=== PATIENT | male | born 1960 | race Caucasian/White ===

== ENCOUNTER 2017-02-11 18:11 | Emergency (ER) | payer OTHER ==
[~2017-02-11] VITALS: Ht 175.3 cm; Wt 59.0 kg
[2017-02-11 18:12] VITALS: BP 158/84; PULSE 103; RESP 18; TEMP 98.9; O2SAT 95
[2017-02-11] MEDS ORDERED: METF1000 PO (20:46)
[2017-02-11] MEDS ORDERED: EMPA1TAB3 PO (20:46)
--- NOTE | 2017-02-11 20:49 | PD ---
HPI Chief Complaint: Skin Problem Time Seen by Provider: 20:44 Travel History International Travel<30 days: No Contact w/Intl Traveler<30days: No Traveled to known affect area: No History of Present Illness HPI 56-year-old male who is left handed presents to emergency department for evaluation of a wound to the dorsal aspect of his left hand. Patient states that he cut this on air-conditioning condenser 3 days ago. It was initially like a puncture wound. It developed redness surrounding it. He states over the course of the last 3 days he has noticed the redness increasing and now has streaking on his left forearm. Denies fever or chills. Denies any significant pain associated with it. He is uncertain of his tetanus status. He is diabetic. He has no other symptoms to report. PFSH Past Medical History COPD: Yes Diabetes: Yes Patient Takes Glucophage: Yes Diminished Hearing: No Past Surgical History Surgical History: No Previous Surgery Social History Alcohol Use: No Tobacco Use: Yes Substance Use: No Allergies-Medications (Allergen,Severity, Reaction): Coded Allergies: No Known Allergies (Verified Allergy, Unknown, 02/11/17) Reported Meds & Prescriptions Reported Meds & Active Scripts Active Keflex (Cephalexin) 500 Mg Capsule 500 Mg PO Q8H 10 Days Bactrim DS (Sulfamethoxazole-Trimethoprim) 800-160 Mg Tab 1 Tab PO BID Reported Jardiance (Empagliflozin) 25 Mg Tab 25 Mg PO DAILY Metformin (Metformin HCl) 1,000 Mg Tab 1,000 Mg PO BIDPC Review of Systems Except as stated in HPI: all other systems reviewed are Neg Physical Exam Narrative GENERAL: Well-nourished, well-developed palpation in no acute distress. SKIN: Focused skin assessment warm/dry. 1 cm in diameter wound on the dorsal aspect of the right hand. This is surrounded by 8 cm in diameter erythema. The fingers are not included. There is no significant edema. There is red streaking up to the mid left forearm. No axilla lymphadenopathy. HEAD: Normocephalic. EYES: No scleral icterus. No injection or drainage. NECK: Supple, trachea midline. No JVD or lymphadenopathy. CARDIOVASCULAR: Regular rate and rhythm without murmurs, gallops, or rubs. RESPIRATORY: Breath sounds equal bilaterally. No accessory muscle use. MUSCULOSKELETAL: No cyanosis, or edema. BACK: Nontender without obvious deformity. No CVA tenderness. Data Data Last Documented VS Vital Signs Date Time Temp Pulse Resp B/P (MAP) Pulse Ox O2 Delivery O2 Flow Rate FiO2 02/11/17 21:33 02/11/17 18:12 98.9 103 18 95 Room Air Orders Orders Tetanus/Diphtheria Tox Adult (Tetanus/Di (02/11/17 21:00) Sulfamet-Trimeth Ds 800-160 Mg (Bactrim (02/11/17 21:00) Cephalexin (Keflex) (02/11/17 21:00) Ed Discharge Order (02/11/17 21:25) [facility] Medical Decision Making Medical Screen Exam Complete: Yes Emergency Medical Condition: Yes Medical Record Reviewed: Yes Differential Diagnosis Cellulitis versus abscess versus foreign body versus lymphangitis Narrative Course 56-year-old male presents to emergency department for evaluation of left dorsal hand wound with associated erythema streaking to the left forearm. This is a worsening over last 3 days. Patient appears well. He is he febrile. Extremity is neurovascularly intact. He'll be updated on his tetanus vaccination and started on oral antibiotics outpatient. Patient was signed out to my attending physician for final disposition. He is encouraged follow-up the primary care provider and return immediately with any acute worsening of symptoms. Diagnosis Primary Impression: Cellulitis and abscess of hand, except fingers and thumb Scripts Cephalexin (Keflex) 500 Mg Capsule 500 MG PO Q8H for Infection for 10 Days, #30 CAP 0 Refills Prov: Laurent Hayes MD 02/11/17 Sulfamethoxazole-Trimethoprim (Bactrim DS) 800-160 Mg Tab 1 TAB PO BID for Infection, #20 TAB 0 Refills Prov: Laurent Hayes MD 02/11/17 Condition: Stable Jolanta ChewP Feb 11, 2017 20:49
[2017-02-11] MEDS ORDERED: CEPHALEXIN MONOHYDRATE 500 MG CAP PO ONE (21:00)
[2017-02-11] MEDS ORDERED: SULFAMETHOXAZOLE-TRIMETHOPRIM DS 800-160 MG TAB PO ONE (21:00)
[2017-02-11] MEDS ORDERED: TETANUS/DIPHTHERIA TOXOID ADULT 0.5 ML VIAL IM ONE (21:00)
[2017-02-11] MEDS ORDERED: BACT800T5 PO (21:23)
[2017-02-11] MEDS ORDERED: CEPH-460 PO (21:23)
--- NOTE | 2017-02-11 21:25 | PD ---
Data Data Last Documented VS Vital Signs Date Time Temp Pulse Resp B/P (MAP) Pulse Ox O2 Delivery O2 Flow Rate FiO2 02/11/17 18:12 98.9 103 18 158/84 (108) 95 Room Air Orders Orders Tetanus/Diphtheria Tox Adult (Tetanus/Di (02/11/17 21:00) Sulfamet-Trimeth Ds 800-160 Mg (Bactrim (02/11/17 21:00) Cephalexin (Keflex) (02/11/17 21:00) Hand, Complete ([id number]) (02/11/17 ) MDM Medical Record Reviewed: Yes Supervised Visit with MARLENA: Yes Narrative Course I, Dr. Hayes, have reviewed the advance practice practitioner's documentation and am in agreement, met with the patient face to face, made the diagnosis, and the medical decision making was done by me. *My assessment and Findings: The patient has cellulitis with lymphangitis on the right hand after installing older commissioners. He received a tetanus booster here. Injury happened about 3 days ago. Return precautions discussed. Patient agreeable with plan. Diagnosis Primary Impression: Cellulitis Qualified Codes: L03.113 - Cellulitis of right upper limb Additional Impression: Lymphangitis Med/Other Pt SpecificInfo: Prescription(s) given Scripts Cephalexin (Keflex) 500 Mg Capsule 500 MG PO Q8H for Infection for 10 Days, #30 CAP 0 Refills Prov: Laurent Hayes MD 02/11/17 Sulfamethoxazole-Trimethoprim (Bactrim DS) 800-160 Mg Tab 1 TAB PO BID for Infection, #20 TAB 0 Refills Prov: Laurent Hayes MD 02/11/17 Disposition: 01 DISCHARGE HOME Condition: Stable Laurent Hayes MD Feb 11, 2017 21:25
== END 2017-02-11 21:41 | disposition home or self-care (01) ==
LOC: NEPD 18:11
DX: L02.512 Cutaneous abscess of left hand (principal); E11.9 Type 2 diabetes mellitus without complications; Z23 Encounter for immunization; Z72.0 Tobacco use; Z79.84 Long term (current) use of oral hypoglycemic drugs
CPT/HCPCS: 90471; 90714

== ENCOUNTER 2017-09-09 22:57 | Inpatient (IN) ==
[2017-09-10] MEDS ORDERED: Morphine Inj 4 MG/ML Vial IV.PUSH ONE ×2 (02:05→05:54)
[2017-09-10] MEDS ORDERED: Sod Chloride 0.9% Inj 1,000 ML IV.SIG ONE ×2 (02:05→03:35)
[2017-09-10 02:36] LABS: Baso % (Auto) 0.3 % (0.0-2.0); Hematocrit 41.6 % (39.0-51.0); Hemoglobin 13.5 gm/dL (13.0-17.0); Lymph # (Auto) 0.3 th/mm3 (1.0-4.8); Lymph % (Auto) 2.3 % (9.0-44.0); Mean Corpuscular HGB Conc 32.5 % (32.0-36.0); Mean Corpuscular Volume 92.1 fL (80.0-100.0); Mean Platelet Volume 6.7 fL (7.0-11.0); Mono # (Auto) 0.8 th/mm3 (0.0-0.9); Neut # (Auto) 12.8 th/mm3 (1.8-7.7); Neut % (Auto) 91.4 % (16.0-70.0); Platelet Count 378 th/mm3 (150-450); Red Blood Count 4.51 mil/mm3 (4.50-5.90); Red Cell Distribution Width 14.8 % (11.6-17.2)
[2017-09-10 02:53] LABS: Alanine Aminotransferase 152 U/L (12-78); Albumin 2.6 g/dL (3.4-5.0); Anion Gap 16 meq/L (5-15); Aspartate Aminotransferase 208 U/L (15-37); Blood Urea Nitrogen 18 mg/dL (7-18); Calcium 9.9 mg/dL (8.5-10.1); Carbon Dioxide 24.4 meq/L (21.0-32.0); Chloride 89 meq/L (98-107); Glomerular Filtration Rate 81 mL/min (>89); Lipase 489 U/L (73-393); Potassium 4.5 meq/L (3.5-5.1); Sodium 129 meq/L (136-145)
--- NOTE | 2017-09-10 03:01 | XR ---
EXAM DATE: 09/10/2017 2:40 AM EDT AGE/SEX: 57 years / Male INDICATIONS: Abdominal pain. Distention. Constipation. CLINICAL DATA: This is the patient's initial encounter. Patient reports that signs and symptoms have been present for 4 - 6 days and indicates a pain score of 8/10. MEDICAL/SURGICAL HISTORY: None. None. COMPARISON: No prior exams available for comparison. FINDINGS: Supine and upright views of the abdomen were performed. The abdominal bowel gas pattern is normal. No air-fluid levels are seen. No abnormal masses, calcifications, or organomegaly is seen. The visualiz ed lower lungs are clear. No evidence of free intraperitoneal gas. The osseous structures are unremar kable. CONCLUSION: No dilated loops of small or large bowel. Electronically signed by: Rufus Salgado MD 09/10/2017 2:59 AM EDT
[2017-09-10 03:18] LABS: Alkaline Phosphatase 472 U/L (45-117); Total Protein 8.1 g/dL (6.4-8.2)
[2017-09-10 03:22] LABS: Glucose,Random 555 mg/dL (74-106)
[2017-09-10 03:25] LABS: Bilirubin,Urine Negative (Negative); Clarity,Urine Clear (Clear); Color,Urine Straw (Yellw/Straw); Glucose,Urine (UA) 500 or Greater mg/dL (Negative); Leukocyte Esterase,Urine Negative (Negative); Nitrite,Urine Negative (Negative); Specific Gravity,Urine 1.031 (1.002-1.035)
[2017-09-10 03:30] LABS: Lymphocytes 3 % (9-44); Metamyelocytes 2 % (0-1); Monocytes 2 % (0-8); Myelocytes 1 % (0-0); Platelet Estimate Normal (Normal); Platelet Morphology Normal (Normal)
[2017-09-10 03:31] LABS: Toxic Granulation 1+; Toxic Vacuolation Present
--- NOTE | 2017-09-10 05:30 | CT ---
EXAM DATE: 09/10/2017 4:19 AM EDT AGE/SEX: 57 years / Male INDICATIONS: Abdominal pain. CLINICAL DATA: This is the patient's initial encounter. Patient reports that signs and symptoms have been present for 1 day and indicates a pain score of 6/10. MEDICAL/SURGICAL HISTORY: Diabetes. None. ORAL CONTRAST: No oral contrast ingested. RADIATION DOSE: 6.64 CTDI (mGy) COMPARISON: [facility] – [place], ABDOMEN 2V FLAT & UPRIGHT, 09/10/2017. . TECHNIQUE: Multiple contiguous axial images were obtained through the abdomen and pelvis following b olus infusion of 91 ml Omnipaque 350 (iohexol) nonionic water-soluble contrast as a single exam dos e. No oral contrast ingested. Using automated exposure control and adjustment of the mA and/or kV ac cording to patient size, radiation dose was kept as low as reasonably achievable to obtain optimal di agnostic quality images. DICOM format image data is available electronically for review and comparis on. FINDINGS: Ascites: Significant amount of ascites throughout the abdomen and pelvis, moderate volume, without di splacement of loops of bowel. Lower Lungs: The visualized lower lungs are clear. There are ring-enhancing masses anterior to the he art measuring 3.4 x 2.3 cm and in the posterior mediastinum between the inferior vena cava and esopha salvador at the level of the diaphragm measuring 2.4 cm. Liver: Abnormal. There is an ill-defined hypodense mass in the superior right lobe of the liver measu ring 8.9 cm. Low density lesion in the periportal region measures 8 cm, and there is a geographic are a of decreased attenuation involving most of the liver tip measuring in excess of 8.8 cm. Low density lesion in the quadrate lobe measures 9 mm. No calcified gallstones. Spleen: Homogeneous density without enlargement. Pancreas: Unremarkable without mass or calcification. Kidneys: Normal in size and shape. No evidence of mass or hydronephrosis. Adrenal Glands: Unremarkable. Aorta: The aorta and proximal iliac vessels are grossly unremarkable without aneurysmal dilation. Bowel/Mesentery: The bowel loops are grossly unremarkable. The cecum and sigmoid colon have a normal configuration. Abdominal Wall: Intact. Retroperitoneum: There is a ring-enhancing mass in the upper abdomen retroperitoneum superior to the celiac artery measuring 3.5 x 2.5 cm. Bladder: Contours are smooth. Reproductive Organs: No abnormal masses or calcifications seen. Inguinal: The inguinal region is unremarkable without evidence of adenopathy. Bony Structures: No lytic or destructive lesions seen.. CONCLUSION: 1. Abnormal examination suspicious for malignancy demonstrating significant ascites in the abdomen a nd pelvis, multiple irregular margin hypodense lesions in the liver measuring up to 9 cm in size, and enlarged ring-enhancing katie masses adjacent to the celiac artery, anterior to the heart and adjace nt to the inferior esophagus. Electronically signed by: Rufus Salgado MD 09/10/2017 5:28 AM EDT
[2017-09-10 06:21] LABS: Activated Partial Thrombo Time 23.8 sec (24.3-30.1); INR 1.1 Ratio; Prothrombin Time 10.9 sec (9.8-11.6)
--- NOTE | 2017-09-10 07:37 | ED ---
HPI General Chief Complaint: Abdominal Pain Stated Complaint: Abd pain Time Seen by Provider: 09/10/17 02:04 Source: patient Mode of arrival: ambulatory Limitations: no limitations History of Present Illness HPI narrative: Patient is a 57-year-old male, past medical history significant for hepatitis C for which he took Harvoni, who presents with complaint of abdominal pain distention and constipation for the last several days to week. No fever nor chills. No changes with urination. No chest pain or dyspnea. MD complaint: abdominal pain Onset (ago): day(s) Pain Consistency: constant Location: diffuse Severity: moderate Quality: cramping Radiation: none Relieving factors: nothing Exacerbating factors: nothing Associated symptoms: constipation Related Data Home Medications Medication Instructions Recorded Confirmed empagliflozin-metformin [Synjardy] 1 tab PO BID 09/10/17 09/10/17 Allergies Allergy/AdvReac Type Severity Reaction Status Date / Time No Known Allergies Allergy Unknown Uncoded 02/11/17 20:46 Review of Systems Except as stated in HPI: all other systems reviewed are negative Constitutional Denies chills and Denies fever(s) Eyes Denies blurry vision ENT Denies nasal congestion Cardiovascular Denies chest pain Respiratory Denies dyspnea Gastrointestinal Reports abdominal pain, Reports bloating and Reports constipation Genitourinary Denies flank pain Musculoskeletal Denies back pain Integumentary/Breasts Denies rash [facility] Medical History Medical History Diabetes (Acute) Hepatitis C (Acute) Social History Social History Substance History: No History of Abuse Smoking Status: Never smoker How Often Do You Have a Drink Containing Alcohol: Never Recent Travel in [facility] within the Last 8 Weeks: No Recent Out of Country Travel within the Last 8 Weeks: No Immunization History Tetanus Immunization: >5 Years Hx Influenza Vaccine This Season: Yes Exam Narrative Exam Narrative: GENERAL: Chronically ill-appearing male in no acute distress SKIN: Focused skin assessment warm/dry. HEAD: Atraumatic. Normocephalic. EYES: Pupils equal and round. No scleral icterus. No injection or drainage. ENT: No nasal bleeding or discharge. Mucous membranes pink and dry. NECK: Trachea midline. No JVD. CARDIOVASCULAR: Regular rate and rhythm. No murmur appreciated. Intact and equal peripheral pulses. RESPIRATORY: No accessory muscle use. Clear to auscultation. Breath sounds equal bilaterally. GASTROINTESTINAL: Abdomen soft, diffuse tenderness throughout. Marked distention. MUSCULOSKELETAL: No obvious deformities. No clubbing. No cyanosis. No edema. NEUROLOGICAL: Awake and alert. No obvious cranial nerve deficits. Motor grossly within normal limits. Normal speech. PSYCHIATRIC: Appropriate mood and affect; insight and judgment normal. Course Initial Documented Vital Signs Temperature 97.2 F L 09/10/17 00:16 Pulse Rate 94 H 09/10/17 00:16 Respiratory Rate 16 09/10/17 00:16 Blood Pressure 158/82 H 09/10/17 00:16 Pulse Oximetry 98 09/10/17 00:16 Last Documented Vital Signs Temperature 98.1 F 09/10/17 07:01 Pulse Rate 99 H 09/10/17 07:01 Respiratory Rate 20 09/10/17 07:01 Blood Pressure 142/90 H 09/10/17 07:01 Pulse Oximetry 96 09/10/17 07:01 Medical Decision Making MDM Narrative Medical decision making narrative: Patient is a 57-year-old male who presents with complaint of abdominal pain, distention and constipation. He appears chronically ill but is hemodynamically stable while in the emergency department. Labs revealed hypo-natremia and hyperglycemia on arrival. He was given 2 L of normal saline after which his glucose markedly improved. Imaging revealed moderate ascites with masses suspicious for malignancy within the liver. Spoke to Dr. Martínez, the hospitalist c iron worker, who recommended the patient be admitted to Dr. Raman where he will obtain further workup and management. Differential Diagnosis Differential Diagnosis: Differential diagnosis includes but is not limited to bowel obstruction, infection, cancer, cirrhosis, SBP. Medical Records Medical records reviewed: Yes I reviewed the patient's medical records. Lab Data Lab results reviewed: Yes I reviewed the patient's lab results. Lab results narrative: Labs reveal hyponatremia and hyperglycemia. Result diagrams: 09/10/17 02:22 09/10/17 02:22 Lab Results 09/10/17 09/10/17 09/10/17 Range/Units 02:22 02:22 03:00 WBC 14.0 H (4.0-11.0) th/mm3 RBC 4.51 (4.50-5.90) mil/mm3 Hgb 13.5 (13.0-17.0) gm/dL Hct 41.6 (39.0-51.0) % MCV 92.1 (80.0-100.0) fL MCH 30.0 (27.0-34.0) pg MCHC 32.5 (32.0-36.0) % RDW 14.8 (11.6-17.2) % Plt Count 378 (150-450) th/mm3 MPV 6.7 L (7.0-11.0) fL Prelim Diff (Auto) Slide review pending Neut % (Auto) 91.4 H (16.0-70.0) % Lymph % (Auto) 2.3 L (9.0-44.0) % [place] % (Auto) 6.0 (0.0-8.0) % Eos % (Auto) 0.0 (0.0-4.0) % Baso % (Auto) 0.3 (0.0-2.0) % Neut # (Auto) 12.8 H (1.8-7.7) th/mm3 Lymph # (Auto) 0.3 L (1.0-4.8) th/mm3 [place] # (Auto) 0.8 (0.0-0.9) th/mm3 Eos # (Auto) 0.0 (0.0-0.4) th/mm3 Baso # (Auto) 0.0 (0.0-0.2) th/mm3 WBC Differential Manual diff final Seg Neuts % (Manual) 78 H (16-70) % Band Neuts % (Manual) 14 H (0-6) % Lymphocytes % (Manual) 3 L (9-44) % Monocytes % (Manual) 2 (0-8) % Metamyelocytes % (Man) 2 H (0-1) % Myelocytes % (Man) 1 H (0-0) % Abs Neuts (Manual) 13.3 H (1.8-7.7) th/mm3 Differential Comment . Toxic Granulation 1+ H (None) Toxic Vacuolation Present H (None) Platelet Estimate Normal (Normal) Platelet Morphology Normal (Normal) PT (9.8-11.6) sec INR Ratio APTT (24.3-30.1) sec Sodium 129 L (136-145) meq/L Potassium 4.5 (3.5-5.1) meq/L Chloride 89 L (98-107) meq/L Carbon Dioxide 24.4 (21.0-32.0) meq/L Anion Gap 16 H (5-15) meq/L BUN 18 (7-18) mg/dL Creatinine 0.95 (0.60-1.30) mg/dL Estimated GFR 81 L (>89) mL/min POC Glucose (68-110) mg/dl Random Glucose 555 H* (74-106) mg/dL Calcium 9.9 (8.5-10.1) mg/dL Total Bilirubin 0.9 (0.2-1.0) mg/dL AST 208 H (15-37) U/L ALT 152 H (12-78) U/L Alkaline Phosphatase 472 H (45-117) U/L Total Protein 8.1 (6.4-8.2) g/dL Albumin 2.6 L (3.4-5.0) g/dL Lipase 489 H (73-393) U/L Urine Color Straw (Yellw/Straw) Urine Clarity Clear (Clear) Urine pH 6.0 (5.0-8.5) Ur Specific [place] 1.031 (1.002-1.035) Urine Protein Negative (Neg-Trace) mg/dL Urine Glucose (UA) 500 or greater (Negative) mg/dL Urine Ketones 20 (Negative) mg/dL Urine Occult Blood Negative (Negative) Urine Nitrate Negative (Negative) Urine Bilirubin Negative (Negative) Urine Urobilinogen Less than 2 (Less than 2) mg/dL Ur Leukocyte Esterase Negative (Negative) Urine RBC 1 (0-3) /hpf Urine WBC 1 (0-5) /hpf Micro UA Comment Culture not ind Urine Culture Comments Culture not ind 09/10/17 09/10/17 Range/Units 04:45 06:00 WBC (4.0-11.0) th/mm3 RBC (4.50-5.90) mil/mm3 Hgb (13.0-17.0) gm/dL Hct (39.0-51.0) % MCV (80.0-100.0) fL MCH (27.0-34.0) pg MCHC (32.0-36.0) % RDW (11.6-17.2) % Plt Count (150-450) th/mm3 MPV (7.0-11.0) fL Prelim Diff (Auto) Neut % (Auto) (16.0-70.0) % Lymph % (Auto) (9.0-44.0) % [place] % (Auto) (0.0-8.0) % Eos % (Auto) (0.0-4.0) % Baso % (Auto) (0.0-2.0) % Neut # (Auto) (1.8-7.7) th/mm3 Lymph # (Auto) (1.0-4.8) th/mm3 [place] # (Auto) (0.0-0.9) th/mm3 Eos # (Auto) (0.0-0.4) th/mm3 Baso # (Auto) (0.0-0.2) th/mm3 WBC Differential Seg Neuts % (Manual) (16-70) % Band Neuts % (Manual) (0-6) % Lymphocytes % (Manual) (9-44) % Monocytes % (Manual) (0-8) % Metamyelocytes % (Man) (0-1) % Myelocytes % (Man) (0-0) % Abs Neuts (Manual) (1.8-7.7) th/mm3 Differential Comment Toxic Granulation (None) Toxic Vacuolation (None) Platelet Estimate (Normal) Platelet Morphology (Normal) PT 10.9 (9.8-11.6) sec INR 1.1 Ratio APTT 23.8 L (24.3-30.1) sec Sodium (136-145) meq/L Potassium (3.5-5.1) meq/L Chloride (98-107) meq/L Carbon Dioxide (21.0-32.0) meq/L Anion Gap (5-15) meq/L BUN (7-18) mg/dL Creatinine (0.60-1.30) mg/dL Estimated GFR (>89) mL/min POC Glucose 233 H (68-110) mg/dl Random Glucose (74-106) mg/dL Calcium (8.5-10.1) mg/dL Total Bilirubin (0.2-1.0) mg/dL AST (15-37) U/L ALT (12-78) U/L Alkaline Phosphatase (45-117) U/L Total Protein (6.4-8.2) g/dL Albumin (3.4-5.0) g/dL Lipase (73-393) U/L Urine Color (Yellw/Straw) Urine Clarity (Clear) Urine pH (5.0-8.5) Ur Specific [place] (1.002-1.035) Urine Protein (Neg-Trace) mg/dL Urine Glucose (UA) (Negative) mg/dL Urine Ketones (Negative) mg/dL Urine Occult Blood (Negative) Urine Nitrate (Negative) Urine Bilirubin (Negative) Urine Urobilinogen (Less than 2) mg/dL Ur Leukocyte Esterase (Negative) Urine RBC (0-3) /hpf Urine WBC (0-5) /hpf Micro UA Comment Urine Culture Comments Imaging Data Attestation: I personally reviewed and interpreted this imaging study as follows : Radiologist's impression: Abdomen X-Ray 09/10/17 02:05 CONCLUSION: No dilated loops of small or large bowel. Abdomen/Pelvis CT 09/10/17 02:05 CONCLUSION: 1. 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 Discharge Plan Discharge Disposition Patient Disposition: 30 Still Patient Discharge Condition Condition: Fair Discharge Details Diagnosis: Liver mass, Ascites Physicians Team ED Provider: Patria Irwin Primary Care Provider: Shama Bueno Attending Provider: Hugh Raman Status ED Status: Admitted Patient
[2017-09-10] MEDS ORDERED: Bisacodyl 10 MG Supp RECTAL PRN (09:24)
--- NOTE | 2017-09-10 09:39 | P.HP ---
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 Patient reports he has previously been treated with Harvoni for his hepatitis C by Dr. Honeycutt about 1 year ago. Patient presents to the emergency department with complaints of abdominal distention and constipation for approximately 3 weeks. Patient reports that he has had abd distention that comes and goes ax 3 weeks along with constipation. Patient report that he has had hard ball like stool intermittently over the past 3 weeks. Initially this constipation was relieved by prune juice but this stopped working. He proceeded to the ER for further evaluation and treatment. Patient also indorses intermitted nausea, but no vomiting. Patient denies fevers chills vomiting chest pain or shortness of breath. Abdomen X-Ray 09/10/17 02:05 CONCLUSION: No dilated loops of small or large bowel. Abdomen/Pelvis CT 09/10/17 02:05 CONCLUSION: 1. Abnormal examination suspicious for malignancy demonstrating significant ascites in the abdomen and pelvis, multiple irregular margin hypodense lesions in the liver measuring up to 9 cm in size, and enlarged ring-enhancing aktie masses adjacent to the celiac artery, anterior to the heart and adjacent to the inferior esophagus. 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 Honeycutt 1 year ago Past surgical history: Patient denies prior surgical history Family medical history: patient was adopted does not known [facility] Social history: Patient denies EtOH use at this time quit drinking 19 year ago tobacco use 1PPD, on and off for, "many year," patient unable to quantify denies illicit drug use - Diagnosis (1) Liver mass (2) Ascites Inpatient Certification: I certify that the inpatient services were ordered in accordance with Medicare regulations governing the order. This includes certification that hospital inpatient services are reasonable and necessary and in the case of services not specified as inpatient-only under 42 CFR 419.22(n), that they are appropriately provided as inpatient services in accordance to with the 2-midnight benchmark under 43 CFR 412.3(e) Estimated Total Length of Stay (Days): 3 Plans for Post Hospital Care: Not yet determined Review of Systems All other systems reviewed negative except as stated in HPI PMFSH - History History Provided By: Patient - Medical History Medical History: Medical History (Last Reviewed 09/10/17 @ 07:34 by Patria Irwin MD) Diabetes Hepatitis C - Tobacco History Smoking Status: Never smoker - Alcohol History How Often Do You Have a Drink Containing Alcohol: Never - Substance Use History Substance History: No History of Abuse - Travel History Recent Travel in the [place] Within the Last 8 Weeks: No Recent Travel Out of the Country Within the Last 8 Weeks: No - Immunization History Tetanus Immunization: >5 Years Hx Influenza Vaccine This Season: Yes Medications and Allergies Allergies Allergy/AdvReac Type Severity Reaction Status Date / Time No Known Allergies Allergy Verified 09/12/17 11:32 Home Medications Medication Instructions Recorded Confirmed Type umeclidinium-vilanterol [Anoro 1 inh INHALATION Q24H 09/10/17 09/10/17 History Ellipta] Active Medications: Active Medications Sodium Chloride (Ns Flush) 2 ml IV.FLUSH PRN PRN PRN Reason: FLUSH AFTER USING IV ACCESS Last Admin: 09/10/17 03:46 Dose: 2 ml Exam Vital signs: Vital Signs 09/10/17 00:16 09/10/17 02:33 09/10/17 05:01 Temperature 97.2 F L Pulse Rate 94 H 96 H Respiratory Rate 16 18 20 Blood Pressure 158/82 H 165/96 H 160/92 H Pulse Oximetry 98 95 95 09/10/17 06:34 09/10/17 07:00 09/10/17 07:01 Temperature 98.1 F Pulse Rate 99 H Respiratory Rate 18 20 Blood Pressure 142/90 H Pulse Oximetry 95 96 09/10/17 08:10 Temperature 97.8 F Pulse Rate 96 H Respiratory Rate 18 Blood Pressure 138/86 Pulse Oximetry 99 Intake & Output 09/09/17 09/10/17 09/10/17 18:59 06:59 18:59 Intake Total 1999 Balance 1999 Weight 85 kg Intake: IV 1999 NS Inj 1,000 ML @ Wide Open IV. 1000 / 1000 SIG BOLUS ONE Rx#:[id number] Other: Date of Last Bowel Movement 09/08/17 Narrative: GENERAL: This is a thin chronically ill-appearing 57-year-old male patient who appears older than stated age, in no apparent distress. CARDIOVASCULAR: Regular rate and rhythm RESPIRATORY: Clear to auscultation. Breath sounds equal bilaterally. GASTROINTESTINAL: Abdomen soft, non-tender, distended. hypoactive bowel sounds MUSCULOSKELETAL: Extremities without clubbing, cyanosis, or edema. NEURO: Alert & Oriented x4 to person, place, time, situation. Moves all ext x4 Results - Labs CBC & Chem 7: 09/10/17 11:48 09/10/17 02:22 Labs: Laboratory Results - last 24 hr 09/10/17 09/10/17 09/10/17 02:22 02:22 03:00 WBC 14.0 H RBC 4.51 Hgb 13.5 Hct 41.6 MCV 92.1 MCH 30.0 MCHC 32.5 RDW 14.8 Plt Count 378 MPV 6.7 L Prelim Diff (Auto) Slide review pending Neut % (Auto) 91.4 H Lymph % (Auto) 2.3 L Kimble % (Auto) 6.0 Eos % (Auto) 0.0 Baso % (Auto) 0.3 Neut # (Auto) 12.8 H Lymph # (Auto) 0.3 L Kimble # (Auto) 0.8 Eos # (Auto) 0.0 Baso # (Auto) 0.0 WBC Differential Manual diff final Seg Neuts % (Manual) 78 H Band Neuts % (Manual) 14 H Lymphocytes % (Manual) 3 L Monocytes % (Manual) 2 Metamyelocytes % (Man) 2 H Myelocytes % (Man) 1 H Abs Neuts (Manual) 13.3 H Differential Comment . Toxic Granulation 1+ H Toxic Vacuolation Present H Platelet Estimate Normal Platelet Morphology Normal PT INR APTT Sodium 129 L Potassium 4.5 Chloride 89 L Carbon Dioxide 24.4 Anion Gap 16 H BUN 18 Creatinine 0.95 Estimated GFR 81 L POC Glucose Random Glucose 555 H* Calcium 9.9 Total Bilirubin 0.9 AST 208 H ALT 152 H Alkaline Phosphatase 472 H Total Protein 8.1 Albumin 2.6 L Lipase 489 H Urine Color Straw Urine Clarity Clear Urine pH 6.0 Ur Specific Goodwin 1.031 Urine Protein Negative Urine Glucose (UA) 500 or greater Urine Ketones 20 Urine Occult Blood Negative Urine Nitrate Negative Urine Bilirubin Negative Urine Urobilinogen Less than 2 Ur Leukocyte Esterase Negative Urine RBC 1 Urine WBC 1 Micro UA Comment Culture not ind Urine Culture Comments Culture not ind 09/10/17 09/10/17 04:45 06:00 WBC RBC Hgb Hct MCV MCH MCHC RDW Plt Count MPV Prelim Diff (Auto) Neut % (Auto) Lymph % (Auto) Kimble % (Auto) Eos % (Auto) Baso % (Auto) Neut # (Auto) Lymph # (Auto) Kimble # (Auto) Eos # (Auto) Baso # (Auto) WBC Differential Seg Neuts % (Manual) Band Neuts % (Manual) Lymphocytes % (Manual) Monocytes % (Manual) Metamyelocytes % (Man) Myelocytes % (Man) Abs Neuts (Manual) Differential Comment Toxic Granulation Toxic Vacuolation Platelet Estimate Platelet Morphology PT 10.9 INR 1.1 APTT 23.8 L Sodium Potassium Chloride Carbon Dioxide Anion Gap BUN Creatinine Estimated GFR POC Glucose 233 H Random Glucose Calcium Total Bilirubin AST ALT Alkaline Phosphatase Total Protein Albumin Lipase Urine Color Urine Clarity Urine pH Ur Specific Goodwin Urine Protein Urine Glucose (UA) Urine Ketones Urine Occult Blood Urine Nitrate Urine Bilirubin Urine Urobilinogen Ur Leukocyte Esterase Urine RBC Urine WBC Micro UA Comment Urine Culture Comments - Imaging Impressions Abdomen X-Ray 09/10/17 02:05 CONCLUSION: No dilated loops of small or large bowel. Abdomen/Pelvis CT 09/10/17 02:05 CONCLUSION: 1. 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 Caprini VTE Risk Assessment Caprini VTE Risk Assessment: No/Low Risk (score <= 1) Caprini Risk Assessment Model: Point Value = 1 Point Value = 2 Point Value = 3 Point Value = 5 Age 41-60 Minor surgery BMI > 25 kg/m2 Swollen legs Varicose veins or History of unexplained or recurrent spontaneous Oral contraceptives or hormone replacement Sepsis (< 1 month) Serious lung disease, including pneumonia (< 1 month) Abnormal pulmonary function Acute myocardial infarction Congestive heart failure (< 1 month) History of inflammatory bowel disease Medical patient at bed rest Age 61-74 Arthroscopic surgery Major open surgery (> 45 min) Laparoscopic surgery (> 45 min) Malignancy Confined to bed (> 72 hours) Immobilizing plaster cast Central venous access Age >= 75 History of VTE Family history of VTE Factor V Leiden Prothrombin [id number] Lupus anticoagulant Anticardiolipin antibodies Elevated serum homocysteine Heparin-induced thrombocytopenia Other congenital or acquired thrombophilia Stroke (< 1 month) Elective arthroplasty Hip, pelvis, or leg fracture Acute spinal cord injury (< 1 month) Prophylaxis Regimen: Total Risk Factor Score Risk Level Prophylaxis Regimen 0-1 Low Early ambulation 2 Moderate Order ONE of the following: *Sequential Compression Device (SCD) *Heparin 5000 units SQ BID 3-4 Higher Order ONE of the following medications: *Heparin 5000 units SQ TID *Enoxaparin/Lovenox 40 mg SQ daily (WT < 150 kg, CrCl > 30 mL/min) *Enoxaparin/Lovenox 30 mg SQ daily (WT < 150 kg, CrCl > 10-29 mL/min) *Enoxaparin/Lovenox 30 mg SQ BID (WT < 150 kg, CrCl > 30 mL/min) AND/OR *Sequential Compression Device (SCD) 5 or more Highest Order ONE of the following medications: *Heparin 5000 units SQ TID (Preferred with Epidurals) *Enoxaparin/Lovenox 40 mg SQ daily (WT < 150 kg, CrCl > 30 mL/min) *Enoxaparin/Lovenox 30 mg SQ daily (WT < 150 kg, CrCl > 10-29 mL/min) *Enoxaparin/Lovenox 30 mg SQ BID (WT < 150 kg, CrCl > 30 mL/min) AND *Sequential Compression Device (SCD) Assessment and Plan - Assessment (1) Liver mass Code(s): R16.0 - Hepatomegaly, not elsewhere classified Status: Acute Plan: This is a 57-year-old male patient with past medical history which includes diabetes mellitus and hepatitis C. Patient reports he has previously been treated with Harvoni for his hepatitis C. Patient presents to the emergency department with complaints of abdominal distention and constipation for approximately 3 weeks. Liver mass Abdominal pain Hepatitis C previously treated with Harvoni KUB reviewed and reveals no dilated loops of small or large bowel CT abdomen pelvis reviewed and reveals abnormal examination suspicious for malignancy demonstrating significant ascites in the abdomen and pelvis, multiple irregular margin hypodense lesions in the liver measuring up to 9 cm in size, and enlarged ring-enhancing nodular masses adjacent to the celiac artery, anterior to the heart and adjacent to the inferior esophagus. Given concern of malignancy we will consult interventional radiology for US guided paracentesis with cytology, patient may also need percutaneous biopsy of the liver CMP reviewed total bilirubin 0.9 AST 208, ALT 152, alkaline phosphatase 472, Unknown baseline PT 10.9, INR 1.1, APTT 23.8 Recheck CMP in a.m. also ammonia level, CA 19-9, AFP, hepatitis profile Consult GI Diabetes mellitus Patient reportedly takes Synjardy 5-1000mg PO BID, blood glucose on arrival to the emergency department was 555 -> improved to 233 after hydration Continue Accu-Cheks before meals at bedtime with sliding scale insulin coverage HA1c Patient is currently n.p.o. Hyponatremia sodium was 129 on admission patient received 1 L fluid bolus will recheck sodium in a.m. 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 This includes certification that hospital inpatient services are reasonable and necessary and in the case of services not specified as inpatient-only under 42 CFR 419.22(n), that they are appropriately provided as inpatient services in accordance to with the 2-midnight benchmark under 43 CFR 412.3(e) [facility] - Medical History Medical History: Medical History (Last Reviewed 09/10/17 @ 07:34 by Patria Irwin MD) Diabetes Hepatitis C Medications and Allergies Active Medications: Active Medications Al Hydroxide/Mg Hydroxide (Milk Of Magnesia Liq) 30 ml PO Q12H PRN PRN Reason: Mild Constipation Last Admin: 09/18/17 21:39 Dose: 30 ml Albuterol (Duoneb Neb (Prn)) 1 ampul NEB Q2HR NEB PRN PRN Reason: SHORTNESS OF BREATH/WHEEZING Last Admin: 09/22/17 20:33 Dose: 1 ampul Bisacodyl (Dulcolax Supp) 10 mg RECTAL DAILY PRN PRN Reason: SEVERE CONSITIPATION Dextrose (D50w Vial) 50 ml IV.PUSH UNSCH PRN PRN Reason: PER HYPOGLYCEMIA PROTOCOL Last Admin: 09/26/17 20:13 Dose: 50 ml Furosemide (Lasix Inj) 20 mg IV.PUSH BID@0900,1800 [facility] Last Admin: 09/27/17 08:21 Dose: 20 mg Glucagon (Glucagon Inj) 1 mg OTHER PRN PRN PRN Reason: for Hypoglycemia Protocol Albumin Human (Flexbumin 25% Inj) 50 mls @ 60 mls/hr IV.SIG BID@ [facility] Last Infusion: 09/27/17 09:40 Dose: Infused Insulin Aspart (Novolog Insulin Correctional Sugar Inj) 0 unit SQ ACHS [facility]; Protocol Last Admin: 09/27/17 08:02 Dose: Not Given Lactulose (Lactulose Liq) 30 ml PO DAILY PRN PRN Reason: MODERATE CONSTIPATION Last Admin: 09/18/17 16:51 Dose: 30 ml Nystatin (Mycostatin Liq) 5 ml SWISH-SWAL QID [facility] Last Admin: 09/27/17 08:22 Dose: 5 ml Ondansetron HCl (Zofran Inj) 4 mg IV.PUSH Q6H PRN PRN Reason: NAUSEA OR VOMITING Last Admin: 09/26/17 21:30 Dose: 4 mg Oxycodone HCl (Roxicodone) 20 mg PO Q4H PRN PRN Reason: Pain 1-10 Last Admin: 09/27/17 08:27 Dose: 20 mg Pantoprazole Sodium (Protonix) 40 mg PO BID [facility] Last Admin: 09/27/17 08:21 Dose: 40 mg Polyethylene Glycol (Miralax) 17 gm PO DAILY [facility] Last Admin: 09/27/17 08:22 Dose: Not Given Pramoxine HCl (Proctofoam) 1 applicatio RECTAL Q6H [facility] Last Admin: 09/27/17 06:00 Dose: Not Given Senna/Docusate Sodium (Starla-Colace) 1 tab PO BID [facility] Last Admin: 09/27/17 08:22 Dose: 1 tab Sodium Chloride (Ns Flush) 2 ml IV.FLUSH PRN PRN PRN Reason: FLUSH AFTER USING IV ACCESS Last Admin: 09/23/17 21:40 Dose: 2 ml Spironolactone (Aldactone) 50 mg PO BID@0900,1800 [facility] Last Admin: 09/27/17 08:21 Dose: 50 mg Temazepam (Restoril) 15 mg PO HS PRN PRN Reason: INSOMNIA Umeclidinium/Vilanterol (Anoro-Ellipta 62.5/25 Mcg Inh) 1 puff INH Q24H [facility] Last Admin: 09/26/17 11:45 Dose: 1 puff Exam Vital signs: Vital Signs 09/26/17 12:00 09/26/17 16:00 09/26/17 19:30 Temperature 97.4 F L 97.2 F L 97.7 F Pulse Rate 100 H 98 H 102 H Respiratory Rate 16 16 16 Blood Pressure 114/66 114/58 L 125/71 Pulse Oximetry 98 100 98 09/26/17 23:45 09/27/17 01:17 09/27/17 03:45 Temperature 98.0 F 98.1 F Pulse Rate 102 H 101 H Respiratory Rate 18 18 18 Blood Pressure 124/76 129/60 Pulse Oximetry 97 97 09/27/17 08:00 Temperature 97.7 F Pulse Rate 105 H Respiratory Rate 19 Blood Pressure 121/72 Pulse Oximetry 98 Intake & Output 09/26/17 09/27/17 09/27/17 18:59 06:59 18:59 Intake Total 1100 / 1100 520 / 520 50 / 50 Output Total 125 / 125 650 / 650 Balance 975 / 975 -130 / -130 50 / 50 Weight 56.8 kg Intake: IV 1100 / 1100 50 / 50 D10W Inj 1,000 ML @ 42 mls/hr 1000 / 1000 IV.CONT .[id number] [facility] Rx#: [id number] Flexbumin 25% Inj 50 ML @ 60 100 / 100 50 / 50 mls/hr IV.SIG BID@08,17 [facility] Rx# :[id number] Oral 520 / 520 Output: Urine 125 / 125 650 / 650 Other: # Voids 1 1 Date of Last Bowel Movement 09/25/17 09/27/17 # Bowel Movements 1 Results - Labs CBC & Chem 7: 09/25/17 12:10 09/26/17 21:02 Labs: Laboratory Results - last 24 hr 09/26/17 09/26/17 09/26/17 12:38 17:02 19:28 POC Glucose 216 H 122 H 54 L Random Glucose 09/26/17 09/26/17 09/26/17 20:10 21:01 21:02 POC Glucose 56 L 128 H Random Glucose 92 D 09/27/17 09/27/17 09/27/17 01:19 05:58 07:45 POC Glucose 109 156 H 162 H Random Glucose Caprini VTE Risk Assessment Caprini Risk Assessment Model: Point Value = 1 Point Value = 2 Point Value = 3 Point Value = 5 Age 41-60 Minor surgery BMI > 25 kg/m2 Swollen legs Varicose veins or History of unexplained or recurrent spontaneous Oral contraceptives or hormone replacement Sepsis (< 1 month) Serious lung disease, including pneumonia (< 1 month) Abnormal pulmonary function Acute myocardial infarction Congestive heart failure (< 1 month) History of inflammatory bowel disease Medical patient at bed rest Age 61-74 Arthroscopic surgery Major open surgery (> 45 min) Laparoscopic surgery (> 45 min) Malignancy Confined to bed (> 72 hours) Immobilizing plaster cast Central venous access Age >= 75 History of VTE Family history of VTE Factor V Leiden Prothrombin [id number] Lupus anticoagulant Anticardiolipin antibodies Elevated serum homocysteine Heparin-induced thrombocytopenia Other congenital or acquired thrombophilia Stroke (< 1 month) Elective arthroplasty Hip, pelvis, or leg fracture Acute spinal cord injury (< 1 month) Prophylaxis Regimen: Total Risk Factor Score Risk Level Prophylaxis Regimen 0-1 Low Early ambulation 2 Moderate Order ONE of the following: *Sequential Compression Device (SCD) *Heparin 5000 units SQ BID 3-4 Higher Order ONE of the following medications: *Heparin 5000 units SQ TID *Enoxaparin/Lovenox 40 mg SQ daily (WT < 150 kg, CrCl > 30 mL/min) *Enoxaparin/Lovenox 30 mg SQ daily (WT < 150 kg, CrCl > 10-29 mL/min) *Enoxaparin/Lovenox 30 mg SQ BID (WT < 150 kg, CrCl > 30 mL/min) AND/OR *Sequential Compression Device (SCD) 5 or more Highest Order ONE of the following medications: *Heparin 5000 units SQ TID (Preferred with Epidurals) *Enoxaparin/Lovenox 40 mg SQ daily (WT < 150 kg, CrCl > 30 mL/min) *Enoxaparin/Lovenox 30 mg SQ daily (WT < 150 kg, CrCl > 10-29 mL/min) *Enoxaparin/Lovenox 30 mg SQ BID (WT < 150 kg, CrCl > 30 mL/min) AND *Sequential Compression Device (SCD) Assessment and Plan - Assessment (1) Liver mass Code(s): R16.0 - Hepatomegaly, not elsewhere classified Status: Acute (2) Ascites Code(s): R18.8 - Other ascites Status: Acute - Attending Attestation Patient examined. Assessment and plan formulated with Angela ANDUJAR I agree with the above. <Angela Johnson W - Last Filed: 09/10/17 12:14> (2) Ascites Qualifiers: Ascites type: other type Qualified Code(s): R18.8 - Other ascites <Hugh Raman - Last Filed: 09/27/17 10:34> (2) Ascites Qualifiers: Ascites type: other type Qualified Code(s): R18.8 - Other ascites
[2017-09-10 12:00] LABS: Hematocrit 38.7 % (39.0-51.0); Hemoglobin 12.6 gm/dL (13.0-17.0); Mean Corpuscular HGB Conc 32.6 % (32.0-36.0); Mean Corpuscular Hemoglobin 29.4 pg (27.0-34.0); Mean Corpuscular Volume 90.1 fL (80.0-100.0); Mean Platelet Volume 6.8 fL (7.0-11.0); Platelet Count 268 th/mm3 (150-450); Red Cell Distribution Width 14.8 % (11.6-17.2); White Blood Count 12.7 th/mm3 (4.0-11.0)
[2017-09-10] MEDS: Umeclindinium 62.5 MCG/Vilanterol 25 MCG Inhaler INH SCH (12:10)
[2017-09-10] MEDS: Insulin NovoLOG Aspart Correctional Sugar Inj SQ SCH ×3 (12:11→20:30)
[2017-09-10 12:13] LABS: Activated Partial Thrombo Time 23.3 sec (24.3-30.1); INR 1.1 Ratio
--- NOTE | 2017-09-10 12:13 | P.CONGI ---
History of Present Illness Consult reason: Abdominal pain, history of hepatitis Chief complaint: New liver mass, new ascites History of Present Illness: This is a thin male who was admitted to the hospital on 09/10/2017 with symptoms of abdominal pain which according to the record had worsened over one week. Patient states initial abdominal pain started approximately 3 weeks ago generalized aching especially in the right upper quadrant. Patient did note some nausea but no obvious vomiting. Patient is also noted some constipation often known which appears to be chronic but states alleviating factors is to eat less food because of the full abdominal sensation. Patient denies any narcotic use and states that he has been taken Aleve as needed more so in the past few weeks secondary to his abdominal pain. Patient does note history of hepatitis and completed Harvoni treatment approximately [address] Honeycutt. Patient states he has been in his usual state of health up until approximately 3 weeks ago. Patient denies any aggregating factors to his abdominal pain. Pain scale over the past week 9 out of 10 and currently still has facial grimace while lying in the bed. Patient denies any shortness of breath at rest but does complain of very dry mouth. Gastroenterology has been consulted to assist with patient's symptoms findings and plan of care. CT scan done on admission did show some suspicion for malignancy with significant ascites in the abdominal and pelvic region with multiple irregular margin hypodense lesions in the liver measuring up to 9 cm in size and enlarged ring- enhancing katie masses adjacent to the celiac artery anterior to the heart and adjacent to the inferior esophagus. Patient denies any previous workup from gastroenterology and denies any previous EGD or colonoscopy. Labs show hemoglobin 13.5, WBC count 1400 leukocytosis unspecified for now. Also noted was PT/INR 1.1, bilirubin 0.9 AST 208, ALT 152, alkaline phosphatase 472, and lipase level 489. <Kindra Russell - Last Filed: 09/10/17 12:16> Review of Systems All other systems reviewed negative except as stated in HPI <Kindra Russell - Last Filed: 09/10/17 12:16> PMFSH - History History Provided By: Patient - Medical History Medical History: Medical History (Last Reviewed 09/10/17 @ 07:34 by Patria Irwin MD) Diabetes Hepatitis C - Tobacco History Smoking Status: Never smoker - Alcohol History How Often Do You Have a Drink Containing Alcohol: Never - Substance Use History Substance History: No History of Abuse - Travel History Recent Travel in the [place] Within the Last 8 Weeks: No Recent Travel Out of the Country Within the Last 8 Weeks: No - Immunization History Tetanus Immunization: >5 Years Hx Influenza Vaccine This Season: Yes <Kindra Russell - Last Filed: 09/10/17 12:16> - Medical History Medical History: Medical History (Last Reviewed 09/10/17 @ 07:34 by Patria Irwin MD) Diabetes Hepatitis C <Kurtis Bynum - Last Filed: 09/10/17 16:15> Medications and Allergies Active Medications: Active Medications Al Hydroxide/Mg Hydroxide (Milk Of Magnesia Liq) 30 ml PO Q12H PRN PRN Reason: Mild Constipation Albuterol (Duoneb Neb (Prn)) 1 ampul NEB Q2HR NEB PRN PRN Reason: SHORTNESS OF BREATH/WHEEZING Bisacodyl (Dulcolax Supp) 10 mg RECTAL DAILY PRN PRN Reason: SEVERE CONSITIPATION Dextrose (D50w Vial) 50 ml IV.PUSH UNSCH PRN PRN Reason: PER HYPOGLYCEMIA PROTOCOL Glucagon (Glucagon Inj) 1 mg OTHER PRN PRN PRN Reason: for Hypoglycemia Protocol Insulin Aspart (Novolog Insulin Correctional Sugar Inj) 0 unit SQ ACHS ALEXYS; Protocol Ondansetron HCl (Zofran Inj) 4 mg IV.PUSH Q6H PRN PRN Reason: NAUSEA OR VOMITING Senna/Docusate Sodium (Starla-Colace) 1 tab PO BID ALEXYS Sodium Chloride (Ns Flush) 2 ml IV.FLUSH PRN PRN PRN Reason: FLUSH AFTER USING IV ACCESS Last Admin: 09/10/17 03:46 Dose: 2 ml Umeclidinium/Vilanterol (Anoro-Ellipta 62.5/25 Mcg Inh) 1 puff INH Q24H ALEXYS <Kindra Russell - Last Filed: 09/10/17 12:16> Active Medications: Active Medications Al Hydroxide/Mg Hydroxide (Milk Of Magnesia Liq) 30 ml PO Q12H PRN PRN Reason: Mild Constipation Albuterol (Duoneb Neb (Prn)) 1 ampul NEB Q2HR NEB PRN PRN Reason: SHORTNESS OF BREATH/WHEEZING Bisacodyl (Dulcolax Supp) 10 mg RECTAL DAILY PRN PRN Reason: SEVERE CONSITIPATION Dextrose (D50w Vial) 50 ml IV.PUSH UNSCH PRN PRN Reason: PER HYPOGLYCEMIA PROTOCOL Glucagon (Glucagon Inj) 1 mg OTHER PRN PRN PRN Reason: for Hypoglycemia Protocol Insulin Aspart (Novolog Insulin Correctional Sugar Inj) 0 unit SQ ACHS ALEXYS; Protocol Last Admin: 09/10/17 12:11 Dose: 10 unit Ondansetron HCl (Zofran Inj) 4 mg IV.PUSH Q6H PRN PRN Reason: NAUSEA OR VOMITING Polyethylene Glycol (Miralax) 17 gm PO DAILY [facility] Last Admin: 09/10/17 12:30 Dose: Not Given Senna/Docusate Sodium (Starla-Colace) 1 tab PO BID [facility] Sodium Chloride (Ns Flush) 2 ml IV.FLUSH PRN PRN PRN Reason: FLUSH AFTER USING IV ACCESS Last Admin: 09/10/17 03:46 Dose: 2 ml Umeclidinium/Vilanterol (Anoro-Ellipta 62.5/25 Mcg Inh) 1 puff INH Q24H [facility] Last Admin: 09/10/17 12:10 Dose: Not Given <Kurtis Bynum - Last Filed: 09/10/17 16:15> Allergies Allergy/AdvReac Type Severity Reaction Status Date / Time No Known Allergies Allergy Unknown Uncoded 02/11/17 20:46 Home Medications Medication Instructions Recorded Confirmed Type empagliflozin-metformin [Synjardy] 1 tab PO BID 09/10/17 09/10/17 History umeclidinium-vilanterol [Anoro 1 inh INHALATION Q24H 09/10/17 09/10/17 History Ellipta] Exam Vital signs: Vital Signs 09/10/17 00:16 09/10/17 02:33 09/10/17 05:01 Temperature 97.2 F L Pulse Rate 94 H 96 H Respiratory Rate 16 18 20 Blood Pressure 158/82 H 165/96 H 160/92 H Pulse Oximetry 98 95 95 09/10/17 06:34 09/10/17 07:00 09/10/17 07:01 Temperature 98.1 F Pulse Rate 99 H Respiratory Rate 18 20 Blood Pressure 142/90 H Pulse Oximetry 95 96 09/10/17 08:00 09/10/17 08:10 Temperature 97.5 F L 97.8 F Pulse Rate 99 H 96 H Respiratory Rate 18 18 Blood Pressure 153/86 H 138/86 Pulse Oximetry 96 99 Intake & Output 09/09/17 09/10/17 09/10/17 18:59 06:59 18:59 Intake Total 1999 Balance 1999 Weight 85 kg 59.6 kg Intake: IV 1999 NS Inj 1,000 ML @ Wide Open IV. 1000 / 1000 SIG BOLUS ONE Rx#:[id number] Other: Date of Last Bowel Movement 09/05/17 Weight On Admission 59.6 kg - Constitutional moderate distress, thin (Except for round abdomen), chronically ill appearing - Routine HEENT Exam Head: Present: normocephalic, atraumatic ENT: Present: mucous membranes dry - Routine Neck Exam Present: supple (Thin) - Routine Respiratory Exam Present: accessory muscle use (Low volumes but no obvious shortness of breath and able to lie flat in the bed) - Routine Cardiovascular Exam Present: S1, S2 - Routine Abdominal Exam Present: soft (Positive fluid wave, round, moderate distention) - Routine Skin Exam Present: intact, pallor - Routine Neurological Exam Present: alert (Answer simple questions) <Kindra Russell - Last Filed: 09/10/17 12:16> Vital signs: Vital Signs 09/10/17 00:16 09/10/17 02:33 09/10/17 05:01 Temperature 97.2 F L Pulse Rate 94 H 96 H Respiratory Rate 16 18 20 Blood Pressure 158/82 H 165/96 H 160/92 H Pulse Oximetry 98 95 95 09/10/17 06:34 09/10/17 07:00 09/10/17 07:01 Temperature 98.1 F Pulse Rate 99 H Respiratory Rate 18 20 Blood Pressure 142/90 H Pulse Oximetry 95 96 09/10/17 08:00 09/10/17 08:10 09/10/17 12:00 Temperature 97.5 F L 97.8 F 97.6 F Pulse Rate 99 H 96 H 98 H Respiratory Rate 18 18 18 Blood Pressure 153/86 H 138/86 142/80 H Pulse Oximetry 96 99 94 L Intake & Output 09/09/17 09/10/17 09/10/17 18:59 06:59 18:59 Intake Total 1999 Balance 1999 Weight 85 kg 59.6 kg Intake: IV 1999 NS Inj 1,000 ML @ Wide Open IV. 1000 / 1000 SIG BOLUS ONE Rx#:[id number] Other: Date of Last Bowel Movement 09/05/17 Weight On Admission 59.6 kg <Aristeo Bynuman - Last Filed: 09/10/17 16:15> Results - Labs CBC & Chem 7: 09/10/17 11:48 09/10/17 02:22 Labs: Laboratory Results - last 24 hr 09/10/17 09/10/17 09/10/17 02:22 02:22 03:00 WBC 14.0 H RBC 4.51 Hgb 13.5 Hct 41.6 MCV 92.1 MCH 30.0 MCHC 32.5 RDW 14.8 Plt Count 378 MPV 6.7 L Prelim Diff (Auto) Slide review pending Neut % (Auto) 91.4 H Lymph % (Auto) 2.3 L Victoria % (Auto) 6.0 Eos % (Auto) 0.0 Baso % (Auto) 0.3 Neut # (Auto) 12.8 H Lymph # (Auto) 0.3 L Victoria # (Auto) 0.8 Eos # (Auto) 0.0 Baso # (Auto) 0.0 WBC Differential Manual diff final Seg Neuts % (Manual) 78 H Band Neuts % (Manual) 14 H Lymphocytes % (Manual) 3 L Monocytes % (Manual) 2 Metamyelocytes % (Man) 2 H Myelocytes % (Man) 1 H Abs Neuts (Manual) 13.3 H Differential Comment . Toxic Granulation 1+ H Toxic Vacuolation Present H Platelet Estimate Normal Platelet Morphology Normal PT INR APTT Sodium 129 L Potassium 4.5 Chloride 89 L Carbon Dioxide 24.4 Anion Gap 16 H BUN 18 Creatinine 0.95 Estimated GFR 81 L POC Glucose Random Glucose 555 H* Calcium 9.9 Total Bilirubin 0.9 AST 208 H ALT 152 H Alkaline Phosphatase 472 H Total Protein 8.1 Albumin 2.6 L Lipase 489 H Urine Color Straw Urine Clarity Clear Urine pH 6.0 Ur Specific [place] 1.031 Urine Protein Negative Urine Glucose (UA) 500 or greater Urine Ketones 20 Urine Occult Blood Negative Urine Nitrate Negative Urine Bilirubin Negative Urine Urobilinogen Less than 2 Ur Leukocyte Esterase Negative Urine RBC 1 Urine WBC 1 Micro UA Comment Culture not ind Urine Culture Comments Culture not ind 09/10/17 09/10/17 09/10/17 04:45 06:00 10:13 WBC RBC Hgb Hct MCV MCH MCHC RDW Plt Count MPV Prelim Diff (Auto) Neut % (Auto) Lymph % (Auto) Victoria % (Auto) Eos % (Auto) Baso % (Auto) Neut # (Auto) Lymph # (Auto) Victoria # (Auto) Eos # (Auto) Baso # (Auto) WBC Differential Seg Neuts % (Manual) Band Neuts % (Manual) Lymphocytes % (Manual) Monocytes % (Manual) Metamyelocytes % (Man) Myelocytes % (Man) Abs Neuts (Manual) Differential Comment Toxic Granulation Toxic Vacuolation Platelet Estimate Platelet Morphology PT 10.9 INR 1.1 APTT 23.8 L Sodium Potassium Chloride Carbon Dioxide Anion Gap BUN Creatinine Estimated GFR POC Glucose 233 H 495 H* Random Glucose Calcium Total Bilirubin AST ALT Alkaline Phosphatase Total Protein Albumin Lipase Urine Color Urine Clarity Urine pH Ur Specific [place] Urine Protein Urine Glucose (UA) Urine Ketones Urine Occult Blood Urine Nitrate Urine Bilirubin Urine Urobilinogen Ur Leukocyte Esterase Urine RBC Urine WBC Micro UA Comment Urine Culture Comments 09/10/17 11:39 WBC RBC Hgb Hct MCV MCH MCHC RDW Plt Count MPV Prelim Diff (Auto) Neut % (Auto) Lymph % (Auto) Victoria % (Auto) Eos % (Auto) Baso % (Auto) Neut # (Auto) Lymph # (Auto) Victoria # (Auto) Eos # (Auto) Baso # (Auto) WBC Differential Seg Neuts % (Manual) Band Neuts % (Manual) Lymphocytes % (Manual) Monocytes % (Manual) Metamyelocytes % (Man) Myelocytes % (Man) Abs Neuts (Manual) Differential Comment Toxic Granulation Toxic Vacuolation Platelet Estimate Platelet Morphology PT INR APTT Sodium Potassium Chloride Carbon Dioxide Anion Gap BUN Creatinine Estimated GFR POC Glucose 310 H Random Glucose Calcium Total Bilirubin AST ALT Alkaline Phosphatase Total Protein Albumin Lipase Urine Color Urine Clarity Urine pH Ur Specific [place] Urine Protein Urine Glucose (UA) Urine Ketones Urine Occult Blood Urine Nitrate Urine Bilirubin Urine Urobilinogen Ur Leukocyte Esterase Urine RBC Urine WBC Micro UA Comment Urine Culture Comments - Imaging Impressions Abdomen X-Ray 09/10/17 02:05 CONCLUSION: No dilated loops of small or large bowel. Abdomen/Pelvis CT 09/10/17 02:05 CONCLUSION: 1. 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 <Kindra Russell - Last Filed: 09/10/17 12:16> - Labs CBC & Chem 7: 09/10/17 11:48 09/10/17 02:22 Labs: Laboratory Results - last 24 hr 09/10/17 09/10/17 09/10/17 02:22 02:22 03:00 WBC 14.0 H RBC 4.51 Hgb 13.5 Hct 41.6 MCV 92.1 MCH 30.0 MCHC 32.5 RDW 14.8 Plt Count 378 MPV 6.7 L Prelim Diff (Auto) Slide review pending Neut % (Auto) 91.4 H Lymph % (Auto) 2.3 L Victoria % (Auto) 6.0 Eos % (Auto) 0.0 Baso % (Auto) 0.3 Neut # (Auto) 12.8 H Lymph # (Auto) 0.3 L Victoria # (Auto) 0.8 Eos # (Auto) 0.0 Baso # (Auto) 0.0 WBC Differential Manual diff final Seg Neuts % (Manual) 78 H Band Neuts % (Manual) 14 H Lymphocytes % (Manual) 3 L Monocytes % (Manual) 2 Metamyelocytes % (Man) 2 H Myelocytes % (Man) 1 H Abs Neuts (Manual) 13.3 H Differential Comment . Toxic Granulation 1+ H Toxic Vacuolation Present H Platelet Estimate Normal Platelet Morphology Normal PT INR APTT Sodium 129 L Potassium 4.5 Chloride 89 L Carbon Dioxide 24.4 Anion Gap 16 H BUN 18 Creatinine 0.95 Estimated GFR 81 L POC Glucose Random Glucose 555 H* Hemoglobin A1c Calcium 9.9 Total Bilirubin 0.9 AST 208 H ALT 152 H Alkaline Phosphatase 472 H Ammonia Lactate Dehydrogenase Total Protein 8.1 Albumin 2.6 L Lipase 489 H Tumor Marker AFP CA 19-9 Antigen Urine Color Straw Urine Clarity Clear Urine pH 6.0 Ur Specific [place] 1.031 Urine Protein Negative Urine Glucose (UA) 500 or greater Urine Ketones 20 Urine Occult Blood Negative Urine Nitrate Negative Urine Bilirubin Negative Urine Urobilinogen Less than 2 Ur Leukocyte Esterase Negative Urine RBC 1 Urine WBC 1 Micro UA Comment Culture not ind Urine Culture Comments Culture not ind Hepatitis A IgM Ab Hep Bs Antigen Hep B Core IgM Ab Hep C IgG Ab 09/10/17 09/10/17 09/10/17 04:45 06:00 10:13 WBC RBC Hgb Hct MCV MCH MCHC RDW Plt Count MPV Prelim Diff (Auto) Neut % (Auto) Lymph % (Auto) Victoria % (Auto) Eos % (Auto) Baso % (Auto) Neut # (Auto) Lymph # (Auto) Victoria # (Auto) Eos # (Auto) Baso # (Auto) WBC Differential Seg Neuts % (Manual) Band Neuts % (Manual) Lymphocytes % (Manual) Monocytes % (Manual) Metamyelocytes % (Man) Myelocytes % (Man) Abs Neuts (Manual) Differential Comment Toxic Granulation Toxic Vacuolation Platelet Estimate Platelet Morphology PT 10.9 INR 1.1 APTT 23.8 L Sodium Potassium Chloride Carbon Dioxide Anion Gap BUN Creatinine Estimated GFR POC Glucose 233 H 495 H* Random Glucose Hemoglobin A1c Calcium Total Bilirubin AST ALT Alkaline Phosphatase Ammonia Lactate Dehydrogenase Total Protein Albumin Lipase Tumor Marker AFP CA 19-9 Antigen Urine Color Urine Clarity Urine pH Ur Specific [place] Urine Protein Urine Glucose (UA) Urine Ketones Urine Occult Blood Urine Nitrate Urine Bilirubin Urine Urobilinogen Ur Leukocyte Esterase Urine RBC Urine WBC Micro UA Comment Urine Culture Comments Hepatitis A IgM Ab Hep Bs Antigen Hep B Core IgM Ab Hep C IgG Ab 09/10/17 09/10/17 09/10/17 11:39 11:48 11:48 WBC RBC Hgb Hct MCV MCH MCHC RDW Plt Count MPV Prelim Diff (Auto) Neut % (Auto) Lymph % (Auto) Victoria % (Auto) Eos % (Auto) Baso % (Auto) Neut # (Auto) Lymph # (Auto) Victoria # (Auto) Eos # (Auto) Baso # (Auto) WBC Differential Seg Neuts % (Manual) Band Neuts % (Manual) Lymphocytes % (Manual) Monocytes % (Manual) Metamyelocytes % (Man) Myelocytes % (Man) Abs Neuts (Manual) Differential Comment Toxic Granulation Toxic Vacuolation Platelet Estimate Platelet Morphology PT INR APTT Sodium Potassium Chloride Carbon Dioxide Anion Gap BUN Creatinine Estimated GFR POC Glucose 310 H Random Glucose Hemoglobin A1c Calcium Total Bilirubin AST ALT Alkaline Phosphatase Ammonia Less than 10 L Lactate Dehydrogenase 1493 H Total Protein 7.1 D Albumin Lipase Tumor Marker AFP CA 19-9 Antigen Urine Color Urine Clarity Urine pH Ur Specific [place] Urine Protein Urine Glucose (UA) Urine Ketones Urine Occult Blood Urine Nitrate Urine Bilirubin Urine Urobilinogen Ur Leukocyte Esterase Urine RBC Urine WBC Micro UA Comment Urine Culture Comments Hepatitis A IgM Ab Hep Bs Antigen Hep B Core IgM Ab Hep C IgG Ab 09/10/17 09/10/17 09/10/17 11:48 11:48 13:15 WBC 12.7 H RBC 4.30 L Hgb 12.6 L Hct 38.7 L MCV 90.1 MCH 29.4 MCHC 32.6 RDW 14.8 Plt Count 268 MPV 6.8 L Prelim Diff (Auto) Neut % (Auto) Lymph % (Auto) Victoria % (Auto) Eos % (Auto) Baso % (Auto) Neut # (Auto) Lymph # (Auto) [place] # (Auto) Eos # (Auto) Baso # (Auto) WBC Differential Seg Neuts % (Manual) Band Neuts % (Manual) Lymphocytes % (Manual) Monocytes % (Manual) Metamyelocytes % (Man) Myelocytes % (Man) Abs Neuts (Manual) Differential Comment Toxic Granulation Toxic Vacuolation Platelet Estimate Platelet Morphology PT 11.0 INR 1.1 APTT 23.3 L Sodium Potassium Chloride Carbon Dioxide Anion Gap BUN Creatinine Estimated GFR POC Glucose Random Glucose Hemoglobin A1c Calcium Total Bilirubin AST ALT Alkaline Phosphatase Ammonia Lactate Dehydrogenase Total Protein Albumin Lipase Tumor Marker AFP CA 19-9 Antigen 509.5 H Urine Color Urine Clarity Urine pH Ur Specific [place] Urine Protein Urine Glucose (UA) Urine Ketones Urine Occult Blood Urine Nitrate Urine Bilirubin Urine Urobilinogen Ur Leukocyte Esterase Urine RBC Urine WBC Micro UA Comment Urine Culture Comments Hepatitis A IgM Ab Nonreactive Hep Bs Antigen Nonreactive Hep B Core IgM Ab Nonreactive Hep C IgG Ab Reactive H 09/10/17 09/10/17 13:15 13:15 WBC RBC Hgb Hct MCV MCH MCHC RDW Plt Count MPV Prelim Diff (Auto) Neut % (Auto) Lymph % (Auto) Victoria % (Auto) Eos % (Auto) Baso % (Auto) Neut # (Auto) Lymph # (Auto) [place] # (Auto) Eos # (Auto) Baso # (Auto) WBC Differential Seg Neuts % (Manual) Band Neuts % (Manual) Lymphocytes % (Manual) Monocytes % (Manual) Metamyelocytes % (Man) Myelocytes % (Man) Abs Neuts (Manual) Differential Comment Toxic Granulation Toxic Vacuolation Platelet Estimate Platelet Morphology PT INR APTT Sodium Potassium Chloride Carbon Dioxide Anion Gap BUN Creatinine Estimated GFR POC Glucose Random Glucose Hemoglobin A1c 15.8 H Calcium Total Bilirubin AST ALT Alkaline Phosphatase Ammonia Lactate Dehydrogenase Total Protein Albumin Lipase Tumor Marker AFP 533.3 H CA 19-9 Antigen Urine Color Urine Clarity Urine pH Ur Specific [place] Urine Protein Urine Glucose (UA) Urine Ketones Urine Occult Blood Urine Nitrate Urine Bilirubin Urine Urobilinogen Ur Leukocyte Esterase Urine RBC Urine WBC Micro UA Comment Urine Culture Comments Hepatitis A IgM Ab Hep Bs Antigen Hep B Core IgM Ab Hep C IgG Ab - Imaging Impressions Abdomen X-Ray 09/10/17 02:05 CONCLUSION: No dilated loops of small or large bowel. Abdomen/Pelvis CT 09/10/17 02:05 CONCLUSION: 1. 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 <Kurtis Bynum - Last Filed: 09/10/17 16:15> Assessment and Plan (1) Transaminitis Status: Acute Code(s): R74.0 - Nonspecific elevation of levels of transaminase and lactic acid dehydrogenase [LDH] (2) Liver mass Status: Acute Code(s): R16.0 - Hepatomegaly, not elsewhere classified (3) Ascites Status: Acute Code(s): R18.8 - Other ascites - Plan Transaminitis history of hepatitis with Harvoni treatment approximately [address] Honeycutt. Patient was in his usual state of health up until approximately 3 weeks ago when he had uncontrolled abdominal pain which is worsened over the past week. These could be related to inflammation, shock, malignancy. Constipation appears to be acute on chronic but states no bowel movement in 2 days which has worsened over the past few weeks. Patient states that he has been taking decreased amounts of food due to the constipation. Diffuse abdominal pain initiated approximately 3 weeks ago worsened over the past week generalized which is complicated by pressure and positive fluid wave. CT scan does show positive ascites and multiple hypodense liver lesions measuring up to 9 cm in size there is also an enlarged ring-enhancing katie masses adjacent to the celiac artery anterior to the heart and adjacent to the inferior esophagus. Patient's findings are very suspicious for malignancy Current labs show bilirubin 0.9, AST 208, ALT 152, alkaline phosphatase 472, and lipase 489. Hemoglobin 13.5 no obvious bleeding noted WBC count 14 leukocytosis currently unspecified. Current plan is for patient to go to IR for paracentesis and lab findings. Patient has been taking NSAIDs over-the- counter over the past few weeks as prescribed on the bottle. Plan Diet n.p.o. for now patient can have oral moistening INR today for paracentesis Consider liver biopsy in the near future Labs for liver workup including AFP and CA 19 is pending AMA, ASMA, PAKO Monitor hemoglobin and liver labs Bowel regimen MiraLAX daily Antiemetics as needed Pain management per attending Further recommendations to follow Patient was seen per myself and Dr. Bynum, note was written on his behalf <Kindra Russell - Last Filed: 09/10/17 12:16> (1) Transaminitis Status: Acute Code(s): R74.0 - Nonspecific elevation of levels of transaminase and lactic acid dehydrogenase [LDH] (2) Liver mass Status: Acute Code(s): R16.0 - Hepatomegaly, not elsewhere classified (3) Ascites Status: Acute Code(s): R18.8 - Other ascites - Plan Seen and examined with CHOCOLATIER, paracentesis followed by Liver biopsy by IR recommended. Suspect metastatic liver cancer. - Attending Attestation The exam, history, and the medical decision-making described in the above note were completed with the assistance of the mid-level provider. I reviewed and agree with the findings presented. I attest that I had a [id number] encounter with the patient on the same day, and personally performed and documented my assessment and findings in the medical record. <Kurtis Bynum - Last Filed: 09/10/17 16:15> <Kurtis Bynum - Last Filed: 09/10/17 16:15> (3) Ascites Qualifiers: Ascites type: other type Qualified Code(s): R18.8 - Other ascites
[2017-09-10 12:26] LABS: Total Protein 7.1 g/dL (6.4-8.2)
[2017-09-10] MEDS: Polyethylene Glycol 3350 17 GM Packet PO SCH (12:30)
[2017-09-10 13:46] LABS: Hemoglobin A1c 15.8 % (4.3-6.0)
[2017-09-10 14:32] LABS: Hepatitits B Surface Antigen Nonreactive (Nonreactive)
[2017-09-10 14:44] LABS: Cancer Antigen 19-9 509.5 U/mL (0.0-35.0)
[2017-09-10 14:59] LABS: Hepatitis A IgM Antibody Nonreactive (Nonreactive)
--- NOTE | 2017-09-10 16:24 | US ---
EXAM DATE: 09/10/2017 3:53 PM EDT AGE/SEX: 57 years / Male INDICATIONS: Abdominal distention. Ascites. CLINICAL DATA: This is the patient's initial encounter. Patient reports that signs and symptoms have been present for 1 day and indicates a pain score of 0/10. MEDICAL/SURGICAL HISTORY: . Hepatitis C. Diabetes. COPD. None. COMPARISON: [facility] [place], CT ABDOMEN & PELVIS W CONTRAST, 09/10/2017. . FINDINGS: Masses: None Fluid Collections: Mild to moderate ascites Other: None. CONCLUSION: 1. There is mild to moderate ascites although no pockets are seen large enough at the current time t o safely perform paracentesis. Electronically signed by: Dillon Jarvis MD 09/10/2017 4:23 PM EDT
[2017-09-10] MEDS: Senna/Docusate Sodium 8.6/50 MG Tablet PO SCH (20:29)
[2017-09-10] MEDS: Insulin Detemir Inj 1,000 UNIT/10 ML Vial SQ SCH (20:30)
[2017-09-11] MEDS: Insulin NovoLOG Aspart Correctional Sugar Inj SQ SCH ×4 (09:04→21:40)
[2017-09-11] MEDS: Senna/Docusate Sodium 8.6/50 MG Tablet PO SCH ×2 (09:05→21:40)
[2017-09-11] MEDS: Insulin Detemir Inj 1,000 UNIT/10 ML Vial SQ SCH ×2 (09:05→21:40)
[2017-09-11] MEDS: Polyethylene Glycol 3350 17 GM Packet PO SCH (09:05)
[2017-09-11 09:36] LABS: Baso # (Auto) 0.1 th/mm3 (0.0-0.2); Baso % (Auto) 0.4 % (0.0-2.0); Hematocrit 40.2 % (39.0-51.0); Hemoglobin 13.3 gm/dL (13.0-17.0); Lymph # (Auto) 0.3 th/mm3 (1.0-4.8); Lymph % (Auto) 2.3 % (9.0-44.0); Mean Corpuscular HGB Conc 33.1 % (32.0-36.0); Mean Corpuscular Hemoglobin 30.1 pg (27.0-34.0); Mean Platelet Volume 7.4 fL (7.0-11.0); Mono # (Auto) 1.4 th/mm3 (0.0-0.9); Mono % (Auto) 10.6 % (0.0-8.0); Neut # (Auto) 11.5 th/mm3 (1.8-7.7); Neut % (Auto) 86.7 % (16.0-70.0); Platelet Count 206 th/mm3 (150-450); Red Blood Count 4.42 mil/mm3 (4.50-5.90); Red Cell Distribution Width 14.9 % (11.6-17.2); White Blood Count 13.2 th/mm3 (4.0-11.0)
[2017-09-11 10:19] LABS: Alanine Aminotransferase 3043 U/L (12-78); Albumin 2.1 g/dL (3.4-5.0); Alkaline Phosphatase 939 U/L (45-117); Anion Gap 13 meq/L (5-15); Aspartate Aminotransferase 6470 U/L (15-37); Blood Urea Nitrogen 17 mg/dL (7-18); Calcium 9.2 mg/dL (8.5-10.1); Carbon Dioxide 25.5 meq/L (21.0-32.0); Chloride 93 meq/L (98-107); Glomerular Filtration Rate Greater Than 89 mL/min (>89); Glucose,Random 209 mg/dL (74-106); Potassium 4.4 meq/L (3.5-5.1); Sodium 131 meq/L (136-145)
--- NOTE | 2017-09-11 10:25 | P.PNGI ---
Subjective Interval history: Patient is resting in the bed able to lay fairly flat without any obvious shortness of breath Still feels some generalized abdominal pain and pressure with moderate distention Positive fluid wave abdomen Decreased appetite nausea but no obvious vomiting Previous constipation but positive for BM since admission Physical Exam Vital signs: Vital Signs 09/10/17 12:00 09/10/17 16:00 09/10/17 20:00 Temperature 97.6 F 97.3 F L 97.4 F L Pulse Rate 98 H 98 H 102 H Respiratory Rate 18 18 18 Blood Pressure 142/80 H 130/77 135/79 Pulse Oximetry 94 L 92 L 94 L 09/11/17 00:00 09/11/17 04:00 09/11/17 08:00 Temperature 98.1 F 99.2 F 98.5 F Pulse Rate 117 H 121 H 119 H Respiratory Rate 18 19 14 Blood Pressure 147/81 H 148/90 H 124/78 Pulse Oximetry 92 L 92 L Intake & Output 09/10/17 09/11/17 09/11/17 18:59 06:59 18:59 Intake Total 1999 960 / 960 Output Total 950 / 950 Balance 1999 Weight 59.6 kg 59.1 kg Intake: IV 1999 / 1999 NS Inj 1,000 ML @ Wide Open IV. 1000 / 1000 SIG BOLUS ONE Rx#:[id number] Oral 960 / 960 Output: Urine 950 / 950 Other: Date of Last Bowel Movement 09/05/17 09/11/17 # Bowel Movements 1 Weight On Admission 59.6 kg - Constitutional mild distress, thin (Except for abdomen) - Routine HEENT Exam Head: Present: normocephalic ENT: Present: mucous membranes dry - Routine Neck Exam Present: supple - Routine Cardiovascular Exam Present: S1, S2 - Routine Abdominal Exam Present: soft (Positive fluid wave moderate distention soft bowel sounds) - Routine Skin Exam Present: dry, pallor Results - Labs CBC & Chem 7: 09/11/17 07:47 09/11/17 07:47 Laboratory Results - last 24 hr 09/10/17 09/10/17 09/10/17 11:39 11:48 11:48 WBC RBC Hgb Hct MCV MCH MCHC RDW Plt Count MPV Neut % (Auto) Lymph % (Auto) [place] % (Auto) Eos % (Auto) Baso % (Auto) Neut # (Auto) Lymph # (Auto) [place] # (Auto) Eos # (Auto) Baso # (Auto) WBC Differential Differential Comment PT INR APTT Sodium Potassium Chloride Carbon Dioxide Anion Gap BUN Creatinine Estimated GFR POC Glucose 310 H Random Glucose Hemoglobin A1c Calcium Total Bilirubin AST ALT Alkaline Phosphatase Ammonia Less than 10 L Lactate Dehydrogenase 1493 H Total Protein 7.1 D Albumin Tumor Marker AFP CA 19-9 Antigen Hepatitis A IgM Ab Hep Bs Antigen Hep B Core IgM Ab Hep C IgG Ab 09/10/17 09/10/17 09/10/17 11:48 11:48 13:15 WBC 12.7 H RBC 4.30 L Hgb 12.6 L Hct 38.7 L MCV 90.1 MCH 29.4 MCHC 32.6 RDW 14.8 Plt Count 268 MPV 6.8 L Neut % (Auto) Lymph % (Auto) [place] % (Auto) Eos % (Auto) Baso % (Auto) Neut # (Auto) Lymph # (Auto) [place] # (Auto) Eos # (Auto) Baso # (Auto) WBC Differential Differential Comment PT 11.0 INR 1.1 APTT 23.3 L Sodium Potassium Chloride Carbon Dioxide Anion Gap BUN Creatinine Estimated GFR POC Glucose Random Glucose Hemoglobin A1c Calcium Total Bilirubin AST ALT Alkaline Phosphatase Ammonia Lactate Dehydrogenase Total Protein Albumin Tumor Marker AFP CA 19-9 Antigen 509.5 H Hepatitis A IgM Ab Nonreactive Hep Bs Antigen Nonreactive Hep B Core IgM Ab Nonreactive Hep C IgG Ab Reactive H 09/10/17 09/10/17 09/10/17 13:15 13:15 17:25 WBC RBC Hgb Hct MCV MCH MCHC RDW Plt Count MPV Neut % (Auto) Lymph % (Auto) [place] % (Auto) Eos % (Auto) Baso % (Auto) Neut # (Auto) Lymph # (Auto) [place] # (Auto) Eos # (Auto) Baso # (Auto) WBC Differential Differential Comment PT INR APTT Sodium Potassium Chloride Carbon Dioxide Anion Gap BUN Creatinine Estimated GFR POC Glucose 151 H Random Glucose Hemoglobin A1c 15.8 H Calcium Total Bilirubin AST ALT Alkaline Phosphatase Ammonia Lactate Dehydrogenase Total Protein Albumin Tumor Marker AFP 533.3 H CA 19-9 Antigen Hepatitis A IgM Ab Hep Bs Antigen Hep B Core IgM Ab Hep C IgG Ab 09/10/17 09/11/17 09/11/17 20:12 07:30 07:47 WBC 13.2 H RBC 4.42 L Hgb 13.3 Hct 40.2 MCV 91.0 MCH 30.1 MCHC 33.1 RDW 14.9 Plt Count 206 MPV 7.4 Neut % (Auto) 86.7 H Lymph % (Auto) 2.3 L [place] % (Auto) 10.6 H Eos % (Auto) 0.0 Baso % (Auto) 0.4 Neut # (Auto) 11.5 H Lymph # (Auto) 0.3 L [place] # (Auto) 1.4 H Eos # (Auto) 0.0 Baso # (Auto) 0.1 WBC Differential . Differential Comment Auto diff final PT INR APTT Sodium Potassium Chloride Carbon Dioxide Anion Gap BUN Creatinine Estimated GFR POC Glucose 307 H 254 H Random Glucose Hemoglobin A1c Calcium Total Bilirubin AST ALT Alkaline Phosphatase Ammonia Lactate Dehydrogenase Total Protein Albumin Tumor Marker AFP CA 19-9 Antigen Hepatitis A IgM Ab Hep Bs Antigen Hep B Core IgM Ab Hep C IgG Ab 09/11/17 07:47 WBC RBC Hgb Hct MCV MCH MCHC RDW Plt Count MPV Neut % (Auto) Lymph % (Auto) [place] % (Auto) Eos % (Auto) Baso % (Auto) Neut # (Auto) Lymph # (Auto) [place] # (Auto) Eos # (Auto) Baso # (Auto) WBC Differential Differential Comment PT INR APTT Sodium 131 L Potassium 4.4 Chloride 93 L Carbon Dioxide 25.5 Anion Gap 13 BUN 17 Creatinine 0.48 L Estimated GFR Greater than 89 POC Glucose Random Glucose 209 H D Hemoglobin A1c Calcium 9.2 Total Bilirubin 0.8 AST 6470 H ALT 3043 H Alkaline Phosphatase 939 H Ammonia Lactate Dehydrogenase Total Protein 7.0 Albumin 2.1 L Tumor Marker AFP CA 19-9 Antigen Hepatitis A IgM Ab Hep Bs Antigen Hep B Core IgM Ab Hep C IgG Ab - Imaging Impressions Abdomen Ultrasound 09/10/17 00:00 CONCLUSION: 1. There is mild to moderate ascites although no pockets are seen large enough at the current time to safely perform paracentesis. Assessment and Plan (1) Transaminitis Status: Acute Code(s): R74.0 - Nonspecific elevation of levels of transaminase and lactic acid dehydrogenase [LDH] (2) Liver mass Status: Acute Code(s): R16.0 - Hepatomegaly, not elsewhere classified (3) Ascites Status: Acute Code(s): R18.8 - Other ascites - Plan Transaminitis history of hepatitis with Harvoni treatment approximately [address] Honeycutt. Patient was in his usual state of health up until approximately 3 weeks ago when he had uncontrolled abdominal pain which is worsened over the past week. These could be related to inflammation, shock, malignancy. Constipation appears to be acute on chronic but states no bowel movement in 2 days which has worsened over the past few weeks. Patient states that he has been taking decreased amounts of food due to the constipation. Diffuse abdominal pain initiated approximately 3 weeks ago worsened over the past week generalized which is complicated by pressure and positive fluid wave. CT scan does show positive ascites and multiple hypodense liver lesions measuring up to 9 cm in size there is also an enlarged ring-enhancing katie masses adjacent to the celiac artery anterior to the heart and adjacent to the inferior esophagus. Patient's findings are very suspicious for malignancy Current labs show bilirubin 0.9, AST 208, ALT 152, alkaline phosphatase 472, and lipase 489. Hemoglobin 13.5 no obvious bleeding noted WBC count 14 leukocytosis currently unspecified. Current plan is for patient to go to IR for paracentesis and lab findings. Patient has been taking NSAIDs over-the- counter over the past few weeks as prescribed on the bottle. 09/11/2017 current labs reviewed which showed elevated AFP level 533.3, bilirubin normal at 0.8, AST elevated at 6470, ALT 3043, alkaline phosphatase 939. Suspicion of liver metastasis. Other liver workup labs pending. Patient's had issues with constipation recently but had a large bowel movement in the past 24 hours and states he feels better. Able to eat and drink small amounts of fluids and food. Plan Diet as tolerated per attending INR for paracentesis, liver biopsy in a.m Monitor hemoglobin and liver labs Bowel regimen MiraLAX daily Antiemetics as needed Supportive care Further recommendations to follow Patient was seen per myself and Dr. Bynum, note was written on his behalf (3) Ascites Qualifiers: Ascites type: other type Qualified Code(s): R18.8 - Other ascites
[2017-09-11] MEDS: Umeclindinium 62.5 MCG/Vilanterol 25 MCG Inhaler INH SCH (13:20)
--- NOTE | 2017-09-11 16:29 | P.PNIM ---
Subjective Interval history: Follow up: Liver mass, Abdominal pain, Hepatitis C, Diabetes mellitus, Hyponatremia and COPD with fibrotic lung disease Patient reports feeling fatigued and weak Physical Exam Vital signs: Vital Signs 09/10/17 20:00 09/11/17 00:00 09/11/17 04:00 Temperature 97.4 F L 98.1 F 99.2 F Pulse Rate 102 H 117 H 121 H Respiratory Rate 18 18 19 Blood Pressure 135/79 147/81 H 148/90 H Pulse Oximetry 94 L 92 L 92 L 09/11/17 08:00 09/11/17 12:00 Temperature 98.5 F 98.1 F Pulse Rate 119 H 117 H Respiratory Rate 14 20 Blood Pressure 137/88 128/78 Pulse Oximetry 95 94 L Intake & Output 09/10/17 09/11/17 09/11/17 18:59 06:59 18:59 Intake Total 1999 960 / 960 Output Total 950 / 950 Balance 1999 10 Weight 59.6 kg 59.1 kg Intake: IV 1999 NS Inj 1,000 ML @ Wide Open IV. 1000 / 1000 SIG BOLUS ONE Rx#:[id number] Oral 960 / 960 Output: Urine 950 / 950 Other: Date of Last Bowel Movement 09/05/17 09/11/17 09/11/17 # Bowel Movements 1 Weight On Admission 59.6 kg Narrative: GENERAL: This is a thin chronically ill-appearing 57-year-old male patient who appears older than stated age, in no apparent distress. CARDIOVASCULAR: Regular rate and rhythm RESPIRATORY: Clear to auscultation. Breath sounds equal bilaterally. GASTROINTESTINAL: Abdomen soft, non-tender, distended. hypoactive bowel sounds MUSCULOSKELETAL: Extremities without clubbing, cyanosis, or edema. NEURO: Alert & Oriented x4 to person, place, time, situation. Moves all ext x4 Results - Labs CBC & Chem 7: 09/25/17 12:10 09/26/17 21:02 Laboratory Results - last 24 hr 09/10/17 09/10/17 09/11/17 17:25 20:12 07:30 WBC RBC Hgb Hct MCV MCH MCHC RDW Plt Count MPV Neut % (Auto) Lymph % (Auto) [place] % (Auto) Eos % (Auto) Baso % (Auto) Neut # (Auto) Lymph # (Auto) [place] # (Auto) Eos # (Auto) Baso # (Auto) WBC Differential Differential Comment Sodium Potassium Chloride Carbon Dioxide Anion Gap BUN Creatinine Estimated GFR POC Glucose 151 H 307 H 254 H Random Glucose Calcium Total Bilirubin AST ALT Alkaline Phosphatase Total Protein Albumin 09/11/17 09/11/17 09/11/17 07:47 07:47 11:58 WBC 13.2 H RBC 4.42 L Hgb 13.3 Hct 40.2 MCV 91.0 MCH 30.1 MCHC 33.1 RDW 14.9 Plt Count 206 MPV 7.4 Neut % (Auto) 86.7 H Lymph % (Auto) 2.3 L [place] % (Auto) 10.6 H Eos % (Auto) 0.0 Baso % (Auto) 0.4 Neut # (Auto) 11.5 H Lymph # (Auto) 0.3 L [place] # (Auto) 1.4 H Eos # (Auto) 0.0 Baso # (Auto) 0.1 WBC Differential . Differential Comment Auto diff final Sodium 131 L Potassium 4.4 Chloride 93 L Carbon Dioxide 25.5 Anion Gap 13 BUN 17 Creatinine 0.48 L Estimated GFR Greater than 89 POC Glucose 308 H Random Glucose 209 H D Calcium 9.2 Total Bilirubin 0.8 AST 6470 H ALT 3043 H Alkaline Phosphatase 939 H Total Protein 7.0 Albumin 2.1 L - Imaging Impressions Abdomen Ultrasound 09/10/17 00:00 CONCLUSION: 1. There is mild to moderate ascites although no pockets are seen large enough at the current time to safely perform paracentesis. Assessment and Plan - Assessment (1) Liver mass Code(s): R16.0 - Hepatomegaly, not elsewhere classified Status: Acute Plan: This is a 57-year-old male patient with past medical history which includes diabetes mellitus and hepatitis C. Patient reports he has previously been treated with Harvoni for his hepatitis C. Patient presents to the emergency department with complaints of abdominal distention and constipation for approximately 3 weeks. Liver mass Abdominal pain Hepatitis C previously treated with Harvoni KUB reviewed and reveals no dilated loops of small or large bowel CT abdomen pelvis reviewed and reveals abnormal examination suspicious for malignancy demonstrating significant ascites in the abdomen and pelvis, multiple irregular margin hypodense lesions in the liver measuring up to 9 cm in size , and enlarged ring-enhancing nodular masses adjacent to the celiac artery, anterior to the heart and adjacent to the inferior esophagus. Dr. Raman discussed the CT scan results with patient and answered all questions Given concern of malignancy we will consult interventional radiology for US guided paracentesis with cytology (unable to be done as there was not enough fluid) CMP on admission reviewed total bilirubin 0.9 AST 208, ALT 152, alkaline phosphatase 472 ammonia (09/10) < 10, AFP (09/11) 533.3, CA 19.9 509.5 (09/11/17) total bilirubin 0.8 AST 6470, ALT 3043, alkaline phosphatase 939 hepatitis profile Hep C Ab positive PT 10.9, INR 1.1, APTT 23.8 Recheck CMP in a.m. Consult GI, appreciate input CT guided biopsy of the liver with IR requested, Dr. Raman discussed the case with Radiology Diabetes mellitus Patient reportedly takes Synjardy 5-1000mg PO BID, blood glucose on arrival to the emergency department was 555 -> improved to 233 after hydration Continue Accu-Cheks before meals at bedtime with sliding scale insulin coverage HA1c 15.8 Patient is currently n.p.o. after midnight will not increase Levemir at this time Hyponatremia sodium was 129 on admission patient received 1 L fluid bolus recheck sodium (09/11) 131 COPD with fibrotic lung disease not on home oxygen Does not appear to be in acute exacerbation Continue home anoro elipta add duonebs Q2H as needed DVT prophylaxis with SCDs at this time avoid chemical DVT prophylaxis as patient has possible upcoming procedure and liver disease but patient increased risk for bleeding (2) Ascites Code(s): R18.8 - Other ascites Status: Acute - Attending Attestation Patient examined. Assessment and plan formulated with Angela Johnson PA-C. I agree with the above. (2) Ascites Qualifiers: Ascites type: other type Qualified Code(s): R18.8 - Other ascites
[2017-09-12 07:17] LABS: Baso # (Auto) 0.1 th/mm3 (0.0-0.2); Baso % (Auto) 0.5 % (0.0-2.0); Hematocrit 34.3 % (39.0-51.0); Hemoglobin 11.5 gm/dL (13.0-17.0); Lymph # (Auto) 0.4 th/mm3 (1.0-4.8); Lymph % (Auto) 2.8 % (9.0-44.0); Mean Corpuscular HGB Conc 33.5 % (32.0-36.0); Mean Corpuscular Hemoglobin 30.1 pg (27.0-34.0); Mean Corpuscular Volume 89.9 fL (80.0-100.0); Mean Platelet Volume 7.4 fL (7.0-11.0); Mono # (Auto) 1.6 th/mm3 (0.0-0.9); Mono % (Auto) 10.3 % (0.0-8.0); Neut # (Auto) 13.1 th/mm3 (1.8-7.7); Neut % (Auto) 86.4 % (16.0-70.0); Platelet Count 201 th/mm3 (150-450); Red Blood Count 3.82 mil/mm3 (4.50-5.90); Red Cell Distribution Width 14.8 % (11.6-17.2); White Blood Count 15.2 th/mm3 (4.0-11.0)
[2017-09-12 07:58] LABS: Alanine Aminotransferase 1765 U/L (12-78); Albumin 1.8 g/dL (3.4-5.0); Alkaline Phosphatase 801 U/L (45-117); Anion Gap 7 meq/L (5-15); Aspartate Aminotransferase 2051 U/L (15-37); Blood Urea Nitrogen 21 mg/dL (7-18); Calcium 8.9 mg/dL (8.5-10.1); Carbon Dioxide 29.4 meq/L (21.0-32.0); Chloride 98 meq/L (98-107); Glomerular Filtration Rate Greater Than 89 mL/min (>89); Glucose,Random 80 mg/dL (74-106); Potassium 3.8 meq/L (3.5-5.1); Sodium 134 meq/L (136-145); Total Protein 6.4 g/dL (6.4-8.2)
[2017-09-12] MEDS ORDERED: Lidocaine 1%/Epinephrine 1:100,000 Inj 20 ML Vial ONE (09:09)
--- NOTE | 2017-09-12 09:19 | P.PNGI ---
Subjective Interval history: Pt resting in bed, states he is thirsty. Currently NPO for liver biopsy today. Denies nausea, vomiting, abdominal pain. <Arminda Guerra - Last Filed: 09/12/17 09:13> Physical Exam Vital signs: Vital Signs 09/11/17 12:00 09/11/17 16:00 09/11/17 20:00 Temperature 98.1 F 97.8 F 97.4 F L Pulse Rate 117 H 116 H 121 H Respiratory Rate 20 20 18 Blood Pressure 128/78 117/77 137/83 Pulse Oximetry 94 L 93 L 94 L 09/12/17 00:00 09/12/17 04:00 09/12/17 06:00 Temperature 98.9 F 98.7 F Pulse Rate 120 H 113 H Respiratory Rate 20 18 Blood Pressure 129/81 118/72 Pulse Oximetry 92 L 91 L 94 L Intake & Output 09/11/17 09/12/17 09/12/17 18:59 06:59 18:59 Intake Total 960 / 960 Output Total 950 / 950 Balance Weight 61.3 kg Intake: Oral 960 / 960 Output: Urine 950 / 950 Other: # Voids 1 Date of Last Bowel Movement 09/11/17 09/11/17 # Bowel Movements 1 1 - Constitutional no acute distress - Routine HEENT Exam Head: Present: normocephalic, atraumatic - Routine Respiratory Exam Absent: accessory muscle use - Routine Abdominal Exam Present: soft, normoactive bowel sounds, distended. Absent: tenderness - Routine Skin Exam Present: dry, warm - Routine Neurological Exam Present: alert, oriented X3 <Arminda Guerra - Last Filed: 09/12/17 09:13> Vital signs: Vital Signs 09/11/17 20:00 09/12/17 00:00 09/12/17 04:00 Temperature 97.4 F L 98.9 F 98.7 F Pulse Rate 121 H 120 H 113 H Respiratory Rate 18 20 18 Blood Pressure 137/83 129/81 118/72 Pulse Oximetry 94 L 92 L 91 L 09/12/17 06:00 09/12/17 10:15 09/12/17 10:30 Temperature 98.0 F Pulse Rate 105 H 105 H Respiratory Rate 16 20 Blood Pressure 90/66 L 96/60 L Pulse Oximetry 94 L 91 L 95 09/12/17 11:00 Temperature Pulse Rate 105 H Respiratory Rate 20 Blood Pressure 105/67 Pulse Oximetry 95 Intake & Output 09/11/17 09/12/17 09/12/17 18:59 06:59 18:59 Intake Total 960 / 960 Output Total 950 / 950 Balance Weight 61.3 kg Intake: Oral 960 / 960 Output: Urine 950 / 950 Other: # Voids 1 Date of Last Bowel Movement 09/11/17 09/11/17 # Bowel Movements 1 1 <Carmella Tamayo - Last Filed: 09/12/17 16:11> Results - Labs CBC & Chem 7: 09/12/17 05:46 09/12/17 05:46 Laboratory Results - last 24 hr 09/11/17 09/11/17 09/11/17 07:47 07:47 11:58 WBC 13.2 H RBC 4.42 L Hgb 13.3 Hct 40.2 MCV 91.0 MCH 30.1 MCHC 33.1 RDW 14.9 Plt Count 206 MPV 7.4 Neut % (Auto) 86.7 H Lymph % (Auto) 2.3 L [place] % (Auto) 10.6 H Eos % (Auto) 0.0 Baso % (Auto) 0.4 Neut # (Auto) 11.5 H Lymph # (Auto) 0.3 L [place] # (Auto) 1.4 H Eos # (Auto) 0.0 Baso # (Auto) 0.1 WBC Differential . Differential Comment Auto diff final Sodium 131 L Potassium 4.4 Chloride 93 L Carbon Dioxide 25.5 Anion Gap 13 BUN 17 Creatinine 0.48 L Estimated GFR Greater than 89 POC Glucose 308 H Random Glucose 209 H D Calcium 9.2 Total Bilirubin 0.8 AST 6470 H ALT 3043 H Alkaline Phosphatase 939 H Total Protein 7.0 Albumin 2.1 L 09/11/17 09/11/17 09/12/17 17:26 20:33 05:46 WBC 15.2 H RBC 3.82 L Hgb 11.5 L Hct 34.3 L MCV 89.9 MCH 30.1 MCHC 33.5 RDW 14.8 Plt Count 201 MPV 7.4 Neut % (Auto) 86.4 H Lymph % (Auto) 2.8 L [place] % (Auto) 10.3 H Eos % (Auto) 0.0 Baso % (Auto) 0.5 Neut # (Auto) 13.1 H Lymph # (Auto) 0.4 L [place] # (Auto) 1.6 H Eos # (Auto) 0.0 Baso # (Auto) 0.1 WBC Differential . Differential Comment Auto diff final Sodium Potassium Chloride Carbon Dioxide Anion Gap BUN Creatinine Estimated GFR POC Glucose 227 H 284 H Random Glucose Calcium Total Bilirubin AST ALT Alkaline Phosphatase Total Protein Albumin 09/12/17 09/12/17 05:46 07:48 WBC RBC Hgb Hct MCV MCH MCHC RDW Plt Count MPV Neut % (Auto) Lymph % (Auto) [place] % (Auto) Eos % (Auto) Baso % (Auto) Neut # (Auto) Lymph # (Auto) [place] # (Auto) Eos # (Auto) Baso # (Auto) WBC Differential Differential Comment Sodium 134 L Potassium 3.8 Chloride 98 Carbon Dioxide 29.4 Anion Gap 7 BUN 21 H Creatinine 0.47 L Estimated GFR Greater than 89 POC Glucose 86 Random Glucose 80 D Calcium 8.9 Total Bilirubin 0.6 AST 2051 H ALT 1765 H Alkaline Phosphatase 801 H Total Protein 6.4 D Albumin 1.8 L - Imaging Impressions Abdomen Ultrasound 09/10/17 00:00 CONCLUSION: 1. There is mild to moderate ascites although no pockets are seen large enough at the current time to safely perform paracentesis. Abdomen X-Ray 09/10/17 02:05 CONCLUSION: No dilated loops of small or large bowel. <rAminda Guerra - Last Filed: 09/12/17 09:13> - Labs CBC & Chem 7: 09/12/17 05:46 09/12/17 05:46 Laboratory Results - last 24 hr 09/11/17 09/11/17 09/12/17 17:26 20:33 05:46 WBC 15.2 H RBC 3.82 L Hgb 11.5 L Hct 34.3 L MCV 89.9 MCH 30.1 MCHC 33.5 RDW 14.8 Plt Count 201 MPV 7.4 Neut % (Auto) 86.4 H Lymph % (Auto) 2.8 L [place] % (Auto) 10.3 H Eos % (Auto) 0.0 Baso % (Auto) 0.5 Neut # (Auto) 13.1 H Lymph # (Auto) 0.4 L [place] # (Auto) 1.6 H Eos # (Auto) 0.0 Baso # (Auto) 0.1 WBC Differential . Differential Comment Auto diff final Sodium Potassium Chloride Carbon Dioxide Anion Gap BUN Creatinine Estimated GFR POC Glucose 227 H 284 H Random Glucose Calcium Total Bilirubin AST ALT Alkaline Phosphatase Total Protein Albumin 09/12/17 09/12/17 09/12/17 05:46 07:48 11:41 WBC RBC Hgb Hct MCV MCH MCHC RDW Plt Count MPV Neut % (Auto) Lymph % (Auto) [place] % (Auto) Eos % (Auto) Baso % (Auto) Neut # (Auto) Lymph # (Auto) [place] # (Auto) Eos # (Auto) Baso # (Auto) WBC Differential Differential Comment Sodium 134 L Potassium 3.8 Chloride 98 Carbon Dioxide 29.4 Anion Gap 7 BUN 21 H Creatinine 0.47 L Estimated GFR Greater than 89 POC Glucose 86 104 Random Glucose 80 D Calcium 8.9 Total Bilirubin 0.6 AST 2051 H ALT 1765 H Alkaline Phosphatase 801 H Total Protein 6.4 D Albumin 1.8 L 09/12/17 16:07 WBC RBC Hgb Hct MCV MCH MCHC RDW Plt Count MPV Neut % (Auto) Lymph % (Auto) [place] % (Auto) Eos % (Auto) Baso % (Auto) Neut # (Auto) Lymph # (Auto) [place] # (Auto) Eos # (Auto) Baso # (Auto) WBC Differential Differential Comment Sodium Potassium Chloride Carbon Dioxide Anion Gap BUN Creatinine Estimated GFR POC Glucose 367 H Random Glucose Calcium Total Bilirubin AST ALT Alkaline Phosphatase Total Protein Albumin - Imaging Impressions Abdomen Ultrasound 09/10/17 00:00 CONCLUSION: 1. There is mild to moderate ascites although no pockets are seen large enough at the current time to safely perform paracentesis. Abdomen X-Ray 09/10/17 02:05 CONCLUSION: No dilated loops of small or large bowel. Liver Biopsy CT 09/12/17 00:00 CONCLUSION: 1. Uncomplicated CT guided biopsy. <Carmella Tamayo - Last Filed: 09/12/17 16:11> Assessment and Plan (1) Transaminitis Status: Acute Code(s): R74.0 - Nonspecific elevation of levels of transaminase and lactic acid dehydrogenase [LDH] (2) Liver mass Status: Acute Code(s): R16.0 - Hepatomegaly, not elsewhere classified (3) Ascites Status: Acute Code(s): R18.8 - Other ascites - Plan Assessment: - Elevated LFTs with imaging concerning for metastatic liver disease- History of Hepatitis C S/P treatment with Harvoni by Dr. Honeycutt ID about a year ago. Pt reports history of IV drug use but no use since approx 1991. Denies any current illicit drug or alcohol use. Elevated AFP- 533.3 and elevated CA19-9- 509.5 CT abdomen and pelvis W IV contrast (09/10) --> Abnormal examination suspicious for malignancy demonstrating significant ascites in the abdomen and pelvis, multiple irregular margin hypodense lesions in the liver measuring up to 9 cm in size, and enlarged ring-enhancing katie masses adjacent to the celiac artery, anterior to the heart and adjacent to the inferior esophagus. US abdomen (09/10) There is mild to moderate ascites although no pockets are seen large enough at the current time to safely perform paracentesis. (09/12) LFTs trending down some. Pt NPO for liver biopsy today. States pain is well controlled Plan: IR for liver biopsy Monitor LFTs Further recommendations to follow Pt has been seen and examined by myself and Dr. Tamayo and this note is written on her behalf <Arminda Guerra - Last Filed: 09/12/17 09:13> (1) Transaminitis Status: Acute Code(s): R74.0 - Nonspecific elevation of levels of transaminase and lactic acid dehydrogenase [LDH] (2) Liver mass Status: Acute Code(s): R16.0 - Hepatomegaly, not elsewhere classified (3) Ascites Status: Acute Code(s): R18.8 - Other ascites - Plan seen, examined agree with above await liver biopsy result ascites -not enough for drainage may need egd/colon, oncology consult albumin/lasix iv case management consult <Carmella Tamayo - Last Filed: 09/12/17 16:11> <Arminda Guerra - Last Filed: 09/12/17 09:13> (3) Ascites Qualifiers: Ascites type: other type Qualified Code(s): R18.8 - Other ascites <Carmella Tamayo - Last Filed: 09/12/17 16:11> (3) Ascites Qualifiers: Ascites type: other type Qualified Code(s): R18.8 - Other ascites
[2017-09-12] MEDS: Insulin NovoLOG Aspart Correctional Sugar Inj SQ SCH ×4 (09:20→20:33)
[2017-09-12] MEDS: Insulin Detemir Inj 1,000 UNIT/10 ML Vial SQ SCH ×2 (09:20→20:33)
[2017-09-12] MEDS: Senna/Docusate Sodium 8.6/50 MG Tablet PO SCH ×2 (09:20→20:33)
[2017-09-12] MEDS: Polyethylene Glycol 3350 17 GM Packet PO SCH (09:20)
[2017-09-12] MEDS ORDERED: fentaNYL Citrate Inj 250 MCG/5 ML Ampul ONE (09:23)
[2017-09-12] MEDS ORDERED: Metoprolol Tartrate 25 MG Tablet PO SCH (09:30)
[2017-09-12] MEDS ORDERED: Chlorhexidine Gluconate 2% 1 Pack (2 Cloths) TOPICAL SCH (09:30)
[2017-09-12] MEDS ORDERED: Sodium Chlor 0.9% Inj 500 ML IV.SIG SCH (10:00)
--- NOTE | 2017-09-12 10:08 | P.RAD ---
Post CT Procedure Prog Note - Pre Procedure Diagnosis (1) Liver mass - Post Procedure Diagnosis (1) Liver mass - Procedure Information Supervising Radiologist: Chris Simmons MD Proceduralist/Assist: vinay montemayor helen Estimated blood loss (mL): 0 Anesthesia: Conscious Sedation - Plan of Activity Patient to Unit: ROPU Patient condition: Good See PACS Report for procedural detail/treatment.
[2017-09-12] MEDS: Umeclindinium 62.5 MCG/Vilanterol 25 MCG Inhaler INH SCH (12:02)
--- NOTE | 2017-09-12 13:26 | CT ---
EXAM DATE: 09/12/2017 10:17 AM EDT AGE/SEX: 57 years / Male INDICATIONS: Liver mass. CLINICAL DATA: This is the patient's initial encounter. Patient reports that signs and symptoms have been present for 1 day and indicates a pain score of 0/10. MEDICAL/SURGICAL HISTORY: Hypertension. Diabetes. None. COMPARISON: [facility] [place], CT ABDOMEN & PELVIS W CONTRAST, 09/10/2017. . BIOPSY SITE: Right liver MEDICATION(S): 1mg midazolam (Versed) IV 50mcg fentanyl (Sublimaze) IV DEVICE(S): 20 gauge BARD biopsy needle Two core specimen(s) sent to the laboratory for pathologic evaluation. . . PROCEDURE: CT guided Right liver biopsy Prior to the procedure informed consent was obtained. Any appropriate prior imaging studies were rev iewed. Using automated exposure control and adjustment of the mA and/or kV according to patient size, radiat ion dose was kept as low as reasonably achievable to obtain optimal diagnostic quality images. DICOM format image data is available electronically for review and comparison. The site was prepped in a sterile fashion. Full sterile technique was used, including cap, mask, ema rile gloves and gown and a large sterile sheet. Hand hygiene and 2% chlorhexidine and/or betadine/al cohol prep was utilized per protocol for cutaneous antisepsis. The skin and subcutaneous tissues wer e infiltrated with local anesthetic solution. With CT guidance the previously identified mass in the posterior right lobe was localized. Biopsy was performed using the prescribed needle as above. Adequate hemostasis was obtained with compression a t the puncture site. Follow-up CT scan reveals no hemorrhage. The patient tolerated the procedure well and there were no complications. The patient was returned to the Radiology Outpatient Unit in stable condition. CONCLUSION: 1. Uncomplicated CT guided biopsy. Electronically signed by: Chris Simmons MD 09/12/2017 1:24 PM EDT
--- NOTE | 2017-09-12 14:22 | P.PNIM ---
Subjective Interval history: Follow up: Liver mass, Abdominal pain, Hepatitis C, Diabetes mellitus, Hyponatremia and COPD with fibrotic lung disease Patient is S/P liver biopsy today with IR sitting in bed eating lunch offers no complaints at this time reports abd pain resolved and abd distension decreasing Physical Exam Vital signs: Vital Signs 09/11/17 16:00 09/11/17 20:00 09/12/17 00:00 Temperature 97.8 F 97.4 F L 98.9 F Pulse Rate 116 H 121 H 120 H Respiratory Rate 20 18 20 Blood Pressure 117/77 137/83 129/81 Pulse Oximetry 93 L 94 L 92 L 09/12/17 04:00 09/12/17 06:00 09/12/17 10:15 Temperature 98.7 F 98.0 F Pulse Rate 113 H 105 H Respiratory Rate 18 16 Blood Pressure 118/72 90/66 L Pulse Oximetry 91 L 94 L 91 L 09/12/17 10:30 09/12/17 11:00 Temperature Pulse Rate 105 H 105 H Respiratory Rate 20 20 Blood Pressure 96/60 L 105/67 Pulse Oximetry 95 95 Intake & Output 09/11/17 09/12/17 09/12/17 18:59 06:59 18:59 Intake Total 960 / 960 Output Total 950 / 950 Balance Weight 61.3 kg Intake: Oral 960 / 960 Output: Urine 950 / 950 Other: # Voids 1 Date of Last Bowel Movement 09/11/17 09/11/17 # Bowel Movements 1 1 Narrative: GENERAL: This is a thin chronically ill-appearing 57-year-old male patient who appears older than stated age, in no apparent distress. CARDIOVASCULAR: Regular rate and rhythm RESPIRATORY: Clear to auscultation. Breath sounds equal bilaterally. GASTROINTESTINAL: Abdomen soft, non-tender, distended. Normoactive bowel sounds MUSCULOSKELETAL: Extremities without clubbing, cyanosis, or edema. NEURO: Alert & Oriented x4 to person, place, time, situation. Moves all ext x4 Results - Labs CBC & Chem 7: 09/12/17 05:46 09/12/17 05:46 Laboratory Results - last 24 hr 09/11/17 09/11/17 09/12/17 17:26 20:33 05:46 WBC 15.2 H RBC 3.82 L Hgb 11.5 L Hct 34.3 L MCV 89.9 MCH 30.1 MCHC 33.5 RDW 14.8 Plt Count 201 MPV 7.4 Neut % (Auto) 86.4 H Lymph % (Auto) 2.8 L Day % (Auto) 10.3 H Eos % (Auto) 0.0 Baso % (Auto) 0.5 Neut # (Auto) 13.1 H Lymph # (Auto) 0.4 L Day # (Auto) 1.6 H Eos # (Auto) 0.0 Baso # (Auto) 0.1 WBC Differential . Differential Comment Auto diff final Sodium Potassium Chloride Carbon Dioxide Anion Gap BUN Creatinine Estimated GFR POC Glucose 227 H 284 H Random Glucose Calcium Total Bilirubin AST ALT Alkaline Phosphatase Total Protein Albumin 09/12/17 09/12/17 09/12/17 05:46 07:48 11:41 WBC RBC Hgb Hct MCV MCH MCHC RDW Plt Count MPV Neut % (Auto) Lymph % (Auto) Day % (Auto) Eos % (Auto) Baso % (Auto) Neut # (Auto) Lymph # (Auto) Day # (Auto) Eos # (Auto) Baso # (Auto) WBC Differential Differential Comment Sodium 134 L Potassium 3.8 Chloride 98 Carbon Dioxide 29.4 Anion Gap 7 BUN 21 H Creatinine 0.47 L Estimated GFR Greater than 89 POC Glucose 86 104 Random Glucose 80 D Calcium 8.9 Total Bilirubin 0.6 AST 2051 H ALT 1765 H Alkaline Phosphatase 801 H Total Protein 6.4 D Albumin 1.8 L - Imaging Impressions Abdomen Ultrasound 09/10/17 00:00 CONCLUSION: 1. There is mild to moderate ascites although no pockets are seen large enough at the current time to safely perform paracentesis. Abdomen X-Ray 09/10/17 02:05 CONCLUSION: No dilated loops of small or large bowel. Liver Biopsy CT 09/12/17 00:00 CONCLUSION: 1. Uncomplicated CT guided biopsy. Assessment and Plan - Assessment (1) Liver mass Code(s): R16.0 - Hepatomegaly, not elsewhere classified Status: Acute Plan: This is a 57-year-old male patient with past medical history which includes diabetes mellitus and hepatitis C. Patient reports he has previously been treated with Harvoni for his hepatitis C. Patient presents to the emergency department with complaints of abdominal distention and constipation for approximately 3 weeks. Liver mass Abdominal pain Hepatitis C previously treated with Harvoni KUB reviewed and reveals no dilated loops of small or large bowel CT abdomen pelvis reviewed and reveals abnormal examination suspicious for malignancy demonstrating significant ascites in the abdomen and pelvis, multiple irregular margin hypodense lesions in the liver measuring up to 9 cm in size , and enlarged ring-enhancing nodular masses adjacent to the celiac artery, anterior to the heart and adjacent to the inferior esophagus. Dr. Raman discussed the CT scan results with patient and answered all questions Given concern of malignancy we will consult interventional radiology for US guided paracentesis with cytology (unable to be done as there was not enough fluid) CMP on admission reviewed total bilirubin 0.9 AST 208, ALT 152, alkaline phosphatase 472 ammonia (09/10) < 10, AFP (09/11) 533.3, CA 19.9 509.5 (09/11/17) total bilirubin 0.8, AST 6470, ALT 3043, alkaline phosphatase 939 (09/12/17) total bilirubin 0.6, AST 2051, ALT 1765, alkaline phosphatase 801 hepatitis profile Hep C Ab positive PT 10.9, INR 1.1, APTT 23.8 Recheck CMP in a.m. Consult GI, appreciate input S/P CT guided biopsy of the liver with IR requested today (09/12/17) await bx results trace BLE edema start spironolactone 25 mg PO daily Diabetes mellitus Patient reportedly takes Synjardy 5-1000mg PO BID, blood glucose on arrival to the emergency department was 555 -> improved to 233 after hydration Continue Accu-Cheks before meals at bedtime with sliding scale insulin coverage HA1c 15.8 Levemir 10 units SQ BID diabetic diet Hyponatremia sodium was 129 on admission patient received 1 L fluid bolus recheck sodium (09/11) 131 -> (09/12) 134 COPD with fibrotic lung disease not on home oxygen Does not appear to be in acute exacerbation Continue home anoro elipta add duonebs Q2H as needed DVT prophylaxis with SCDs at this time avoid chemical DVT prophylaxis as patient has possible upcoming procedure and liver disease but patient increased risk for bleeding The exam, history, and the medical decision-making described in the above note were completed with the assistance of the mid-level provider. I reviewed and agree with the findings presented. I attest that I had a [id number] encounter with the patient on the same day, and personally performed and documented my assessment and findings in the medical record. (2) Ascites Code(s): R18.8 - Other ascites Status: Acute (2) Ascites Qualifiers: Ascites type: other type Qualified Code(s): R18.8 - Other ascites
[2017-09-12] MEDS: Albumin Human 25% Inj 50 ML IV.SIG SCH (19:39)
[2017-09-13] MEDS: Albumin Human 25% Inj 50 ML IV.SIG SCH ×2 (05:45→16:29)
[2017-09-13 08:12] LABS: Baso % (Auto) 0.2 % (0.0-2.0); Eos % (Auto) 0.1 % (0.0-4.0); Hematocrit 33.7 % (39.0-51.0); Hemoglobin 10.9 gm/dL (13.0-17.0); Lymph # (Auto) 0.3 th/mm3 (1.0-4.8); Lymph % (Auto) 2.7 % (9.0-44.0); Mean Corpuscular HGB Conc 32.3 % (32.0-36.0); Mean Corpuscular Hemoglobin 29.3 pg (27.0-34.0); Mean Corpuscular Volume 90.5 fL (80.0-100.0); Mean Platelet Volume 7.4 fL (7.0-11.0); Mono # (Auto) 1.2 th/mm3 (0.0-0.9); Mono % (Auto) 9.2 % (0.0-8.0); Neut # (Auto) 11.1 th/mm3 (1.8-7.7); Neut % (Auto) 87.8 % (16.0-70.0); Platelet Count 183 th/mm3 (150-450); Red Blood Count 3.72 mil/mm3 (4.50-5.90); Red Cell Distribution Width 15.1 % (11.6-17.2); White Blood Count 12.7 th/mm3 (4.0-11.0)
[2017-09-13 08:45] LABS: Anion Gap 9 meq/L (5-15); Aspartate Aminotransferase 831 U/L (15-37); Blood Urea Nitrogen 27 mg/dL (7-18); Calcium 8.9 mg/dL (8.5-10.1); Carbon Dioxide 28.1 meq/L (21.0-32.0); Chloride 93 meq/L (98-107); Glomerular Filtration Rate Greater Than 89 mL/min (>89); Glucose,Random 262 mg/dL (74-106); Potassium 3.8 meq/L (3.5-5.1); Sodium 130 meq/L (136-145)
[2017-09-13 08:48] LABS: Alanine Aminotransferase 1070 U/L (12-78); Alkaline Phosphatase 751 U/L (45-117); Total Protein 6.5 g/dL (6.4-8.2)
[2017-09-13] MEDS: Senna/Docusate Sodium 8.6/50 MG Tablet PO SCH ×2 (09:46→21:15)
[2017-09-13] MEDS: Spironolactone 25 MG Tablet PO SCH (09:46)
[2017-09-13] MEDS: Insulin NovoLOG Aspart Correctional Sugar Inj SQ SCH ×4 (09:47→21:12)
[2017-09-13] MEDS: Insulin Detemir Inj 1,000 UNIT/10 ML Vial SQ SCH ×2 (09:47→21:13)
[2017-09-13] MEDS: Polyethylene Glycol 3350 17 GM Packet PO SCH (09:47)
--- NOTE | 2017-09-13 10:31 | P.PNGI ---
Subjective Interval history: Pt sitting up in bed. Complaining of abdominal distention. Had a BM last night, also passing flatus last night. Has not had BM or passed flatus today. Denies nausea and vomiting. <Arminda Guerra - Last Filed: 09/13/17 14:18> Physical Exam Vital signs: Vital Signs 09/12/17 10:30 09/12/17 11:00 09/12/17 11:30 Temperature 97.5 F L Pulse Rate 105 H 105 H 102 H Respiratory Rate 20 20 15 Blood Pressure 96/60 L 105/67 114/73 Pulse Oximetry 95 95 93 L 09/12/17 16:00 09/12/17 20:00 09/13/17 00:00 Temperature 97.6 F 98.1 F 98 F Pulse Rate 110 H 113 H 112 H Respiratory Rate 16 20 18 Blood Pressure 136/81 129/80 135/80 Pulse Oximetry 95 98 94 L 09/13/17 05:15 09/13/17 08:00 Temperature 97.7 F 98 F Pulse Rate 105 H 99 H Respiratory Rate 17 20 Blood Pressure 125/88 134/76 Pulse Oximetry 96 93 L Intake & Output 09/12/17 09/13/17 09/13/17 18:59 06:59 18:59 Intake Total 720 / 720 651 / 651 Output Total 1425 / 1425 Balance 720 / 720 -774 / -774 Weight 61.5 kg Intake: IV 50 / 50 Flexbumin 25% Inj 50 ML @ 60 50 / 50 mls/hr IV.SIG Q12H ALEXYS Rx#: [id number] Oral 720 / 720 601 / 601 Output: Urine 1425 / 1425 Other: # Voids 3 Date of Last Bowel Movement 09/12/17 # Bowel Movements 2 0 - Constitutional no acute distress - Routine HEENT Exam Head: Present: normocephalic, atraumatic - Routine Respiratory Exam Absent: accessory muscle use - Routine Abdominal Exam Present: normoactive bowel sounds, distended, firm. Absent: tenderness - Routine Skin Exam Present: dry, warm - Routine Neurological Exam Present: alert, oriented X3 <Arminda Guerra - Last Filed: 09/13/17 14:18> Vital signs: Vital Signs 09/12/17 20:00 09/13/17 00:00 09/13/17 05:15 Temperature 98.1 F 98 F 97.7 F Pulse Rate 113 H 112 H 105 H Respiratory Rate 20 18 17 Blood Pressure 129/80 135/80 125/88 Pulse Oximetry 98 94 L 96 09/13/17 08:00 09/13/17 12:00 Temperature 98 F 98 F Pulse Rate 99 H 102 H Respiratory Rate 20 20 Blood Pressure 134/76 124/80 Pulse Oximetry 93 L 94 L Intake & Output 09/12/17 09/13/17 09/13/17 18:59 06:59 18:59 Intake Total 720 / 720 651 / 651 Output Total 1425 / 1425 Balance 720 / 720 -774 / -774 Weight 61.5 kg Intake: IV 50 / 50 Flexbumin 25% Inj 50 ML @ 60 50 / 50 mls/hr IV.SIG Q12H ALEXYS Rx#: [id number] Oral 720 / 720 601 / 601 Output: Urine 1425 / 1425 Other: # Voids 3 Date of Last Bowel Movement 09/12/17 # Bowel Movements 2 0 <Carmella Tamayo - Last Filed: 09/13/17 16:05> Results - Labs CBC & Chem 7: 09/13/17 07:04 09/13/17 07:04 Laboratory Results - last 24 hr 09/12/17 09/12/17 09/12/17 05:46 11:41 16:07 WBC RBC Hgb Hct MCV MCH MCHC RDW Plt Count MPV Neut % (Auto) Lymph % (Auto) [place] % (Auto) Eos % (Auto) Baso % (Auto) Neut # (Auto) Lymph # (Auto) [place] # (Auto) Eos # (Auto) Baso # (Auto) WBC Differential Differential Comment Sodium Potassium Chloride Carbon Dioxide Anion Gap BUN Creatinine Estimated GFR POC Glucose 104 367 H Random Glucose Calcium Total Bilirubin AST ALT Alkaline Phosphatase Total Protein Albumin Carcinoembryonic Ag 8.9 H 09/12/17 09/12/17 09/12/17 20:04 20:14 20:15 WBC RBC Hgb Hct MCV MCH MCHC RDW Plt Count MPV Neut % (Auto) Lymph % (Auto) [place] % (Auto) Eos % (Auto) Baso % (Auto) Neut # (Auto) Lymph # (Auto) [place] # (Auto) Eos # (Auto) Baso # (Auto) WBC Differential Differential Comment Sodium Potassium Chloride Carbon Dioxide Anion Gap BUN Creatinine Estimated GFR POC Glucose 495 H* Greater than 600 H* 478 H* Random Glucose Calcium Total Bilirubin AST ALT Alkaline Phosphatase Total Protein Albumin Carcinoembryonic Ag 09/13/17 09/13/17 09/13/17 00:04 07:04 07:04 WBC 12.7 H RBC 3.72 L Hgb 10.9 L Hct 33.7 L MCV 90.5 MCH 29.3 MCHC 32.3 RDW 15.1 Plt Count 183 MPV 7.4 Neut % (Auto) 87.8 H Lymph % (Auto) 2.7 L [place] % (Auto) 9.2 H Eos % (Auto) 0.1 Baso % (Auto) 0.2 Neut # (Auto) 11.1 H Lymph # (Auto) 0.3 L [place] # (Auto) 1.2 H Eos # (Auto) 0.0 Baso # (Auto) 0.0 WBC Differential . Differential Comment Auto diff final Sodium 130 L Potassium 3.8 Chloride 93 L Carbon Dioxide 28.1 Anion Gap 9 BUN 27 H Creatinine 0.64 Estimated GFR Greater than 89 POC Glucose 288 H Random Glucose 262 H D Calcium 8.9 Total Bilirubin 1.0 AST 831 H ALT 1070 H Alkaline Phosphatase 751 H Total Protein 6.5 Albumin 2.0 L Carcinoembryonic Ag 09/13/17 07:41 WBC RBC Hgb Hct MCV MCH MCHC RDW Plt Count MPV Neut % (Auto) Lymph % (Auto) [place] % (Auto) Eos % (Auto) Baso % (Auto) Neut # (Auto) Lymph # (Auto) [place] # (Auto) Eos # (Auto) Baso # (Auto) WBC Differential Differential Comment Sodium Potassium Chloride Carbon Dioxide Anion Gap BUN Creatinine Estimated GFR POC Glucose 312 H Random Glucose Calcium Total Bilirubin AST ALT Alkaline Phosphatase Total Protein Albumin Carcinoembryonic Ag - Imaging Impressions Liver Biopsy CT 09/12/17 00:00 CONCLUSION: 1. Uncomplicated CT guided biopsy. <Arminda Guerra - Last Filed: 09/13/17 14:18> - Labs CBC & Chem 7: 09/13/17 07:04 09/13/17 07:04 Laboratory Results - last 24 hr 09/10/17 09/12/17 09/12/17 13:15 05:46 16:07 WBC RBC Hgb Hct MCV MCH MCHC RDW Plt Count MPV Neut % (Auto) Lymph % (Auto) [place] % (Auto) Eos % (Auto) Baso % (Auto) Neut # (Auto) Lymph # (Auto) [place] # (Auto) Eos # (Auto) Baso # (Auto) WBC Differential Differential Comment Sodium Potassium Chloride Carbon Dioxide Anion Gap BUN Creatinine Estimated GFR POC Glucose 367 H Random Glucose Calcium Total Bilirubin AST ALT Alkaline Phosphatase Total Protein Albumin Carcinoembryonic Ag 8.9 H Anti-Smooth Muscle Ab Negative 09/12/17 09/12/17 09/12/17 20:04 20:14 20:15 WBC RBC Hgb Hct MCV MCH MCHC RDW Plt Count MPV Neut % (Auto) Lymph % (Auto) [place] % (Auto) Eos % (Auto) Baso % (Auto) Neut # (Auto) Lymph # (Auto) [place] # (Auto) Eos # (Auto) Baso # (Auto) WBC Differential Differential Comment Sodium Potassium Chloride Carbon Dioxide Anion Gap BUN Creatinine Estimated GFR POC Glucose 495 H* Greater than 600 H* 478 H* Random Glucose Calcium Total Bilirubin AST ALT Alkaline Phosphatase Total Protein Albumin Carcinoembryonic Ag Anti-Smooth Muscle Ab 09/13/17 09/13/17 09/13/17 00:04 07:04 07:04 WBC 12.7 H RBC 3.72 L Hgb 10.9 L Hct 33.7 L MCV 90.5 MCH 29.3 MCHC 32.3 RDW 15.1 Plt Count 183 MPV 7.4 Neut % (Auto) 87.8 H Lymph % (Auto) 2.7 L [place] % (Auto) 9.2 H Eos % (Auto) 0.1 Baso % (Auto) 0.2 Neut # (Auto) 11.1 H Lymph # (Auto) 0.3 L [place] # (Auto) 1.2 H Eos # (Auto) 0.0 Baso # (Auto) 0.0 WBC Differential . Differential Comment Auto diff final Sodium 130 L Potassium 3.8 Chloride 93 L Carbon Dioxide 28.1 Anion Gap 9 BUN 27 H Creatinine 0.64 Estimated GFR Greater than 89 POC Glucose 288 H Random Glucose 262 H D Calcium 8.9 Total Bilirubin 1.0 AST 831 H ALT 1070 H Alkaline Phosphatase 751 H Total Protein 6.5 Albumin 2.0 L Carcinoembryonic Ag Anti-Smooth Muscle Ab 08/07/18 08/07/18 07:41 12:00 WBC RBC Hgb Hct MCV MCH MCHC RDW Plt Count MPV Neut % (Auto) Lymph % (Auto) [place] % (Auto) Eos % (Auto) Baso % (Auto) Neut # (Auto) Lymph # (Auto) [place] # (Auto) Eos # (Auto) Baso # (Auto) WBC Differential Differential Comment Sodium Potassium Chloride Carbon Dioxide Anion Gap BUN Creatinine Estimated GFR POC Glucose 312 H 318 H Random Glucose Calcium Total Bilirubin AST ALT Alkaline Phosphatase Total Protein Albumin Carcinoembryonic Ag Anti-Smooth Muscle Ab - Imaging Impressions Abdomen X-Ray 09/13/17 10:29 CONCLUSION: Mild small bowel dilatation central abdomen. No free air. <Carmella Tamayo - Last Filed: 09/13/17 16:05> Assessment and Plan (1) Transaminitis Status: Acute Code(s): R74.0 - Nonspecific elevation of levels of transaminase and lactic acid dehydrogenase [LDH] (2) Liver mass Status: Acute Code(s): R16.0 - Hepatomegaly, not elsewhere classified (3) Ascites Status: Acute Code(s): R18.8 - Other ascites - Plan Assessment: - Elevated LFTs with imaging concerning for metastatic liver disease- History of Hepatitis C S/P treatment with Harvoni by Dr. Honeycutt ID about a year ago. Pt reports history of IV drug use but no use since approx 1991. Denies any current illicit drug or alcohol use. Elevated AFP- 533.3 and elevated CA19-9- 509.5 CT abdomen and pelvis W IV contrast (09/10) --> Abnormal examination suspicious for malignancy demonstrating significant ascites in the abdomen and pelvis, multiple irregular margin hypodense lesions in the liver measuring up to 9 cm in size, and enlarged ring-enhancing katie masses adjacent to the celiac artery, anterior to the heart and adjacent to the inferior esophagus. US abdomen (09/10) There is mild to moderate ascites although no pockets are seen large enough at the current time to safely perform paracentesis. (09/12) LFTs trending down some. Pt NPO for liver biopsy today. States pain is well controlled (09/13) S/P liver biopsy yesterday. Pt reports had BM and was passing flatus last night. This morning abdomen is distended and firm, states no flatus or BM so far this morning. Some improvement in LFTs today Addendum: Pt seen after KUB, appears to be a lot more comfortable, reports large BM with good relief Plan: Not enough ascites for drainage Albumin/lasix IV Liver biopsy pending Oncology consult pending biopsy Possible EGD and colonoscopy this week Further recommendations to follow Pt has been seen and examined by myself and Dr. Tamayo and this note is written on her behalf <Arminda Guerra - Last Filed: 09/13/17 14:18> (1) Transaminitis Status: Acute Code(s): R74.0 - Nonspecific elevation of levels of transaminase and lactic acid dehydrogenase [LDH] (2) Liver mass Status: Acute Code(s): R16.0 - Hepatomegaly, not elsewhere classified (3) Ascites Status: Acute Code(s): R18.8 - Other ascites - Attending Attestation seen, examined agree with above abdominal distension improved after having a bowel movement <Carmella Tamayo - Last Filed: 09/13/17 16:05> <Arminda Guerra - Last Filed: 09/13/17 14:18> (3) Ascites Qualifiers: Ascites type: other type Qualified Code(s): R18.8 - Other ascites <Carmella Tamayo - Last Filed: 09/13/17 16:05> (3) Ascites Qualifiers: Ascites type: other type Qualified Code(s): R18.8 - Other ascites
--- NOTE | 2017-09-13 10:53 | P.PNIM ---
Subjective Interval history: Follow up: Liver mass, Abdominal pain, Hepatitis C, Diabetes mellitus, Hyponatremia and COPD with fibrotic lung disease Patient is S/P liver biopsy today with IR 09/12/17 reports abd distension increased after eating/drinking Physical Exam Vital signs: Vital Signs 09/12/17 11:00 09/12/17 11:30 09/12/17 16:00 Temperature 97.5 F L 97.6 F Pulse Rate 105 H 102 H 110 H Respiratory Rate 20 15 16 Blood Pressure 105/67 114/73 136/81 Pulse Oximetry 95 93 L 95 09/12/17 20:00 09/13/17 00:00 09/13/17 05:15 Temperature 98.1 F 98 F 97.7 F Pulse Rate 113 H 112 H 105 H Respiratory Rate 20 18 17 Blood Pressure 129/80 135/80 125/88 Pulse Oximetry 98 94 L 96 09/13/17 08:00 Temperature 98 F Pulse Rate 99 H Respiratory Rate 20 Blood Pressure 134/76 Pulse Oximetry 93 L Intake & Output 09/12/17 09/13/17 09/13/17 18:59 06:59 18:59 Intake Total 720 / 720 651 / 651 Output Total 1425 / 1425 Balance 720 / 720 -774 / -774 Weight 61.5 kg Intake: IV 50 / 50 Flexbumin 25% Inj 50 ML @ 60 50 / 50 mls/hr IV.SIG Q12H [facility] Rx#: [id number] Oral 720 / 720 601 / 601 Output: Urine 1425 / 1425 Other: # Voids 3 Date of Last Bowel Movement 09/12/17 # Bowel Movements 2 0 Narrative: GENERAL: This is a thin chronically ill-appearing 57-year-old male patient who appears older than stated age, in no apparent distress. CARDIOVASCULAR: Regular rate and rhythm RESPIRATORY: Clear to auscultation. Breath sounds equal bilaterally. GASTROINTESTINAL: Abdomen soft, non-tender, distended. Normoactive bowel sounds MUSCULOSKELETAL: Extremities without clubbing, cyanosis, or edema. NEURO: Alert & Oriented x4 to person, place, time, situation. Moves all ext x4 Results - Labs CBC & Chem 7: 09/13/17 07:04 09/13/17 07:04 Laboratory Results - last 24 hr 09/12/17 09/12/17 09/12/17 05:46 11:41 16:07 WBC RBC Hgb Hct MCV MCH MCHC RDW Plt Count MPV Neut % (Auto) Lymph % (Auto) [place] % (Auto) Eos % (Auto) Baso % (Auto) Neut # (Auto) Lymph # (Auto) [place] # (Auto) Eos # (Auto) Baso # (Auto) WBC Differential Differential Comment Sodium Potassium Chloride Carbon Dioxide Anion Gap BUN Creatinine Estimated GFR POC Glucose 104 367 H Random Glucose Calcium Total Bilirubin AST ALT Alkaline Phosphatase Total Protein Albumin Carcinoembryonic Ag 8.9 H 09/12/17 09/12/17 09/12/17 20:04 20:14 20:15 WBC RBC Hgb Hct MCV MCH MCHC RDW Plt Count MPV Neut % (Auto) Lymph % (Auto) [place] % (Auto) Eos % (Auto) Baso % (Auto) Neut # (Auto) Lymph # (Auto) [place] # (Auto) Eos # (Auto) Baso # (Auto) WBC Differential Differential Comment Sodium Potassium Chloride Carbon Dioxide Anion Gap BUN Creatinine Estimated GFR POC Glucose 495 H* Greater than 600 H* 478 H* Random Glucose Calcium Total Bilirubin AST ALT Alkaline Phosphatase Total Protein Albumin Carcinoembryonic Ag 09/13/17 09/13/17 09/13/17 00:04 07:04 07:04 WBC 12.7 H RBC 3.72 L Hgb 10.9 L Hct 33.7 L MCV 90.5 MCH 29.3 MCHC 32.3 RDW 15.1 Plt Count 183 MPV 7.4 Neut % (Auto) 87.8 H Lymph % (Auto) 2.7 L [place] % (Auto) 9.2 H Eos % (Auto) 0.1 Baso % (Auto) 0.2 Neut # (Auto) 11.1 H Lymph # (Auto) 0.3 L [place] # (Auto) 1.2 H Eos # (Auto) 0.0 Baso # (Auto) 0.0 WBC Differential . Differential Comment Auto diff final Sodium 130 L Potassium 3.8 Chloride 93 L Carbon Dioxide 28.1 Anion Gap 9 BUN 27 H Creatinine 0.64 Estimated GFR Greater than 89 POC Glucose 288 H Random Glucose 262 H D Calcium 8.9 Total Bilirubin 1.0 AST 831 H ALT 1070 H Alkaline Phosphatase 751 H Total Protein 6.5 Albumin 2.0 L Carcinoembryonic Ag 08/07/18 07:41 WBC RBC Hgb Hct MCV MCH MCHC RDW Plt Count MPV Neut % (Auto) Lymph % (Auto) [place] % (Auto) Eos % (Auto) Baso % (Auto) Neut # (Auto) Lymph # (Auto) [place] # (Auto) Eos # (Auto) Baso # (Auto) WBC Differential Differential Comment Sodium Potassium Chloride Carbon Dioxide Anion Gap BUN Creatinine Estimated GFR POC Glucose 312 H Random Glucose Calcium Total Bilirubin AST ALT Alkaline Phosphatase Total Protein Albumin Carcinoembryonic Ag - Imaging Impressions Liver Biopsy CT 09/12/17 00:00 CONCLUSION: 1. Uncomplicated CT guided biopsy. Assessment and Plan - Assessment (1) Liver mass Code(s): R16.0 - Hepatomegaly, not elsewhere classified Status: Acute Plan: This is a 57-year-old male patient with past medical history which includes diabetes mellitus and hepatitis C. Patient reports he has previously been treated with Harvoni for his hepatitis C. Patient presents to the emergency department with complaints of abdominal distention and constipation for approximately 3 weeks. Liver mass Abdominal pain Hepatitis C previously treated with Harvoni KUB reviewed and reveals no dilated loops of small or large bowel CT abdomen pelvis reviewed and reveals abnormal examination suspicious for malignancy demonstrating significant ascites in the abdomen and pelvis, multiple irregular margin hypodense lesions in the liver measuring up to 9 cm in size , and enlarged ring-enhancing nodular masses adjacent to the celiac artery, anterior to the heart and adjacent to the inferior esophagus. Dr. Raman discussed the CT scan results with patient and answered all questions Given concern of malignancy we will consult interventional radiology for US guided paracentesis with cytology (unable to be done as there was not enough fluid) CMP on admission reviewed total bilirubin 0.9 AST 208, ALT 152, alkaline phosphatase 472 ammonia (09/10) < 10, AFP (09/11) 533.3, CA 19.9 509.5 (09/11/17) total bilirubin 0.8, AST 6470, ALT 3043, alkaline phosphatase 939 (09/12/17) total bilirubin 0.6, AST 2051, ALT 1765, alkaline phosphatase 801 hepatitis profile Hep C Ab positive PT 10.9, INR 1.1, APTT 23.8 Recheck CMP in a.m. Consult GI, appreciate input S/P CT guided biopsy of the liver with IR requested today (09/12/17) await bx results started spironolactone 25 mg PO daily 09/12/17, today Na down to 130, DC spirolactone abdomen more distended today after PO intake KUB Dulcolax x1 now Diabetes mellitus Patient reportedly takes Synjardy 5-1000mg PO BID, blood glucose on arrival to the emergency department was 555 -> improved to 233 after hydration Continue Accu-Cheks before meals at bedtime with sliding scale insulin coverage HA1c 15.8 09/12 PM blood glucose uncontrolled > 600 Levemir increased to 25 units SQ BID diabetic diet Hyponatremia sodium was 129 on admission patient received 1 L fluid bolus recheck sodium (09/11) 131 -> (09/12) 134 -> 130 (09/13) started spironolactone 25 mg PO daily 09/12/17, today Na down to 130, DC spirolactone and DC Lasix CMP in AM COPD with fibrotic lung disease not on home oxygen Does not appear to be in acute exacerbation Continue home anoro elipta add duonebs Q2H as needed DVT prophylaxis with SCDs The exam, history, and the medical decision-making described in the above note were completed with the assistance of the mid-level provider. I reviewed and agree with the findings presented. I attest that I had a [id number] encounter with the patient on the same day, and personally performed and documented my assessment and findings in the medical record. (2) Ascites Code(s): R18.8 - Other ascites Status: Acute (2) Ascites Qualifiers: Ascites type: other type Qualified Code(s): R18.8 - Other ascites
--- NOTE | 2017-09-13 11:39 | XR ---
EXAM DATE: 09/13/2017 11:30 AM EDT AGE/SEX: 57 years / Male INDICATIONS: Rule out obstruction. CLINICAL DATA: This is the patient's initial encounter. Patient reports that signs and symptoms have been present for 4 - 6 days and indicates a pain score of 8/10. MEDICAL/SURGICAL HISTORY: . intermittent constipation for 3 weeks. None. COMPARISON: [facility] [place], ABDOMEN 2V FLAT & UPRIGHT, 09/10/2017. . FINDINGS: Bowel gas pattern is nonspecific. Questionable minimal small bowel dilatation in the central abdomen . No free air. No acute bony abnormality. CONCLUSION: Mild small bowel dilatation central abdomen. No free air. Electronically signed by: Dillon Jarvis MD 09/13/2017 11:37 AM EDT
[2017-09-13] MEDS: Umeclindinium 62.5 MCG/Vilanterol 25 MCG Inhaler INH SCH (11:51)
[2017-09-13] MEDS ORDERED: Bisacodyl 10 MG Supp RECTAL ONE (12:00)
[2017-09-13 13:33] LABS: Smooth Muscle Total Auto Abs Negative (Negative)
[2017-09-14] MEDS: Albumin Human 25% Inj 50 ML IV.SIG SCH ×2 (05:02→16:59)
[2017-09-14 06:59] LABS: Baso % (Auto) 0.1 % (0.0-2.0); Eos % (Auto) 0.2 % (0.0-4.0); Hematocrit 34.7 % (39.0-51.0); Hemoglobin 11.5 gm/dL (13.0-17.0); Lymph # (Auto) 0.4 th/mm3 (1.0-4.8); Lymph % (Auto) 3.4 % (9.0-44.0); Mean Corpuscular Hemoglobin 30.3 pg (27.0-34.0); Mean Corpuscular Volume 91.6 fL (80.0-100.0); Mean Platelet Volume 7.7 fL (7.0-11.0); Mono # (Auto) 1.2 th/mm3 (0.0-0.9); Mono % (Auto) 10.5 % (0.0-8.0); Neut # (Auto) 9.4 th/mm3 (1.8-7.7); Neut % (Auto) 85.8 % (16.0-70.0); Platelet Count 162 th/mm3 (150-450); Red Blood Count 3.79 mil/mm3 (4.50-5.90)
[2017-09-14] MEDS: Insulin NovoLOG Aspart Correctional Sugar Inj SQ SCH ×4 (07:50→21:40)
[2017-09-14 07:52] LABS: Alanine Aminotransferase 839 U/L (12-78); Albumin 2.1 g/dL (3.4-5.0); Alkaline Phosphatase 921 U/L (45-117); Anion Gap 9 meq/L (5-15); Aspartate Aminotransferase 690 U/L (15-37); Blood Urea Nitrogen 27 mg/dL (7-18); Calcium 8.9 mg/dL (8.5-10.1); Carbon Dioxide 27.2 meq/L (21.0-32.0); Chloride 97 meq/L (98-107); Glomerular Filtration Rate Greater Than 89 mL/min (>89); Glucose,Random 114 mg/dL (74-106); Potassium 3.8 meq/L (3.5-5.1); Sodium 133 meq/L (136-145); Total Protein 6.6 g/dL (6.4-8.2)
[2017-09-14] MEDS: Insulin Detemir Inj 1,000 UNIT/10 ML Vial SQ SCH ×2 (08:08→21:40)
[2017-09-14] MEDS: Senna/Docusate Sodium 8.6/50 MG Tablet PO SCH ×2 (08:09→22:48)
[2017-09-14] MEDS: Spironolactone 25 MG Tablet PO SCH ×2 (08:09→17:00)
[2017-09-14] MEDS: Polyethylene Glycol 3350 17 GM Packet PO SCH (08:09)
--- NOTE | 2017-09-14 09:44 | P.PNGI ---
Subjective Interval history: Pt sitting up in bedside chair, denies any GI complaints. Had a few BMs yesterday. Has not had much of his breakfast yet. Denies nausea, vomiting <Willian Guerrasey - Last Filed: 09/14/17 09:38> Physical Exam Vital signs: Vital Signs 09/13/17 12:00 09/13/17 16:00 09/13/17 22:52 Temperature 98 F 98.5 F 98 F Pulse Rate 102 H 110 H 115 H Respiratory Rate 20 20 18 Blood Pressure 124/80 127/70 130/74 Pulse Oximetry 94 L 94 L 94 L 09/14/17 00:50 09/14/17 05:15 Temperature 97 F L 99 F Pulse Rate 66 66 Respiratory Rate 19 18 Blood Pressure 122/80 120/67 Pulse Oximetry 95 95 Intake & Output 09/13/17 09/14/17 09/14/17 18:59 06:59 18:59 Intake Total 50 / 50 1300 / 1300 Output Total 300 / 300 Balance 50 / 50 1000 / 1000 Weight 61.5 kg Intake: IV 50 / 50 100 / 100 Flexbumin 25% Inj 50 ML @ 60 50 / 50 100 / 100 mls/hr IV.SIG Q12H [facility] Rx#: [id number] Oral 1200 / 1200 Output: Urine 300 / 300 Other: # Voids 1 Date of Last Bowel Movement 09/13/17 # Bowel Movements 1 0 - Constitutional no acute distress - Routine HEENT Exam Head: Present: normocephalic, atraumatic - Routine Respiratory Exam Absent: accessory muscle use - Routine Abdominal Exam Present: soft, normoactive bowel sounds, distended. Absent: tenderness - Routine Skin Exam Present: dry, warm - Routine Neurological Exam Present: alert, oriented X3 <Willian Guerrasey - Last Filed: 09/14/17 09:38> Vital signs: Vital Signs 09/14/17 08:00 09/14/17 12:00 09/14/17 16:00 Temperature 97.6 F 98.1 F 97.7 F Pulse Rate 95 H 96 H 98 H Respiratory Rate 20 18 18 Blood Pressure 109/71 127/82 116/72 Pulse Oximetry 97 95 95 09/14/17 20:00 09/15/17 00:00 09/15/17 04:00 Temperature 97.7 F 98.0 F 97.9 F Pulse Rate 101 H 98 H 99 H Respiratory Rate 20 20 20 Blood Pressure 128/82 120/76 127/81 Pulse Oximetry 96 95 93 L Intake & Output 09/14/17 09/14/17 09/15/17 06:59 18:59 06:59 Intake Total 1300 / 1300 50 / 50 120 / 120 Output Total 300 / 300 Balance 1000 / 1000 50 / 50 120 / 120 Weight 61.5 kg 62.5 kg Intake: IV 100 / 100 50 / 50 Flexbumin 25% Inj 50 ML @ 60 100 / 100 50 / 50 mls/hr IV.SIG Q12H [facility] Rx#: [id number] Oral 1200 / 1200 120 / 120 Output: Urine 300 / 300 Other: # Voids 4 Date of Last Bowel Movement 09/13/17 09/13/17 # Bowel Movements 0 <Carmella Tamayo - Last Filed: 09/15/17 06:31> Results - Labs CBC & Chem 7: 09/14/17 06:09 09/14/17 06:09 Laboratory Results - last 24 hr 09/10/17 09/13/17 09/13/17 13:15 12:00 17:14 WBC RBC Hgb Hct MCV MCH MCHC RDW Plt Count MPV Neut % (Auto) Lymph % (Auto) [place] % (Auto) Eos % (Auto) Baso % (Auto) Neut # (Auto) Lymph # (Auto) [place] # (Auto) Eos # (Auto) Baso # (Auto) WBC Differential Differential Comment Sodium Potassium Chloride Carbon Dioxide Anion Gap BUN Creatinine Estimated GFR POC Glucose 318 H 269 H Random Glucose Calcium Total Bilirubin AST ALT Alkaline Phosphatase Total Protein Albumin Anti-Smooth Muscle Ab Negative 09/13/17 09/14/17 09/14/17 20:16 06:09 06:09 WBC 11.0 RBC 3.79 L Hgb 11.5 L Hct 34.7 L MCV 91.6 MCH 30.3 MCHC 33.0 RDW 15.0 Plt Count 162 MPV 7.7 Neut % (Auto) 85.8 H Lymph % (Auto) 3.4 L [place] % (Auto) 10.5 H Eos % (Auto) 0.2 Baso % (Auto) 0.1 Neut # (Auto) 9.4 H Lymph # (Auto) 0.4 L [place] # (Auto) 1.2 H Eos # (Auto) 0.0 Baso # (Auto) 0.0 WBC Differential . Differential Comment Auto diff final Sodium 133 L Potassium 3.8 Chloride 97 L Carbon Dioxide 27.2 Anion Gap 9 BUN 27 H Creatinine 0.46 L Estimated GFR Greater than 89 POC Glucose 295 H Random Glucose 114 H D Calcium 8.9 Total Bilirubin 1.4 H AST 690 H ALT 839 H Alkaline Phosphatase 921 H Total Protein 6.6 Albumin 2.1 L Anti-Smooth Muscle Ab 09/14/17 07:26 WBC RBC Hgb Hct MCV MCH MCHC RDW Plt Count MPV Neut % (Auto) Lymph % (Auto) [place] % (Auto) Eos % (Auto) Baso % (Auto) Neut # (Auto) Lymph # (Auto) [place] # (Auto) Eos # (Auto) Baso # (Auto) WBC Differential Differential Comment Sodium Potassium Chloride Carbon Dioxide Anion Gap BUN Creatinine Estimated GFR POC Glucose 102 Random Glucose Calcium Total Bilirubin AST ALT Alkaline Phosphatase Total Protein Albumin Anti-Smooth Muscle Ab - Imaging Impressions Abdomen X-Ray 09/13/17 10:29 CONCLUSION: Mild small bowel dilatation central abdomen. No free air. <Arminda Guerra - Last Filed: 09/14/17 09:38> - Labs CBC & Chem 7: 09/14/17 06:09 09/14/17 06:09 Laboratory Results - last 24 hr 09/10/17 09/10/17 09/14/17 13:15 13:15 06:09 WBC 11.0 RBC 3.79 L Hgb 11.5 L Hct 34.7 L MCV 91.6 MCH 30.3 MCHC 33.0 RDW 15.0 Plt Count 162 MPV 7.7 Neut % (Auto) 85.8 H Lymph % (Auto) 3.4 L [place] % (Auto) 10.5 H Eos % (Auto) 0.2 Baso % (Auto) 0.1 Neut # (Auto) 9.4 H Lymph # (Auto) 0.4 L [place] # (Auto) 1.2 H Eos # (Auto) 0.0 Baso # (Auto) 0.0 WBC Differential . Differential Comment Auto diff final Sodium Potassium Chloride Carbon Dioxide Anion Gap BUN Creatinine Estimated GFR POC Glucose Random Glucose C-Peptide 0.52 L Calcium Total Bilirubin AST ALT Alkaline Phosphatase Total Protein Albumin Rheumatoid Factor Less than 14 PAKO Screen Negative PAKO Titer ND PAKO Pattern ND SS-A Antibody <1.0 neg SS-B Antibody <1.0 neg Sm (Marcial) Antibody <1.0 neg SM/MORNING [employer] Antibody <1.0 neg Scl-70 Antibody <1.0 neg Anti-ds DNA Titer (Crith) ND Anti-ds DNA (Crithidia) Negative 09/14/17 09/14/17 09/14/17 06:09 07:26 11:38 WBC RBC Hgb Hct MCV MCH MCHC RDW Plt Count MPV Neut % (Auto) Lymph % (Auto) [place] % (Auto) Eos % (Auto) Baso % (Auto) Neut # (Auto) Lymph # (Auto) [place] # (Auto) Eos # (Auto) Baso # (Auto) WBC Differential Differential Comment Sodium 133 L Potassium 3.8 Chloride 97 L Carbon Dioxide 27.2 Anion Gap 9 BUN 27 H Creatinine 0.46 L Estimated GFR Greater than 89 POC Glucose 102 208 H Random Glucose 114 H D C-Peptide Calcium 8.9 Total Bilirubin 1.4 H AST 690 H ALT 839 H Alkaline Phosphatase 921 H Total Protein 6.6 Albumin 2.1 L Rheumatoid Factor PAKO Screen PAKO Titer PAKO Pattern SS-A Antibody SS-B Antibody Sm (Marcial) Antibody SM/M[employer] Antibody Scl-70 Antibody Anti-ds DNA Titer (Crith) Anti-ds DNA (Crithidia) 09/14/17 09/14/17 16:26 21:26 WBC RBC Hgb Hct MCV MCH MCHC RDW Plt Count MPV Neut % (Auto) Lymph % (Auto) [place] % (Auto) Eos % (Auto) Baso % (Auto) Neut # (Auto) Lymph # (Auto) [place] # (Auto) Eos # (Auto) Baso # (Auto) WBC Differential Differential Comment Sodium Potassium Chloride Carbon Dioxide Anion Gap BUN Creatinine Estimated GFR POC Glucose 138 H 158 H Random Glucose C-Peptide Calcium Total Bilirubin AST ALT Alkaline Phosphatase Total Protein Albumin Rheumatoid Factor PAKO Screen PAKO Titer PAKO Pattern SS-A Antibody SS-B Antibody Sm (Marcial) Antibody SM/[employer] Antibody Scl-70 Antibody Anti-ds DNA Titer (Crith) Anti-ds DNA (Crithidia) <Carmella Tamayo - Last Filed: 09/15/17 06:31> Assessment and Plan (1) Transaminitis Status: Acute Code(s): R74.0 - Nonspecific elevation of levels of transaminase and lactic acid dehydrogenase [LDH] (2) Liver mass Status: Acute Code(s): R16.0 - Hepatomegaly, not elsewhere classified (3) Ascites Status: Acute Code(s): R18.8 - Other ascites - Plan Assessment: - Elevated LFTs with imaging concerning for metastatic liver disease- History of Hepatitis C S/P treatment with Harvoni by Dr. Honeycutt ID about a year ago. Pt reports history of IV drug use but no use since approx 1991. Denies any current illicit drug or alcohol use. Elevated AFP- 533.3 and elevated CA19-9- 509.5 CT abdomen and pelvis W IV contrast (09/10) --> Abnormal examination suspicious for malignancy demonstrating significant ascites in the abdomen and pelvis, multiple irregular margin hypodense lesions in the liver measuring up to 9 cm in size, and enlarged ring-enhancing katie masses adjacent to the celiac artery, anterior to the heart and adjacent to the inferior esophagus. US abdomen (09/10) There is mild to moderate ascites although no pockets are seen large enough at the current time to safely perform paracentesis. (09/12) LFTs trending down some. Pt NPO for liver biopsy today. States pain is well controlled (09/13) S/P liver biopsy yesterday. Pt reports had BM and was passing flatus last night. This morning abdomen is distended and firm, states no flatus or BM so far this morning. Some improvement in LFTs today Addendum: Pt seen after KUB, appears to be a lot more comfortable, reports large BM with good relief (09/14) Pt sitting up in bedside chair, abdomen distended but no GI complaints. Had a few BMs yesterday. Liver biopsy non diagnostic for cancer --> necrosis with associated acute inflammation. Pt agreeable to have EGD and colonoscopy on Tuesday. Has never had EGD or colonoscopy before. Plan: Not enough ascites for drainage Albumin Spironolactone EGD and colonoscopy Tuesday Obtain consent Clear liquids tomorrow Mag Citrate prep NPO after MN Further recommendations to follow Pt has been seen and examined by myself and Dr. Tamayo and this note is written on her behalf <Arminda Guerra - Last Filed: 09/14/17 09:38> (1) Transaminitis Status: Acute Code(s): R74.0 - Nonspecific elevation of levels of transaminase and lactic acid dehydrogenase [LDH] (2) Liver mass Status: Acute Code(s): R16.0 - Hepatomegaly, not elsewhere classified (3) Ascites Status: Acute Code(s): R18.8 - Other ascites - Attending Attestation agree eg/colon based on liver bx <Carmella Tamayo - Last Filed: 09/15/17 06:31> <Arminda Guerra - Last Filed: 09/14/17 09:38> (3) Ascites Qualifiers: Ascites type: other type Qualified Code(s): R18.8 - Other ascites <Carmella Tamayo - Last Filed: 09/15/17 06:31> (3) Ascites Qualifiers: Ascites type: other type Qualified Code(s): R18.8 - Other ascites
[2017-09-14] MEDS: Umeclindinium 62.5 MCG/Vilanterol 25 MCG Inhaler INH SCH (10:44)
--- NOTE | 2017-09-14 11:20 | P.PNIM ---
Subjective Interval history: pt with distended abdomen. eating ok. bowels moving. Physical Exam Vital signs: Vital Signs 09/13/17 12:00 09/13/17 16:00 09/13/17 22:52 Temperature 98 F 98.5 F 98 F Pulse Rate 102 H 110 H 115 H Respiratory Rate 20 20 18 Blood Pressure 124/80 127/70 130/74 Pulse Oximetry 94 L 94 L 94 L 09/14/17 00:50 09/14/17 05:15 09/14/17 08:00 Temperature 97 F L 99 F 97.6 F Pulse Rate 66 66 95 H Respiratory Rate 19 18 20 Blood Pressure 122/80 120/67 109/71 Pulse Oximetry 95 95 97 Intake & Output 09/13/17 09/14/17 09/14/17 18:59 06:59 18:59 Intake Total 50 / 50 1300 / 1300 Output Total 300 / 300 Balance 50 / 50 1000 / 1000 Weight 61.5 kg Intake: IV 50 / 50 100 / 100 Flexbumin 25% Inj 50 ML @ 60 50 / 50 100 / 100 mls/hr IV.SIG Q12H [facility] Rx#: [id number] Oral 1200 / 1200 Output: Urine 300 / 300 Other: # Voids 1 Date of Last Bowel Movement 09/13/17 09/13/17 # Bowel Movements 1 0 heart reg lung cta abd distended. bs ext 1 to 2 plus edema lower ext. Results - Labs CBC & Chem 7: 09/14/17 06:09 09/14/17 06:09 Laboratory Results - last 24 hr 09/10/17 09/13/17 09/13/17 13:15 12:00 17:14 WBC RBC Hgb Hct MCV MCH MCHC RDW Plt Count MPV Neut % (Auto) Lymph % (Auto) [place] % (Auto) Eos % (Auto) Baso % (Auto) Neut # (Auto) Lymph # (Auto) [place] # (Auto) Eos # (Auto) Baso # (Auto) WBC Differential Differential Comment Sodium Potassium Chloride Carbon Dioxide Anion Gap BUN Creatinine Estimated GFR POC Glucose 318 H 269 H Random Glucose Calcium Total Bilirubin AST ALT Alkaline Phosphatase Total Protein Albumin Anti-Smooth Muscle Ab Negative 09/13/17 09/14/17 09/14/17 20:16 06:09 06:09 WBC 11.0 RBC 3.79 L Hgb 11.5 L Hct 34.7 L MCV 91.6 MCH 30.3 MCHC 33.0 RDW 15.0 Plt Count 162 MPV 7.7 Neut % (Auto) 85.8 H Lymph % (Auto) 3.4 L [place] % (Auto) 10.5 H Eos % (Auto) 0.2 Baso % (Auto) 0.1 Neut # (Auto) 9.4 H Lymph # (Auto) 0.4 L [place] # (Auto) 1.2 H Eos # (Auto) 0.0 Baso # (Auto) 0.0 WBC Differential . Differential Comment Auto diff final Sodium 133 L Potassium 3.8 Chloride 97 L Carbon Dioxide 27.2 Anion Gap 9 BUN 27 H Creatinine 0.46 L Estimated GFR Greater than 89 POC Glucose 295 H Random Glucose 114 H D Calcium 8.9 Total Bilirubin 1.4 H AST 690 H ALT 839 H Alkaline Phosphatase 921 H Total Protein 6.6 Albumin 2.1 L Anti-Smooth Muscle Ab 09/14/17 07:26 WBC RBC Hgb Hct MCV MCH MCHC RDW Plt Count MPV Neut % (Auto) Lymph % (Auto) [place] % (Auto) Eos % (Auto) Baso % (Auto) Neut # (Auto) Lymph # (Auto) [place] # (Auto) Eos # (Auto) Baso # (Auto) WBC Differential Differential Comment Sodium Potassium Chloride Carbon Dioxide Anion Gap BUN Creatinine Estimated GFR POC Glucose 102 Random Glucose Calcium Total Bilirubin AST ALT Alkaline Phosphatase Total Protein Albumin Anti-Smooth Muscle Ab - Imaging Impressions Abdomen X-Ray 09/13/17 10:29 CONCLUSION: Mild small bowel dilatation central abdomen. No free air. Assessment and Plan - Assessment (1) Liver mass Code(s): R16.0 - Hepatomegaly, not elsewhere classified Status: Acute Plan: This is a 57-year-old male patient with past medical history which includes diabetes mellitus and hepatitis C. Patient reports he has previously been treated with Harvoni for his hepatitis C. Patient presents to the emergency department with complaints of abdominal distention and constipation for approximately 3 weeks. Liver mass Abdominal pain Hepatitis C previously treated with Harvoni KUB reviewed and reveals no dilated loops of small or large bowel CT abdomen pelvis reviewed and reveals abnormal examination suspicious for malignancy demonstrating significant ascites in the abdomen and pelvis, multiple irregular margin hypodense lesions in the liver measuring up to 9 cm in size , and enlarged ring-enhancing nodular masses adjacent to the celiac artery, anterior to the heart and adjacent to the inferior esophagus. Dr. Raman discussed the CT scan results with patient and answered all questions Given concern of malignancy we will consult interventional radiology for US guided paracentesis with cytology (unable to be done as there was not enough fluid) CMP on admission reviewed total bilirubin 0.9 AST 208, ALT 152, alkaline phosphatase 472 ammonia (09/10) < 10, AFP (09/11) 533.3, CA 19.9 509.5 (09/11/17) total bilirubin 0.8, AST 6470, ALT 3043, alkaline phosphatase 939 (09/12/17) total bilirubin 0.6, AST 2051, ALT 1765, alkaline phosphatase 801 hepatitis profile Hep C Ab positive PT 10.9, INR 1.1, APTT 23.8 S/P CT guided biopsy of the liver with IR 09/12.....hepatic necrosis and acute inflammation. no evidence for malignancy. Pt going for egd/colonoscopy per GI Pt has poor social support. He has complicated medical conditions and will require many f/u hospital visits, testing, and will be on insulin for first time. His current medical condition is not completely understood/diagnosed. Pt high risk for failure and readmission. Diabetes mellitus Patient reportedly takes Synjardy 5-1000mg PO BID, blood glucose on arrival to the emergency department was 555 -> improved to 233 after hydration Continue Accu-Cheks before meals at bedtime with sliding scale insulin coverage HA1c 15.8 8/6 PM blood glucose uncontrolled > 600 Levemir increased to 30 units SQ BID diabetic and dietary education. needs insulin on dc. Hyponatremia related to volume cont diuretic COPD with fibrotic lung disease not on home oxygen Does not appear to be in acute exacerbation Continue home anoro elipta add duonebs Q2H as needed DVT prophylaxis with SCDs (2) Ascites Code(s): R18.8 - Other ascites Status: Acute (2) Ascites Qualifiers: Ascites type: other type Qualified Code(s): R18.8 - Other ascites
--- NOTE | 2017-09-14 15:46 | ECG ---
Date Performed: 09/14/2017 Time Performed: 13:25:05 PTAGE: 57 years EKG: Sinus rhythm INDETERMINATE AXIS DEVIATION LOW QRS VOLTAGE IN EXTREMITY LEADS PATTERN CONSISTENT WITH PULMONARY DI SEASE INFERIOR MYOCARDIAL INFARCTION , OF INDETERMINATE AGE POOR R WAVE PROGRESSION NO PREVIOUS TRACING DOCTOR: Shanique Segal Interpretating Date/Time 09/14/2017 15:45:13
[2017-09-15 03:51] LABS: DS DNA Ab (Crithidia) NEGATIVE (NEGATIVE)
[2017-09-15] MEDS: Albumin Human 25% Inj 50 ML IV.SIG SCH ×2 (04:37→17:36)
[2017-09-15] MEDS: Insulin Detemir Inj 1,000 UNIT/10 ML Vial SQ SCH (08:01)
[2017-09-15] MEDS: Insulin NovoLOG Aspart Correctional Sugar Inj SQ SCH ×4 (08:01→21:19)
[2017-09-15] MEDS: Senna/Docusate Sodium 8.6/50 MG Tablet PO SCH ×2 (08:05→21:23)
[2017-09-15] MEDS: Polyethylene Glycol 3350 17 GM Packet PO SCH (08:05)
[2017-09-15] MEDS: Spironolactone 25 MG Tablet PO SCH ×2 (08:07→17:38)
[2017-09-15 08:59] LABS: Albumin 2.2 g/dL (3.4-5.0); Anion Gap 10 meq/L (5-15); Aspartate Aminotransferase 553 U/L (15-37); Blood Urea Nitrogen 22 mg/dL (7-18); Calcium 8.6 mg/dL (8.5-10.1); Carbon Dioxide 28.4 meq/L (21.0-32.0); Chloride 97 meq/L (98-107); Glomerular Filtration Rate Greater Than 89 mL/min (>89); Glucose,Random 52 mg/dL (74-106); Potassium 3.7 meq/L (3.5-5.1); Sodium 135 meq/L (136-145)
[2017-09-15 09:03] LABS: Alanine Aminotransferase 661 U/L (12-78); Alkaline Phosphatase 966 U/L (45-117); Total Protein 6.5 g/dL (6.4-8.2)
[2017-09-15] MEDS: Umeclindinium 62.5 MCG/Vilanterol 25 MCG Inhaler INH SCH (10:43)
--- NOTE | 2017-09-15 10:58 | P.PNIM ---
Subjective Interval history: Pt reports that he did not sleep much last night and was rather tired and unwilling to converse with me this morning He does not report any increased pain or swelling Afebrile Physical Exam Vital signs: Vital Signs 09/14/17 12:00 09/14/17 16:00 09/14/17 20:00 Temperature 98.1 F 97.7 F 97.7 F Pulse Rate 96 H 98 H 101 H Respiratory Rate 18 18 20 Blood Pressure 127/82 116/72 128/82 Pulse Oximetry 95 95 96 09/15/17 00:00 09/15/17 04:00 09/15/17 08:00 Temperature 98.0 F 97.9 F 97.9 F Pulse Rate 98 H 99 H 97 H Respiratory Rate 20 20 18 Blood Pressure 120/76 127/81 122/77 Pulse Oximetry 95 93 L 94 L Intake & Output 09/14/17 09/15/17 09/15/17 18:59 06:59 18:59 Intake Total 50 / 50 120 / 120 50 / 50 Balance 50 / 50 120 / 120 50 / 50 Weight 62.5 kg Intake: IV 50 / 50 50 / 50 Flexbumin 25% Inj 50 ML @ 60 50 / 50 50 / 50 mls/hr IV.SIG Q12H [facility] Rx#: [id number] Oral 120 / 120 Other: # Voids 4 Date of Last Bowel Movement 09/13/17 09/13/17 Narrative: GENERAL: This is a thin chronically ill-appearing 57-year-old male patient who appears older than stated age, in no apparent distress. CARDIO: Regular RESP: Poor inspiratory effort ABD: +BS, soft, non-tender, distended. EXT: Bilateral LE pitting edema. Results - Labs CBC & Chem 7: 09/14/17 06:09 09/15/17 06:53 Laboratory Results - last 24 hr 09/10/17 09/10/17 09/14/17 13:15 13:15 11:38 Sodium Potassium Chloride Carbon Dioxide Anion Gap BUN Creatinine Estimated GFR POC Glucose 208 H Random Glucose C-Peptide 0.52 L Calcium Total Bilirubin Direct Bilirubin Indirect Bilirubin AST ALT Alkaline Phosphatase Total Protein Albumin Rheumatoid Factor Less than 14 PAKO Screen Negative PAKO Titer ND PAKO Pattern ND SS-A Antibody <1.0 neg SS-B Antibody <1.0 neg Sm (Marcial) Antibody <1.0 neg SM/UTILITY TECHNICIAN Antibody <1.0 neg Scl-70 Antibody <1.0 neg Anti-ds DNA Titer (Crith) ND Anti-ds DNA (Crithidia) Negative 09/14/17 09/14/17 09/15/17 16:26 21:26 06:53 Sodium 135 L Potassium 3.7 Chloride 97 L Carbon Dioxide 28.4 Anion Gap 10 BUN 22 H Creatinine 0.50 L Estimated GFR Greater than 89 POC Glucose 138 H 158 H Random Glucose 52 L C-Peptide Calcium 8.6 Total Bilirubin 2.8 H Direct Bilirubin 2.3 H Indirect Bilirubin 0.5 AST 553 H ALT 661 H Alkaline Phosphatase 966 H Total Protein 6.5 Albumin 2.2 L Rheumatoid Factor PAKO Screen PAKO Titer PAKO Pattern SS-A Antibody SS-B Antibody Sm (Marcial) Antibody SM/UTILITY TECHNICIAN Antibody Scl-70 Antibody Anti-ds DNA Titer (Crith) Anti-ds DNA (Crithidia) 09/15/17 09/15/17 07:41 07:59 Sodium Potassium Chloride Carbon Dioxide Anion Gap BUN Creatinine Estimated GFR POC Glucose 67 L 82 Random Glucose C-Peptide Calcium Total Bilirubin Direct Bilirubin Indirect Bilirubin AST ALT Alkaline Phosphatase Total Protein Albumin Rheumatoid Factor PAKO Screen PAKO Titer PAKO Pattern SS-A Antibody SS-B Antibody Sm (Marcial) Antibody SM/UTILITY TECHNICIAN Antibody Scl-70 Antibody Anti-ds DNA Titer (Crith) Anti-ds DNA (Crithidia) - Imaging Abdomen Ultrasound 09/10/17 00:00 CONCLUSION: 1. There is mild to moderate ascites although no pockets are seen large enough at the current time to safely perform paracentesis. Abdomen X-Ray 09/10/17 02:05 CONCLUSION: No dilated loops of small or large bowel. Abdomen/Pelvis CT 09/10/17 02:05 CONCLUSION: 1. 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 Liver Biopsy CT 09/12/17 00:00 CONCLUSION: 1. Uncomplicated CT guided biopsy. Abdomen X-Ray 09/13/17 10:29 CONCLUSION: Mild small bowel dilatation central abdomen. No free air. Assessment and Plan - Assessment (1) Liver mass Code(s): R16.0 - Hepatomegaly, not elsewhere classified Status: Acute Plan: This is a 57-year-old male patient with past medical history which includes diabetes mellitus and hepatitis C. Patient reports he has previously been treated with Harvoni for his hepatitis C. Patient presents to the emergency department with complaints of abdominal distention and constipation for approximately 3 weeks. 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 Patient reports he has previously been treated with Harvoni for his hepatitis C by Dr. Honeycutt about 1 year ago. - He presented to the ED on 09/10/17 with complaints of abdominal distention and constipation for approximately 3 weeks. - KUB (09/10/17)--> no dilated loops of small or large bowel - CT abdomen/pelvis (09/10/17) --> abnormal examination suspicious for malignancy demonstrating significant ascites in the abdomen and pelvis, multiple irregular margin hypodense lesions in the liver measuring up to 9 cm in size , and enlarged ring-enhancing nodular masses adjacent to the celiac artery, anterior to the heart and adjacent to the inferior esophagus. - Given concern of malignancy interventional radiology was consulted for US guided paracentesis with cytology but this was unable to be done as there was not enough fluid - CMP on admission reviewed total bilirubin 0.9 AST 208, ALT 152, alkaline phosphatase 472 ammonia (09/10) < 10, AFP (09/11) 533.3, CA 19.9 509.5 - His LFTs worsened following admission, the transaminases have slowly been improving but TBili is elevating. - (09/11/17) Tbili 0.8, AST 6470, ALT 3043, AlkPhos 939 - (09/12/17) Tbili 0.6, AST 2051, ALT 1765, AlkPhos 801 - (09/13/17) TBili 1.0, AST 831, ALT 1070, AlkPhos 751 - (09/14/17) TBili 1.4, AST 690, ALT 839, AlkPhos 921 - (09/15/17) TBili 2.8, DBili 2.3, AST 553, ALT 661, AlkPhos 966 - Hepatitis profile Hep C Ab positive - PT 10.9, INR 1.1, APTT 23.8 - Pt had a CT guided biopsy of the liver with IR (09/12/17) --> pathology noted hepatic necrosis and acute inflammation. no evidence for malignancy. - Pt is now planned for EGD/colonoscopy per GI for tomorrow. - Pt has poor social support. He has complicated medical conditions and will require many f/u hospital visits, testing, and will be on insulin for first time. - His current medical condition is not completely understood/diagnosed. Pt high risk for failure and readmission. Diabetes mellitus - Patient reportedly takes Synjardy 5-1000mg PO BID, blood glucose on arrival to the emergency department was 555 -> improved to 233 after hydration - HgbA1c 15.8 - On 09/12 PM blood glucose uncontrolled > 600 - Continue Accu-Cheks before meals at bedtime with sliding scale insulin coverage - Levemir increased to 30 units SQ BID on 09/14 - Diabetic and dietary education. - Pt will likely need insulin on dc. Hyponatremia - Likely related to volume, improving - Cont diuretic COPD with fibrotic lung disease not on home oxygen - Pt does not appear to be in acute exacerbation - Continue home anoro elipta - Duonebs Q2H as needed DVT prophylaxis with SCDs The exam, history, and the medical decision-making described in the above note were completed with the assistance of the mid-level provider. I reviewed and agree with the findings presented. I attest that I had a [id number]-[id number] encounter with the patient on the same day, and personally performed and documented my assessment and findings in the medical record. pt going for egd/colonoscopy in AM difficulty eating. hypogliycemia this AM. abdomen distended. u/s paracentesis today lower PM insulin. dm education. pt not sure he can manage the dm at home increase diuretics. pt still volume overloaded. (2) Ascites Code(s): R18.8 - Other ascites Status: Acute (2) Ascites Qualifiers: Ascites type: other type Qualified Code(s): R18.8 - Other ascites
--- NOTE | 2017-09-15 11:05 | P.PNGI ---
Subjective Interval history: Pt sitting on side of bed, complaining of abdomen being distended and firm. No BM yet today. He is agreeable to proceeding with EGD and colonoscopy tomorrow. Discussed findings of liver biopsy, nondiagnostic, will consult oncology for further recommendations <Arminda Guerra - Last Filed: 09/15/17 11:01> Physical Exam Vital signs: Vital Signs 09/14/17 12:00 09/14/17 16:00 09/14/17 20:00 Temperature 98.1 F 97.7 F 97.7 F Pulse Rate 96 H 98 H 101 H Respiratory Rate 18 18 20 Blood Pressure 127/82 116/72 128/82 Pulse Oximetry 95 95 96 09/15/17 00:00 09/15/17 04:00 09/15/17 08:00 Temperature 98.0 F 97.9 F 97.9 F Pulse Rate 98 H 99 H 97 H Respiratory Rate 20 20 18 Blood Pressure 120/76 127/81 122/77 Pulse Oximetry 95 93 L 94 L Intake & Output 09/14/17 09/15/17 09/15/17 18:59 06:59 18:59 Intake Total 50 / 50 120 / 120 50 / 50 Balance 50 / 50 120 / 120 50 / 50 Weight 62.5 kg Intake: IV 50 / 50 50 / 50 Flexbumin 25% Inj 50 ML @ 60 50 / 50 50 / 50 mls/hr IV.SIG Q12H [facility] Rx#: [id number] Oral 120 / 120 Other: # Voids 4 Date of Last Bowel Movement 09/13/17 09/13/17 - Constitutional no acute distress - Routine HEENT Exam Head: Present: normocephalic, atraumatic - Routine Abdominal Exam Present: normoactive bowel sounds, distended, firm. Absent: tenderness - Routine Skin Exam Present: jaundice - Routine Neurological Exam Present: alert, oriented X3 <Arminda Guerra - Last Filed: 09/15/17 11:01> Vital signs: Vital Signs 09/14/17 20:00 09/15/17 00:00 09/15/17 04:00 Temperature 97.7 F 98.0 F 97.9 F Pulse Rate 101 H 98 H 99 H Respiratory Rate 20 20 20 Blood Pressure 128/82 120/76 127/81 Pulse Oximetry 96 95 93 L 09/15/17 08:00 09/15/17 12:00 Temperature 97.9 F 97.9 F Pulse Rate 97 H 91 H Respiratory Rate 18 18 Blood Pressure 122/77 123/74 Pulse Oximetry 94 L 100 Intake & Output 09/14/17 09/15/17 09/15/17 18:59 06:59 18:59 Intake Total 50 / 50 120 / 120 50 / 50 Balance 50 / 50 120 / 120 50 / 50 Weight 62.5 kg Intake: IV 50 / 50 50 / 50 Flexbumin 25% Inj 50 ML @ 60 50 / 50 50 / 50 mls/hr IV.SIG Q12H [facility] Rx#: [id number] Oral 120 / 120 Other: # Voids 4 Date of Last Bowel Movement 09/13/17 09/13/17 <Carmella Tamayo - Last Filed: 09/15/17 16:41> Results - Labs CBC & Chem 7: 09/14/17 06:09 09/15/17 06:53 Laboratory Results - last 24 hr 09/10/17 09/10/17 09/14/17 13:15 13:15 11:38 Sodium Potassium Chloride Carbon Dioxide Anion Gap BUN Creatinine Estimated GFR POC Glucose 208 H Random Glucose C-Peptide 0.52 L Calcium Total Bilirubin Direct Bilirubin Indirect Bilirubin AST ALT Alkaline Phosphatase Total Protein Albumin Rheumatoid Factor Less than 14 PAKO Screen Negative PAKO Titer ND PAKO Pattern ND SS-A Antibody <1.0 neg SS-B Antibody <1.0 neg Sm (Marcial) Antibody <1.0 neg SM/CASE TECHNICIAN Antibody <1.0 neg Scl-70 Antibody <1.0 neg Anti-ds DNA Titer (Crith) ND Anti-ds DNA (Crithidia) Negative 09/14/17 09/14/17 09/15/17 16:26 21:26 06:53 Sodium 135 L Potassium 3.7 Chloride 97 L Carbon Dioxide 28.4 Anion Gap 10 BUN 22 H Creatinine 0.50 L Estimated GFR Greater than 89 POC Glucose 138 H 158 H Random Glucose 52 L C-Peptide Calcium 8.6 Total Bilirubin 2.8 H Direct Bilirubin 2.3 H Indirect Bilirubin 0.5 AST 553 H ALT 661 H Alkaline Phosphatase 966 H Total Protein 6.5 Albumin 2.2 L Rheumatoid Factor PAKO Screen PAKO Titer PAKO Pattern SS-A Antibody SS-B Antibody Sm (Marcial) Antibody SM/CASE TECHNICIAN Antibody Scl-70 Antibody Anti-ds DNA Titer (Crith) Anti-ds DNA (Crithidia) 09/15/17 09/15/17 07:41 07:59 Sodium Potassium Chloride Carbon Dioxide Anion Gap BUN Creatinine Estimated GFR POC Glucose 67 L 82 Random Glucose C-Peptide Calcium Total Bilirubin Direct Bilirubin Indirect Bilirubin AST ALT Alkaline Phosphatase Total Protein Albumin Rheumatoid Factor PAKO Screen PAKO Titer PAKO Pattern SS-A Antibody SS-B Antibody Sm (Marcial) Antibody SM/CASE TECHNICIAN Antibody Scl-70 Antibody Anti-ds DNA Titer (Crith) Anti-ds DNA (Crithidia) <Arminda Guerra - Last Filed: 09/15/17 11:01> - Labs CBC & Chem 7: 09/14/17 06:09 09/15/17 06:53 Laboratory Results - last 24 hr 09/10/17 09/10/17 09/14/17 13:15 13:15 21:26 Sodium Potassium Chloride Carbon Dioxide Anion Gap BUN Creatinine Estimated GFR POC Glucose 158 H Random Glucose C-Peptide 0.52 L Calcium Total Bilirubin Direct Bilirubin Indirect Bilirubin AST ALT Alkaline Phosphatase Total Protein Albumin Anti-ds DNA Titer (Crith) ND Anti-ds DNA (Crithidia) Negative 09/15/17 09/15/17 09/15/17 06:53 07:41 07:59 Sodium 135 L Potassium 3.7 Chloride 97 L Carbon Dioxide 28.4 Anion Gap 10 BUN 22 H Creatinine 0.50 L Estimated GFR Greater than 89 POC Glucose 67 L 82 Random Glucose 52 L C-Peptide Calcium 8.6 Total Bilirubin 2.8 H Direct Bilirubin 2.3 H Indirect Bilirubin 0.5 AST 553 H ALT 661 H Alkaline Phosphatase 966 H Total Protein 6.5 Albumin 2.2 L Anti-ds DNA Titer (Crith) Anti-ds DNA (Crithidia) 09/15/17 11:56 Sodium Potassium Chloride Carbon Dioxide Anion Gap BUN Creatinine Estimated GFR POC Glucose 226 H Random Glucose C-Peptide Calcium Total Bilirubin Direct Bilirubin Indirect Bilirubin AST ALT Alkaline Phosphatase Total Protein Albumin Anti-ds DNA Titer (Crith) Anti-ds DNA (Crithidia) <Carmella Tamayo - Last Filed: 09/15/17 16:41> Assessment and Plan (1) Transaminitis Status: Acute Code(s): R74.0 - Nonspecific elevation of levels of transaminase and lactic acid dehydrogenase [LDH] (2) Liver mass Status: Acute Code(s): R16.0 - Hepatomegaly, not elsewhere classified (3) Ascites Status: Acute Code(s): R18.8 - Other ascites - Plan Assessment: - Elevated LFTs with imaging concerning for metastatic liver disease- History of Hepatitis C S/P treatment with Harvoni by Dr. Yinka ZELAYA about a year ago. Pt reports history of IV drug use but no use since approx 1991. Denies any current illicit drug or alcohol use. Elevated AFP- 533.3 and elevated CA19-9- 509.5 CT abdomen and pelvis W IV contrast (09/10) --> Abnormal examination suspicious for malignancy demonstrating significant ascites in the abdomen and pelvis, multiple irregular margin hypodense lesions in the liver measuring up to 9 cm in size, and enlarged ring-enhancing katie masses adjacent to the celiac artery, anterior to the heart and adjacent to the inferior esophagus. US abdomen (09/10) There is mild to moderate ascites although no pockets are seen large enough at the current time to safely perform paracentesis. (09/12) LFTs trending down some. Pt NPO for liver biopsy today. States pain is well controlled (09/13) S/P liver biopsy yesterday. Pt reports had BM and was passing flatus last night. This morning abdomen is distended and firm, states no flatus or BM so far this morning. Some improvement in LFTs today Addendum: Pt seen after KUB, appears to be a lot more comfortable, reports large BM with good relief (09/14) Pt sitting up in bedside chair, abdomen distended but no GI complaints. Had a few BMs yesterday. Liver biopsy non diagnostic for cancer --> necrosis with associated acute inflammation. Pt agreeable to have EGD and colonoscopy on Tuesday. Has never had EGD or colonoscopy before. (09/15) Pt sitting on side of bed, complaining his abdomen is distended and firm. No BM yet today. Denies nausea, vomiting. Agreeable to proceed with EGD and colonoscopy tomorrow Discussed that liver biopsy was nondiagnostic, with elevated AFP and CA 19-9 in setting of imaging concerning for malignancy, will consult oncology for further recommendations Plan: EGD and colonoscopy tomorrow Obtain consent Clear liquids today Mag Citrate prep NPO after MN Consult oncology Further recommendations to follow Pt has been seen and examined by myself and Dr. Tamayo and this note is written on her behalf <Arminda Guerra - Last Filed: 09/15/17 11:01> (1) Transaminitis Status: Acute Code(s): R74.0 - Nonspecific elevation of levels of transaminase and lactic acid dehydrogenase [LDH] (2) Liver mass Status: Acute Code(s): R16.0 - Hepatomegaly, not elsewhere classified (3) Ascites Status: Acute Code(s): R18.8 - Other ascites - Attending Attestation agree with above <Carmella Tamayo - Last Filed: 09/15/17 16:41> <Arminda Guerra - Last Filed: 09/15/17 11:01> (3) Ascites Qualifiers: Ascites type: other type Qualified Code(s): R18.8 - Other ascites <Carmella Tamayo - Last Filed: 09/15/17 16:41> (3) Ascites Qualifiers: Ascites type: other type Qualified Code(s): R18.8 - Other ascites
--- NOTE | 2017-09-15 14:49 | P.DIET ---
Nutritional Evaluation Type of nutrition evaluation: initial Nutrition consult regarding: Diet Evaluation ([place] for Diet Education. Poorly Controlled DM) Subjective Subjective Comments: Pt very knowledgeable about his diabetes, but admits that he is unable to afford his medications. Also states he lives paycheck to paycheck and sometimes can barely afford food. Objective - Diagnosis New Liver Mass, New Ascites - Objective % IBW: 83 (RFR=560#) Body Weight Used for Calculations: IBW (75.5kg) Energy Needs - Lower Range (kCal/kg): 25 Energy Needs - Upper Range (kCal/kg): 30 Lower Limit kCal/kg (kCals): 1,888 Upper Limit kCal/kg (kCals): 2,265 Lower Limit Protein Factor (Grams per Kg): 1.2 Upper Limit Protein Factor (Grams per Kg): 1.5 Lower Protein Needs (Protein): 91 Upper Protein Needs (Protein): 113 Dietitian Reviewed in Medical Record: Current diet, Curent medications, Intake & Output, Labs, Medical history Diet Order: Clear Liquids Oral Diet Intake Amount: Good 75-90% Assessment Assessment: Pt seen in his room for DM diet education. I provided pt w/ handouts regarding carb counting, s/s of hyper- and hypoglycemia, a 2000ADA meal pattern, and Glucerna shake coupons. Pt was able to understand content and actually remembered the education very well from previous educations. He states he knows what to do to better control his diabetes, but his social situation is a barrier to better disease control. He states he is barely able to afford food every month once he pays his bills. Says he may be living in his car after hospitalization since he is behind on his payments for rent. Was very tearful during my visit. I provided pt w/ multiple glucerna shake coupons to take home. He is asking about assistance programs for buying food, paying bills, etc. Case management out of their office on my visit. Pt now w/ possible cancer dx, workup still in progress. EGD tomorrow, on clear liquids today. Pt is at nutritional risk r/t medical diagnosis, low wt status, and his social circumstances. Dietitian will continue to follow. Recommendations: 1. Diet advancement per MD. 2. Glucerna Shakes TID once diet advances. 3. Pt is at nutritional risk r/t medical dx, low wt status, and poor social circumstances (unable to afford food, bills, etc.) Dietitian to Monitor: Lab values, Glucose level, Supplement acceptance, Intake & Output, Diet tolerance, Weight change, PO Intake, Medical course
[2017-09-15] MEDS ORDERED: Magnesium Citrate Liq 300 ML Bottle PO ONE ×2 (16:00→18:00)
[2017-09-15 18:10] LABS: Total Protein,Peritoneal Fluid 1.5 gm/dL
[2017-09-15 18:40] LABS: Mesothelial,Peritoneal Fluid 2 %; Neutrophils,Peritoneal Fluid 74 %
[2017-09-15 18:42] LABS: RBC,Peritoneal Fluid 232 /mm3 (0-0)
[2017-09-15] MEDS ORDERED: Insulin Detemir Inj 1,000 UNIT/10 ML Vial SQ SCH (21:00)
[2017-09-16] MEDS: Albumin Human 25% Inj 50 ML IV.SIG SCH ×3 (04:22→20:13)
[2017-09-16] MEDS: Dextrose 50% in Water 50 ML Vial IV.PUSH PRN ×2 (04:30→08:09)
[2017-09-16] MEDS: Insulin Detemir Inj 1,000 UNIT/10 ML Vial SQ SCH (08:00)
[2017-09-16] MEDS: Senna/Docusate Sodium 8.6/50 MG Tablet PO SCH ×2 (08:00→21:08)
[2017-09-16] MEDS: Polyethylene Glycol 3350 17 GM Packet PO SCH (08:00)
[2017-09-16] MEDS: Spironolactone 25 MG Tablet PO SCH ×2 (08:00→17:11)
[2017-09-16 08:18] LABS: Baso # (Auto) 0.1 th/mm3 (0.0-0.2); Baso % (Auto) 0.6 % (0.0-2.0); Eos % (Auto) 0.4 % (0.0-4.0); Hematocrit 34.5 % (39.0-51.0); Hemoglobin 11.6 gm/dL (13.0-17.0); Lymph # (Auto) 1.1 th/mm3 (1.0-4.8); Lymph % (Auto) 8.8 % (9.0-44.0); Mean Corpuscular HGB Conc 33.7 % (32.0-36.0); Mean Corpuscular Volume 89.2 fL (80.0-100.0); Mean Platelet Volume 7.6 fL (7.0-11.0); Mono # (Auto) 1.4 th/mm3 (0.0-0.9); Mono % (Auto) 11.7 % (0.0-8.0); Neut # (Auto) 9.5 th/mm3 (1.8-7.7); Neut % (Auto) 78.5 % (16.0-70.0); Platelet Count 246 th/mm3 (150-450); Red Blood Count 3.86 mil/mm3 (4.50-5.90); Red Cell Distribution Width 15.5 % (11.6-17.2); White Blood Count 12.1 th/mm3 (4.0-11.0)
[2017-09-16] MEDS: Insulin NovoLOG Aspart Correctional Sugar Inj SQ SCH ×4 (08:21→21:09)
[2017-09-16 08:45] LABS: Alanine Aminotransferase 492 U/L (12-78); Albumin 2.3 g/dL (3.4-5.0); Alkaline Phosphatase 904 U/L (45-117); Anion Gap 8 meq/L (5-15); Aspartate Aminotransferase 354 U/L (15-37); Blood Urea Nitrogen 16 mg/dL (7-18); Calcium 8.2 mg/dL (8.5-10.1); Carbon Dioxide 29.3 meq/L (21.0-32.0); Chloride 96 meq/L (98-107); Glomerular Filtration Rate Greater Than 89 mL/min (>89); Potassium 3.9 meq/L (3.5-5.1); Sodium 133 meq/L (136-145); Total Protein 6.6 g/dL (6.4-8.2)
[2017-09-16 08:49] LABS: Glucose,Random 47 mg/dL (74-106)
[2017-09-16] MEDS ORDERED: Magnesium Citrate Liq 300 ML Bottle PO ONE (09:54)
--- NOTE | 2017-09-16 10:02 | GIPROC ---
[facility] [address] [facility]. [facility], [address] EGD PROCEDURE REPORT EXAM DATE: 09/16/2017 PATIENT NAME: Sumanth Walden MR #: [id number] BIRTHDATE: 1960 ATTENDING: Carmella Tamayo MD ORDER #: [id number] TRUCK DISPATCHER: Karo Wadsworth Powell, Bianca, and Liudmila Lugo STATUS: inpatient INDICATIONS: The patient is a 57 yr old male here for an EGD due to weight loss, abnormal ct , liver cirrhosis PROCEDURE PERFORMED: EGD w/ biopsy MEDICATIONS: None and Per Anesthesia. TOPICAL ANESTHETIC: none CONSENT: The patient understands the risks and benefits of the procedure and understands that these risks include, but are not limited to: sedation, allergic reaction, infection, perforation and/or bleeding. Alternative means of evaluation and treatment include, among others: physical exam, x-rays, and/or surgical intervention. The patient elects to proceed with this endoscopic procedure. medical equipment was checked for proper function. Hand hygiene and appropriate measures for infection prevention was taken. After the risks, benefits and alternatives of the procedure were thoroughly explained, Informed consent was verified, confirmed and timeout was successfully executed by the treatment team. The patient was anesthetized with topical anesthesia and the [id number] (Pedi C) endoscope was introduced through the mouth and advanced to the second portion of the duodenum. Retroflexed views revealed a hiatal hernia The gastroscope was then slowly withdrawn and removed. Nodule duodenla bulb-possible minor papilla-biopsy portal gastropathy gastrtis antrum-biopsy severe silvio esophagitis envolving all esophaus-biopsy upper esophagus esophageal varices grade 2 -3 columns, no banding done due to severe silvio esophagitis. ADVERSE EVENTS: There were no complications. IMPRESSIONS: 1. Nodule duodenla bulb-possible minor papilla-biopsy portal gastropathy gastrtis antrum-biopsy severe silvio esophagitis envolving all esophaus-biopsy upper esophagus esophageal varices grade 2 -3 columns, no banding done due to severe silvio esophagitis 2. Retroflexed views revealed a hiatal hernia RECOMMENDATIONS: 1. Await biopsy results. Biopsy results will not be ready for 7-10 days. If you don't hear from us in two weeks, call our office for biopsy results. 2. Anti-reflux regimen 3. Start PPI 4. Nystatiin PATIENT CONDITION: stable DISPOSITION: Inpatient REPEAT EXAM: Return 4 weeks-EGD with banding of varices Carmella Tamayo MD eSigned: Carmella Tamayo MD 09/16/2017 10:01 AM cc: PATIENT NAME: Sumanth Walden MR#: [id number]
--- NOTE | 2017-09-16 10:11 | GIPROC ---
[facility] [address] [facility]. [facility], [address] COLONOSCOPY PROCEDURE REPORT EXAM DATE: 09/16/2017 PATIENT NAME: Sumanth Walden MR #: [id number] BIRTHDATE: 1960 ENDOSCOPIST: Carmella Tamayo MD ORDER #: [id number] CHOCOLATE PACKER: Liudmila Lugo RN and Jessica Herr CALCINER OPERATOR STATUS: inpatient INDICATIONS: The patient is a 57 yr old male here for a colonoscopy due to abnormal ct PROCEDURE PERFORMED: Colonoscopy, incomplete MEDICATIONS: None and Per Anesthesia. PREP QUALITY: poor PREP TYPE:Other: ESTIMATED BLOOD LOSS: None CONSENT: The patient understands the risks and benefits of the procedure and understands that these risks include, but are not limited to: sedation, allergic reaction, infection, perforation and/or bleeding. Alternative means of evaluation and treatment include, among others: physical exam, x-rays, and/or surgical intervention. The patient elects to proceed with this endoscopic procedure. medical equipment was checked for proper function. Hand hygiene and appropriate measures for infection prevention was taken. After the risks, benefits and alternatives of the procedure were thoroughly explained, Informed consent was verified, confirmed and timeout was successfully executed by the treatment team. A digital exam revealed hemorrhoids The endoscope was introduced through the anus and advanced to the sigmoid colon. The instrument was then slowly withdrawn as the colon was fully examined. COLON FINDINGS: Solid stool. Retroflexed views revealed internal hemorrhoids and Retroflexed views revealed small internal hemorrhoids The scope was then completely withdrawn from the patient and the procedure terminated. ADVERSE EVENTS: There were no complications. IMPRESSIONS: 1. Solid stool 2. Retroflexed views revealed internal hemorrhoids 3. Retroflexed views revealed small internal hemorrhoids 4. Revealed hemorrhoids RECOMMENDATIONS: Clear liquid colon in am better prep await oncology consult nonselective betablockers upon dc consider repeat liver biopsy if desired by oncology RECALL: Return 1 day Colonoscopy Carmella Tamayo MD eSigned: Carmella Tamayo MD 09/16/2017 10:11 AM cc:
--- NOTE | 2017-09-16 11:14 | P.PNIM ---
Subjective Interval history: Pt frustrated that his prep for his colonoscopy wasn't adequate and is supposed to repeat the procedure tomorrow His abdomen is less painful or distended today He reports that he had 2.3L of ascites removed Physical Exam Vital signs: Vital Signs 09/15/17 12:00 09/15/17 17:00 09/15/17 17:18 Temperature 97.9 F 98.8 F Pulse Rate 91 H 88 86 Respiratory Rate 18 18 16 Blood Pressure 123/74 129/83 126/80 Pulse Oximetry 100 97 97 09/15/17 20:00 09/16/17 00:00 09/16/17 04:00 Temperature 97.9 F 98.1 F 98.0 F Pulse Rate 91 H 97 H 95 H Respiratory Rate 18 18 18 Blood Pressure 128/75 132/81 153/79 H Pulse Oximetry 96 96 95 09/16/17 07:39 09/16/17 10:09 Temperature 97.6 F 97.6 F Pulse Rate 86 79 Respiratory Rate 16 18 Blood Pressure 129/77 106/64 Pulse Oximetry 95 97 Intake & Output 09/15/17 09/16/17 09/16/17 18:59 06:59 18:59 Intake Total 100 / 100 100 / 100 Balance 100 / 100 100 / 100 Weight 66.5 kg Intake: IV 100 / 100 Flexbumin 25% Inj 50 ML @ 60 100 / 100 mls/hr IV.SIG Q12H [facility] Rx#: [id number] Anesthesia Amount 100 / 100 Other: # Voids 4 2 Date of Last Bowel Movement 09/13/17 09/16/17 Narrative: GENERAL: This is a thin chronically ill-appearing 57-year-old male patient who appears older than stated age, in no apparent distress. CARDIO: Regular RESP: Poor inspiratory effort ABD: +BS, soft, non-tender, less distended. EXT: Bilateral LE pitting edema. Results - Labs CBC & Chem 7: 09/17/17 06:40 09/17/17 06:40 Laboratory Results - last 24 hr 09/10/17 09/13/17 09/15/17 13:15 07:04 11:56 WBC RBC Hgb Hct MCV MCH MCHC RDW Plt Count MPV Neut % (Auto) Lymph % (Auto) [place] % (Auto) Eos % (Auto) Baso % (Auto) Neut # (Auto) Lymph # (Auto) [place] # (Auto) Eos # (Auto) Baso # (Auto) WBC Differential Differential Comment Sodium Potassium Chloride Carbon Dioxide Anion Gap BUN Creatinine Estimated GFR POC Glucose 226 H Random Glucose Calcium Total Bilirubin AST ALT Alkaline Phosphatase Total Protein Albumin Peritoneal RBC Periton Nuc Cells Periton Neutrophils Periton Lymphocytes Peritoneal Monocytes Periton Mesothelial Peritoneal Fld Comment Peritoneal Tot Protein Peritoneal Albumin Peritoneal LDH Peritoneal Glucose Peritoneal Amylase Mitochondria M2 IgG Ab Less than 20.0 HCV RNA (PCR) IUs/ml Less than 15 HCV RNA PCR log IUs/ml Less than 1.18 09/15/17 09/15/17 09/15/17 16:45 16:45 16:45 WBC RBC Hgb Hct MCV MCH MCHC RDW Plt Count MPV Neut % (Auto) Lymph % (Auto) [place] % (Auto) Eos % (Auto) Baso % (Auto) Neut # (Auto) Lymph # (Auto) [place] # (Auto) Eos # (Auto) Baso # (Auto) WBC Differential Differential Comment Sodium Potassium Chloride Carbon Dioxide Anion Gap BUN Creatinine Estimated GFR POC Glucose Random Glucose Calcium Total Bilirubin AST ALT Alkaline Phosphatase Total Protein Albumin Peritoneal RBC 232 H Periton Nuc Cells 182 H Periton Neutrophils 74 Periton Lymphocytes 23 Peritoneal Monocytes 1 Periton Mesothelial 2 Peritoneal Fld Comment Peritoneal Tot Protein 1.5 Peritoneal Albumin 0.7 Peritoneal LDH Cancelled 120 Peritoneal Glucose 213 Peritoneal Amylase 25 Mitochondria M2 IgG Ab HCV RNA (PCR) IUs/ml HCV RNA PCR log IUs/ml 09/15/17 09/15/17 09/15/17 16:45 17:40 20:48 WBC RBC Hgb Hct MCV MCH MCHC RDW Plt Count MPV Neut % (Auto) Lymph % (Auto) [place] % (Auto) Eos % (Auto) Baso % (Auto) Neut # (Auto) Lymph # (Auto) [place] # (Auto) Eos # (Auto) Baso # (Auto) WBC Differential Differential Comment Sodium Potassium Chloride Carbon Dioxide Anion Gap BUN Creatinine Estimated GFR POC Glucose 205 H 224 H Random Glucose Calcium Total Bilirubin AST ALT Alkaline Phosphatase Total Protein Albumin Peritoneal RBC Periton Nuc Cells Periton Neutrophils Periton Lymphocytes Peritoneal Monocytes Periton Mesothelial Peritoneal Fld Comment Peritoneal Tot Protein Cancelled Peritoneal Albumin Peritoneal LDH Peritoneal Glucose Peritoneal Amylase Mitochondria M2 IgG Ab HCV RNA (PCR) IUs/ml HCV RNA PCR log IUs/ml 09/16/17 09/16/17 09/16/17 01:39 02:42 04:28 WBC RBC Hgb Hct MCV MCH MCHC RDW Plt Count MPV Neut % (Auto) Lymph % (Auto) [place] % (Auto) Eos % (Auto) Baso % (Auto) Neut # (Auto) Lymph # (Auto) [place] # (Auto) Eos # (Auto) Baso # (Auto) WBC Differential Differential Comment Sodium Potassium Chloride Carbon Dioxide Anion Gap BUN Creatinine Estimated GFR POC Glucose 78 84 60 L Random Glucose Calcium Total Bilirubin AST ALT Alkaline Phosphatase Total Protein Albumin Peritoneal RBC Periton Nuc Cells Periton Neutrophils Periton Lymphocytes Peritoneal Monocytes Periton Mesothelial Peritoneal Fld Comment Peritoneal Tot Protein Peritoneal Albumin Peritoneal LDH Peritoneal Glucose Peritoneal Amylase Mitochondria M2 IgG Ab HCV RNA (PCR) IUs/ml HCV RNA PCR log IUs/ml 09/16/17 09/16/17 09/16/17 04:46 07:46 07:46 WBC 12.1 H RBC 3.86 L Hgb 11.6 L Hct 34.5 L MCV 89.2 MCH 30.0 MCHC 33.7 RDW 15.5 Plt Count 246 D MPV 7.6 Neut % (Auto) 78.5 H Lymph % (Auto) 8.8 L [place] % (Auto) 11.7 H Eos % (Auto) 0.4 Baso % (Auto) 0.6 Neut # (Auto) 9.5 H Lymph # (Auto) 1.1 [place] # (Auto) 1.4 H Eos # (Auto) 0.0 Baso # (Auto) 0.1 WBC Differential . Differential Comment Auto diff final Sodium 133 L Potassium 3.9 Chloride 96 L Carbon Dioxide 29.3 Anion Gap 8 BUN 16 Creatinine 0.40 L Estimated GFR Greater than 89 POC Glucose 191 H Random Glucose 47 L* Calcium 8.2 L Total Bilirubin 4.8 H AST 354 H ALT 492 H Alkaline Phosphatase 904 H Total Protein 6.6 Albumin 2.3 L Peritoneal RBC Periton Nuc Cells Periton Neutrophils Periton Lymphocytes Peritoneal Monocytes Periton Mesothelial Peritoneal Fld Comment Peritoneal Tot Protein Peritoneal Albumin Peritoneal LDH Peritoneal Glucose Peritoneal Amylase Mitochondria M2 IgG Ab HCV RNA (PCR) IUs/ml HCV RNA PCR log IUs/ml 09/16/17 09/16/17 08:04 08:17 WBC RBC Hgb Hct MCV MCH MCHC RDW Plt Count MPV Neut % (Auto) Lymph % (Auto) [place] % (Auto) Eos % (Auto) Baso % (Auto) Neut # (Auto) Lymph # (Auto) [place] # (Auto) Eos # (Auto) Baso # (Auto) WBC Differential Differential Comment Sodium Potassium Chloride Carbon Dioxide Anion Gap BUN Creatinine Estimated GFR POC Glucose 54 L 178 H Random Glucose Calcium Total Bilirubin AST ALT Alkaline Phosphatase Total Protein Albumin Peritoneal RBC Periton Nuc Cells Periton Neutrophils Periton Lymphocytes Peritoneal Monocytes Periton Mesothelial Peritoneal Fld Comment Peritoneal Tot Protein Peritoneal Albumin Peritoneal LDH Peritoneal Glucose Peritoneal Amylase Mitochondria M2 IgG Ab HCV RNA (PCR) IUs/ml HCV RNA PCR log IUs/ml - Imaging Abdomen Ultrasound 09/10/17 00:00 CONCLUSION: 1. There is mild to moderate ascites although no pockets are seen large enough at the current time to safely perform paracentesis. Abdomen X-Ray 09/10/17 02:05 CONCLUSION: No dilated loops of small or large bowel. Abdomen/Pelvis CT 09/10/17 02:05 CONCLUSION: 1. 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 Liver Biopsy CT 09/12/17 00:00 CONCLUSION: 1. Uncomplicated CT guided biopsy. Abdomen X-Ray 09/13/17 10:29 CONCLUSION: Mild small bowel dilatation central abdomen. No free air. Assessment and Plan - Assessment (1) Liver mass Code(s): R16.0 - Hepatomegaly, not elsewhere classified Status: Acute Plan: This is a 57-year-old male patient with past medical history which includes diabetes mellitus and hepatitis C. Patient reports he has previously been treated with Harvoni for his hepatitis C. Patient presents to the emergency department with complaints of abdominal distention and constipation for approximately 3 weeks. 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 Patient reports he has previously been treated with Harvoni for his hepatitis C by Dr. Honeycutt about 1 year ago. - He presented to the ED on 09/10/17 with complaints of abdominal distention and constipation for approximately 3 weeks. - KUB (09/10/17)--> no dilated loops of small or large bowel - CT abdomen/pelvis (09/10/17) --> abnormal examination suspicious for malignancy demonstrating significant ascites in the abdomen and pelvis, multiple irregular margin hypodense lesions in the liver measuring up to 9 cm in size , and enlarged ring-enhancing nodular masses adjacent to the celiac artery, anterior to the heart and adjacent to the inferior esophagus. - Given concern of malignancy interventional radiology was consulted for US guided paracentesis with cytology but this was unable to be done as there was not enough fluid - CMP on admission reviewed total bilirubin 0.9 AST 208, ALT 152, alkaline phosphatase 472 ammonia (09/10) < 10, AFP (09/11) 533.3, CA 19.9 509.5 - His LFTs worsened following admission, the transaminases have slowly been improving but TBili is elevating. - (09/11/17) Tbili 0.8, AST 6470, ALT 3043, AlkPhos 939 - (09/12/17) Tbili 0.6, AST 2051, ALT 1765, AlkPhos 801 - (09/13/17) TBili 1.0, AST 831, ALT 1070, AlkPhos 751 - (09/14/17) TBili 1.4, AST 690, ALT 839, AlkPhos 921 - (09/15/17) TBili 2.8, DBili 2.3, AST 553, ALT 661, AlkPhos 966 - (09/16/17) TBili 4.8, AST 354, ALT 492, AlkPhos 904 - Hepatitis profile Hep C Ab positive - PT 10.9, INR 1.1, APTT 23.8 - US guided paracentesis was performed on 09/15/17 and fluid for cytology is pending. - Lasix 20mg po BID added on 09/16 - Cont. Aldactone 25mg po BID and IV Albumin - Pt had a CT guided biopsy of the liver with IR (09/12/17) --> pathology noted hepatic necrosis and acute inflammation. no evidence for malignancy. - Pt underwent evaluation with EGD/colonoscopy (09/16/17): - Nodule in the duodenal bulb-possible minor papilla, portal gastropathy, gastritis in the antrum, severe silvio esophagitis involving all esophagus, esophageal varices grade 2 -3 columns, no banding done due to severe silvio esophagitis - Colonoscopy unable ot be completed due to solid stool - Pt started on Nystatin S/S and Protonix 40mg BID - Pt planned for repeat colonoscopy tomorrow after repeat prepping - Pt has poor social support. He has complicated medical conditions and will require many f/u hospital visits, testing, and will be on insulin for first time. - His current medical condition is not completely understood/diagnosed. Pt high risk for failure and readmission. Diabetes mellitus - Patient reportedly takes Synjardy 5-1000mg PO BID, blood glucose on arrival to the emergency department was 555 -> improved to 233 after hydration - HgbA1c 15.8 - On 09/12 PM blood glucose uncontrolled > 600 - Continue Accu-Cheks before meals at bedtime with sliding scale insulin coverage - Levemir increased to 30 units SQ BID on 09/14, PM dose of Levemir decreased to 25 units on 09/15 due to low AM blood sugar but on 09/16 AM BS is still low - Further decreased PM Levemir to 15 units and continue 30units in AM - Diabetic and dietary education. - Pt will likely need insulin on dc. Hyponatremia - Likely related to volume, improving - Cont diuretic COPD with fibrotic lung disease not on home oxygen - Pt does not appear to be in acute exacerbation - Continue home anoro elipta - Duonebs Q2H as needed DVT prophylaxis with SCDs (2) Ascites Code(s): R18.8 - Other ascites Status: Acute (2) Ascites Qualifiers: Ascites type: other type Qualified Code(s): R18.8 - Other ascites
[2017-09-16] MEDS: Umeclindinium 62.5 MCG/Vilanterol 25 MCG Inhaler INH SCH (11:45)
[2017-09-16] MEDS ORDERED: Lidocaine PF 1% Inj 5 ML Syringe INFILTRATN ONE (12:00)
[2017-09-16] MEDS: Nystatin Liq 500,000 UNIT/5 ML UDC SWISH-SWAL SCH ×3 (13:00→21:08)
[2017-09-16] MEDS ORDERED: Furosemide 20 MG Tablet PO SCH (20:09)
[2017-09-16] MEDS ORDERED: Insulin Detemir Inj 1,000 UNIT/10 ML Vial SQ SCH (21:00)
--- NOTE | 2017-09-16 23:18 | P.CON ---
History of Present Illness Service: Oncology Consult date: 09/15/17 Primary Care Provider: Shama Bueno MD Family Provider: Shama Bueno MD Chief Complaint: Abdominal pain, liver mass History of Present Illness: This is a 57-year-old male COPD, hepatitis C, diabetes type 2 who presented to the emergency department with abdominal distention and tenderness. He states that his symptoms began approximately 4 weeks ago. According to the patient he was treated for hepatitis C by Dr. Honeycutt. Apparently he received Harvoni. In the emergency department an abdominal x-ray did not show any acute abnormalities. He subsequently had a CT of the abdomen and pelvis. CT scan showed significant ascites in the abdomen and pelvis, there are multiple irregular hypodense lesions in the liver measuring up to 9 cm in size and there was a large ring enhancing nodular mass adjacent to the celiac artery, anterior to the heart and adjacent to the inferior esophagus. On admission patient was found to have transaminitis with AST of 208 and ALT of 152. His alk phos was elevated to 472. Tumor markers including AFP was 533 and CA 199 was 509. He was found to be hep C IgG antibody positive. Patient underwent CT- guided biopsy of the liver on September 12, 2017. He was found to have hepatic necrosis and acute inflammation. The biopsy was nondiagnostic for malignant patient has undergone an EGD and colonoscopy on September 16, 2017. He was found to have portal gastropathy and gastritis. He also has severe candidal esophagitis. Esophageal varices were also seen. Colonoscopy could not be completed due to solid stool. Patient has been treated with nystatin and Protonix. Oncology has been consulted to make regarding multiple masses in the liver. Patient appears weak and is resting comfortably in the bed. He appears cachectic. He denies any pain. Review of Systems All other systems reviewed negative except as stated in HPI PMFSH - History History Provided By: Patient - Medical History Medical History: Medical History (Last Reviewed 09/16/17 @ 23:33 by Rob Martinez MD) Diabetes Hepatitis C - Tobacco History Smoking Status: Never smoker - Alcohol History How Often Do You Have a Drink Containing Alcohol: Never - Substance Use History Substance History: No History of Abuse - Travel History Recent Travel in the [place] Within the Last 8 Weeks: No Recent Travel Out of the Country Within the Last 8 Weeks: No - Immunization History Tetanus Immunization: >5 Years Hx Influenza Vaccine This Season: Yes Medications and Allergies Active Medications: Active Medications Al Hydroxide/Mg Hydroxide (Milk Of Magnesia Liq) 30 ml PO Q12H PRN PRN Reason: Mild Constipation Albuterol (Duoneb Neb (Prn)) 1 ampul NEB Q2HR NEB PRN PRN Reason: SHORTNESS OF BREATH/WHEEZING Bisacodyl (Dulcolax Supp) 10 mg RECTAL DAILY PRN PRN Reason: SEVERE CONSITIPATION Dextrose (D50w Vial) 50 ml IV.PUSH UNSCH PRN PRN Reason: PER HYPOGLYCEMIA PROTOCOL Last Admin: 09/16/17 08:09 Dose: 50 ml Furosemide (Lasix Inj) 20 mg IV.PUSH BID@0900,1800 [facility] Glucagon (Glucagon Inj) 1 mg OTHER PRN PRN PRN Reason: for Hypoglycemia Protocol Albumin Human (Flexbumin 25% Inj) 50 mls @ 60 mls/hr IV.SIG Q12H [facility] Last Admin: 09/16/17 20:13 Dose: Not Given Insulin Aspart (Novolog Insulin Correctional Sugar Inj) 0 unit SQ ACHS [facility]; Protocol Last Admin: 09/16/17 21:09 Dose: 25 unit Insulin Detemir (Levemir Inj) 30 unit SQ DAILY [facility] Last Admin: 09/16/17 08:00 Dose: Not Given Lactulose (Lactulose Liq) 30 ml PO DAILY PRN PRN Reason: MODERATE CONSTIPATION Nystatin (Mycostatin Liq) 5 ml SWISH-SWAL QID [facility] Last Admin: 09/16/17 21:08 Dose: 5 ml Ondansetron HCl (Zofran Inj) 4 mg IV.PUSH Q6H PRN PRN Reason: NAUSEA OR VOMITING Last Admin: 09/16/17 04:23 Dose: 4 mg Pantoprazole Sodium (Protonix) 40 mg PO BID [facility] Last Admin: 09/16/17 21:08 Dose: 40 mg Polyethylene Glycol (Miralax) 17 gm PO DAILY [facility] Last Admin: 09/16/17 08:00 Dose: Not Given Senna/Docusate Sodium (Starla-Colace) 1 tab PO BID [facility] Last Admin: 09/16/17 21:08 Dose: Not Given Sodium Chloride (Ns Flush) 2 ml IV.FLUSH PRN PRN PRN Reason: FLUSH AFTER USING IV ACCESS Last Admin: 09/10/17 03:46 Dose: 2 ml Spironolactone (Aldactone) 25 mg PO BID@0900,1800 [facility] Last Admin: 09/16/17 17:11 Dose: Not Given Umeclidinium/Vilanterol (Anoro-Ellipta 62.5/25 Mcg Inh) 1 puff INH Q24H [facility] Last Admin: 09/16/17 11:45 Dose: 1 puff Allergies Allergy/AdvReac Type Severity Reaction Status Date / Time No Known Allergies Allergy Verified 09/12/17 11:32 Home Medications Medication Instructions Recorded Confirmed Type empagliflozin-metformin [Synjardy] 1 tab PO BID 09/10/17 09/10/17 History umeclidinium-vilanterol [Anoro 1 inh INHALATION Q24H 09/10/17 09/10/17 History Ellipta] Physical Exam Vital signs: Vital Signs 09/16/17 00:00 09/16/17 04:00 09/16/17 07:39 Temperature 98.1 F 98.0 F 97.6 F Pulse Rate 97 H 95 H 86 Respiratory Rate 18 18 16 Blood Pressure 132/81 153/79 H 129/77 Pulse Oximetry 96 95 95 09/16/17 10:09 09/16/17 12:00 09/16/17 20:00 Temperature 97.6 F 97.9 F 98.4 F Pulse Rate 79 72 100 H Respiratory Rate 18 17 18 Blood Pressure 106/64 122/70 125/72 Pulse Oximetry 97 94 L 97 Intake & Output 09/16/17 09/16/17 09/17/17 06:59 18:59 06:59 Intake Total 50 / 50 100 / 100 Balance 50 / 50 100 / 100 Weight 66.5 kg Intake: IV 50 / 50 Flexbumin 25% Inj 50 ML @ 60 50 / 50 mls/hr IV.SIG Q12H [facility] Rx#: [id number] Anesthesia Amount 100 / 100 Other: # Voids 2 Date of Last Bowel Movement 09/16/17 - Constitutional no acute distress, chronically ill appearing - Routine HEENT Exam Head: Present: normocephalic Eye: Present: EOMI, PERRL - Routine Respiratory Exam Present: CTA bilaterally - Routine Cardiovascular Exam Present: RRR, S1, S2 - Routine Abdominal Exam Present: distended - Routine Extremities Exam Present: full ROM, pulses intact, normal capillary refill - Routine Skin Exam Present: intact - Routine Neurological Exam Present: alert, oriented X3, CN II-XII intact Assessment and Plan - Assessment (1) Hep C w/o coma, chronic Code(s): B18.2 - Chronic viral hepatitis C Status: Acute (2) Liver disease Code(s): K76.9 - Liver disease, unspecified Status: Acute (3) Liver mass Code(s): R16.0 - Hepatomegaly, not elsewhere classified Status: Acute (4) Ascites Code(s): R18.8 - Other ascites Status: Acute (5) Transaminitis Code(s): R74.0 - Nonspecific elevation of levels of transaminase and lactic acid dehydrogenase [LDH] Status: Acute - Plan Assessment/Plan: This is a 57-year-old male with a history of hepatitis C, COPD, lung fibrosis, diabetes type 2 who presents to the emergency room with abdominal distention and pain. CT scan revealed multiple masses in the liver and he has abdominal ascites: 1 multiple hepatic masses and abdominal ascites in a patient with a background of hepatitis C: -Patient underwent CT-guided biopsy which was nondiagnostic for malignancy. The lesions are quite concerning for hepatocellular carcinoma. Patient also has abdominal ascites. He has undergone paracentesis and cytology is pending. If the cytology is also nondiagnostic, then I would recommend attempting another biopsy of the liver. We will also obtain an MRI of the Liver, which can help assess whether this is primary hepatocellular carcinoma. He has elevation of AFP but is not high enough which is typically seen in hepatocellular carcinoma. His CA 19count level is also elevated. There is also a possibility of another primary pancreatic or hepatobiliary carcinoma. patient has multiple medical issues. His performance status is poor. If this is hepatocellular carcinoma it is unresectable. Treatment options may be limited for this patient with multiple comorbidities. If this is another primary cancer, that it would be metastatic disease. #2 abdominal ascites status post paracentesis. Cytology is pending. #3 liver disease/portal gastropathy/esophageal varices with a history of hepatitis C #4 transaminitis due to multiple liver lesions and liver disease #5 COPD with fibrotic lung disease #6 diabetes type 2 Thank you for allowing me to participate in the care of this patient. We will obtain an MRI of the abdomen with liver protocol. We will await the results of the cytology from paracentesis. (4) Ascites Qualifiers: Ascites type: other type Qualified Code(s): R18.8 - Other ascites
[2017-09-17] MEDS: Albumin Human 25% Inj 50 ML IV.SIG SCH ×2 (05:31→17:19)
--- NOTE | 2017-09-17 07:27 | US ---
EXAM DATE: 09/15/2017 5:23 PM EDT AGE/SEX: 57 years / Male INDICATIONS: Ascites. CLINICAL DATA: This is the patient's initial encounter. Patient reports that signs and symptoms have been present for 2 days and indicates a pain score of 2/10. MEDICAL/SURGICAL HISTORY: Hepatitis C. Diabetes. Liver Mass. . Liver biopsy. COMPARISON: . FLUID: Total volume of 2000 cc of clear, yellow fluid was removed. Fluid was sent to lab for ordered studies . . . TECHNIQUE: Ultrasound guidance for abdominal paracentesis. Paracentesis. The risks, benefits, and alternatives to ultrasound guided paracentesis were explained to the patient in detail including the risk of bleeding and infection. Written and verbal informed consent was obt ained. With the patient on the ultrasound table, ultrasound imaging was used to select the most appropriate approach for paracentesis. Overlying skin was prepped and draped in the usual sterile fashion and wi th a local anesthetic, a dermatotomy was made with an 11 blade scalpel. A 6 [place] Wvd-B-rbxyxyat ca theter was introduced into the peritoneal cavity and fluid was collected. Post procedure scanning reveals no hematoma or other complication. The patient tolerated the procedu re well and left the ultrasound suite in stable condition. CONCLUSION: 1. Successful paracentesis Electronically signed by: Chris Simmons MD 09/17/2017 7:26 AM EDT
[2017-09-17 07:34] LABS: Baso # (Auto) 0.1 th/mm3 (0.0-0.2); Baso % (Auto) 0.6 % (0.0-2.0); Eos % (Auto) 0.2 % (0.0-4.0); Hematocrit 34.8 % (39.0-51.0); Hemoglobin 11.7 gm/dL (13.0-17.0); Lymph # (Auto) 0.3 th/mm3 (1.0-4.8); Lymph % (Auto) 2.9 % (9.0-44.0); Mean Corpuscular HGB Conc 33.6 % (32.0-36.0); Mean Corpuscular Hemoglobin 29.8 pg (27.0-34.0); Mean Corpuscular Volume 88.8 fL (80.0-100.0); Mean Platelet Volume 7.9 fL (7.0-11.0); Mono # (Auto) 0.9 th/mm3 (0.0-0.9); Mono % (Auto) 8.1 % (0.0-8.0); Neut % (Auto) 88.2 % (16.0-70.0); Platelet Count 237 th/mm3 (150-450); Red Blood Count 3.92 mil/mm3 (4.50-5.90); Red Cell Distribution Width 15.2 % (11.6-17.2); White Blood Count 11.3 th/mm3 (4.0-11.0)
[2017-09-17 08:02] LABS: Albumin 2.3 g/dL (3.4-5.0); Anion Gap 7 meq/L (5-15); Aspartate Aminotransferase 266 U/L (15-37); Blood Urea Nitrogen 19 mg/dL (7-18); Chloride 95 meq/L (98-107); Glomerular Filtration Rate Greater Than 89 mL/min (>89); Glucose,Random 135 mg/dL (74-106); Potassium 4.6 meq/L (3.5-5.1); Sodium 131 meq/L (136-145)
[2017-09-17 08:03] LABS: Alanine Aminotransferase 386 U/L (12-78)
[2017-09-17 08:05] LABS: Alkaline Phosphatase 841 U/L (45-117); Total Protein 6.3 g/dL (6.4-8.2)
[2017-09-17] MEDS: Insulin NovoLOG Aspart Correctional Sugar Inj SQ SCH ×4 (08:41→23:21)
[2017-09-17] MEDS: Senna/Docusate Sodium 8.6/50 MG Tablet PO SCH ×2 (08:42→23:21)
[2017-09-17] MEDS: Polyethylene Glycol 3350 17 GM Packet PO SCH (08:42)
[2017-09-17] MEDS: Spironolactone 25 MG Tablet PO SCH ×2 (08:54→17:26)
[2017-09-17] MEDS: Nystatin Liq 500,000 UNIT/5 ML UDC SWISH-SWAL SCH ×4 (08:54→23:21)
[2017-09-17] MEDS: Insulin Detemir Inj 1,000 UNIT/10 ML Vial SQ SCH (10:29)
[2017-09-17] MEDS: Umeclindinium 62.5 MCG/Vilanterol 25 MCG Inhaler INH SCH (10:29)
--- NOTE | 2017-09-17 11:53 | GIPROC ---
[facility] [address] [facility]. [facility], [id number] COLONOSCOPY PROCEDURE REPORT EXAM DATE: 09/17/2017 PATIENT NAME: Sumanth Walden MR #: [id number] BIRTHDATE: 1960 ENDOSCOPIST: Carmella Tamayo MD ORDER #: [id number] LOCAL INTERMODAL TRUCK DRIVER: Shantanu Parker STATUS: inpatient INDICATIONS: The patient is a 57 yr old male here for a colonoscopy due to abnormal ct , weight loss PROCEDURE PERFORMED: Colonoscopy, diagnostic MEDICATIONS: None and Per Anesthesia. PREP QUALITY: fair PREP TYPE:Other: ESTIMATED BLOOD LOSS: None CONSENT: The patient understands the risks and benefits of the procedure and understands that these risks include, but are not limited to: sedation, allergic reaction, infection, perforation and/or bleeding. Alternative means of evaluation and treatment include, among others: physical exam, x-rays, and/or surgical intervention. The patient elects to proceed with this endoscopic procedure. medical equipment was checked for proper function. Hand hygiene and appropriate measures for infection prevention was taken. After the risks, benefits and alternatives of the procedure were thoroughly explained, Informed consent was verified, confirmed and timeout was successfully executed by the treatment team. A digital exam revealed external thrombosed hemorrhoids The New [id number] (Std Gastro) endoscope was introduced through the anus and advanced to the cecum, which was identified by both the appendix and ileocecal valve. The instrument was then slowly withdrawn as the colon was fully examined. COLON FINDINGS: Small avm cecum. Retroflexed views revealed internal hemorrhoids and Retroflexed views revealed small internal hemorrhoids The scope was then completely withdrawn from the patient and the procedure terminated. PROCEDURE WITHDRAWAL TIME:6minutes ADVERSE EVENTS: There were no complications. IMPRESSIONS: 1. Small avm cecum 2. Retroflexed views revealed internal hemorrhoids 3. Retroflexed views revealed small internal hemorrhoids 4. Revealed external thrombosed hemorrhoids RECOMMENDATIONS: 1. Benefiber 2 tsp daily 2. Probiotics from any [employer] or health food store 3. Yearly rectal exams 4. Proctozone cream await cytology report from ascitic fluid if nondiagnostic repeat liver biopsy hematology consult appreciated RECALL: Return 5 years Colonoscopy Carmella Tamayo MD eSigned: Carmella Tamayo MD 09/17/2017 11:53 AM cc:
[2017-09-17] MEDS ORDERED: Lidocaine PF 1% Inj 5 ML Syringe INFILTRATN ONE (12:00)
--- NOTE | 2017-09-17 14:15 | P.PNIM ---
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, small internal hemorrhoids, and external thrombosed hemorrhoids Pt is urinating quite a bit but LE still swollen Abdomen less distended Physical Exam Vital signs: Vital Signs 09/16/17 20:00 09/17/17 00:00 09/17/17 04:00 Temperature 98.4 F 98.9 F 97.9 F Pulse Rate 100 H 101 H 91 H Respiratory Rate 18 18 18 Blood Pressure 125/72 103/59 L 103/64 Pulse Oximetry 97 95 95 09/17/17 08:00 09/17/17 12:00 Temperature 98.1 F 97.5 F L Pulse Rate 92 H 92 H Respiratory Rate 16 16 Blood Pressure 109/70 103/65 Pulse Oximetry 93 L 95 Intake & Output 09/16/17 09/17/17 09/17/17 18:59 06:59 18:59 Intake Total 100 / 100 50 / 50 300 / 300 Balance 100 / 100 50 / 50 300 / 300 Weight 63.5 kg Intake: IV 50 / 50 Flexbumin 25% Inj 50 ML @ 60 50 / 50 mls/hr IV.SIG Q12H ALEX[facility] Rx#: [id number] Anesthesia Amount 100 / 100 300 / 300 Other: # Voids 4 Date of Last Bowel Movement 09/16/17 09/17/17 # Bowel Movements 2 Narrative: GENERAL: This is a thin chronically ill-appearing 57-year-old male patient who appears older than stated age, in no apparent distress. CARDIO: Regular RESP: Poor inspiratory effort ABD: +BS, soft, non-tender, less distended. EXT: Bilateral LE pitting edema. Results - Labs CBC & Chem 7: 09/17/17 06:40 09/17/17 06:40 Laboratory Results - last 24 hr 09/16/17 09/16/17 09/17/17 16:44 20:49 06:40 WBC 11.3 H RBC 3.92 L Hgb 11.7 L Hct 34.8 L MCV 88.8 MCH 29.8 MCHC 33.6 RDW 15.2 Plt Count 237 MPV 7.9 Neut % (Auto) 88.2 H Lymph % (Auto) 2.9 L [place] % (Auto) 8.1 H Eos % (Auto) 0.2 Baso % (Auto) 0.6 Neut # (Auto) 10.0 H Lymph # (Auto) 0.3 L [place] # (Auto) 0.9 Eos # (Auto) 0.0 Baso # (Auto) 0.1 WBC Differential . Differential Comment Auto diff final Sodium Potassium Chloride Carbon Dioxide Anion Gap BUN Creatinine Estimated GFR POC Glucose 169 H 367 H Random Glucose Calcium Total Bilirubin AST ALT Alkaline Phosphatase Total Protein Albumin 09/17/17 09/17/17 09/17/17 06:40 07:24 12:28 WBC RBC Hgb Hct MCV MCH MCHC RDW Plt Count MPV Neut % (Auto) Lymph % (Auto) [place] % (Auto) Eos % (Auto) Baso % (Auto) Neut # (Auto) Lymph # (Auto) [place] # (Auto) Eos # (Auto) Baso # (Auto) WBC Differential Differential Comment Sodium 131 L Potassium 4.6 Chloride 95 L Carbon Dioxide 29.0 Anion Gap 7 BUN 19 H Creatinine 0.51 L Estimated GFR Greater than 89 POC Glucose 152 H 183 H Random Glucose 135 H Calcium 8.0 L Total Bilirubin 6.5 H AST 266 H ALT 386 H Alkaline Phosphatase 841 H Total Protein 6.3 L Albumin 2.3 L - Imaging Impressions Paracentesis Ultrasound 09/15/17 00:00 CONCLUSION: 1. Successful paracentesis Assessment and Plan - Assessment (1) Liver mass Code(s): R16.0 - Hepatomegaly, not elsewhere classified Status: Acute Plan: This is a 57-year-old male patient with past medical history which includes diabetes mellitus and hepatitis C. Patient reports he has previously been treated with Harvoni for his hepatitis C. Patient presents to the emergency department with complaints of abdominal distention and constipation for approximately 3 weeks. 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 Patient reports he has previously been treated with Harvoni for his hepatitis C by Dr. Honeycutt about 1 year ago. - He presented to the ED on 09/10/17 with complaints of abdominal distention and constipation for approximately 3 weeks. - KUB (09/10/17)--> no dilated loops of small or large bowel - CT abdomen/pelvis (09/10/17) --> abnormal examination suspicious for malignancy demonstrating significant ascites in the abdomen and pelvis, multiple irregular margin hypodense lesions in the liver measuring up to 9 cm in size , and enlarged ring-enhancing nodular masses adjacent to the celiac artery, anterior to the heart and adjacent to the inferior esophagus. - Given concern of malignancy interventional radiology was consulted for US guided paracentesis with cytology but this was unable to be done as there was not enough fluid - CMP on admission reviewed total bilirubin 0.9 AST 208, ALT 152, alkaline phosphatase 472 ammonia (09/10) < 10, AFP (09/11) 533.3, CA 19.9 509.5 - His LFTs worsened following admission, the transaminases have slowly been improving but TBili is elevating. - (09/11/17) Tbili 0.8, AST 6470, ALT 3043, AlkPhos 939 - (09/12/17) Tbili 0.6, AST 2051, ALT 1765, AlkPhos 801 - (09/13/17) TBili 1.0, AST 831, ALT 1070, AlkPhos 751 - (09/14/17) TBili 1.4, AST 690, ALT 839, AlkPhos 921 - (09/15/17) TBili 2.8, DBili 2.3, AST 553, ALT 661, AlkPhos 966 - (09/16/17) TBili 4.8, AST 354, ALT 492, AlkPhos 904 - (09/17/17) Tbili 6.5, AST 266, ALT 386, AlkPhos 841 - Hepatitis profile Hep C Ab positive - PT 10.9, INR 1.1, APTT 23.8 - US guided paracentesis was performed on 09/15/17 and pt had 2L removed - cytology is pending. - Lasix 20mg po BID added on 09/16 and changed to Lasix 20mg IV BID on 09/17 - Cont. Aldactone 25mg po BID and IV Albumin - Monitor labs - Pt had a CT guided biopsy of the liver with IR (09/12/17) --> pathology noted hepatic necrosis and acute inflammation. no evidence for malignancy. - Pt underwent evaluation with EGD/colonoscopy (09/16/17): - Nodule in the duodenal bulb-possible minor papilla, portal gastropathy, gastritis in the antrum, severe silvio esophagitis involving all esophagus, esophageal varices grade 2 -3 columns, no banding done due to severe silvio esophagitis - Colonoscopy unable ot be completed due to solid stool - Pt started on Nystatin S/S and Protonix 40mg BID - Pt had a repeat colonoscopy (09/17/17) --> Small AVM in cecum, small internal hemorrhoids, and external thrombosed hemorrhoids - Heme/Onc was consulted and recommending awaiting cytology results but if that is nondiagnostic may need to repeat liver biopsy. - Pt has poor social support. He has complicated medical conditions and will require many f/u hospital visits, testing, and will be on insulin for first time. - His current medical condition is not completely understood/diagnosed. Pt high risk for failure and readmission. Diabetes mellitus - Patient reportedly takes Synjardy 5-1000mg PO BID, blood glucose on arrival to the emergency department was 555 -> improved to 233 after hydration - HgbA1c 15.8 - On 8 PM blood glucose uncontrolled > 600 - Continue Accu-Cheks before meals at bedtime with sliding scale insulin coverage - Levemir increased to 30 units SQ BID on 09/14, PM dose of Levemir decreased to 25 units on 09/15 due to low AM blood sugar but on 09/16 AM BS is still low - Hold PM Levemir and continue 30units in AM - Diabetic and dietary education. - Pt will likely need insulin on dc. Hyponatremia - Likely related to volume, improving - Cont diuretic COPD with fibrotic lung disease not on home oxygen - Pt does not appear to be in acute exacerbation - Continue home anoro elipta - Duonebs Q2H as needed DVT prophylaxis with SCDs (2) Ascites Code(s): R18.8 - Other ascites Status: Acute (2) Ascites Qualifiers: Ascites type: other type Qualified Code(s): R18.8 - Other ascites
[2017-09-17] MEDS ORDERED: Gadobutrol PF 10 MMOL/10 ML Vial (for RAD) IV.SIG ONE (14:31)
--- NOTE | 2017-09-17 14:58 | MR ---
EXAM DATE: 09/17/2017 2:47 PM EDT AGE/SEX: 57 years / Male INDICATIONS: Liver lesion. CLINICAL DATA: This is the patient's initial encounter. Patient reports that signs and symptoms have been present for 4 - 6 days and indicates a pain score of 0/10. MEDICAL/SURGICAL HISTORY: Hypertension. . Liver biopsy. COMPARISON: [facility], CT ABDOMEN & PELVIS W CONTRAST, 09/10/2017. . TECHNIQUE: Multiplanar, multisequence images of the abdomen were obtained prior to and following adm inistration of 6cc ml Gadavist (gadobutrol) contrast as a single exam dose with dynamic multiphase te chnique. FINDINGS: Liver: The liver is diffusely enlarged and heterogeneous. The portal system is patent. There are no d ilated biliary ducts. However, there appears to be a complex mass occupying lesion measuring approxim ately 12 cm x 6.2 cm. Involving segment 4 and 8 of the liver suspicious for neoplastic disease. There is a another area of abnormal complex changes involving the right lobe measuring 5 cm x 9.8 cm invol ving segment 6 also suspicious for neoplastic disease. Multiple small low signal lesions are seen sca ttered throughout the liver. There is ascites in the upper abdomen. Gallbladder: The gallbladder is contracted. No definite stones are demonstrated. Spleen: The spleen is unremarkable. Pancreas: The pancreas is unremarkable. Adrenals: The adrenal glands appear normal. Kidneys: Both kidneys appear normal with symmetric nephrograms and no focal parenchymal abnormalities . There is no hydronephrosis on either side. Retroperitoneum: The aorta is unremarkable. There is no pathologic abdominal lymphadenopathy. CONCLUSION: 1. The liver is diffusely enlarged and heterogeneous consistent with hepatocellular disease such as cirrhosis. There is ascites in the upper abdomen. No dilated biliary ducts. 2. There is at least 2 complex areas which are highly suspicious for neoplastic disease. There is a complex area measuring about 12 cm involving segments 4 and 8 of the liver suspicious for neoplastic disease. There is a complex area measuring 9.8 cm in segment 6 suspicious for neoplastic disease. Electronically signed by: Tonny West MD 09/17/2017 2:57 PM EDT
[2017-09-18] MEDS: Albumin Human 25% Inj 50 ML IV.SIG SCH ×2 (06:36→16:51)
[2017-09-18] MEDS: Nystatin Liq 500,000 UNIT/5 ML UDC SWISH-SWAL SCH ×4 (09:08→21:32)
[2017-09-18] MEDS: Spironolactone 25 MG Tablet PO SCH ×2 (09:08→17:00)
[2017-09-18] MEDS: Senna/Docusate Sodium 8.6/50 MG Tablet PO SCH ×2 (09:09→21:32)
[2017-09-18] MEDS: Polyethylene Glycol 3350 17 GM Packet PO SCH (09:10)
[2017-09-18] MEDS: Insulin Detemir Inj 1,000 UNIT/10 ML Vial SQ SCH (09:10)
[2017-09-18] MEDS: Insulin NovoLOG Aspart Correctional Sugar Inj SQ SCH ×4 (09:11→21:34)
[2017-09-18] MEDS: Umeclindinium 62.5 MCG/Vilanterol 25 MCG Inhaler INH SCH (10:25)
--- NOTE | 2017-09-18 11:57 | P.PNIM ---
Subjective Interval history: still swollen. Physical Exam Vital signs: Vital Signs 09/17/17 12:00 09/17/17 16:00 09/17/17 20:00 Temperature 97.5 F L 98.7 F 98.2 F Pulse Rate 92 H 96 H 93 H Respiratory Rate 16 16 18 Blood Pressure 103/65 103/66 113/60 Pulse Oximetry 95 95 94 L 09/18/17 00:00 09/18/17 08:00 Temperature 98 F 98.1 F Pulse Rate 87 99 H Respiratory Rate 18 16 Blood Pressure 111/58 L 140/79 Pulse Oximetry 959 H 97 Intake & Output 09/17/17 09/18/17 09/18/17 18:59 06:59 18:59 Intake Total 1070 / 1070 50 / 50 Output Total Balance 1069 / 1069 50 / 50 Intake: IV 50 / 50 50 / 50 Flexbumin 25% Inj 50 ML @ 60 50 / 50 50 / 50 mls/hr IV.SIG Q12H [facility] Rx#: [id number] Oral 720 / 720 Anesthesia Amount 300 / 300 Output: Stool Other: # Voids 3 Date of Last Bowel Movement 09/17/17 09/17/17 09/18/17 heart reg lung cta abd s/nt ext 2plus pitting edema Results - Labs CBC & Chem 7: 09/17/17 06:40 09/18/17 01:17 Laboratory Results - last 24 hr 09/17/17 09/17/17 09/17/17 12:28 17:19 22:52 POC Glucose 183 H 296 H Greater than 600 H* Random Glucose 09/18/17 09/18/17 09/18/17 00:15 01:17 07:44 POC Glucose 403 H 293 H Random Glucose 311 H D - Imaging Impressions Abdomen MRI 09/17/17 00:00 CONCLUSION: 1. The liver is diffusely enlarged and heterogeneous consistent with hepatocellular disease such as cirrhosis. There is ascites in the upper abdomen. No dilated biliary ducts. 2. There is at least 2 complex areas which are highly suspicious for neoplastic disease. There is a complex area measuring about 12 cm involving segments 4 and 8 of the liver suspicious for neoplastic disease. There is a complex area measuring 9.8 cm in segment 6 suspicious for neoplastic disease. Assessment and Plan - Assessment (1) Liver mass Code(s): R16.0 - Hepatomegaly, not elsewhere classified Status: Acute Plan: This is a 57-year-old male patient with past medical history which includes diabetes mellitus and hepatitis C. Patient reports he has previously been treated with Harvoni for his hepatitis C. Patient presents to the emergency department with complaints of abdominal distention and constipation for approximately 3 weeks. 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 Patient reports he has previously been treated with Harvoni for his hepatitis C by Dr. Honeycutt about 1 year ago. - He presented to the ED on 09/10/17 with complaints of abdominal distention and constipation for approximately 3 weeks. - KUB (09/10/17)--> no dilated loops of small or large bowel - CT abdomen/pelvis (09/10/17) --> abnormal examination suspicious for malignancy demonstrating significant ascites in the abdomen and pelvis, multiple irregular margin hypodense lesions in the liver measuring up to 9 cm in size , and enlarged ring-enhancing nodular masses adjacent to the celiac artery, anterior to the heart and adjacent to the inferior esophagus. - Given concern of malignancy interventional radiology was consulted for US guided paracentesis with cytology but this was unable to be done as there was not enough fluid - CMP on admission reviewed total bilirubin 0.9 AST 208, ALT 152, alkaline phosphatase 472 ammonia (09/10) < 10, AFP (09/11) 533.3, CA 19.9 509.5 - His LFTs worsened following admission, the transaminases have slowly been improving but TBili is elevating. - (09/11/17) Tbili 0.8, AST 6470, ALT 3043, AlkPhos 939 - (09/12/17) Tbili 0.6, AST 2051, ALT 1765, AlkPhos 801 - (09/13/17) TBili 1.0, AST 831, ALT 1070, AlkPhos 751 - (09/14/17) TBili 1.4, AST 690, ALT 839, AlkPhos 921 - (09/15/17) TBili 2.8, DBili 2.3, AST 553, ALT 661, AlkPhos 966 - (09/16/17) TBili 4.8, AST 354, ALT 492, AlkPhos 904 - Hepatitis profile Hep C Ab positive - PT 10.9, INR 1.1, APTT 23.8 - US guided paracentesis was performed on 09/15/17 and fluid for cytology is pending. cont aldactone. lasix/albumen. bmp. - Pt had a CT guided biopsy of the liver with IR (09/12/17) --> pathology noted hepatic necrosis and acute inflammation. no evidence for malignancy. - Pt underwent evaluation with EGD/colonoscopy (09/16/17): - Nodule in the duodenal bulb-possible minor papilla, portal gastropathy, gastritis in the antrum, severe silvio esophagitis involving all esophagus, esophageal varices grade 2 -3 columns, no banding done due to severe silvio esophagitis - Colonoscopy unable ot be completed due to solid stool - Pt started on Nystatin S/S and Protonix 40mg BID - repeat colonoscopy. no malignancy If cytology of ascites negative then plan for repeat CT guided liver bx for concern over HCC. oncology following. - Pt has poor social support. He has complicated medical conditions and will require many f/u hospital visits, testing, and will be on insulin for first time. - His current medical condition is not completely understood/diagnosed. Pt high risk for failure and readmission. Diabetes mellitus - Patient reportedly takes Synjardy 5-1000mg PO BID, - HgbA1c 15.8 - Diabetic and dietary education. Pt was stable on levemir 30mg bid until diet interrupted. titrate back up again. Hyponatremia - Likely related to volume, improving - Cont diuretic COPD with fibrotic lung disease not on home oxygen - Pt does not appear to be in acute exacerbation - Continue home anoro elipta - Duonebs Q2H as needed DVT prophylaxis with SCDs (2) Ascites Code(s): R18.8 - Other ascites Status: Acute (2) Ascites Qualifiers: Ascites type: other type Qualified Code(s): R18.8 - Other ascites
[2017-09-18 19:19] LABS: Alanine Aminotransferase 284 U/L (12-78); Albumin 2.5 g/dL (3.4-5.0); Alkaline Phosphatase 805 U/L (45-117); Anion Gap 7 meq/L (5-15); Aspartate Aminotransferase 175 U/L (15-37); Blood Urea Nitrogen 24 mg/dL (7-18); Calcium 8.1 mg/dL (8.5-10.1); Carbon Dioxide 28.9 meq/L (21.0-32.0); Chloride 96 meq/L (98-107); Glomerular Filtration Rate Greater Than 89 mL/min (>89); Glucose,Random 124 mg/dL (74-106); Potassium 4.8 meq/L (3.5-5.1); Sodium 132 meq/L (136-145); Total Protein 6.6 g/dL (6.4-8.2)
[2017-09-19 07:45] LABS: Albumin 2.1 g/dL (3.4-5.0); Anion Gap 7 meq/L (5-15); Aspartate Aminotransferase 163 U/L (15-37); Blood Urea Nitrogen 25 mg/dL (7-18); Calcium 7.5 mg/dL (8.5-10.1); Carbon Dioxide 27.3 meq/L (21.0-32.0); Chloride 96 meq/L (98-107); Glomerular Filtration Rate Greater Than 89 mL/min (>89); Glucose,Random 125 mg/dL (74-106); Potassium 4.4 meq/L (3.5-5.1); Sodium 130 meq/L (136-145)
[2017-09-19 07:46] LABS: Alanine Aminotransferase 240 U/L (12-78)
[2017-09-19 07:47] LABS: Alkaline Phosphatase 732 U/L (45-117)
[2017-09-19] MEDS: Polyethylene Glycol 3350 17 GM Packet PO SCH (09:13)
[2017-09-19] MEDS: Nystatin Liq 500,000 UNIT/5 ML UDC SWISH-SWAL SCH ×4 (09:14→21:19)
[2017-09-19] MEDS: Senna/Docusate Sodium 8.6/50 MG Tablet PO SCH ×2 (09:14→21:19)
--- NOTE | 2017-09-19 09:34 | P.PNONC ---
Subjective Interval history: Pt sitting at the bedside. In no acute distress. Reports good appetite, urinating okay, denies N/V/D. +abdominal distention, + constipation Discussed pathology pending. Objective Vital Signs/Intake & Output: Vital Signs 09/18/17 12:00 09/18/17 16:00 09/18/17 20:00 Temperature 98.0 F 97.9 F 98.2 F Pulse Rate 95 H 98 H 96 H Respiratory Rate 18 18 18 Blood Pressure 109/63 113/73 110/63 Pulse Oximetry 98 98 98 09/19/17 00:00 09/19/17 04:00 Temperature 98.1 F Pulse Rate 89 84 Respiratory Rate 18 18 Blood Pressure 114/65 110/62 Pulse Oximetry 98 96 Intake & Output 09/18/17 09/19/17 09/19/17 18:59 06:59 18:59 Intake Total 860 / 860 Output Total 900 / 900 Balance 860 / 860 -900 / -900 Weight 66.7 kg Intake: IV 100 / 100 Flexbumin 25% Inj 50 ML @ 60 100 / 100 mls/hr IV.SIG BID@ [facility] Rx# :[id number] Oral 760 / 760 Output: Urine 900 / 900 Other: # Voids 5 Date of Last Bowel Movement 09/18/17 09/18/17 Result Diagrams: 09/17/17 06:40 09/19/17 07:00 Laboratory Results: Laboratory Results - last 24 hr 09/18/17 09/18/17 09/18/17 12:06 16:44 18:04 Sodium 132 L Potassium 4.8 Chloride 96 L Carbon Dioxide 28.9 Anion Gap 7 BUN 24 H Creatinine 0.76 Estimated GFR Greater than 89 POC Glucose 294 H 190 H Random Glucose 124 H D Calcium 8.1 L Total Bilirubin 7.4 H AST 175 H ALT 284 H Alkaline Phosphatase 805 H Total Protein 6.6 Albumin 2.5 L 09/18/17 09/19/17 09/19/17 21:26 07:00 07:47 Sodium 130 L Potassium 4.4 Chloride 96 L Carbon Dioxide 27.3 Anion Gap 7 BUN 25 H Creatinine 0.54 L Estimated GFR Greater than 89 POC Glucose 172 H 142 H Random Glucose 125 H Calcium 7.5 L Total Bilirubin 7.1 H AST 163 H ALT 240 H Alkaline Phosphatase 732 H Total Protein 6.0 L D Albumin 2.1 L Medications: Active Medications Generic Name Dose Route Start Last Admin Trade Name Freq PRN Reason Stop Dose Admin Al Hydroxide/Mg Hydroxide 30 ml 09/10/17 09:24 09/18/17 21:39 Milk Of Magnesia Liq PO 30 ml Q12H PRN Administration Mild Constipation Dextrose 50 ml 09/10/17 09:27 09/16/17 08:09 D50w Vial IV.PUSH 50 ml UNSCH PRN Administration PER HYPOGLYCEMIA PROTOCOL Furosemide 20 mg 09/17/17 09:00 09/18/17 17:00 Lasix Inj IV.PUSH 20 mg BID@0900,1800 ALEXYS Administration Albumin Human 50 mls @ 60 mls/hr 09/18/17 17:00 09/18/17 18:34 Flexbumin 25% Inj IV.SIG Infused BID@ [facility]LEXYS Infusion Insulin Aspart 0 unit 09/10/17 12:00 09/18/17 21:34 Novolog Insulin Correctional Sugar Inj SQ 5 unit ACHS ALEXYS Administration Protocol Insulin Detemir 30 unit 09/16/17 09:00 09/18/17 09:10 Levemir Inj SQ 30 unit DAILY ALEXYS Administration Lactulose 30 ml 09/14/17 09:43 09/18/17 16:51 Lactulose Liq PO 30 ml DAILY PRN Administration MODERATE CONSTIPATION Nystatin 5 ml 09/16/17 13:00 09/19/17 09:14 Mycostatin Liq SWISH-SWAL 5 ml QID ALEXYS Administration Ondansetron HCl 4 mg 09/10/17 09:24 09/18/17 21:32 Zofran Inj IV.PUSH 4 mg Q6H PRN Administration NAUSEA OR VOMITING Pantoprazole Sodium 40 mg 09/16/17 11:15 09/18/17 21:32 Protonix PO 40 mg BID ALEXYS Administration Polyethylene Glycol 17 gm 09/10/17 12:30 09/19/17 09:13 Miralax PO 17 gm DAILY ALEXYS Administration Pramoxine HCl 1 applicatio 09/17/17 13:00 09/19/17 07:42 Proctofoam RECTAL Not Given Q6H ALEX[facility] Senna/Docusate Sodium 1 tab 09/10/17 21:00 09/19/17 09:14 Starla-Colace PO 1 tab BID ALEX[facility] Administration Sodium Chloride 2 ml 09/10/17 02:05 09/10/17 03:46 Ns Flush IV.FLUSH 2 ml PRN PRN Administration FLUSH AFTER USING IV ACCESS Spironolactone 25 mg 09/14/17 18:00 09/18/17 17:00 Aldactone PO 25 mg BID@0900,1800 ALEX[facility] Administration Umeclidinium/Vilanterol 1 puff 09/10/17 11:00 09/18/17 10:25 Anoro-Ellipta 62.5/25 Mcg Inh INH Not Given Q24H ALEX[facility] Objective Remarks: GENERAL: Cachectic male patient, appears older than stated age. In no acute distress. SKIN: Warm and dry. HEAD: Normocephalic. EYES: No scleral icterus. No injection or drainage. NECK: Supple, trachea midline. CARDIOVASCULAR: Regular rate and rhythm without murmurs. RESPIRATORY: Posterior breath sounds clear, equal bilaterally. No accessory muscle use. GASTROINTESTINAL: Abdomen soft, non-tender, nondistended. EXTREMITIES: No cyanosis. 3+ bilateral pitting edema to mid-calf. Chronic discoloration to bilateral medrano. MUSCULOSKELETAL: Decreased muscle tone. NEUROLOGICAL: No obvious focal deficit. Awake, alert, and oriented x3. PSYCHIATRIC: Appropriate mood and affect; insight and judgment normal. Assessment/Plan (1) Hep C w/o coma, chronic Code(s): B18.2 - Chronic viral hepatitis C Status: Acute (2) Liver disease Code(s): K76.9 - Liver disease, unspecified Status: Acute (3) Liver mass Code(s): R16.0 - Hepatomegaly, not elsewhere classified Status: Acute (4) Ascites Code(s): R18.8 - Other ascites Status: Acute (5) Transaminitis Code(s): R74.0 - Nonspecific elevation of levels of transaminase and lactic acid dehydrogenase [LDH] Status: Acute - Plan Mr. Walden is a pleasant 57-year-old male patient, who originally reported to the hospital with complaints of constipation. The patient has subsequently had a liver biopsy, which was nondiagnostic. He is status post paracentesis, with cytology pending. Plan: 1. Await cytology on paracentesis fluid. If inconclusive we will have to repeat the liver biopsy. 2. Total bilirubin increasing. Liver enzymes elevated. We will recheck a PT/ INR and APTT. 3. Continue supportive care. (4) Ascites Qualifiers: Ascites type: other type Qualified Code(s): R18.8 - Other ascites
--- NOTE | 2017-09-19 09:59 | P.PNIM ---
Subjective Interval history: Pt sitting at the bedside. Reports good appetite, urinating okay, denies N/V/D. +abdominal distention, + constipation last BM (09/17) pathology from paracentesis is pending. Physical Exam Vital signs: Vital Signs 09/18/17 12:00 09/18/17 16:00 09/18/17 20:00 Temperature 98.0 F 97.9 F 98.2 F Pulse Rate 95 H 98 H 96 H Respiratory Rate 18 18 18 Blood Pressure 109/63 113/73 110/63 Pulse Oximetry 98 98 98 09/19/17 00:00 09/19/17 04:00 Temperature 98.1 F Pulse Rate 89 84 Respiratory Rate 18 18 Blood Pressure 114/65 110/62 Pulse Oximetry 98 96 Intake & Output 09/18/17 09/19/17 09/19/17 18:59 06:59 18:59 Intake Total 860 / 860 Output Total 900 / 900 Balance 860 / 860 -900 / -900 Weight 66.7 kg Intake: IV 100 / 100 Flexbumin 25% Inj 50 ML @ 60 100 / 100 mls/hr IV.SIG BID@08,17 [facility] Rx# :[id number] Oral 760 / 760 Output: Urine 900 / 900 Other: # Voids 5 Date of Last Bowel Movement 09/18/17 09/18/17 Narrative: GENERAL: This is a thin chronically ill-appearing 57-year-old male patient who appears older than stated age, in no apparent distress. CARDIO: Regular RESP: Poor inspiratory effort ABD: +BS, soft, non-tender, less distended. EXT: Bilateral LE 3+ pitting edema. Results - Labs CBC & Chem 7: 09/17/17 06:40 09/19/17 07:00 Laboratory Results - last 24 hr 09/18/17 09/18/17 09/18/17 12:06 16:44 18:04 Sodium 132 L Potassium 4.8 Chloride 96 L Carbon Dioxide 28.9 Anion Gap 7 BUN 24 H Creatinine 0.76 Estimated GFR Greater than 89 POC Glucose 294 H 190 H Random Glucose 124 H D Calcium 8.1 L Total Bilirubin 7.4 H AST 175 H ALT 284 H Alkaline Phosphatase 805 H Total Protein 6.6 Albumin 2.5 L 09/18/17 09/19/17 09/19/17 21:26 07:00 07:47 Sodium 130 L Potassium 4.4 Chloride 96 L Carbon Dioxide 27.3 Anion Gap 7 BUN 25 H Creatinine 0.54 L Estimated GFR Greater than 89 POC Glucose 172 H 142 H Random Glucose 125 H Calcium 7.5 L Total Bilirubin 7.1 H AST 163 H ALT 240 H Alkaline Phosphatase 732 H Total Protein 6.0 L D Albumin 2.1 L Assessment and Plan - Assessment (1) Liver mass Code(s): R16.0 - Hepatomegaly, not elsewhere classified Status: Acute Plan: This is a 57-year-old male patient with past medical history which includes diabetes mellitus and hepatitis C. Patient reports he has previously been treated with Harvoni for his hepatitis C. Patient presents to the emergency department with complaints of abdominal distention and constipation for approximately 3 weeks. 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 Patient reports he has previously been treated with Harvoni for his hepatitis C by Dr. Honeycutt about 1 year ago. - He presented to the ED on 09/10/17 with complaints of abdominal distention and constipation for approximately 3 weeks. - KUB (09/10/17)--> no dilated loops of small or large bowel - CT abdomen/pelvis (09/10/17) --> abnormal examination suspicious for malignancy demonstrating significant ascites in the abdomen and pelvis, multiple irregular margin hypodense lesions in the liver measuring up to 9 cm in size , and enlarged ring-enhancing nodular masses adjacent to the celiac artery, anterior to the heart and adjacent to the inferior esophagus. - Given concern of malignancy interventional radiology was consulted for US guided paracentesis with cytology but this was unable to be done as there was not enough fluid - CMP on admission reviewed total bilirubin 0.9 AST 208, ALT 152, alkaline phosphatase 472 ammonia (09/10) < 10, AFP (09/11) 533.3, CA 19.9 509.5 - His LFTs worsened following admission, the transaminases have slowly been improving but TBili is elevating. - (09/11/17) Tbili 0.8, AST 6470, ALT 3043, AlkPhos 939 - (09/12/17) Tbili 0.6, AST 2051, ALT 1765, AlkPhos 801 - (09/13/17) TBili 1.0, AST 831, ALT 1070, AlkPhos 751 - (09/14/17) TBili 1.4, AST 690, ALT 839, AlkPhos 921 - (09/15/17) TBili 2.8, DBili 2.3, AST 553, ALT 661, AlkPhos 966 - (09/16/17) TBili 4.8, AST 354, ALT 492, AlkPhos 904 - (09/19/17) TBili 7.1, AST 163, ALT 240, AlkPhos 732 - Hepatitis profile Hep C Ab positive - PT 10.9, INR 1.1, APTT 23.8 (09/10) - repeat INR and APTT in AM - US guided paracentesis was performed on 09/15/17 and fluid for cytology is pending. cont aldactone. lasix/albumen. - Pt had a CT guided biopsy of the liver with IR (09/12/17) --> pathology noted hepatic necrosis and acute inflammation. no evidence for malignancy. - Pt underwent evaluation with EGD/colonoscopy (09/16/17): - Nodule in the duodenal bulb-possible minor papilla, portal gastropathy, gastritis in the antrum, severe silvio esophagitis involving all esophagus, esophageal varices grade 2 -3 columns, no banding done due to severe silvio esophagitis - Colonoscopy unable ot be completed due to solid stool - Pt started on Nystatin S/S and Protonix 40mg BID - repeat colonoscopy. no malignancy If cytology of ascites negative then plan for repeat CT guided liver bx for concern over HCC. oncology following. - Pt has poor social support. He has complicated medical conditions and will require many f/u hospital visits, testing, and will be on insulin for first time. - His current medical condition is not completely understood/diagnosed. Pt high risk for failure and readmission. Diabetes mellitus - Patient reportedly takes Synjardy 5-1000mg PO BID, - HgbA1c 15.8 - Diabetic and dietary education. Pt was stable on levemir 30mg bid until diet interrupted. titrate back up again. 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
[2017-09-19] MEDS: Insulin NovoLOG Aspart Correctional Sugar Inj SQ SCH ×4 (10:26→21:20)
[2017-09-19] MEDS: Albumin Human 25% Inj 50 ML IV.SIG SCH ×2 (10:43→17:00)
[2017-09-19] MEDS: Spironolactone 25 MG Tablet PO SCH ×2 (10:47→17:47)
[2017-09-19] MEDS: Insulin Detemir Inj 1,000 UNIT/10 ML Vial SQ SCH (10:49)
[2017-09-19] MEDS: Umeclindinium 62.5 MCG/Vilanterol 25 MCG Inhaler INH SCH (10:54)
--- NOTE | 2017-09-19 11:49 | P.PNGI ---
Subjective Interval history: Pt sitting on side of bed. Reports still having a hard time having BMs. Feels about the same as he did last week. Abdomen remains distended <Arminda Guerra - Last Filed: 09/19/17 11:40> Physical Exam Vital signs: Vital Signs 09/18/17 12:00 09/18/17 16:00 09/18/17 20:00 Temperature 98.0 F 97.9 F 98.2 F Pulse Rate 95 H 98 H 96 H Respiratory Rate 18 18 18 Blood Pressure 109/63 113/73 110/63 Pulse Oximetry 98 98 98 09/19/17 00:00 09/19/17 04:00 09/19/17 08:00 Temperature 98.1 F 97.2 F L Pulse Rate 89 84 90 Respiratory Rate 18 18 20 Blood Pressure 114/65 110/62 112/64 Pulse Oximetry 98 96 95 Intake & Output 09/18/17 09/19/17 09/19/17 18:59 06:59 18:59 Intake Total 860 / 860 Output Total 900 / 900 Balance 860 / 860 -900 / -900 Weight 66.7 kg Intake: IV 100 / 100 Flexbumin 25% Inj 50 ML @ 60 100 / 100 mls/hr IV.SIG BID@ [facility] Rx# :[id number] Oral 760 / 760 Output: Urine 900 / 900 Other: # Voids 5 Date of Last Bowel Movement 09/18/17 09/18/17 - Constitutional no acute distress - Routine HEENT Exam Head: Present: normocephalic, atraumatic - Routine Respiratory Exam Absent: accessory muscle use - Routine Abdominal Exam Present: normoactive bowel sounds, distended, firm. Absent: tenderness - Routine Skin Exam Present: dry, warm - Routine Neurological Exam Present: alert, oriented X3 <Arminda Guerra - Last Filed: 09/19/17 11:40> Vital signs: Vital Signs 09/19/17 00:00 09/19/17 04:00 09/19/17 08:00 Temperature 98.1 F 97.2 F L Pulse Rate 89 84 90 Respiratory Rate 18 18 20 Blood Pressure 114/65 110/62 112/64 Pulse Oximetry 98 96 95 09/19/17 15:53 09/19/17 20:00 Temperature 98.4 F 98.1 F Pulse Rate 91 H 95 H Respiratory Rate 21 18 Blood Pressure 109/66 120/63 Pulse Oximetry 99 100 Intake & Output 09/19/17 09/19/17 09/20/17 06:59 18:59 06:59 Intake Total 170 / 170 Output Total 900 / 900 0 / 0 Balance -900 / -900 170 / 170 Weight 66.7 kg Intake: IV 50 / 50 Flexbumin 25% Inj 50 ML @ 60 50 / 50 mls/hr IV.SIG BID@ [facility] Rx# :[id number] Oral 120 / 120 Output: Urine 900 / 900 Stool 0 / 0 Other: Date of Last Bowel Movement 09/18/17 09/19/17 <Noemi Jean - Last Filed: 09/19/17 20:54> Results - Labs CBC & Chem 7: 09/17/17 06:40 09/19/17 07:00 Laboratory Results - last 24 hr 09/18/17 09/18/17 09/18/17 12:06 16:44 18:04 Sodium 132 L Potassium 4.8 Chloride 96 L Carbon Dioxide 28.9 Anion Gap 7 BUN 24 H Creatinine 0.76 Estimated GFR Greater than 89 POC Glucose 294 H 190 H Random Glucose 124 H D Calcium 8.1 L Total Bilirubin 7.4 H AST 175 H ALT 284 H Alkaline Phosphatase 805 H Total Protein 6.6 Albumin 2.5 L 09/18/17 09/19/17 09/19/17 21:26 07:00 07:47 Sodium 130 L Potassium 4.4 Chloride 96 L Carbon Dioxide 27.3 Anion Gap 7 BUN 25 H Creatinine 0.54 L Estimated GFR Greater than 89 POC Glucose 172 H 142 H Random Glucose 125 H Calcium 7.5 L Total Bilirubin 7.1 H AST 163 H ALT 240 H Alkaline Phosphatase 732 H Total Protein 6.0 L D Albumin 2.1 L <Arminda Guerra - Last Filed: 09/19/17 11:40> - Labs CBC & Chem 7: 09/17/17 06:40 09/19/17 07:00 Laboratory Results - last 24 hr 09/18/17 09/19/17 09/19/17 21:26 07:00 07:47 Sodium 130 L Potassium 4.4 Chloride 96 L Carbon Dioxide 27.3 Anion Gap 7 BUN 25 H Creatinine 0.54 L Estimated GFR Greater than 89 POC Glucose 172 H 142 H Random Glucose 125 H Calcium 7.5 L Total Bilirubin 7.1 H AST 163 H ALT 240 H Alkaline Phosphatase 732 H Total Protein 6.0 L D Albumin 2.1 L 09/19/17 09/19/17 11:56 16:46 Sodium Potassium Chloride Carbon Dioxide Anion Gap BUN Creatinine Estimated GFR POC Glucose 174 H 153 H Random Glucose Calcium Total Bilirubin AST ALT Alkaline Phosphatase Total Protein Albumin <Noemi Jean - Last Filed: 09/19/17 20:54> Assessment and Plan (1) Transaminitis Status: Acute Code(s): R74.0 - Nonspecific elevation of levels of transaminase and lactic acid dehydrogenase [LDH] (2) Liver mass Status: Acute Code(s): R16.0 - Hepatomegaly, not elsewhere classified (3) Ascites Status: Acute Code(s): R18.8 - Other ascites - Plan Assessment: - Elevated LFTs with imaging concerning for metastatic liver disease- History of Hepatitis C S/P treatment with Harvoni by Dr. Honeycutt ID about a year ago. Pt reports history of IV drug use but no use since 1991. Denies any current illicit drug or alcohol use. Elevated AFP- 533.3 and elevated CA19-9- 509.5 S/P liver biopsy which was nondiagnostic (09/12) Necrosis with associated acute inflammation CT abdomen and pelvis W IV contrast (09/10) --> Abnormal examination suspicious for malignancy demonstrating significant ascites in the abdomen and pelvis, multiple irregular margin hypodense lesions in the liver measuring up to 9 cm in size, and enlarged ring-enhancing katie masses adjacent to the celiac artery, anterior to the heart and adjacent to the inferior esophagus. US abdomen (09/15) 2000 cc of clear, yellow fluid was removed. SAAG 1.3 Oncology is following EGD (09/16) Nodule duodenal bulb-possible minor papilla-biopsy. Portal gastropathy. Gastritis antrum-biopsy. Severe silvio esophagitis involving all esophagus-biopsy upper esophagus. Esophageal varices grade 2 -3 columns, no banding done due to severe silvio esophagitis. Hiatal hernia. Colonoscopy (09/17) Small AVM cecum. Internal hemorrhoids. External thrombosed hemorrhoids. (09/19) Pt remains with distended abdomen, uncomfortable. Having a hard time having BMs. Discussed with patient cytology from paracentesis is still pending, ? repeat liver biopsy pending these results. Appreciate oncology recommendations Plan: ? need for repeat liver biopsy pending paracentesis cytology results Lasix Spironolactone Albumin replacement Nystatin for silvio esophagitis ProctoFoam cream Maintain good bowel regimen to prevent constipation EGD biopsy pending Further recommendations to follow Pt has been seen and examined by myself and Dr. Jean and this note is written on his behalf <Arminda Guerra - Last Filed: 09/19/17 11:40> (1) Transaminitis Status: Acute Code(s): R74.0 - Nonspecific elevation of levels of transaminase and lactic acid dehydrogenase [LDH] (2) Liver mass Status: Acute Code(s): R16.0 - Hepatomegaly, not elsewhere classified (3) Ascites Status: Acute Code(s): R18.8 - Other ascites - Plan Patient was seen and examined, agree with above note, the cytology from the situs was non-malignant with some inflammatory cells, I discussed with the patient the case and he is willing to have another liver biopsy so will plan on doing that tomorrow if okay with the radiologist, will make patient n.p.o. now <Noemi Jean - Last Filed: 09/19/17 20:54> <Arminda Guerra - Last Filed: 09/19/17 11:40> (3) Ascites Qualifiers: Ascites type: other type Qualified Code(s): R18.8 - Other ascites <Noemi Jean - Last Filed: 09/19/17 20:54> (3) Ascites Qualifiers: Ascites type: other type Qualified Code(s): R18.8 - Other ascites
[2017-09-20 07:44] LABS: Activated Partial Thrombo Time 25.2 sec (24.3-30.1); INR 1.1 Ratio; Prothrombin Time 11.4 sec (9.8-11.6)
[2017-09-20 07:48] LABS: Baso % (Auto) 0.2 % (0.0-2.0); Eos % (Auto) 0.2 % (0.0-4.0); Hematocrit 30.7 % (39.0-51.0); Hemoglobin 10.3 gm/dL (13.0-17.0); Lymph # (Auto) 0.3 th/mm3 (1.0-4.8); Lymph % (Auto) 2.3 % (9.0-44.0); Mean Corpuscular HGB Conc 33.5 % (32.0-36.0); Mean Corpuscular Hemoglobin 30.2 pg (27.0-34.0); Mean Platelet Volume 7.8 fL (7.0-11.0); Mono # (Auto) 1.4 th/mm3 (0.0-0.9); Mono % (Auto) 10.3 % (0.0-8.0); Neut # (Auto) 11.7 th/mm3 (1.8-7.7); Platelet Count 237 th/mm3 (150-450); Red Blood Count 3.41 mil/mm3 (4.50-5.90); Red Cell Distribution Width 15.5 % (11.6-17.2); White Blood Count 13.4 th/mm3 (4.0-11.0)
[2017-09-20 08:07] LABS: Albumin 2.3 g/dL (3.4-5.0); Anion Gap 8 meq/L (5-15); Aspartate Aminotransferase 148 U/L (15-37); Blood Urea Nitrogen 24 mg/dL (7-18); Calcium 7.6 mg/dL (8.5-10.1); Carbon Dioxide 28.3 meq/L (21.0-32.0); Chloride 96 meq/L (98-107); Glomerular Filtration Rate Greater Than 89 mL/min (>89); Glucose,Random 91 mg/dL (74-106); Potassium 3.9 meq/L (3.5-5.1); Sodium 132 meq/L (136-145)
[2017-09-20 08:09] LABS: Alanine Aminotransferase 201 U/L (12-78)
[2017-09-20 08:10] LABS: Alkaline Phosphatase 700 U/L (45-117); Total Protein 6.2 g/dL (6.4-8.2)
--- NOTE | 2017-09-20 09:12 | P.PNGI ---
Subjective Interval history: Pt states he feels very achy and fatigued today. Does not want liver biopsy done today, he is aware that he needs it and states he will have it done tomorrow. <Arminda Guerra - Last Filed: 09/20/17 09:08> Physical Exam Vital signs: Vital Signs 09/19/17 15:53 09/19/17 20:00 09/20/17 00:00 Temperature 98.4 F 98.1 F 97.9 F Pulse Rate 91 H 95 H 97 H Respiratory Rate 21 18 18 Blood Pressure 109/66 120/63 109/63 Pulse Oximetry 99 100 97 09/20/17 04:00 Temperature 98.1 F Pulse Rate 90 Respiratory Rate 18 Blood Pressure 125/65 Pulse Oximetry 100 Intake & Output 09/19/17 09/20/17 09/20/17 18:59 06:59 18:59 Intake Total 170 / 170 Output Total 0 / 0 Balance 170 / 170 Weight 66.6 kg Intake: IV 50 / 50 Flexbumin 25% Inj 50 ML @ 60 50 / 50 mls/hr IV.SIG BID@ [facility] Rx# :[id number] Oral 120 / 120 Output: Stool 0 / 0 Other: # Voids 2 Date of Last Bowel Movement 09/19/17 09/19/17 # Bowel Movements 1 - Constitutional no acute distress - Routine HEENT Exam Head: Present: normocephalic, atraumatic - Routine Respiratory Exam Absent: accessory muscle use - Routine Abdominal Exam Present: normoactive bowel sounds, distended, firm. Absent: tenderness - Routine Skin Exam Present: dry, warm - Routine Neurological Exam Present: alert, oriented X3 <Arminda Guerra - Last Filed: 09/20/17 09:08> Vital signs: Vital Signs 09/20/17 16:00 09/20/17 20:00 09/21/17 00:00 Temperature 97.5 F L 97.6 F 98.2 F Pulse Rate 99 H 99 H 98 H Respiratory Rate 18 18 18 Blood Pressure 137/76 115/64 130/81 Pulse Oximetry 100 100 98 09/21/17 04:00 09/21/17 08:00 Temperature 98 F 97.8 F Pulse Rate 95 H 95 H Respiratory Rate 18 16 Blood Pressure 114/70 110/66 Pulse Oximetry 97 96 Intake & Output 09/20/17 09/21/17 09/21/17 18:59 06:59 18:59 Intake Total 100 / 100 50 / 50 Output Total 400 / 400 Balance -300 / -300 50 / 50 Weight 66.2 kg Intake: IV 100 / 100 50 / 50 Flexbumin 25% Inj 50 ML @ 60 100 / 100 50 / 50 mls/hr IV.SIG BID@08,17 [facility] Rx# :[id number] Output: Urine 400 / 400 Other: # Voids 2 2 Date of Last Bowel Movement 09/20/17 09/20/17 # Bowel Movements 1 <Noemi Jean - Last Filed: 09/21/17 12:10> Results - Labs CBC & Chem 7: 09/20/17 06:18 09/20/17 06:18 Laboratory Results - last 24 hr 09/19/17 09/19/17 09/19/17 11:56 16:46 20:54 WBC RBC Hgb Hct MCV MCH MCHC RDW Plt Count MPV Neut % (Auto) Lymph % (Auto) [place] % (Auto) Eos % (Auto) Baso % (Auto) Neut # (Auto) Lymph # (Auto) [place] # (Auto) Eos # (Auto) Baso # (Auto) WBC Differential Differential Comment PT INR APTT Sodium Potassium Chloride Carbon Dioxide Anion Gap BUN Creatinine Estimated GFR POC Glucose 174 H 153 H 189 H Random Glucose Calcium Total Bilirubin AST ALT Alkaline Phosphatase Total Protein Albumin 09/20/17 09/20/17 09/20/17 06:18 06:18 06:18 WBC 13.4 H RBC 3.41 L Hgb 10.3 L Hct 30.7 L MCV 90.0 MCH 30.2 MCHC 33.5 RDW 15.5 Plt Count 237 MPV 7.8 Neut % (Auto) 87.0 H Lymph % (Auto) 2.3 L [place] % (Auto) 10.3 H Eos % (Auto) 0.2 Baso % (Auto) 0.2 Neut # (Auto) 11.7 H Lymph # (Auto) 0.3 L [place] # (Auto) 1.4 H Eos # (Auto) 0.0 Baso # (Auto) 0.0 WBC Differential . Differential Comment Auto diff final PT 11.4 INR 1.1 APTT 25.2 Sodium 132 L Potassium 3.9 Chloride 96 L Carbon Dioxide 28.3 Anion Gap 8 BUN 24 H Creatinine 0.48 L Estimated GFR Greater than 89 POC Glucose Random Glucose 91 Calcium 7.6 L Total Bilirubin 7.4 H AST 148 H ALT 201 H Alkaline Phosphatase 700 H Total Protein 6.2 L Albumin 2.3 L 09/20/17 07:51 WBC RBC Hgb Hct MCV MCH MCHC RDW Plt Count MPV Neut % (Auto) Lymph % (Auto) [place] % (Auto) Eos % (Auto) Baso % (Auto) Neut # (Auto) Lymph # (Auto) [place] # (Auto) Eos # (Auto) Baso # (Auto) WBC Differential Differential Comment PT INR APTT Sodium Potassium Chloride Carbon Dioxide Anion Gap BUN Creatinine Estimated GFR POC Glucose 87 Random Glucose Calcium Total Bilirubin AST ALT Alkaline Phosphatase Total Protein Albumin <Arminda Guerra - Last Filed: 09/20/17 09:08> - Labs CBC & Chem 7: 09/21/17 03:31 09/21/17 03:31 Laboratory Results - last 24 hr 09/20/17 09/20/17 09/20/17 12:39 17:27 20:15 WBC RBC Hgb Hct MCV MCH MCHC RDW Plt Count MPV Neut % (Auto) Lymph % (Auto) [place] % (Auto) Eos % (Auto) Baso % (Auto) Neut # (Auto) Lymph # (Auto) [place] # (Auto) Eos # (Auto) Baso # (Auto) WBC Differential Differential Comment Sodium Potassium Chloride Carbon Dioxide Anion Gap BUN Creatinine Estimated GFR POC Glucose 224 H 264 H 250 H Random Glucose Calcium Total Bilirubin AST ALT Alkaline Phosphatase Total Protein Albumin 09/21/17 09/21/17 09/21/17 03:31 03:31 07:35 WBC 12.7 H RBC 3.37 L Hgb 10.0 L Hct 30.6 L MCV 90.8 MCH 29.6 MCHC 32.6 RDW 15.8 Plt Count 265 MPV 8.2 Neut % (Auto) 86.8 H Lymph % (Auto) 3.3 L [place] % (Auto) 9.1 H Eos % (Auto) 0.3 Baso % (Auto) 0.5 Neut # (Auto) 11.0 H Lymph # (Auto) 0.4 L [place] # (Auto) 1.2 H Eos # (Auto) 0.0 Baso # (Auto) 0.1 WBC Differential . Differential Comment Auto diff final Sodium 132 L Potassium 4.1 Chloride 97 L Carbon Dioxide 27.7 Anion Gap 7 BUN 26 H Creatinine 0.60 Estimated GFR Greater than 89 POC Glucose 341 H Random Glucose 248 H D Calcium 7.5 L Total Bilirubin 8.0 H AST 124 H ALT 172 H Alkaline Phosphatase 691 H Total Protein 6.3 L Albumin 2.4 L 09/21/17 11:45 WBC RBC Hgb Hct MCV MCH MCHC RDW Plt Count MPV Neut % (Auto) Lymph % (Auto) [place] % (Auto) Eos % (Auto) Baso % (Auto) Neut # (Auto) Lymph # (Auto) [place] # (Auto) Eos # (Auto) Baso # (Auto) WBC Differential Differential Comment Sodium Potassium Chloride Carbon Dioxide Anion Gap BUN Creatinine Estimated GFR POC Glucose 153 H Random Glucose Calcium Total Bilirubin AST ALT Alkaline Phosphatase Total Protein Albumin <Noemi Jean - Last Filed: 09/21/17 12:10> Assessment and Plan (1) Transaminitis Status: Acute Code(s): R74.0 - Nonspecific elevation of levels of transaminase and lactic acid dehydrogenase [LDH] (2) Liver mass Status: Acute Code(s): R16.0 - Hepatomegaly, not elsewhere classified (3) Ascites Status: Acute Code(s): R18.8 - Other ascites - Plan Assessment: - Elevated LFTs with imaging concerning for metastatic liver disease- History of Hepatitis C S/P treatment with Harvoni by Dr. Honeycutt ID about a year ago. Pt reports history of IV drug use but no use since 1991. Denies any current illicit drug or alcohol use. Elevated AFP- 533.3 and elevated CA19-9- 509.5 S/P liver biopsy which was nondiagnostic (09/12) Necrosis with associated acute inflammation CT abdomen and pelvis W IV contrast (09/10) --> Abnormal examination suspicious for malignancy demonstrating significant ascites in the abdomen and pelvis, multiple irregular margin hypodense lesions in the liver measuring up to 9 cm in size, and enlarged ring-enhancing katie masses adjacent to the celiac artery, anterior to the heart and adjacent to the inferior esophagus. US abdomen (09/15) 2000 cc of clear, yellow fluid was removed. SAAG 1.3 Oncology is following EGD (09/16) Nodule duodenal bulb-possible minor papilla-biopsy. Portal gastropathy. Gastritis antrum-biopsy. Severe silvio esophagitis involving all esophagus-biopsy upper esophagus. Esophageal varices grade 2 -3 columns, no banding done due to severe silvio esophagitis. Hiatal hernia. Colonoscopy (09/17) Small AVM cecum. Internal hemorrhoids. External thrombosed hemorrhoids. (09/19) Pt remains with distended abdomen, uncomfortable. Having a hard time having BMs. Discussed with patient cytology from paracentesis is still pending, ? repeat liver biopsy pending these results. Appreciate oncology recommendations (09/20) Paracentesis cytology negative, liver biopsy was ordered and planned for today, however pt states he is achy and fatigued and does not want it done today. States he will have it done tomorrow. Reports small BM last night and his stomach feels a little bit better. Plan: Repeat liver biopsy tomorrow NPO after MN Lasix Spironolactone Albumin replacement Nystatin for silvio esophagitis ProctoFoam cream Maintain good bowel regimen to prevent constipation EGD biopsy pending Further recommendations to follow Pt has been seen and examined by myself and Dr. Jean and this note is written on his behalf <Arminda Guerra - Last Filed: 09/20/17 09:08> (1) Transaminitis Status: Acute Code(s): R74.0 - Nonspecific elevation of levels of transaminase and lactic acid dehydrogenase [LDH] (2) Liver mass Status: Acute Code(s): R16.0 - Hepatomegaly, not elsewhere classified (3) Ascites Status: Acute Code(s): R18.8 - Other ascites - Plan Patient was seen and examined, agree with above note plan for liver biopsy tomorrow <Noemi Jean - Last Filed: 09/21/17 12:10> <Arminda Guerra - Last Filed: 09/20/17 09:08> (3) Ascites Qualifiers: Ascites type: other type Qualified Code(s): R18.8 - Other ascites <Noemi Jean - Last Filed: 09/21/17 12:10> (3) Ascites Qualifiers: Ascites type: other type Qualified Code(s): R18.8 - Other ascites
[2017-09-20] MEDS: Albumin Human 25% Inj 50 ML IV.SIG SCH ×2 (10:00→17:58)
[2017-09-20] MEDS: Senna/Docusate Sodium 8.6/50 MG Tablet PO SCH ×2 (10:00→21:24)
[2017-09-20] MEDS: Nystatin Liq 500,000 UNIT/5 ML UDC SWISH-SWAL SCH ×4 (10:00→21:24)
[2017-09-20] MEDS: Insulin Detemir Inj 1,000 UNIT/10 ML Vial SQ SCH (10:01)
[2017-09-20] MEDS: Insulin NovoLOG Aspart Correctional Sugar Inj SQ SCH ×4 (10:01→21:24)
[2017-09-20] MEDS: Polyethylene Glycol 3350 17 GM Packet PO SCH (10:01)
[2017-09-20] MEDS: Spironolactone 25 MG Tablet PO SCH ×2 (10:45→18:38)
[2017-09-20] MEDS: Umeclindinium 62.5 MCG/Vilanterol 25 MCG Inhaler INH SCH (10:45)
--- NOTE | 2017-09-20 19:19 | P.PNIM ---
Subjective Interval history: Pt c/o generalized abdominal pain. Pt is tolerating PO intake. Pt c/o some nausea which improved with zofran. Physical Exam Vital signs: 09/20/17 08:00 09/20/17 12:00 09/20/17 16:00 Temperature 97.9 F 97.7 F 97.5 F L Pulse Rate 88 98 H 99 H Respiratory Rate 17 17 18 Blood Pressure 120/65 115/68 137/76 Pulse Oximetry 99 94 L 100 Narrative: GENERAL: This is a thin chronically ill-appearing 57-year-old male patient who appears older than stated age, in no apparent distress. CARDIO: Regular RESP: clear x b/l ABD: +BS, soft, non-tender, less distended. EXT: Bilateral LE 3+ pitting edema. Results - Labs CBC & Chem 7: 09/20/17 06:18 09/20/17 06:18 Assessment and Plan - Assessment (1) Liver mass Code(s): R16.0 - Hepatomegaly, not elsewhere classified Status: Acute Plan: This is a 57-year-old male patient with past medical history which includes diabetes mellitus and hepatitis C. Patient reports he has previously been treated with Harvoni for his hepatitis C. Patient presents to the emergency department with complaints of abdominal distention and constipation for approximately 3 weeks. 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 Patient reports he has previously been treated with Harvoni for his hepatitis C by Dr. Honeycutt about 1 year ago. - He presented to the ED on 09/10/17 with complaints of abdominal distention and constipation for approximately 3 weeks. - KUB (09/10/17)--> no dilated loops of small or large bowel - CT abdomen/pelvis (09/10/17) --> abnormal examination suspicious for malignancy demonstrating significant ascites in the abdomen and pelvis, multiple irregular margin hypodense lesions in the liver measuring up to 9 cm in size , and enlarged ring-enhancing nodular masses adjacent to the celiac artery, anterior to the heart and adjacent to the inferior esophagus. - Given concern of malignancy interventional radiology was consulted for US guided paracentesis with cytology but this was unable to be done as there was not enough fluid - CMP on admission reviewed total bilirubin 0.9 AST 208, ALT 152, alkaline phosphatase 472 ammonia (09/10) < 10, AFP (09/11) 533.3, CA 19.9 509.5 - His LFTs worsened following admission, the transaminases have slowly been improving but TBili is elevating. - (09/11/17) Tbili 0.8, AST 6470, ALT 3043, AlkPhos 939 - (09/12/17) Tbili 0.6, AST 2051, ALT 1765, AlkPhos 801 - (09/13/17) TBili 1.0, AST 831, ALT 1070, AlkPhos 751 - (09/14/17) TBili 1.4, AST 690, ALT 839, AlkPhos 921 - (09/15/17) TBili 2.8, DBili 2.3, AST 553, ALT 661, AlkPhos 966 - (09/16/17) TBili 4.8, AST 354, ALT 492, AlkPhos 904 - (09/19/17) TBili 7.1, AST 163, ALT 240, AlkPhos 732 - Hepatitis profile Hep C Ab positive - PT 10.9, INR 1.1, APTT 23.8 (09/10) - repeat INR and APTT in AM - US guided paracentesis was performed on 09/15/17 and fluid for cytology is non- diagnostic cont aldactone. lasix/albumen. - Pt had a CT guided biopsy of the liver with IR (09/12/17) --> pathology noted hepatic necrosis and acute inflammation. no evidence for malignancy. - Pt underwent evaluation with EGD/colonoscopy (09/16/17): - Nodule in the duodenal bulb-possible minor papilla, portal gastropathy, gastritis in the antrum, severe silvio esophagitis involving all esophagus, esophageal varices grade 2 -3 columns, no banding done due to severe silvio esophagitis - Colonoscopy unable to be completed due to solid stool - Pt started on Nystatin S/S and Protonix 40mg BID - repeat colonoscopy. no malignancy - Pt declined repeat CT guided liver Bx (09/20) - will discuss case with Oncology - Consider Referal to Hospice Diabetes mellitus - Patient reportedly takes Synjardy 5-1000mg PO BID, - HgbA1c 15.8 - Diabetic and dietary education. Pt was stable on levemir 30mg bid until diet interrupted. titrate back up again. 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
[2017-09-21 04:58] LABS: Baso # (Auto) 0.1 th/mm3 (0.0-0.2); Baso % (Auto) 0.5 % (0.0-2.0); Eos % (Auto) 0.3 % (0.0-4.0); Hematocrit 30.6 % (39.0-51.0); Lymph # (Auto) 0.4 th/mm3 (1.0-4.8); Lymph % (Auto) 3.3 % (9.0-44.0); Mean Corpuscular HGB Conc 32.6 % (32.0-36.0); Mean Corpuscular Hemoglobin 29.6 pg (27.0-34.0); Mean Corpuscular Volume 90.8 fL (80.0-100.0); Mean Platelet Volume 8.2 fL (7.0-11.0); Mono # (Auto) 1.2 th/mm3 (0.0-0.9); Mono % (Auto) 9.1 % (0.0-8.0); Neut % (Auto) 86.8 % (16.0-70.0); Platelet Count 265 th/mm3 (150-450); Red Blood Count 3.37 mil/mm3 (4.50-5.90); Red Cell Distribution Width 15.8 % (11.6-17.2); White Blood Count 12.7 th/mm3 (4.0-11.0)
[2017-09-21 05:22] LABS: Alanine Aminotransferase 172 U/L (12-78); Albumin 2.4 g/dL (3.4-5.0); Alkaline Phosphatase 691 U/L (45-117); Anion Gap 7 meq/L (5-15); Aspartate Aminotransferase 124 U/L (15-37); Blood Urea Nitrogen 26 mg/dL (7-18); Calcium 7.5 mg/dL (8.5-10.1); Carbon Dioxide 27.7 meq/L (21.0-32.0); Chloride 97 meq/L (98-107); Glomerular Filtration Rate Greater Than 89 mL/min (>89); Glucose,Random 248 mg/dL (74-106); Potassium 4.1 meq/L (3.5-5.1); Sodium 132 meq/L (136-145); Total Protein 6.3 g/dL (6.4-8.2)
[2017-09-21] MEDS: Albumin Human 25% Inj 50 ML IV.SIG SCH ×2 (08:19→16:59)
[2017-09-21] MEDS: Insulin NovoLOG Aspart Correctional Sugar Inj SQ SCH ×3 (08:20→17:50)
[2017-09-21] MEDS: Insulin Detemir Inj 1,000 UNIT/10 ML Vial SQ SCH (08:21)
[2017-09-21] MEDS: Polyethylene Glycol 3350 17 GM Packet PO SCH (08:21)
[2017-09-21] MEDS: Nystatin Liq 500,000 UNIT/5 ML UDC SWISH-SWAL SCH ×4 (08:21→22:01)
[2017-09-21] MEDS: Senna/Docusate Sodium 8.6/50 MG Tablet PO SCH ×2 (08:22→22:01)
--- NOTE | 2017-09-21 09:50 | P.PNGI ---
Subjective Interval history: Pt sitting on side of bed, reports multiple BMs yesterday with good relief. He is eating his breakfast. Denies nausea and vomiting. Physical Exam Vital signs: Vital Signs 09/20/17 12:00 09/20/17 16:00 09/20/17 20:00 Temperature 97.7 F 97.5 F L 97.6 F Pulse Rate 98 H 99 H 99 H Respiratory Rate 17 18 18 Blood Pressure 115/68 137/76 115/64 Pulse Oximetry 94 L 100 100 09/21/17 00:00 09/21/17 04:00 09/21/17 08:00 Temperature 98.2 F 98 F 97.8 F Pulse Rate 98 H 95 H 95 H Respiratory Rate 18 18 16 Blood Pressure 130/81 114/70 110/66 Pulse Oximetry 98 97 96 Intake & Output 09/20/17 09/21/17 09/21/17 18:59 06:59 18:59 Intake Total 100 / 100 Output Total 400 / 400 Balance -300 / -300 Weight 66.2 kg Intake: IV 100 / 100 Flexbumin 25% Inj 50 ML @ 60 100 / 100 mls/hr IV.SIG BID@ ALEXYS Rx# :[id number] Output: Urine 400 / 400 Other: # Voids 2 2 Date of Last Bowel Movement 09/20/17 09/20/17 # Bowel Movements 1 - Constitutional no acute distress - Routine HEENT Exam Head: Present: normocephalic, atraumatic Eye: Present: conjunctival icterus - Routine Respiratory Exam Absent: accessory muscle use - Routine Abdominal Exam Present: soft, normoactive bowel sounds, distended. Absent: tenderness - Routine Skin Exam Present: dry, warm, jaundice - Routine Neurological Exam Present: alert, oriented X3 Results - Labs CBC & Chem 7: 09/21/17 03:31 09/21/17 03:31 Laboratory Results - last 24 hr 09/20/17 09/20/17 09/20/17 12:39 17:27 20:15 WBC RBC Hgb Hct MCV MCH MCHC RDW Plt Count MPV Neut % (Auto) Lymph % (Auto) [place] % (Auto) Eos % (Auto) Baso % (Auto) Neut # (Auto) Lymph # (Auto) [place] # (Auto) Eos # (Auto) Baso # (Auto) WBC Differential Differential Comment Sodium Potassium Chloride Carbon Dioxide Anion Gap BUN Creatinine Estimated GFR POC Glucose 224 H 264 H 250 H Random Glucose Calcium Total Bilirubin AST ALT Alkaline Phosphatase Total Protein Albumin 09/21/17 09/21/17 09/21/17 03:31 03:31 07:35 WBC 12.7 H RBC 3.37 L Hgb 10.0 L Hct 30.6 L MCV 90.8 MCH 29.6 MCHC 32.6 RDW 15.8 Plt Count 265 MPV 8.2 Neut % (Auto) 86.8 H Lymph % (Auto) 3.3 L [place] % (Auto) 9.1 H Eos % (Auto) 0.3 Baso % (Auto) 0.5 Neut # (Auto) 11.0 H Lymph # (Auto) 0.4 L [place] # (Auto) 1.2 H Eos # (Auto) 0.0 Baso # (Auto) 0.1 WBC Differential . Differential Comment Auto diff final Sodium 132 L Potassium 4.1 Chloride 97 L Carbon Dioxide 27.7 Anion Gap 7 BUN 26 H Creatinine 0.60 Estimated GFR Greater than 89 POC Glucose 341 H Random Glucose 248 H D Calcium 7.5 L Total Bilirubin 8.0 H AST 124 H ALT 172 H Alkaline Phosphatase 691 H Total Protein 6.3 L Albumin 2.4 L Assessment and Plan (1) Transaminitis Status: Acute Code(s): R74.0 - Nonspecific elevation of levels of transaminase and lactic acid dehydrogenase [LDH] (2) Liver mass Status: Acute Code(s): R16.0 - Hepatomegaly, not elsewhere classified (3) Ascites Status: Acute Code(s): R18.8 - Other ascites - Plan Assessment: - Elevated LFTs with imaging concerning for metastatic liver disease- History of Hepatitis C S/P treatment with Harvoni by Dr. Honeycutt ID about a year ago. Pt reports history of IV drug use but no use since approx 1991. Denies any current illicit drug or alcohol use. Elevated AFP- 533.3 and elevated CA19-9- 509.5 S/P liver biopsy which was nondiagnostic (09/12) Necrosis with associated acute inflammation CT abdomen and pelvis W IV contrast (09/10) --> Abnormal examination suspicious for malignancy demonstrating significant ascites in the abdomen and pelvis, multiple irregular margin hypodense lesions in the liver measuring up to 9 cm in size, and enlarged ring-enhancing katie masses adjacent to the celiac artery, anterior to the heart and adjacent to the inferior esophagus. US abdomen (09/15) 2000 cc of clear, yellow fluid was removed. SAAG 1.3 Oncology is following EGD (09/16) Nodule duodenal bulb-possible minor papilla-biopsy. Portal gastropathy. Gastritis antrum-biopsy. Severe silvio esophagitis involving all esophagus-biopsy upper esophagus. Esophageal varices grade 2 -3 columns, no banding done due to severe silvio esophagitis. Hiatal hernia. Pathology (duodenal bulb nodule) duodenal mucosa with peptic duodenitis ( gastric antrum) antral mucosa with mild reactive gastropathy, as may be seen with bile reflux or drug therapy ( upper esophagus) squamous mucosa with acute esophagitis and numerous budding yeast and pseudohyphae in squamous mucosa, consistent with silvio esophagitis. Colonoscopy (09/17) Small AVM cecum. Internal hemorrhoids. External thrombosed hemorrhoids. (09/19) Pt remains with distended abdomen, uncomfortable. Having a hard time having BMs. Discussed with patient cytology from paracentesis is still pending, ? repeat liver biopsy pending these results. Appreciate oncology recommendations (09/20) Paracentesis cytology negative, liver biopsy was ordered and planned for today, however pt states he is achy and fatigued and does not want it done today. States he will have it done tomorrow. Reports small BM last night and his stomach feels a little bit better. (09/21) Pt eating, no liver biopsy planned for today. Pt states he spoke to Dr. Raman yesterday who recommends Hospice consult and is going to discuss the case with oncology. Not much to add from a GI standpoint, further recommendations per oncology/?Hospice Discussed with Dr. Raman, and ERAN Ram Plan: GIN Lasix Spironolactone Albumin replacement Nystatin for silvio esophagitis ProctoFoam cream Maintain good bowel regimen to prevent constipation Our service will sign off, further recommendations per oncology Pt has been seen and examined by myself and Dr. Jean and this note is written on his behalf (3) Ascites Qualifiers: Ascites type: other type Qualified Code(s): R18.8 - Other ascites
[2017-09-21] MEDS: Spironolactone 25 MG Tablet PO SCH ×2 (10:55→17:50)
[2017-09-21] MEDS: Umeclindinium 62.5 MCG/Vilanterol 25 MCG Inhaler INH SCH (10:56)
--- NOTE | 2017-09-21 14:19 | P.PNIM ---
Subjective Interval history: Pt c/o continued abdominal pain. Some relief with current oxycode 10mg, but pt would like a stronger dose. Physical Exam Vital signs: 09/21/17 04:00 09/21/17 08:00 Temperature 98 F 97.8 F Pulse Rate 95 H 95 H Respiratory Rate 18 16 Blood Pressure 114/70 110/66 Pulse Oximetry 97 96 Narrative: GENERAL: Thin CARDIO: Regular RESP: clear x b/l ABD: +BS, soft, non-tender, distended EXT: Bilateral LE 3+ pitting edema. Results - Labs CBC & Chem 7: 09/25/17 12:10 09/25/17 12:10 Laboratory Results - last 24 hr 09/20/17 09/20/17 09/21/17 17:27 20:15 03:31 WBC 12.7 H RBC 3.37 L Hgb 10.0 L Hct 30.6 L MCV 90.8 MCH 29.6 MCHC 32.6 RDW 15.8 Plt Count 265 MPV 8.2 Neut % (Auto) 86.8 H Lymph % (Auto) 3.3 L [place] % (Auto) 9.1 H Eos % (Auto) 0.3 Baso % (Auto) 0.5 Neut # (Auto) 11.0 H Lymph # (Auto) 0.4 L [place] # (Auto) 1.2 H Eos # (Auto) 0.0 Baso # (Auto) 0.1 WBC Differential . Differential Comment Auto diff final Sodium Potassium Chloride Carbon Dioxide Anion Gap BUN Creatinine Estimated GFR POC Glucose 264 H 250 H Random Glucose Calcium Total Bilirubin AST ALT Alkaline Phosphatase Total Protein Albumin 09/21/17 09/21/17 09/21/17 03:31 07:35 11:45 WBC RBC Hgb Hct MCV MCH MCHC RDW Plt Count MPV Neut % (Auto) Lymph % (Auto) [place] % (Auto) Eos % (Auto) Baso % (Auto) Neut # (Auto) Lymph # (Auto) [place] # (Auto) Eos # (Auto) Baso # (Auto) WBC Differential Differential Comment Sodium 132 L Potassium 4.1 Chloride 97 L Carbon Dioxide 27.7 Anion Gap 7 BUN 26 H Creatinine 0.60 Estimated GFR Greater than 89 POC Glucose 341 H 153 H Random Glucose 248 H D Calcium 7.5 L Total Bilirubin 8.0 H AST 124 H ALT 172 H Alkaline Phosphatase 691 H Total Protein 6.3 L Albumin 2.4 L - Imaging Abdomen Ultrasound 09/10/17 00:00 CONCLUSION: 1. There is mild to moderate ascites although no pockets are seen large enough at the current time to safely perform paracentesis. Abdomen X-Ray 09/10/17 02:05 CONCLUSION: No dilated loops of small or large bowel. Abdomen/Pelvis CT 09/10/17 02:05 CONCLUSION: 1. 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 Liver Biopsy CT 09/12/17 00:00 CONCLUSION: 1. Uncomplicated CT guided biopsy. Abdomen X-Ray 09/13/17 10:29 CONCLUSION: Mild small bowel dilatation central abdomen. No free air. Paracentesis Ultrasound 09/15/17 00:00 CONCLUSION: 1. Successful paracentesis Abdomen MRI 09/17/17 00:00 CONCLUSION: 1. The liver is diffusely enlarged and heterogeneous consistent with hepatocellular disease such as cirrhosis. There is ascites in the upper abdomen. No dilated biliary ducts. 2. There is at least 2 complex areas which are highly suspicious for neoplastic disease. There is a complex area measuring about 12 cm involving segments 4 and 8 of the liver suspicious for neoplastic disease. There is a complex area measuring 9.8 cm in segment 6 suspicious for neoplastic disease. Assessment and Plan - Assessment (1) Liver mass Code(s): R16.0 - Hepatomegaly, not elsewhere classified Status: Acute Plan: This is a 57-year-old male patient with past medical history which includes diabetes mellitus and hepatitis C. Patient reports he has previously been treated with Harvoni for his hepatitis C. Patient presents to the emergency department with complaints of abdominal distention and constipation for approximately 3 weeks. 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 Patient reports he has previously been treated with Harvoni for his hepatitis C by Dr. Honeycutt about 1 year ago. - He presented to the ED on 09/10/17 with complaints of abdominal distention and constipation for approximately 3 weeks. - KUB (09/10/17)--> no dilated loops of small or large bowel - CT abdomen/pelvis (09/10/17) --> abnormal examination suspicious for malignancy demonstrating significant ascites in the abdomen and pelvis, multiple irregular margin hypodense lesions in the liver measuring up to 9 cm in size , and enlarged ring-enhancing nodular masses adjacent to the celiac artery, anterior to the heart and adjacent to the inferior esophagus. - Given concern of malignancy interventional radiology was consulted for US guided paracentesis with cytology but this was unable to be done as there was not enough fluid - CMP on admission reviewed total bilirubin 0.9 AST 208, ALT 152, alkaline phosphatase 472 ammonia (09/10) < 10, AFP (09/11) 533.3, CA 19.9 509.5 - His LFTs worsened following admission, the transaminases have slowly been improving but TBili is elevating. - (09/11/17) Tbili 0.8, AST 6470, ALT 3043, AlkPhos 939 - (09/12/17) Tbili 0.6, AST 2051, ALT 1765, AlkPhos 801 - (09/13/17) TBili 1.0, AST 831, ALT 1070, AlkPhos 751 - (09/14/17) TBili 1.4, AST 690, ALT 839, AlkPhos 921 - (09/15/17) TBili 2.8, DBili 2.3, AST 553, ALT 661, AlkPhos 966 - (09/16/17) TBili 4.8, AST 354, ALT 492, AlkPhos 904 - (09/19/17) TBili 7.1, AST 163, ALT 240, AlkPhos 732 - Hepatitis profile Hep C Ab positive - PT 10.9, INR 1.1, APTT 23.8 (09/10) - repeat INR and APTT in AM - US guided paracentesis was performed on 09/15/17 and fluid for cytology is non- diagnostic cont aldactone. lasix/albumen. - Pt had a CT guided biopsy of the liver with IR (09/12/17) --> pathology noted hepatic necrosis and acute inflammation. no evidence for malignancy. - Pt underwent evaluation with EGD/colonoscopy (09/16/17): - Nodule in the duodenal bulb-possible minor papilla, portal gastropathy, gastritis in the antrum, severe silvio esophagitis involving all esophagus, esophageal varices grade 2 -3 columns, no banding done due to severe silvio esophagitis - Colonoscopy unable to be completed due to solid stool - Pt started on Nystatin S/S and Protonix 40mg BID - repeat colonoscopy. no malignancy - Pt declined repeat CT guided liver Bx (09/20) - Pt previously seen by Oncology service. I discussed the case with Rita MCKINNEY, and requested repeat evaluation. - biomarkers and scans strongly suggest hepatocellular carcinoma despite lack of pathology. - Case informally d/w Dr. Guzmán (09/20). Pt cannot currently received treatment d/t liver failure/elevated bilirubin for which there is NO treatment. - If pt's liver improves and bilirubin declines then pt might be eligible for palliative chemotherapy - life expectancy less than 6 months - Request hospice consult - Pt has a difficult social dynamics: no family, no friends, no anabaptism group, and limited finances. Pt rents a trailer. - Pt c/o generalized weakness - request PT evaluation - Possible SNF upon discharge - anticipate discharge in 1-2 days Diabetes mellitus - Patient reportedly takes Synjardy 5-1000mg PO BID, - HgbA1c 15.8 - Diabetic and dietary education. Pt was stable on levemir 30mg bid until diet interrupted. titrate back up again. 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
--- NOTE | 2017-09-21 15:31 | P.PNONC ---
Subjective Interval history: Afebrile Patient voicing frustration with current health status Reports "even if there is only a 2% chance to get better I want to take it" Still having some back pain, right lower quadrant abdominal pain Objective Vital Signs/Intake & Output: Vital Signs 09/20/17 16:00 09/20/17 20:00 09/21/17 00:00 Temperature 97.5 F L 97.6 F 98.2 F Pulse Rate 99 H 99 H 98 H Respiratory Rate 18 18 18 Blood Pressure 137/76 115/64 130/81 Pulse Oximetry 100 100 98 09/21/17 04:00 09/21/17 08:00 Temperature 98 F 97.8 F Pulse Rate 95 H 95 H Respiratory Rate 18 16 Blood Pressure 114/70 110/66 Pulse Oximetry 97 96 Intake & Output 09/20/17 09/21/17 09/21/17 18:59 06:59 18:59 Intake Total 100 / 100 50 / 50 Output Total 400 / 400 Balance -300 / -300 50 / 50 Weight 145 lb 15.136 oz Intake: IV 100 / 100 50 / 50 Flexbumin 25% Inj 50 ML @ 60 100 / 100 50 / 50 mls/hr IV.SIG BID@ [facility] Rx# :[id number] Output: Urine 400 / 400 Other: # Voids 2 2 Date of Last Bowel Movement 09/20/17 09/20/17 # Bowel Movements 1 Result Diagrams: 09/21/17 03:31 09/21/17 03:31 Laboratory Results: Laboratory Results - last 24 hr 09/20/17 09/20/17 09/21/17 17:27 20:15 03:31 WBC 12.7 H RBC 3.37 L Hgb 10.0 L Hct 30.6 L MCV 90.8 MCH 29.6 MCHC 32.6 RDW 15.8 Plt Count 265 MPV 8.2 Neut % (Auto) 86.8 H Lymph % (Auto) 3.3 L [place] % (Auto) 9.1 H Eos % (Auto) 0.3 Baso % (Auto) 0.5 Neut # (Auto) 11.0 H Lymph # (Auto) 0.4 L [place] # (Auto) 1.2 H Eos # (Auto) 0.0 Baso # (Auto) 0.1 WBC Differential . Differential Comment Auto diff final Sodium Potassium Chloride Carbon Dioxide Anion Gap BUN Creatinine Estimated GFR POC Glucose 264 H 250 H Random Glucose Calcium Total Bilirubin AST ALT Alkaline Phosphatase Total Protein Albumin 09/21/17 09/21/17 09/21/17 03:31 07:35 11:45 WBC RBC Hgb Hct MCV MCH MCHC RDW Plt Count MPV Neut % (Auto) Lymph % (Auto) [place] % (Auto) Eos % (Auto) Baso % (Auto) Neut # (Auto) Lymph # (Auto) [place] # (Auto) Eos # (Auto) Baso # (Auto) WBC Differential Differential Comment Sodium 132 L Potassium 4.1 Chloride 97 L Carbon Dioxide 27.7 Anion Gap 7 BUN 26 H Creatinine 0.60 Estimated GFR Greater than 89 POC Glucose 341 H 153 H Random Glucose 248 H D Calcium 7.5 L Total Bilirubin 8.0 H AST 124 H ALT 172 H Alkaline Phosphatase 691 H Total Protein 6.3 L Albumin 2.4 L Medications: Active Medications Generic Name Dose Route Start Last Admin Trade Name Freq PRN Reason Stop Dose Admin Al Hydroxide/Mg Hydroxide 30 ml 09/10/17 09:24 09/18/17 21:39 Milk Of Magnesia Liq PO 30 ml Q12H PRN Administration Mild Constipation Dextrose 50 ml 09/10/17 09:27 09/16/17 08:09 D50w Vial IV.PUSH 50 ml UNSCH PRN Administration PER HYPOGLYCEMIA PROTOCOL Furosemide 20 mg 09/17/17 09:00 09/21/17 10:55 Lasix Inj IV.PUSH 20 mg BID@0900,1800 ALEXYS Administration Albumin Human 50 mls @ 60 mls/hr 09/18/17 17:00 09/21/17 11:26 Flexbumin 25% Inj IV.SIG Infused BID@ ALEXYS Infusion Insulin Aspart 0 unit 09/10/17 12:00 09/21/17 12:27 Novolog Insulin Correctional Sugar Inj SQ 5 unit ACHS ALEXYS Administration Protocol Insulin Detemir 30 unit 09/16/17 09:00 09/21/17 08:21 Levemir Inj SQ 30 unit DAILY ALEXYS Administration Lactulose 30 ml 09/14/17 09:43 09/18/17 16:51 Lactulose Liq PO 30 ml DAILY PRN Administration MODERATE CONSTIPATION Nystatin 5 ml 09/16/17 13:00 09/21/17 12:28 Mycostatin Liq SWISH-SWAL 5 ml QID ALEXYS Administration Ondansetron HCl 4 mg 09/10/17 09:24 09/20/17 15:49 Zofran Inj IV.PUSH 4 mg Q6H PRN Administration NAUSEA OR VOMITING Pantoprazole Sodium 40 mg 09/16/17 11:15 09/21/17 08:21 Protonix PO 40 mg BID ALEXYS Administration Polyethylene Glycol 17 gm 09/10/17 12:30 09/21/17 08:21 Miralax PO Not Given DAILY ALEXYS Pramoxine HCl 1 applicatio 09/17/17 13:00 09/21/17 12:28 Proctofoam RECTAL 1 applicatio Q6H ALEXYS Administration Senna/Docusate Sodium 1 tab 09/10/17 21:00 09/21/17 08:22 Starla-Colace PO Not Given BID ALEXYS Sodium Chloride 2 ml 09/10/17 02:05 09/10/17 03:46 Ns Flush IV.FLUSH 2 ml PRN PRN Administration FLUSH AFTER USING IV ACCESS Spironolactone 25 mg 09/14/17 18:00 09/21/17 10:55 Aldactone PO 25 mg BID@0900,1800 ALEXYS Administration Umeclidinium/Vilanterol 1 puff 09/10/17 11:00 09/21/17 10:56 Anoro-Ellipta 62.5/25 Mcg Inh INH 1 puff Q24H ALEXYS Administration Objective Remarks: GENERAL: Chronically ill-appearing older male sitting up on side of bed in no acute distress SKIN: Warm and dry. Jaundiced HEAD: Normocephalic. EYES: + Icterus. No injection or drainage. NECK: Supple, trachea midline. No JVD or lymphadenopathy. CARDIOVASCULAR: Regular rate and rhythm without murmurs. RESPIRATORY: Clear posteriorly. Diminished breath sounds to left lower lobe. GASTROINTESTINAL: Abdomen mildly protuberant. Tender to palpation. EXTREMITIES: No cyanosis. Dependent edema to bilateral lower extremities MUSCULOSKELETAL: Generalized weakness NEUROLOGICAL: No obvious focal deficit. Awake, alert, and oriented x3. Assessment/Plan (1) Hep C w/o coma, chronic Code(s): B18.2 - Chronic viral hepatitis C Status: Acute (2) Liver disease Code(s): K76.9 - Liver disease, unspecified Status: Acute (3) Liver mass Code(s): R16.0 - Hepatomegaly, not elsewhere classified Status: Acute (4) Ascites Code(s): R18.8 - Other ascites Status: Acute (5) Transaminitis Code(s): R74.0 - Nonspecific elevation of levels of transaminase and lactic acid dehydrogenase [LDH] Status: Acute - Plan Mr. Walden is a pleasant 57-year-old male patient, who originally reported to the hospital with complaints of constipation. The patient has subsequently had a liver biopsy, which was nondiagnostic. He is status post paracentesis, however cytology showed no malignant cells. The patient does have a clinical picture of hepatocellular carcinoma. Plan: 1. The patient is not having any bleeding. Coags are stable but unfortunately his bilirubin continues to increase. The patient is willing to go through with another biopsy if this will give him a chance at possible chemotherapy. Unfortunately he has a very poor social situation with limited help. I have discussed with Dr Martinez as well as Dr Raman. Continue supportive care for now. (4) Ascites Qualifiers: Ascites type: other type Qualified Code(s): R18.8 - Other ascites
[2017-09-22] MEDS: Insulin NovoLOG Aspart Correctional Sugar Inj SQ SCH ×4 (00:12→18:35)
[2017-09-22] MEDS: Albumin Human 25% Inj 50 ML IV.SIG SCH ×2 (09:32→18:39)
[2017-09-22] MEDS: Polyethylene Glycol 3350 17 GM Packet PO SCH (09:34)
[2017-09-22] MEDS: Nystatin Liq 500,000 UNIT/5 ML UDC SWISH-SWAL SCH ×4 (09:35→21:36)
[2017-09-22] MEDS: Senna/Docusate Sodium 8.6/50 MG Tablet PO SCH ×2 (09:35→21:36)
--- NOTE | 2017-09-22 09:43 | P.PNONC ---
Subjective Interval history: Afebrile Discussed with pt that there are very limited options in terms of treatment for his likely cancer He reports "I want to live, I want every chance I have" Noted CT guided liver biopsy ordered by GI team Objective Vital Signs/Intake & Output: Vital Signs 09/21/17 16:00 09/21/17 20:00 09/22/17 00:00 Temperature 97.4 F L 98.1 F 98.1 F Pulse Rate 90 97 H 93 H Respiratory Rate 16 18 16 Blood Pressure 105/75 122/65 113/72 Pulse Oximetry 98 100 98 09/22/17 04:00 Temperature 97.9 F Pulse Rate 101 H Respiratory Rate 16 Blood Pressure 131/74 Pulse Oximetry 97 Intake & Output 09/21/17 09/22/17 09/22/17 18:59 06:59 18:59 Intake Total 100 / 100 Output Total 300 / 300 Balance 100 / 100 -300 / -300 Weight 151 lb 3.794 oz Intake: IV 100 / 100 Flexbumin 25% Inj 50 ML @ 60 100 / 100 mls/hr IV.SIG BID@ ALEXYS Rx# :[id number] Output: Urine 300 / 300 Other: # Voids 5 1 Date of Last Bowel Movement 09/21/17 09/21/17 # Bowel Movements 1 Result Diagrams: 09/21/17 03:31 09/21/17 03:31 Laboratory Results: Laboratory Results - last 24 hr 09/21/17 09/21/17 09/22/17 11:45 17:01 00:08 POC Glucose 153 H 198 H 292 H 09/22/17 08:00 POC Glucose 179 H Medications: Active Medications Generic Name Dose Route Start Last Admin Trade Name Freq PRN Reason Stop Dose Admin Al Hydroxide/Mg Hydroxide 30 ml 09/10/17 09:24 09/18/17 21:39 Milk Of Magnesia Liq PO 30 ml Q12H PRN Administration Mild Constipation Dextrose 50 ml 09/10/17 09:27 09/16/17 08:09 D50w Vial IV.PUSH 50 ml UNSCH PRN Administration PER HYPOGLYCEMIA PROTOCOL Furosemide 20 mg 09/17/17 09:00 09/21/17 17:50 Lasix Inj IV.PUSH 20 mg BID@0900,1800 ALEXYS Administration Albumin Human 50 mls @ 60 mls/hr 09/18/17 17:00 09/22/17 09:32 Flexbumin 25% Inj IV.SIG 60 mls/hr BID@ ALEXYS Administration Insulin Aspart 0 unit 09/10/17 12:00 09/22/17 09:34 Novolog Insulin Correctional Sugar Inj SQ 5 unit ACHS ALEXYS Administration Protocol Insulin Detemir 30 unit 09/16/17 09:00 09/21/17 08:21 Levemir Inj SQ 30 unit DAILY ALEXYS Administration Lactulose 30 ml 09/14/17 09:43 09/18/17 16:51 Lactulose Liq PO 30 ml DAILY PRN Administration MODERATE CONSTIPATION Nystatin 5 ml 09/16/17 13:00 09/22/17 09:35 Mycostatin Liq SWISH-SWAL 5 ml QID ALEXYS Administration Ondansetron HCl 4 mg 09/10/17 09:24 09/22/17 06:11 Zofran Inj IV.PUSH 4 mg Q6H PRN Administration NAUSEA OR VOMITING Oxycodone HCl 20 mg 09/21/17 14:12 09/21/17 16:59 Roxicodone PO 20 mg Q4H PRN Administration Pain 1-10 Pantoprazole Sodium 40 mg 09/16/17 11:15 09/22/17 09:35 Protonix PO 40 mg BID ALEXYS Administration Polyethylene Glycol 17 gm 09/10/17 12:30 09/22/17 09:34 Miralax PO 17 gm DAILY ALEXYS Administration Pramoxine HCl 1 applicatio 09/17/17 13:00 09/22/17 08:02 Proctofoam RECTAL Not Given Q6H ALEXYS Senna/Docusate Sodium 1 tab 09/10/17 21:00 09/22/17 09:35 Starla-Colace PO 1 tab BID ALEXYS Administration Sodium Chloride 2 ml 09/10/17 02:05 09/10/17 03:46 Ns Flush IV.FLUSH 2 ml PRN PRN Administration FLUSH AFTER USING IV ACCESS Spironolactone 25 mg 09/14/17 18:00 09/21/17 17:50 Aldactone PO 25 mg BID@0900,1800 ALEXYS Administration Umeclidinium/Vilanterol 1 puff 09/10/17 11:00 09/21/17 10:56 Anoro-Ellipta 62.5/25 Mcg Inh INH 1 puff Q24H ALEXYS Administration Objective Remarks: GENERAL: Chronically ill-appearing older male sitting up on side of bed in no acute distress SKIN: Warm and dry. Jaundiced HEAD: Normocephalic. EYES: + Icterus. No injection or drainage. NECK: Supple, trachea midline. No JVD or lymphadenopathy. CARDIOVASCULAR: Regular rate and rhythm without murmurs. RESPIRATORY: Clear posteriorly. Diminished breath sounds to left lower lobe. GASTROINTESTINAL: Abdomen mildly protuberant. Tender to palpation. EXTREMITIES: No cyanosis. Dependent edema to bilateral lower extremities MUSCULOSKELETAL: Generalized weakness NEUROLOGICAL: No obvious focal deficit. Awake, alert, and oriented x3. Assessment/Plan (1) Hep C w/o coma, chronic Code(s): B18.2 - Chronic viral hepatitis C Status: Acute (2) Liver disease Code(s): K76.9 - Liver disease, unspecified Status: Acute (3) Liver mass Code(s): R16.0 - Hepatomegaly, not elsewhere classified Status: Acute (4) Ascites Code(s): R18.8 - Other ascites Status: Acute (5) Transaminitis Code(s): R74.0 - Nonspecific elevation of levels of transaminase and lactic acid dehydrogenase [LDH] Status: Acute - Plan Mr. Walden is a pleasant 57-year-old male patient, who originally reported to the hospital with complaints of constipation. The patient has subsequently had a liver biopsy, which was nondiagnostic. He is status post paracentesis, however cytology showed no malignant cells. The patient does have a clinical picture of hepatocellular carcinoma. Plan: 1. The patient seems quite adamant that he have biopsy for any possible chance of treatment despite that overall prognosis is poor and treatment will be extremely limited due to current comorbidities. I discussed with the patient that even though he may have a conclusive tissue diagnosis he may not be eligible for any chemotherapy. He understands this. He is still willing to go through with 1 more biopsy. We will support patient's wishes. I will consult palliative care to assist. - Attending Statement The exam, history, and the medical decision-making described in the above note were completed with the assistance of the mid-level provider. I reviewed and agree with the findings presented. I attest that I had a [id number] encounter with the patient on the same day, and personally performed and documented my assessment and findings in the medical record. continues to insist that he wants a second biopsy over all poor prognosis not a candidate for any treatment hospice/palliative care is appropriate since he wants another biopsy, we brayan ask IR karel quiroz in am had discussion with patient. palliative care team was present (4) Ascites Qualifiers: Ascites type: other type Qualified Code(s): R18.8 - Other ascites
[2017-09-22] MEDS: Insulin Detemir Inj 1,000 UNIT/10 ML Vial SQ SCH (10:29)
[2017-09-22] MEDS: Spironolactone 25 MG Tablet PO SCH ×2 (10:33→18:34)
--- NOTE | 2017-09-22 12:10 | P.CONPAL ---
Consult Service: Palliative Care Requesting Physician: Nola Grant Reason for Consult: a. To assist with evaluation and management of symptoms including: weakness, dyspnea, pain b. To assist medical decision maker(s) with: better understanding of current medical conditions; weighing benefits/burdens of medical treatment options; making medical treatment decisions. Primary Care Provider: Shama Bueno MD History of Present Illness History of Present Illness: 37-year-old male presented to the ED on 09/10/17 with complaints of abdominal distention and constipation for a few weeks. This distention had been coming and going. Initially constipation relieved by prune juice but that became ineffective. No fever or chills reported no new urinary changes reported. No chest pain or dyspnea. + Some intermittent nausea, no vomiting. He has known history of hepatitis C status post Harvoni treatment about a year ago. * ED course: Abdomen x-ray with no dilated loops of small bowel or large bowel. Abdomen pelvis CT= Abnormal examination suspicious for malignancy demonstrating significant ascites in the abdomen and pelvis, multiple irregular margin hypodense lesions in the liver measuring up to 9 cm in size, and enlarged ring-enhancing katie masses adjacent to the celiac artery, anterior to the heart and adjacent to the inferior esophagus. Blood glucose elevated 555 in the ED improved to 233 after hydration. Hyponatremia sodium 129, received IV fluids. He was admitted for further evaluation and management. * IR consulted for ultrasound-guided paracentesis with cytology may need to consider percutaneous biopsy of liver. GI consulted. * GI:patient denies previous GI workup. AST 208, ALT 152, alk phos 472 albumin 2.6, lipase 49. Total bilirubin 0.9.//Additional labs pending AFP, AMA, ASMA, PAKO. daily MiraLAX added. * Ultrasound abdomen obtained mild to moderate ascites though not large enough for safe paracentesis. * 09/12/[address]-guided liver biopsy by IR ; pathology pending. LFTs downtrending. Oncology consulted. hepatitis profile Hep C Ab positive * biopsy shows extensive necrosis with associated acute inflammation * GI follow-up planned for EGD, colonoscopy. 09/16 underwent EGD, colonoscopy= EGD :1. Nodule duodenla bulb-possible minor papilla-biopsy portal gastropathy gastrtis antrum-biopsy/ severe silvio esophagitis envolving all esophaus- biopsy upper esophagus esophageal varices grade 2 -3 columns, no banding done due to severe silvio esophagitis 2. Retroflexed views revealed a hiatal hernia //recommended repeat EGD in 4 weeks for banding of varices, awaiting biopsy results. Colonoscopy revealed internal hemorrhoids. Could consider repeat liver biopsy if desired by oncology. Repeat colonoscopy recommended with better prep. Repeat colonoscopy small AVM cecum, hemorrhoids * 09/15 underwent paracentesis, ultrasound-guided for 2000 mL ascites //ascitic fluid negative for malignant cells * Collagen consultation: Cytology still pending if cytology nondiagnostic would recommend another biopsy attempt of liver. [Cytology later resulted nonmalignant ] will also obtain MRI liver. AFP elevated [533.3 ]but not high enough as typical w hepatocellular carcinoma. CA 19 also elevated [509.5 ]possibility of another primary pancreatic or hepatobiliary carcinoma. Performance status poor. Multiple medical issues. If this is hepatocellular carcinoma it is unresectable. Treatment options may be limited for patient with multiple comorbidities. If it is another primary cancer then would be metastatic disease. * Oncology having ongoing discussions with patient he indicates he wants to try for any possible chance of treatment though has been explained overall prognosis likely poor. He wishes to proceed with additional biopsy. Palliative care consulted to assist with clarification of goals of medical treatment. Pt seen in room. Dr Martinez oncology present for part of discussion, he reviewed w pt repeat bx potential and limited to no tx options, that pt would likely not be a candidate for chemo even if bx identifies malignancy. He endorses generally feeling a little better during hospital course indicates recent pain regimen changes have been effective. He describes that he works full-time, and generally feels his health is overall good. He noted about 3-4 weeks ago feeling increased abdominal distention, bloating, increased swelling from his thighs down and generalized weakness. He felt like his upper body mass has diminished significantly in those weeks to 1 month. He notes weight loss "good amount "though is unable to quantify. He indicates decreased appetite that he has to eat small amounts and "space out his eating "because his abdomen feels pressure and this also makes breathing difficult. He endorses dyspnea that he feels is related to abdominal pressure. He fatigues easily with any activity and noticed over the past few weeks he would have to pause at work and rest and lean on something. He endorses swelling to his lower extremities ongoing improves with elevation and rest. He endorses generalized pain to his abdomen and chest worsens when the swelling is worse worsened he endorses recent changes to the pain medication here have this pain very well controlled and when the pain is controlled his breathing feels much easier. He also indicates he uses oxygen as needed if he feels short of breath or very painful and that seems to help. Denies any GI complaints other than early fullness and bloating. Endorses he is having bowel movements now. He has no family or close friends supporting him. He indicates there is no one he would want me to call to update. He indicates he has no one that he would want to designate as HCS. Discussed with primary nurse, oncology. * Pt adopted, family history not known. 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 no cognitive or functional deficits. Some weakness /fatigue over the past few weeks. Review of Systems Constitutional: Reports anorexia, Reports weakness, Reports weight loss (unable to quantify ), Denies body ache(s), Denies chills, Denies fever(s), Denies headache(s), Denies increased appetite Eyes: Denies change in vision Ears, Nose, Mouth, and Throat: Denies difficulty swallowing, Denies dizziness, Denies mouth lesions, Denies mouth pain, Denies sore throat Cardiovascular: Reports foot swelling, Reports leg swelling, Denies chest pain Respiratory: Reports pain on inspiration (abdominal pain with breathing), Reports shortness of breath with activity, Denies chest congestion, Denies cough Gastrointestinal: Reports abdominal pain, Reports change in bowel habits, Reports constipation, Reports feeling full early, Reports nausea (intermittent ) , Denies difficulty swallowing, Denies incontinent of stools, Denies pain with swallowing, Denies vomiting Genitourinary: Denies decreased urination, Denies difficulty urinating Musculoskeletal: Reports decreased muscle mass (upper body), Reports muscle weakness, Denies back pain Skin/Breast: Denies rash, Denies sores, Denies yellowing of the skin (none prior to admission ) Neurologic: Denies abnormal hearing, Denies dizziness, Denies fainting, Denies headache(s), Denies localized weakness PMFSH - History History Provided By: Patient - Medical History Medical History: Medical History (Last Reviewed 09/21/17 @ 15:56 by Nael Stevens) Diabetes Hepatitis C - Surgical History Surgical History: Surgical History (Last Updated 09/22/17 @ 13:57 by MELISSA Ojeda) No history of previous surgery - Family History Family History: Family History (Last Updated 09/22/17 @ 13:57 by MELISSA Ojeda) Other Unknown family medical history - Tobacco History Tobacco Use In Past 30 Days: Yes Smoking Status: Current some day smoker Tobacco Type: Cigarettes Packs Per Day: 1 ( " intermittent X many years" ) - Alcohol History How Often Do You Have a Drink Containing Alcohol: Never (quit drinking 19 yr ago ) - Substance Use History Substance History: No History of Abuse - Travel History Recent Travel in the [place] Within the Last 8 Weeks: No Recent Travel Out of the Country Within the Last 8 Weeks: No - Immunization History Tetanus Immunization: >5 Years Hx Influenza Vaccine This Season: Yes Medications and Allergies Active Medications: Active Medications Al Hydroxide/Mg Hydroxide (Milk Of Magnesia Liq) 30 ml PO Q12H PRN PRN Reason: Mild Constipation Last Admin: 09/18/17 21:39 Dose: 30 ml Albuterol (Duoneb Neb (Prn)) 1 ampul NEB Q2HR NEB PRN PRN Reason: SHORTNESS OF BREATH/WHEEZING Last Admin: 09/22/17 09:47 Dose: 1 ampul Bisacodyl (Dulcolax Supp) 10 mg RECTAL DAILY PRN PRN Reason: SEVERE CONSITIPATION Dextrose (D50w Vial) 50 ml IV.PUSH UNSCH PRN PRN Reason: PER HYPOGLYCEMIA PROTOCOL Last Admin: 09/16/17 08:09 Dose: 50 ml Furosemide (Lasix Inj) 20 mg IV.PUSH BID@0900,1800 [facility] Last Admin: 09/22/17 10:34 Dose: 20 mg Glucagon (Glucagon Inj) 1 mg OTHER PRN PRN PRN Reason: for Hypoglycemia Protocol Albumin Human (Flexbumin 25% Inj) 50 mls @ 60 mls/hr IV.SIG BID@,17 [facility] Last Admin: 09/22/17 09:32 Dose: 60 mls/hr Insulin Aspart (Novolog Insulin Correctional Sugar Inj) 0 unit SQ ACHS [facility]; Protocol Last Admin: 09/22/17 09:34 Dose: 5 unit Insulin Detemir (Levemir Inj) 30 unit SQ DAILY [facility] Last Admin: 09/22/17 10:29 Dose: 30 unit Lactulose (Lactulose Liq) 30 ml PO DAILY PRN PRN Reason: MODERATE CONSTIPATION Last Admin: 09/18/17 16:51 Dose: 30 ml Nystatin (Mycostatin Liq) 5 ml SWISH-SWAL QID [facility] Last Admin: 09/22/17 09:35 Dose: 5 ml Ondansetron HCl (Zofran Inj) 4 mg IV.PUSH Q6H PRN PRN Reason: NAUSEA OR VOMITING Last Admin: 09/22/17 06:11 Dose: 4 mg Oxycodone HCl (Roxicodone) 20 mg PO Q4H PRN PRN Reason: Pain 1-10 Last Admin: 09/22/17 10:29 Dose: 20 mg Pantoprazole Sodium (Protonix) 40 mg PO BID [facility] Last Admin: 09/22/17 09:35 Dose: 40 mg Polyethylene Glycol (Miralax) 17 gm PO DAILY [facility] Last Admin: 09/22/17 09:34 Dose: 17 gm Pramoxine HCl (Proctofoam) 1 applicatio RECTAL Q6H [facility] Last Admin: 09/22/17 08:02 Dose: Not Given Senna/Docusate Sodium (Starla-Colace) 1 tab PO BID [facility] Last Admin: 09/22/17 09:35 Dose: 1 tab Sodium Chloride (Ns Flush) 2 ml IV.FLUSH PRN PRN PRN Reason: FLUSH AFTER USING IV ACCESS Last Admin: 09/10/17 03:46 Dose: 2 ml Spironolactone (Aldactone) 25 mg PO BID@0900,1800 [facility] Last Admin: 09/22/17 10:33 Dose: 25 mg Umeclidinium/Vilanterol (Anoro-Ellipta 62.5/25 Mcg Inh) 1 puff INH Q24H [facility] Last Admin: 09/21/17 10:56 Dose: 1 puff Allergies Allergy/AdvReac Type Severity Reaction Status Date / Time No Known Allergies Allergy Verified 09/12/17 11:32 Home Medications Medication Instructions Recorded Confirmed Type empagliflozin-metformin [Synjardy] 1 tab PO BID 09/10/17 09/10/17 History umeclidinium-vilanterol [Anoro 1 inh INHALATION Q24H 09/10/17 09/10/17 History Ellipta] Advance Directives Living Will: No Healthcare Surrogate: No Power of Ramp Manager: No Physical Exam Vital Signs: Vital Signs - 24 hr 09/21/17 16:00 09/21/17 20:00 09/22/17 00:00 Temperature 97.4 F L 98.1 F 98.1 F Pulse Rate 90 97 H 93 H Respiratory Rate 18 16 Blood Pressure 105/75 122/65 113/72 Pulse Oximetry 98 100 98 09/22/17 04:00 09/22/17 08:00 09/22/17 09:49 Temperature 97.9 F 98.1 F Pulse Rate 101 H 107 H 102 H Respiratory Rate 16 Blood Pressure 131/74 125/74 Pulse Oximetry 97 97 I&O: Intake & Output 09/20/17 09/21/17 09/22/17 09/23/17 06:59 06:59 06:59 06:59 Intake Total 220 / 220 100 / 100 100 / 100 Output Total 0 / 0 400 / 400 300 / 300 Balance 220 / 220 -300 / -300 -200 / -200 Weight 66.6 kg 66.2 kg 68.6 kg Physical Exam: CONSTITUTIONAL/GENERAL: This is an cachectic male, jaundiced, no distress TUBES/LINES/DRAINS: Peripheral IV upper extremity SKIN: + jaundice. no rashes or lesions. Discoloration/darkening bilateral lower legs. No wounds seen anteriorly. Skin warm and dry. HEAD: Atraumatic. Normocephalic. EYES: Pupils equal and round and reactive. Extraocular motions intact. +scleral icterus. No injection or drainage. Fundi not examined. ENT: Hearing grossly normal. Nose without bleeding or purulent drainage. Throat without visible erythema, exudates, masses, or lesions. Poor dentition NECK: Trachea midline. Supple, nontender. No palpable thyroid enlargement or nodularity. CARDIOVASCULAR: Regular rate and rhythm without murmur. No JVD. Peripheral pulses symmetric-pedal pulses faint secondary significant edema. ++ Significant edema entire legs more so to lower legs, feet. RESPIRATORY/CHEST: Symmetric, unlabored respirations. Currently on room air. Clear to auscultation. Breath sounds equal bilaterally, decreased air movement. GASTROINTESTINAL: Abdomen firm, distended. Limited palpation due to firmness, tenderness, distention, + hepatomegaly. Bowel sounds present. GENITOURINARY: Without palpable bladder distension. Voids to bedside observed dark tea color urine. MUSCULOSKELETAL: Extremities without clubbing, cyanosis. + Edema bilateral legs , feet. No joint tenderness or effusion noted. No calf tenderness. No mottling or clubbing. LYMPHATICS: No palpable cervical or supraclavicular adenopathy. NEUROLOGICAL: Awake and alert. Oriented 3. Appropriate. Insight and judgment appear good. Motor and sensory grossly within normal limits. Follows commands. Cognitively sharp. Moves all extremities. PSYCHIATRIC: No obvious anxiety/depression. Quiet Diagnostic Tests Laboratory: Laboratory Results - last 72 hr 09/19/17 09/19/17 09/19/17 11:56 16:46 20:54 WBC RBC Hgb Hct MCV MCH MCHC RDW Plt Count MPV Neut % (Auto) Lymph % (Auto) Roosevelt % (Auto) Eos % (Auto) Baso % (Auto) Neut # (Auto) Lymph # (Auto) Roosevelt # (Auto) Eos # (Auto) Baso # (Auto) WBC Differential Differential Comment PT INR APTT Sodium Potassium Chloride Carbon Dioxide Anion Gap BUN Creatinine Estimated GFR POC Glucose 174 H 153 H 189 H Random Glucose Calcium Total Bilirubin AST ALT Alkaline Phosphatase Total Protein Albumin 09/20/17 09/20/17 09/20/17 06:18 06:18 06:18 WBC 13.4 H RBC 3.41 L Hgb 10.3 L Hct 30.7 L MCV 90.0 MCH 30.2 MCHC 33.5 RDW 15.5 Plt Count 237 MPV 7.8 Neut % (Auto) 87.0 H Lymph % (Auto) 2.3 L Roosevelt % (Auto) 10.3 H Eos % (Auto) 0.2 Baso % (Auto) 0.2 Neut # (Auto) 11.7 H Lymph # (Auto) 0.3 L Roosevelt # (Auto) 1.4 H Eos # (Auto) 0.0 Baso # (Auto) 0.0 WBC Differential . Differential Comment Auto diff final PT 11.4 INR 1.1 APTT 25.2 Sodium 132 L Potassium 3.9 Chloride 96 L Carbon Dioxide 28.3 Anion Gap 8 BUN 24 H Creatinine 0.48 L Estimated GFR Greater than 89 POC Glucose Random Glucose 91 Calcium 7.6 L Total Bilirubin 7.4 H AST 148 H ALT 201 H Alkaline Phosphatase 700 H Total Protein 6.2 L Albumin 2.3 L 09/20/17 09/20/17 09/20/17 07:51 12:39 17:27 WBC RBC Hgb Hct MCV MCH MCHC RDW Plt Count MPV Neut % (Auto) Lymph % (Auto) Roosevelt % (Auto) Eos % (Auto) Baso % (Auto) Neut # (Auto) Lymph # (Auto) Roosevelt # (Auto) Eos # (Auto) Baso # (Auto) WBC Differential Differential Comment PT INR APTT Sodium Potassium Chloride Carbon Dioxide Anion Gap BUN Creatinine Estimated GFR POC Glucose 87 224 H 264 H Random Glucose Calcium Total Bilirubin AST ALT Alkaline Phosphatase Total Protein Albumin 09/20/17 09/21/17 09/21/17 20:15 03:31 03:31 WBC 12.7 H RBC 3.37 L Hgb 10.0 L Hct 30.6 L MCV 90.8 MCH 29.6 MCHC 32.6 RDW 15.8 Plt Count 265 MPV 8.2 Neut % (Auto) 86.8 H Lymph % (Auto) 3.3 L Roosevelt % (Auto) 9.1 H Eos % (Auto) 0.3 Baso % (Auto) 0.5 Neut # (Auto) 11.0 H Lymph # (Auto) 0.4 L Roosevelt # (Auto) 1.2 H Eos # (Auto) 0.0 Baso # (Auto) 0.1 WBC Differential . Differential Comment Auto diff final PT INR APTT Sodium 132 L Potassium 4.1 Chloride 97 L Carbon Dioxide 27.7 Anion Gap 7 BUN 26 H Creatinine 0.60 Estimated GFR Greater than 89 POC Glucose 250 H Random Glucose 248 H D Calcium 7.5 L Total Bilirubin 8.0 H AST 124 H ALT 172 H Alkaline Phosphatase 691 H Total Protein 6.3 L Albumin 2.4 L 09/21/17 09/21/17 09/21/17 07:35 11:45 17:01 WBC RBC Hgb Hct MCV MCH MCHC RDW Plt Count MPV Neut % (Auto) Lymph % (Auto) Roosevelt % (Auto) Eos % (Auto) Baso % (Auto) Neut # (Auto) Lymph # (Auto) Roosevelt # (Auto) Eos # (Auto) Baso # (Auto) WBC Differential Differential Comment PT INR APTT Sodium Potassium Chloride Carbon Dioxide Anion Gap BUN Creatinine Estimated GFR POC Glucose 341 H 153 H 198 H Random Glucose Calcium Total Bilirubin AST ALT Alkaline Phosphatase Total Protein Albumin 09/22/17 09/22/17 00:08 08:00 WBC RBC Hgb Hct MCV MCH MCHC RDW Plt Count MPV Neut % (Auto) Lymph % (Auto) Roosevelt % (Auto) Eos % (Auto) Baso % (Auto) Neut # (Auto) Lymph # (Auto) Roosevelt # (Auto) Eos # (Auto) Baso # (Auto) WBC Differential Differential Comment PT INR APTT Sodium Potassium Chloride Carbon Dioxide Anion Gap BUN Creatinine Estimated GFR POC Glucose 292 H 179 H Random Glucose Calcium Total Bilirubin AST ALT Alkaline Phosphatase Total Protein Albumin Result Diagrams: 09/21/17 03:31 09/21/17 03:31 Imaging: Abdomen Ultrasound 09/10/17 00:00 CONCLUSION: 1. There is mild to moderate ascites although no pockets are seen large enough at the current time to safely perform paracentesis. Abdomen X-Ray 09/10/17 02:05 CONCLUSION: No dilated loops of small or large bowel. Abdomen/Pelvis CT 09/10/17 02:05 CONCLUSION: 1. 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 Liver Biopsy CT 09/12/17 00:00 CONCLUSION: 1. Uncomplicated CT guided biopsy. Abdomen X-Ray 09/13/17 10:29 CONCLUSION: Mild small bowel dilatation central abdomen. No free air. Paracentesis Ultrasound 09/15/17 00:00 CONCLUSION: 1. Successful paracentesis Abdomen MRI 09/17/17 00:00 CONCLUSION: 1. The liver is diffusely enlarged and heterogeneous consistent with hepatocellular disease such as cirrhosis. There is ascites in the upper abdomen. No dilated biliary ducts. 2. There is at least 2 complex areas which are highly suspicious for neoplastic disease. There is a complex area measuring about 12 cm involving segments 4 and 8 of the liver suspicious for neoplastic disease. There is a complex area measuring 9.8 cm in segment 6 suspicious for neoplastic disease. Procedures: * 09/12/17 CT-guided liver biopsy by IR Patient/Family Conference Family Conference Time: 30 Family Conference Location: Bedside Issues Discussed: Met with patient at bedside, discussion included the following: * Palliative care role, purpose, approach * Additional medical, psychosocial, and spiritual history-he endorses belief in God he has peggy, but does not want area field manager visits * Patients general health, functional status, and cognitive changes in the months leading up to the current hospitalization-feeling well overall up until 3 -4 weeks ago when changes as noted in HPI * Patient/family understanding of the current medical problems; review of oncology's notation regarding probable malignancy and probably not a candidate for chemotherapy, not a candidate for resection. Review limited treatment options which might include continued hospitalizations during expected trajectory of decline versus hospice and comfort measures * Patient/family understanding of prognosis; review of limited life expectancy secondary to suspected malignancy * Patients goals of care as best understood from advance directives and/or conversations and/or values * Current medical treatment options and benefits/burdens of those options * Likely scenarios comparing ongoing aggressive care with a transition to comfort measures only-review of hospice services, comfort focus with advanced disease process, he is not interested in hospice at this time. * CODE STATUS reviewed-review what resuscitation entails, benefits/burdens. He is not ready to make a decision about this yet. Would be full code by default. * Healthcare surrogate designation reviewedpatient indicates he is adopted. Both parents are . He has no other family or friends whom he is close with. * Questions answered to the best of my ability * Palliative care contact information provided Patient appears to understand conditions, pending diagnostics and possible/ probable diagnoses of malignancy. He understands that he may not have any treatment options. However, he would like to proceed with a second biopsy to get as much information as he can and "confirm things". He indicates he "puts it in God's hands and that things could change any day", and that he would want as much information as possible so if there is any possible chance of treatment he could have it. I did gently explore with him that even if biopsy confirms malignancy if they do not offer any chemotherapy, then he would have the option for home with hospice to keep him comfortable during the expected trajectory of deterioration secondary to liver malignancy. Review with him at some point his cognition will be affected and he will experience continued decreased mobility and will need to think about what his wishes would be as his conditions deteriorate. He indicates he is still processing and he is not ready to make any further decisions yet. He is not ready for hospice at this time. Assessment and Plan - Disease Oriented Problem List (1) Hepatitis C, chronic (2) COPD (chronic obstructive pulmonary disease) (3) Lung fibrosis (4) Liver mass (5) Ascites (6) Transaminitis - Symptom Scale (1) Constipation 0-10 Scale: Unable to quantify (2) Abdominal pain 0-10 Scale: Unable to quantify Pertinent Non-Medical Issues: Psychosocial: Patient born and raised in [place]. Originally from [place]. Moved to this area several years ago. 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 Adopted, only child. Both parents . No other family or friends, describes that he is "not very social ". He is a "loner." Spiritual: Has peggy in God, however does not want area field manager visits Legal: Patient is currently alert oriented and appears to have reasonable insight and judgment. He is able to make his own decisions. At any point his mental status could deteriorate secondary to advancing liver disease, and he may become incapacitated. He has no family or friends that he would designate as his healthcare surrogate. Ethical issues impacting care: No ethical issues identified Important Contacts: none Prognosis: This patient was admitted for abdominal distention and constipation. He has underlying history of hepatitis, diabetes, as well as COPD, lung fibrosis. He has had findings of multiple liver nodules concerning for malignancy. Additional diagnostics pending. Oncology following. Due to poor performance status not a good candidate for chemotherapy, may have very limited treatment options. If hepatocellular CA is unresectable. If is another primary would be a metastatic disease. Limited treatment options. Appropriate for hospice if goals were comfort oriented. Code Status: Full Code Plan: * Legal decision maker: Patient is currently alert oriented and appears to have reasonable insight and judgment. He is able to make his own decisions. At any point his mental status could deteriorate secondary to advancing liver disease, and he may become incapacitated. He has no family or friends that he would designate as his healthcare surrogate. * Goals:Patient appears to understand conditions, pending diagnostics and possible/probable diagnoses of malignancy. He understands that he may not have any treatment options. However, he would like to proceed with a second biopsy to get as much information as he can and "confirm things". He indicates he "puts it in God's hands and that things could change any day", and that he would want as much information as possible so if there is any possible chance of treatment he could have it. I did gently explore with him that even if biopsy confirms malignancy if they do not offer any chemotherapy, then he would have the option for home with hospice to keep him comfortable during the expected trajectory of deterioration secondary to liver malignancy. Review with him at some point his cognition will be affected and he will experience continued decreased mobility and will need to think about what his wishes would be as his conditions deteriorate. He indicates he is still processing and he is not ready to make any further decisions yet. He is not ready for hospice at this time. * CODE STATUS: Full code by default * SYMPTOMS: --Dyspnea-secondary to liver/abdominal pathology, deconditioning. Uses O2 as needed. Dyspnea also improves when abdominal pain well controlled. If goals were comfort oriented may benefit from prn low dose benzos dyspnea/ tachypnea. Currently endorses good relief of both dyspnea and pain with use of oxycodone 20 mg. --Pain -abdominal pain which radiates to the ribs especially with dyspnea. Worsens with abdominal distention abdomen feels bloated, painful. 2/2 liver pathology, ascites. At times it makes his breathing painful. Currently endorses good relief of both dyspnea and pain with use of oxycodone 20 mg. This was increased from 10-20 yesterday, patient indicates 10 mg dose did not work very well however he feels much more comfortable with pain level at a 4 out of 10 on current dosing. No adjustments recommended at this time -- weakness- endorses weakness/fatigue in past 3-4 weeks; multifactorial, suspected malignancy, malnutrition, weight loss, deconditioning. Will likely be progressive as disease progresses. --malnutrition- hx diabetes, some hyperglycemia per pt. +weight loss, unk amt , over 1 month. + early satiety, only able to eat small amts due to abdominal discomfort. albumin 2.4. Microcomputer Technician following, pt likes/taking PO glucerna supplements. Recommend low sugar, but calorie dense food that pt likes as PO is very limited. * Palliative care will continue to follow during hospital course as condition evolves, to assist patient/decision-maker with understanding of medical conditions, weighing benefits/burdens of treatment options, for clarification of goals of treatment. Additionally will assist with any symptoms of palliative concern Appreciation Thank you for the opportunity to participate in the care of Sumanth Walden. Attestation Attestation: To help prompt me to consider important information that might be impacting today's encounter and assessment, information from prior notes written by myself or my colleagues may have been "brought forward" into today's note. My signature on this note, however, is an attestation that I personally performed the exam, history, and/or decision-making noted today, and, unless otherwise indicated, the interactions with patient, family, and staff as well as the review of records all occurred today. I also attest that the listed assessment and stated plan reflect my best clinical judgment today based on the combination of historical information, prior notes, and today's exam/ interactions. When time spent is documented, it refers only to time spent today by the signer, or if indicated, combined time spent today by collaborating physician/nurse practitioner.
--- NOTE | 2017-09-22 13:04 | P.DIET ---
Nutritional Evaluation Type of nutrition evaluation: follow-up Nutrition consult regarding: Diet Evaluation ([facility] [place] for Diet Education. Poorly Controlled DM) Subjective Subjective Comments: Visited pt to find out his flavor preferences for the Glucerna Shakes. He prefers Vanilla and Butter Pecan. Info communicated to diet office. Pt reports he has been given a poor prognosis and he is upset about this. Objective - Diagnosis New Liver Mass, New Ascites - Objective % IBW: 83 (GUX=016#) Body Weight Used for Calculations: IBW (75.5kg) Energy Needs - Lower Range (kCal/kg): 25 Energy Needs - Upper Range (kCal/kg): 30 Lower Limit kCal/kg (kCals): 1,888 Upper Limit kCal/kg (kCals): 2,265 Lower Limit Protein Factor (Grams per Kg): 1.2 Upper Limit Protein Factor (Grams per Kg): 1.5 Lower Protein Needs (Protein): 91 Upper Protein Needs (Protein): 113 Dietitian Reviewed in Medical Record: Current diet, Curent medications, Intake & Output, Labs, Medical history Diet Order: NPO for procedure (has been 1800 ADA) Oral Diet Intake Amount: Poor <50% Feeding - Current PO Supplement Current Supplement: Glucerna Shake Current Supplement Flavor: Other (vanilla and butter pecan) Current Frequency of Supplement: Three times a day Current kCals Provided by Supplement: 220 (per 8 oz) Current Protein Provided by Supplement: 10 (per 8 oz) Assessment Assessment: Pt remains at high nutrition risk 2' to dx, poor po intake and low wt for ht with current BMI of 21.7. Will continue to send Glucerna Shakes and monitor po intake. Labs, wts and clinical course reviewed. Recommendations: 1. Change to 2000 ADA 2. Glucerna Shakes TID 3. [place] pt's food preferences Dietitian to Monitor: Lab values, Glucose level, Supplement acceptance, Intake & Output, Diet tolerance, Weight change, PO Intake, Medical course
[2017-09-22] MEDS: Umeclindinium 62.5 MCG/Vilanterol 25 MCG Inhaler INH SCH (13:29)
--- NOTE | 2017-09-22 17:47 | P.PNIM ---
Subjective Interval history: Patient resting in bed offers no new complaints at this time agrees to liver bx in AM Physical Exam Vital signs: Vital Signs 09/21/17 20:00 09/22/17 00:00 09/22/17 04:00 Temperature 98.1 F 98.1 F 97.9 F Pulse Rate 97 H 93 H 101 H Respiratory Rate 18 16 16 Blood Pressure 122/65 113/72 131/74 Pulse Oximetry 100 98 97 09/22/17 08:00 09/22/17 09:49 09/22/17 12:00 Temperature 98.1 F 97.6 F Pulse Rate 107 H 102 H 94 H Respiratory Rate 18 18 Blood Pressure 125/74 112/67 Pulse Oximetry 97 97 09/22/17 12:03 Temperature Pulse Rate Respiratory Rate 5 L Blood Pressure Pulse Oximetry Intake & Output 09/21/17 09/22/17 09/22/17 18:59 06:59 18:59 Intake Total 100 / 100 Output Total 300 / 300 Balance 100 / 100 -300 / -300 Weight 68.6 kg Intake: IV 100 / 100 Flexbumin 25% Inj 50 ML @ 60 100 / 100 mls/hr IV.SIG BID@ [facility]LEX[facility] Rx# :[id number] Output: Urine 300 / 300 Other: # Voids 5 1 Date of Last Bowel Movement 09/21/17 09/21/17 # Bowel Movements 1 Narrative: GENERAL: Thin CARDIO: Regular RESP: clear x b/l ABD: +BS, soft, non-tender, distended EXT: Bilateral LE 3+ pitting edema. Results - Labs CBC & Chem 7: 09/25/17 12:10 09/25/17 12:10 Laboratory Results - last 24 hr 09/22/17 09/22/17 09/22/17 00:08 08:00 11:46 POC Glucose 292 H 179 H 283 H 09/22/17 17:29 POC Glucose 293 H Assessment and Plan - Assessment (1) Liver mass Code(s): R16.0 - Hepatomegaly, not elsewhere classified Status: Acute Plan: This is a 57-year-old male patient with past medical history which includes diabetes mellitus and hepatitis C. Patient reports he has previously been treated with Harvoni for his hepatitis C. Patient presents to the emergency department with complaints of abdominal distention and constipation for approximately 3 weeks. 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 Patient reports he has previously been treated with Harvsenait for his hepatitis C by Dr. Honeycutt about 1 year ago. - He presented to the ED on 09/10/17 with complaints of abdominal distention and constipation for approximately 3 weeks. - KUB (09/10/17)--> no dilated loops of small or large bowel - CT abdomen/pelvis (09/10/17) --> abnormal examination suspicious for malignancy demonstrating significant ascites in the abdomen and pelvis, multiple irregular margin hypodense lesions in the liver measuring up to 9 cm in size , and enlarged ring-enhancing nodular masses adjacent to the celiac artery, anterior to the heart and adjacent to the inferior esophagus. - Given concern of malignancy interventional radiology was consulted for US guided paracentesis with cytology but this was unable to be done as there was not enough fluid - CMP on admission reviewed total bilirubin 0.9 AST 208, ALT 152, alkaline phosphatase 472 ammonia (09/10) < 10, AFP (09/11) 533.3, CA 19.9 509.5 - His LFTs worsened following admission, the transaminases have slowly been improving but TBili is elevating. - (09/11/17) Tbili 0.8, AST 6470, ALT 3043, AlkPhos 939 - (09/12/17) Tbili 0.6, AST 2051, ALT 1765, AlkPhos 801 - (09/13/17) TBili 1.0, AST 831, ALT 1070, AlkPhos 751 - (09/14/17) TBili 1.4, AST 690, ALT 839, AlkPhos 921 - (09/15/17) TBili 2.8, DBili 2.3, AST 553, ALT 661, AlkPhos 966 - (09/16/17) TBili 4.8, AST 354, ALT 492, AlkPhos 904 - (09/19/17) TBili 7.1, AST 163, ALT 240, AlkPhos 732 - Hepatitis profile Hep C Ab positive - PT 10.9, INR 1.1, APTT 23.8 (09/10) - repeat INR and APTT in AM - US guided paracentesis was performed on 09/15/17 and fluid for cytology is non- diagnostic cont aldactone. lasix/albumen. - Pt had a CT guided biopsy of the liver with IR (09/12/17) --> pathology noted hepatic necrosis and acute inflammation. no evidence for malignancy. - Pt underwent evaluation with EGD/colonoscopy (09/16/17): - Nodule in the duodenal bulb-possible minor papilla, portal gastropathy, gastritis in the antrum, severe silvio esophagitis involving all esophagus, esophageal varices grade 2 -3 columns, no banding done due to severe silvio esophagitis - Colonoscopy unable to be completed due to solid stool - Pt started on Nystatin S/S and Protonix 40mg BID - repeat colonoscopy. no malignancy - Pt declined repeat CT guided liver Bx (09/20) - Pt previously seen by Oncology service. I discussed the case with Rita MCKINNEY, and requested repeat evaluation. - biomarkers and scans strongly suggest hepatocellular carcinoma despite lack of pathology. - Case informally d/w Dr. Guzmán (09/20). Pt cannot currently received treatment d/t liver failure/elevated bilirubin for which there is NO treatment. - If pt's liver improves and bilirubin declines then pt might be eligible for palliative chemotherapy - life expectancy less than 6 months - Request hospice consult - Pt has a difficult social dynamics: no family, no friends, no buddhist group, and limited finances. Pt rents a trailer. - Pt c/o generalized weakness - PT evaluation - Plan for repeat liver Bx in AM - Possible SNF upon discharge - anticipate discharge Tuesday Diabetes mellitus - Patient reportedly takes Synjardy 5-1000mg PO BID, - HgbA1c 15.8 - Diabetic and dietary education. - Levemir on hold for Bx in AM Hyponatremia - Likely related to volume - Cont diuretic - recheck BMP in AM COPD with fibrotic lung disease not on home oxygen - Pt does not appear to be in acute exacerbation - Continue home anoro elipta - Duonebs Q2H as needed Constipation - continue bowel regiment - add lactulose now DVT prophylaxis with SCDs (2) Ascites Code(s): R18.8 - Other ascites Status: Acute - Plan Patient examined. Assessment and plan formulated with Laureen Powell PA-C. I agree with the above. (2) Ascites Qualifiers: Ascites type: other type Qualified Code(s): R18.8 - Other ascites
[2017-09-23] MEDS: Insulin NovoLOG Aspart Correctional Sugar Inj SQ SCH ×5 (00:40→21:43)
[2017-09-23] MEDS ORDERED: Metoprolol Tartrate 25 MG Tablet PO SCH (04:45)
[2017-09-23] MEDS ORDERED: Chlorhexidine Gluconate 2% 1 Pack (2 Cloths) TOPICAL SCH (04:45)
[2017-09-23] MEDS ORDERED: Sodium Chlor 0.9% Inj 500 ML IV.SIG SCH (05:00)
[2017-09-23] MEDS: Albumin Human 25% Inj 50 ML IV.SIG SCH ×2 (09:25→21:43)
[2017-09-23] MEDS: Nystatin Liq 500,000 UNIT/5 ML UDC SWISH-SWAL SCH ×4 (09:25→21:44)
[2017-09-23] MEDS: Senna/Docusate Sodium 8.6/50 MG Tablet PO SCH ×2 (09:26→21:36)
[2017-09-23] MEDS: Polyethylene Glycol 3350 17 GM Packet PO SCH (09:26)
[2017-09-23] MEDS: Spironolactone 25 MG Tablet PO SCH ×2 (09:30→21:43)
[2017-09-23] MEDS ORDERED: fentaNYL Citrate Inj 250 MCG/5 ML Ampul ONE (15:07)
[2017-09-23] MEDS ORDERED: fentaNYL Citrate Inj 250 MCG/5 ML Ampul IV.PUSH ONE (15:30)
[2017-09-23] MEDS: Umeclindinium 62.5 MCG/Vilanterol 25 MCG Inhaler INH SCH (15:37)
--- NOTE | 2017-09-23 16:55 | XR ---
EXAM DATE: 09/23/2017 4:43 PM EDT AGE/SEX: 57 years / Male INDICATIONS: S/P paracentesis and liver biopsy. CLINICAL DATA: This is the patient's initial encounter. Patient reports that signs and symptoms have been present for 1 day and indicates a pain score of 2/10. MEDICAL/SURGICAL HISTORY: Diabetes. Hepatitis C. Liver Mass. . Liver biopsy. COMPARISON: [facility] [place], CT NEEDLE BIOPSY LIVER, 09/23/2017. . FINDINGS: Hazy opacity in the right lower lung zone likely reflecting small pleural effusion with associated ai rspace disease. There is no significant pneumothorax. Cardiomegaly mediastinal contours are within no rmal limits. Bony thorax is intact. CONCLUSION: 1. Small right pleural effusion with associated airspace disease in the right lower lobe. 2. No significant pneumothorax. Electronically signed by: El Baxter MD 09/23/2017 4:54 PM EDT
--- NOTE | 2017-09-23 17:17 | CT ---
EXAM DATE: 09/23/2017 5:08 PM EDT AGE/SEX: 57 years / Male INDICATIONS: Ascites. Evacuate perihepatic fluid prior to liver mass biopsy CLINICAL DATA: This is the patient's initial encounter. Patient reports that signs and symptoms have been present for 1 day and indicates a pain score of 0/10. MEDICAL/SURGICAL HISTORY: . Liver disease, hep c None. COMPARISON: [facility] [place], CT NEEDLE BIOPSY LIVER, 09/23/2017. . MEDICATION(S): 1mg midazolam (Versed) IV 125mcg fentanyl (Sublimaze) IV DEVICE(S): 6 Fr Xasn-F-bjmgovac FLUID: Total volume of 800 of . fluid was removed. Fluid was sent to lab for ordered studies.. . . PROCEDURE : 1. CT-guidance for abdominal paracentesis. 2. Paracentesis. The risks, benefits and alternatives to CT-guided paracentesis were explained to the patient in detai l, lay terms including the risk of bleeding and infection. Oral and written informed consent was obt ained. Using automated exposure control and adjustment of the mA and/or kV according to patient size, radiation dose was kept as low as reasonably achievable to obtain optimal diagnostic quality images. DICOM format image data is available electronically for review and comparison. The patient was scanned to select approach for paracentesis. The skin was prepped in sterile fashion . The skin and subcutaneous tissues were infiltrated with Lidocaine solution. A 6 Algerian catheter w as introduced to the peritoneal cavity and ascites was collected. Post procedure scanning reveals no evidence of hematoma or other complication. The patient tolerated the procedure well and left the CT suite in good condition. CONCLUSION: Uncomplicated CT Guided paracentesis. Electronically signed by: Daniel Canas MD 09/23/2017 5:16 PM EDT
--- NOTE | 2017-09-23 17:18 | CT ---
EXAM DATE: 09/23/2017 4:48 PM EDT AGE/SEX: 57 years / Male INDICATIONS: Liver mass. CLINICAL DATA: This is the patient's initial encounter. Patient reports that signs and symptoms have been present for 1 day and indicates a pain score of 0/10. MEDICAL/SURGICAL HISTORY: . Liver disease, hep c. None. COMPARISON: [facility] [place], CT GUIDED ABD PARACENTESIS, 09/23/2017. . BIOPSY SITE: Right liver MEDICATION(S): 1mg midazolam (Versed) IV 125mcg fentanyl (Sublimaze) IV DEVICE(S): 16 gauge Temno core biopsy needle . . PROCEDURE: CT guided Right liver biopsy Prior to the procedure informed consent was obtained. Any appropriate prior imaging studies were rev iewed. Using automated exposure control and adjustment of the mA and/or kV according to patient size, radiat ion dose was kept as low as reasonably achievable to obtain optimal diagnostic quality images. DICOM format image data is available electronically for review and comparison. The site was prepped in a sterile fashion. Full sterile technique was used, including cap, mask, ema rile gloves and gown and a large sterile sheet. Hand hygiene and 2% chlorhexidine and/or betadine/al cohol prep was utilized per protocol for cutaneous antisepsis. The skin and subcutaneous tissues wer e infiltrated with local anesthetic solution. With CT guidance the previously identified target was localized. Biopsy was performed using the presc ribed needle as above. Adequate hemostasis was obtained with compression at the puncture site. Follow-up CT scan reveals no hemorrhage. The patient tolerated the procedure well and there were no complications. The patient was returned to the Radiology Outpatient Unit in stable condition. CONCLUSION: Uncomplicated CT guided core biopsy of mass in the dome of the liver. Electronically signed by: Daniel Canas MD 09/23/2017 5:17 PM EDT
--- NOTE | 2017-09-23 17:22 | P.PNIM ---
Subjective Interval history: Pt just returned from Radiology Department for his Liver Biopsy. Pt voices NO new complaints at this time & requesting that I resume his diet. Physical Exam Vital signs: 09/23/17 13:25 09/23/17 16:10 09/23/17 16:27 Temperature 98.2 F Pulse Rate 107 H 105 H Respiratory Rate 18 16 16 Blood Pressure 116/71 118/72 Pulse Oximetry 94 L 95 Narrative: GENERAL: Thin CARDIO: Regular RESP: clear x b/l ABD: +BS, soft, non-tender, distended EXT: Bilateral LE 3+ pitting edema. Results - Labs CBC & Chem 7: 09/25/17 12:10 09/25/17 12:10 Laboratory Results - last 24 hr 09/22/17 09/22/17 09/23/17 17:29 21:35 07:33 POC Glucose 293 H 212 H 77 09/23/17 09/23/17 09/23/17 14:33 16:31 16:57 POC Glucose 78 109 108 - Imaging Impressions Liver Biopsy CT 09/23/17 00:00 CONCLUSION: Uncomplicated CT guided core biopsy of mass in the dome of the liver. Paracentesis CT 09/23/17 00:00 CONCLUSION: Uncomplicated CT Guided paracentesis. Chest X-Ray 09/23/17 16:15 CONCLUSION: 1. Small right pleural effusion with associated airspace disease in the right lower lobe. 2. No significant pneumothorax. Assessment and Plan - Assessment (1) Liver mass Code(s): R16.0 - Hepatomegaly, not elsewhere classified Status: Acute Plan: This is a 57-year-old male patient with past medical history which includes diabetes mellitus and hepatitis C. Patient reports he has previously been treated with Harvoni for his hepatitis C. Patient presents to the emergency department with complaints of abdominal distention and constipation for approximately 3 weeks. 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 Patient reports he has previously been treated with Harvoni for his hepatitis C by Dr. Honeycutt about 1 year ago. - He presented to the ED on 09/10/17 with complaints of abdominal distention and constipation for approximately 3 weeks. - KUB (09/10/17)--> no dilated loops of small or large bowel - CT abdomen/pelvis (09/10/17) --> abnormal examination suspicious for malignancy demonstrating significant ascites in the abdomen and pelvis, multiple irregular margin hypodense lesions in the liver measuring up to 9 cm in size , and enlarged ring-enhancing nodular masses adjacent to the celiac artery, anterior to the heart and adjacent to the inferior esophagus. - Given concern of malignancy interventional radiology was consulted for US guided paracentesis with cytology but this was unable to be done as there was not enough fluid - CMP on admission reviewed total bilirubin 0.9 AST 208, ALT 152, alkaline phosphatase 472 ammonia (09/10) < 10, AFP (09/11) 533.3, CA 19.9 509.5 - His LFTs worsened following admission, the transaminases have slowly been improving but TBili is elevating. - (09/11/17) Tbili 0.8, AST 6470, ALT 3043, AlkPhos 939 - (09/12/17) Tbili 0.6, AST 2051, ALT 1765, AlkPhos 801 - (09/13/17) TBili 1.0, AST 831, ALT 1070, AlkPhos 751 - (09/14/17) TBili 1.4, AST 690, ALT 839, AlkPhos 921 - (09/15/17) TBili 2.8, DBili 2.3, AST 553, ALT 661, AlkPhos 966 - (09/16/17) TBili 4.8, AST 354, ALT 492, AlkPhos 904 - (09/19/17) TBili 7.1, AST 163, ALT 240, AlkPhos 732 - Hepatitis profile Hep C Ab positive - PT 10.9, INR 1.1, APTT 23.8 (09/10) - repeat INR and APTT in AM - US guided paracentesis was performed on 09/15/17 and fluid for cytology is non- diagnostic cont aldactone. lasix/albumen. - Pt had a CT guided biopsy of the liver with IR (09/12/17) --> pathology noted hepatic necrosis and acute inflammation. no evidence for malignancy. - Pt underwent evaluation with EGD/colonoscopy (09/16/17): - Nodule in the duodenal bulb-possible minor papilla, portal gastropathy, gastritis in the antrum, severe silvio esophagitis involving all esophagus, esophageal varices grade 2 -3 columns, no banding done due to severe silvio esophagitis - Colonoscopy unable to be completed due to solid stool - Pt started on Nystatin S/S and Protonix 40mg BID - repeat colonoscopy. no malignancy - Pt declined repeat CT guided liver Bx (09/20) - Pt previously seen by Oncology service. I discussed the case with Rita MCKINNEY, and requested repeat evaluation. - biomarkers and scans strongly suggest hepatocellular carcinoma despite lack of pathology. - Case informally d/w Dr. Guzmán (09/20). Pt cannot currently received treatment d/t liver failure/elevated bilirubin for which there is NO treatment. - If pt's liver improves and bilirubin declines then pt might be eligible for palliative chemotherapy - life expectancy less than 6 months - Pt declines hospice consult - Pt has a difficult social dynamics: no family, no friends, no yarsanism group, and limited finances. Pt rents a trailer. - Pt c/o generalized weakness - PT evaluation - Pt underwent repeat liver Bx (09/23) - appreciate input from Palliative Team. Case d/w Sayra TORRES. - anticipate discharge to SNF (09/24) - supportive care Diabetes mellitus - Patient reportedly takes Synjardy 5-1000mg PO BID, - HgbA1c 15.8 - Diabetic and dietary education. - Levemir on hold for Bx in AM Hyponatremia - Likely related to volume - Cont diuretic - recheck BMP in AM COPD with fibrotic lung disease not on home oxygen - Pt does not appear to be in acute exacerbation - Continue home anoro elipta - Duonebs Q2H as needed Constipation - continue bowel regiment - add lactulose now DVT prophylaxis with SCDs (2) Ascites Code(s): R18.8 - Other ascites Status: Acute (2) Ascites Qualifiers: Ascites type: other type Qualified Code(s): R18.8 - Other ascites
--- NOTE | 2017-09-23 17:36 | P.PNPAL ---
Reason for Visit Reason for visit: a. To assist with evaluation and management of symptoms including: weakness, dyspnea, pain b. To assist medical decision maker(s) with: better understanding of current medical conditions; weighing benefits/burdens of medical treatment options; making medical treatment decisions. Subjective Subjective/Interval History: Pt seen today to follow up on discussions RE goals of medical treatment, and abdominal pain. S/p repeat liver bx today. Tolerated procedure well. Also underwent paracentesis while in radiology, 800 ML removed. Has been NPO for procedure. VS have been stable. No new labs. Has required 20mg PRN oxycodone 2x today, 3x yesterday. Seen in room. Initially sleeping arouses easily. Mostly oriented, remembers me from yesterday. Forgetful, dozes off at times, likely 2/2 meds from procedure. His main c/o today is being hungry, and that he's still NPO. He denies nausea, really wants to eat. Endorses pain is "fine" right now, that his abdomen feels much better after paracentesis. Denies dyspnea. Reports LE edema a little better today. Review w him our conversation RE conditions, prognosis yesterday-- he remember this . he understands that the biopsy may or may not be conclusive, but that he is not a candidate for chemo per oncology. He indicates he just wants to know what it is. Explore code status again, possible ventilation/life support. He asks how long he could be on life support. 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 Explore that if is hepatocellular CA he will have very limited life expectancy and decline. He dozes off at times. He indicates that at this time he would want life support, CPR. med attending Dr Raman arrives during our discussion, he discusses w pt also. review w him prognosis, planning. possible d/c to rehab this weekend. Ok to resume diet. Objective Vital Signs: Vital Signs 09/22/17 20:00 09/22/17 20:34 09/23/17 00:00 Temperature 97.3 F L 97.9 F Pulse Rate 104 H 102 H 95 H Respiratory Rate 20 20 18 Blood Pressure 127/70 130/79 Pulse Oximetry 94 L 94 L 09/23/17 04:00 08/17/18 08:00 09/23/17 12:00 Temperature 98 F 98.0 F 97.8 F Pulse Rate 100 H 102 H 95 H Respiratory Rate Blood Pressure 111/81 138/81 115/75 Pulse Oximetry 94 L 93 L 98 09/23/17 13:25 09/23/17 16:10 09/23/17 16:27 Temperature 98.2 F Pulse Rate 107 H 105 H Respiratory Rate Blood Pressure 116/71 118/72 Pulse Oximetry 94 L 95 Intake & Output 09/22/17 09/23/17 09/23/17 18:59 06:59 18:59 Intake Total 1010 / 1010 50 / 50 50 / 50 Output Total 701 / 701 Balance 309 / 309 50 / 50 50 / 50 Intake: IV 50 / 50 50 / 50 50 / 50 Flexbumin 25% Inj 50 ML @ 60 50 / 50 50 / 50 50 / 50 mls/hr IV.SIG BID@ [facility] Rx# :[id number] Oral 960 / 960 Output: Urine 700 / 700 Stool Other: Date of Last Bowel Movement 09/22/17 Physical Exam: CONSTITUTIONAL/GENERAL: This is an cachectic male, jaundiced, no distress, lethargic TUBES/LINES/DRAINS: Peripheral IV upper extremity SKIN: + jaundice. no rashes or lesions. Discoloration/darkening bilateral lower legs. No wounds seen anteriorly. Skin warm and dry. HEAD: Atraumatic. Normocephalic. EYES: Pupils equal and round and reactive. Extraocular motions intact. +scleral icterus. No injection or drainage. Fundi not examined. CARDIOVASCULAR: Regular rate and rhythm without murmur. No JVD. Peripheral pulses symmetric-pedal pulses faint secondary significant edema. ++ Significant edema legs improved some today from yesterday. RESPIRATORY/CHEST: Symmetric, unlabored respirations. was on 2L nC,he removed to room air. Clear to auscultation. Breath sounds equal bilaterally, decreased air movement. GASTROINTESTINAL: Abdomen slightly distended though improved since yesterday. + enderness, distention, + hepatomegaly. Bowel sounds present. GENITOURINARY: Without palpable bladder distension. Voids to bedside observed dark tea color urine. NEUROLOGICAL: lethargic though arouses easily. Oriented 2-3, forgetful at times. Appropriate. Insight and judgment appear reasonable. Follows commands. Moves all 4 extremities. PSYCHIATRIC: No obvious anxiety/depression. Diagnostic Tests Laboratory: Laboratory Results - last 72 hr 09/20/17 09/20/17 09/21/17 17:27 20:15 03:31 WBC 12.7 H RBC 3.37 L Hgb 10.0 L Hct 30.6 L MCV 90.8 MCH 29.6 MCHC 32.6 RDW 15.8 Plt Count 265 MPV 8.2 Neut % (Auto) 86.8 H Lymph % (Auto) 3.3 L [place] % (Auto) 9.1 H Eos % (Auto) 0.3 Baso % (Auto) 0.5 Neut # (Auto) 11.0 H Lymph # (Auto) 0.4 L [place] # (Auto) 1.2 H Eos # (Auto) 0.0 Baso # (Auto) 0.1 WBC Differential . Differential Comment Auto diff final Sodium Potassium Chloride Carbon Dioxide Anion Gap BUN Creatinine Estimated GFR POC Glucose 264 H 250 H Random Glucose Calcium Total Bilirubin AST ALT Alkaline Phosphatase Total Protein Albumin 09/21/17 09/21/17 09/21/17 03:31 07:35 11:45 WBC RBC Hgb Hct MCV MCH MCHC RDW Plt Count MPV Neut % (Auto) Lymph % (Auto) [place] % (Auto) Eos % (Auto) Baso % (Auto) Neut # (Auto) Lymph # (Auto) [place] # (Auto) Eos # (Auto) Baso # (Auto) WBC Differential Differential Comment Sodium 132 L Potassium 4.1 Chloride 97 L Carbon Dioxide 27.7 Anion Gap 7 BUN 26 H Creatinine 0.60 Estimated GFR Greater than 89 POC Glucose 341 H 153 H Random Glucose 248 H D Calcium 7.5 L Total Bilirubin 8.0 H AST 124 H ALT 172 H Alkaline Phosphatase 691 H Total Protein 6.3 L Albumin 2.4 L 09/21/17 09/22/17 09/22/17 17:01 00:08 08:00 WBC RBC Hgb Hct MCV MCH MCHC RDW Plt Count MPV Neut % (Auto) Lymph % (Auto) [place] % (Auto) Eos % (Auto) Baso % (Auto) Neut # (Auto) Lymph # (Auto) [place] # (Auto) Eos # (Auto) Baso # (Auto) WBC Differential Differential Comment Sodium Potassium Chloride Carbon Dioxide Anion Gap BUN Creatinine Estimated GFR POC Glucose 198 H 292 H 179 H Random Glucose Calcium Total Bilirubin AST ALT Alkaline Phosphatase Total Protein Albumin 09/22/17 09/22/17 09/22/17 11:46 17:29 21:35 WBC RBC Hgb Hct MCV MCH MCHC RDW Plt Count MPV Neut % (Auto) Lymph % (Auto) [place] % (Auto) Eos % (Auto) Baso % (Auto) Neut # (Auto) Lymph # (Auto) [place] # (Auto) Eos # (Auto) Baso # (Auto) WBC Differential Differential Comment Sodium Potassium Chloride Carbon Dioxide Anion Gap BUN Creatinine Estimated GFR POC Glucose 283 H 293 H 212 H Random Glucose Calcium Total Bilirubin AST ALT Alkaline Phosphatase Total Protein Albumin 09/23/17 09/23/17 09/23/17 07:33 14:33 16:31 WBC RBC Hgb Hct MCV MCH MCHC RDW Plt Count MPV Neut % (Auto) Lymph % (Auto) [place] % (Auto) Eos % (Auto) Baso % (Auto) Neut # (Auto) Lymph # (Auto) [place] # (Auto) Eos # (Auto) Baso # (Auto) WBC Differential Differential Comment Sodium Potassium Chloride Carbon Dioxide Anion Gap BUN Creatinine Estimated GFR POC Glucose 77 78 109 Random Glucose Calcium Total Bilirubin AST ALT Alkaline Phosphatase Total Protein Albumin 09/23/17 16:57 WBC RBC Hgb Hct MCV MCH MCHC RDW Plt Count MPV Neut % (Auto) Lymph % (Auto) [place] % (Auto) Eos % (Auto) Baso % (Auto) Neut # (Auto) Lymph # (Auto) [place] # (Auto) Eos # (Auto) Baso # (Auto) WBC Differential Differential Comment Sodium Potassium Chloride Carbon Dioxide Anion Gap BUN Creatinine Estimated GFR POC Glucose 108 Random Glucose Calcium Total Bilirubin AST ALT Alkaline Phosphatase Total Protein Albumin Result Diagrams: 09/21/17 03:31 09/21/17 03:31 Imaging: Impressions Liver Biopsy CT 09/23/17 00:00 CONCLUSION: Uncomplicated CT guided core biopsy of mass in the dome of the liver. Paracentesis CT 09/23/17 00:00 CONCLUSION: Uncomplicated CT Guided paracentesis. Chest X-Ray 09/23/17 16:15 CONCLUSION: 1. Small right pleural effusion with associated airspace disease in the right lower lobe. 2. No significant pneumothorax. Procedures: * 09/12/17 CT-guided liver biopsy by IR * 09/23/17 repeat liver biopsy, IR. paracentesis 800 ML Assessment and Plan - Disease Oriented Problem List (1) Hepatitis C, chronic (2) COPD (chronic obstructive pulmonary disease) (3) Lung fibrosis (4) Liver mass (5) Ascites (6) Transaminitis Pertinent Non-Medical Issues: Psychosocial: Patient born and raised in [place]. Originally from [place]. Moved to this area several years ago. 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 Adopted, only child. Both parents . No other family or friends, describes that he is "not very social ". He is a "loner." Spiritual: Has peggy in God, however does not want food service clerk visits Legal: Patient is currently alert oriented and appears to have reasonable insight and judgment. He is able to make his own decisions. At any point his mental status could deteriorate secondary to advancing liver disease, and he may become incapacitated. He has no family or friends that he would designate as his healthcare surrogate. Ethical issues impacting care: No ethical issues identified Important Contacts: none Prognosis: This patient was admitted for abdominal distention and constipation. He has underlying history of hepatitis, diabetes, as well as COPD, lung fibrosis. He has had findings of multiple liver nodules concerning for malignancy. Additional diagnostics pending. Oncology following. Due to poor performance status not a good candidate for chemotherapy, may have very limited treatment options. If hepatocellular CA is unresectable. If is another primary would be a metastatic disease. Limited treatment options. Appropriate for hospice if goals were comfort oriented. Code Status: Full Code Plan: * Legal decision maker: Patient is currently alert oriented and appears to have reasonable insight and judgment. He is able to make his own decisions. At any point his mental status could deteriorate secondary to advancing liver disease, and he may become incapacitated. He has no family or friends that he would designate as his healthcare surrogate. * Goals:Patient appears to understand conditions, pending diagnostics and possible/probable diagnoses of malignancy. He understands that he may not have any treatment options. However, he would like to proceed with a second biopsy to get as much information as he can and "confirm things". He indicates he "puts it in God's hands and that things could change any day", and that he would want as much information as possible so if there is any possible chance of treatment he could have it. He cont to express aggressive goals, and continue with whatever supportive tx are available. He is not ready for hospice at this time. * CODE STATUS: Full code * SYMPTOMS: --Dyspnea-secondary to liver/abdominal pathology, deconditioning. Uses O2 as needed. Dyspnea also improves when abdominal pain well controlled. If goals were comfort oriented may benefit from prn low dose benzos dyspnea/ tachypnea. endorses good relief of both dyspnea and pain with use of oxycodone 20 mg. Denies dyspnea today. --Pain -abdominal pain which radiates to the ribs especially with dyspnea. Worsens with abdominal distention abdomen feels bloated, painful. 2/2 liver pathology, ascites. At times it makes his breathing painful. Currently endorses good relief of both dyspnea and pain with use of oxycodone 20 mg. better today after paracentesis. This was increased from 10-20 yesterday, patient indicates 10 mg dose did not work very well however he feels much more comfortable with pain level at a 4 out of 10 on current dosing. No adjustments recommended at this time -- weakness- endorses weakness/fatigue in past 3-4 weeks; multifactorial, suspected malignancy, malnutrition, weight loss, deconditioning. Will likely be progressive as disease progresses. --malnutrition- hx diabetes, some hyperglycemia per pt. +weight loss, unk amt , over 1 month. + early satiety, only able to eat small amts due to abdominal discomfort. albumin 2.4. Regulatory Internship following, pt likes/taking PO glucerna supplements. Recommend low sugar, but calorie dense food that pt likes as PO is very limited. * Palliative care will continue to follow during hospital course as condition evolves, to assist patient/decision-maker with understanding of medical conditions, weighing benefits/burdens of treatment options, for clarification of goals of treatment. Additionally will assist with any symptoms of palliative concern Attestation Attestation: To help prompt me to consider important information that might be impacting today's encounter and assessment, information from prior notes written by myself or my colleagues may have been "brought forward" into today's note. My signature on this note, however, is an attestation that I personally performed the exam, history, and/or decision-making noted today, and, unless otherwise indicated, the interactions with patient, family, and staff as well as the review of records all occurred today. I also attest that the listed assessment and stated plan reflect my best clinical judgment today based on the combination of historical information, prior notes, and today's exam/ interactions. When time spent is documented, it refers only to time spent today by the signer, or if indicated, combined time spent today by collaborating physician/nurse practitioner.
[2017-09-24] MEDS: Polyethylene Glycol 3350 17 GM Packet PO SCH (08:50)
[2017-09-24] MEDS: Senna/Docusate Sodium 8.6/50 MG Tablet PO SCH ×2 (08:51→21:42)
[2017-09-24] MEDS: Insulin NovoLOG Aspart Correctional Sugar Inj SQ SCH ×4 (08:51→21:44)
[2017-09-24] MEDS: Albumin Human 25% Inj 50 ML IV.SIG SCH ×2 (08:52→17:56)
[2017-09-24] MEDS: Nystatin Liq 500,000 UNIT/5 ML UDC SWISH-SWAL SCH ×4 (08:55→21:42)
[2017-09-24] MEDS: Spironolactone 25 MG Tablet PO SCH (08:56)
[2017-09-24] MEDS: Umeclindinium 62.5 MCG/Vilanterol 25 MCG Inhaler INH SCH (10:14)
--- NOTE | 2017-09-24 13:52 | P.DS ---
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 Patient reports he has previously been treated with Harvoni for his hepatitis C by Dr. Honeycutt about 1 year ago. Patient presents to the emergency department with complaints of abdominal distention and constipation for approximately 3 weeks. Patient reports that he has had abd distention that comes and goes ax 3 weeks along with constipation. Patient report that he has had hard ball like stool intermittently over the past 3 weeks. Initially this constipation was relieved by prune juice but this stopped working. He proceeded to the ER for further evaluation and treatment. Patient also indorses intermitted nausea, but no vomiting. Patient denies fevers chills vomiting chest pain or shortness of breath. Abdomen X-Ray 09/10/17 02:05 CONCLUSION: No dilated loops of small or large bowel. Abdomen/Pelvis CT 09/10/17 02:05 CONCLUSION: 1. 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 Honeycutt 1 year ago Past surgical history: Patient denies prior surgical history Family medical history: patient was adopted does not known [facility] Social history: Patient denies EtOH use at this time quit drinking 19 year ago tobacco use 1PPD, on and off for, "many year," patient unable to quantify denies illicit drug use DS: Diagnosis - Discharge Diagnosis (1) Liver mass Status: Acute (2) Ascites Status: Acute DS: Medications - Discharge Medications Prescriptions: oxycodone 20 mg PO Q4-6H PRN #120 tab PRN Reason: Pain DS: Summary Hospital Course: This is a 57-year-old male patient with past medical history which includes diabetes mellitus and hepatitis C. Patient reports he has previously been treated with Harvoni for his hepatitis C. Patient presents to the emergency department with complaints of abdominal distention and constipation for approximately 3 weeks. 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 Patient reports he has previously been treated with Harvoni for his hepatitis C by Dr. Honeycutt about 1 year ago. - He presented to the ED on 09/10/17 with complaints of abdominal distention and constipation for approximately 3 weeks. - KUB (09/10/17)--> no dilated loops of small or large bowel - CT abdomen/pelvis (09/10/17) --> abnormal examination suspicious for malignancy demonstrating significant ascites in the abdomen and pelvis, multiple irregular margin hypodense lesions in the liver measuring up to 9 cm in size , and enlarged ring-enhancing nodular masses adjacent to the celiac artery, anterior to the heart and adjacent to the inferior esophagus. - Given concern of malignancy interventional radiology was consulted for US guided paracentesis with cytology but this was unable to be done as there was not enough fluid - CMP on admission reviewed total bilirubin 0.9 AST 208, ALT 152, alkaline phosphatase 472 ammonia (09/10) < 10, AFP (09/11) 533.3, CA 19.9 509.5 - His LFTs worsened following admission, the transaminases have slowly been improving but TBili is elevating. - (09/11/17) Tbili 0.8, AST 6470, ALT 3043, AlkPhos 939 - (09/12/17) Tbili 0.6, AST 2051, ALT 1765, AlkPhos 801 - (09/13/17) TBili 1.0, AST 831, ALT 1070, AlkPhos 751 - (09/14/17) TBili 1.4, AST 690, ALT 839, AlkPhos 921 - (09/15/17) TBili 2.8, DBili 2.3, AST 553, ALT 661, AlkPhos 966 - (09/16/17) TBili 4.8, AST 354, ALT 492, AlkPhos 904 - (09/19/17) TBili 7.1, AST 163, ALT 240, AlkPhos 732 - Hepatitis profile Hep C Ab positive - PT 10.9, INR 1.1, APTT 23.8 (09/10) - repeat INR and APTT in AM - US guided paracentesis was performed on 09/15/17 and fluid for cytology is non- diagnostic cont aldactone. lasix/albumen. - Pt had a CT guided biopsy of the liver with IR (09/12/17) --> pathology noted hepatic necrosis and acute inflammation. no evidence for malignancy. - Pt underwent evaluation with EGD/colonoscopy (09/16/17): - Nodule in the duodenal bulb-possible minor papilla, portal gastropathy, gastritis in the antrum, severe silvio esophagitis involving all esophagus, esophageal varices grade 2 -3 columns, no banding done due to severe silvio esophagitis - Colonoscopy unable to be completed due to solid stool - Pt started on Nystatin S/S and Protonix 40mg BID - repeat colonoscopy. no malignancy - Pt declined repeat CT guided liver Bx (09/20) - Pt previously seen by Oncology service. I discussed the case with Rita MCKINNEY, and requested repeat evaluation. - biomarkers and scans strongly suggest hepatocellular carcinoma despite lack of pathology. - Case informally d/w Dr. Guzmán (09/20). Pt cannot currently received treatment d/t liver failure/elevated bilirubin for which there is NO treatment. - If pt's liver improves and bilirubin declines then pt might be eligible for palliative chemotherapy - life expectancy less than 6 months - Pt declines hospice consult - Pt has a difficult social dynamics: no family, no friends, no quaker group, and limited finances. Pt rents a trailer. - Pt c/o generalized weakness - PT evaluation - Pt underwent repeat liver Bx (09/23) - appreciate input from Palliative Team. Case d/w Sayra TORRES (09/23/17) - supportive care Diabetes mellitus - Patient reportedly takes Synjardy 5-1000mg PO BID at home - HgbA1c 15.8 - Diabetic and dietary education. 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 - Pt does not appear to be in acute exacerbation - Continue home anoro elipta - Duonebs Q2H as needed Constipation - continue bowel regiment - add lactulose now DVT prophylaxis with SCDs - Time Spent with Patient Total time spent providing and/or coordinating discharge services: Greater than 30 minutes Exam Vital signs: Vital Signs 09/23/17 16:10 09/23/17 16:27 09/23/17 20:00 Temperature 98.2 F 97.9 F Pulse Rate 107 H 105 H 104 H Respiratory Rate 16 16 23 Blood Pressure 116/71 118/72 121/69 Pulse Oximetry 94 L 95 98 09/24/17 00:00 09/24/17 04:00 09/24/17 08:00 Temperature 98 F 98 F 97.6 F Pulse Rate 100 H 101 H 97 H Respiratory Rate 19 17 20 Blood Pressure 118/72 122/70 112/73 Pulse Oximetry 96 98 100 09/24/17 11:12 Temperature Pulse Rate Respiratory Rate 16 Blood Pressure Pulse Oximetry Intake & Output 09/23/17 09/24/17 09/24/17 18:59 06:59 18:59 Intake Total 50 / 50 50 / 50 Output Total 500 / 500 920 / 920 Balance -450 / -450 -920 / -920 50 / 50 Weight 71.8 kg Intake: IV 50 / 50 50 / 50 Flexbumin 25% Inj 50 ML @ 60 50 / 50 50 / 50 mls/hr IV.SIG BID@ [facility] Rx# :[id number] Output: Urine 500 / 500 920 / 920 Other: Date of Last Bowel Movement 09/22/17 Narrative: GENERAL: Thin CARDIO: Regular RESP: clear x b/l ABD: +BS, soft, non-tender, distended EXT: Bilateral LE 3+ pitting edema. Results Procedures completed during hospitalization: - US guided paracentesis was performed on 09/15/17 and fluid for cytology is non- diagnostic - Pt had a CT guided biopsy of the liver with IR (09/12/17) --> pathology noted hepatic necrosis and acute inflammation. no evidence for malignancy. - Pt underwent evaluation with EGD/colonoscopy (09/16/17): - Nodule in the duodenal bulb-possible minor papilla, portal gastropathy, gastritis in the antrum, severe silvio esophagitis involving all esophagus, esophageal varices grade 2 -3 columns, no banding done due to severe silvio esophagitis - Colonoscopy unable to be completed due to solid stool - Pt underwent repeat liver Bx (09/23) Completed studies during hospitalization: Pending at discharge 09/10/17 Cytology [PTH] Routine 09/16/17 13:42 Surgical [PTH] Routine Labs on day of discharge: Labs from last 24 hours 09/24/17 09/24/17 09/23/17 11:08 07:30 20:17 POC Glucose 343 H 371 H 233 H 09/23/17 09/23/17 09/23/17 16:57 16:31 14:33 POC Glucose 108 109 78 - Impressions ITS Impressions Abdomen Ultrasound 09/10/17 00:00 CONCLUSION: 1. There is mild to moderate ascites although no pockets are seen large enough at the current time to safely perform paracentesis. Abdomen/Pelvis CT 09/10/17 02:05 CONCLUSION: 1. 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 Abdomen X-Ray 09/13/17 10:29 CONCLUSION: Mild small bowel dilatation central abdomen. No free air. Paracentesis Ultrasound 09/15/17 00:00 CONCLUSION: 1. Successful paracentesis Abdomen MRI 09/17/17 00:00 CONCLUSION: 1. The liver is diffusely enlarged and heterogeneous consistent with hepatocellular disease such as cirrhosis. There is ascites in the upper abdomen. No dilated biliary ducts. 2. There is at least 2 complex areas which are highly suspicious for neoplastic disease. There is a complex area measuring about 12 cm involving segments 4 and 8 of the liver suspicious for neoplastic disease. There is a complex area measuring 9.8 cm in segment 6 suspicious for neoplastic disease. Liver Biopsy CT 09/23/17 00:00 CONCLUSION: Uncomplicated CT guided core biopsy of mass in the dome of the liver. Paracentesis CT 09/23/17 00:00 CONCLUSION: Uncomplicated CT Guided paracentesis. Chest X-Ray 09/23/17 16:15 CONCLUSION: 1. Small right pleural effusion with associated airspace disease in the right lower lobe. 2. No significant pneumothorax. <Hugh Raman - Last Filed: 09/24/17 14:57> Date of admission: 09/10/17 05:52 Primary care physician: Shama Bueno MD DS: Diagnosis - Discharge Diagnosis (1) Liver mass Status: Acute (2) Ascites Status: Acute DS: Summary Hospital Course: Pt has endstage, metastatic hepatocellular carcinoma. Pt's life expectancy is 6 months or less. Pt offered Hospice, but declines at this time. Pt is at high risk for readmission. Pt written for oxycodone 20mg q4-6h prn pain, 120 tablets, no refills [employer] was reviewed (09/24), and pt was NOT in the system. - Time Spent with Patient Total time spent providing and/or coordinating discharge services: Exam Vital signs: Vital Signs 09/23/17 16:10 09/23/17 16:27 09/23/17 20:00 Temperature 98.2 F 97.9 F Pulse Rate 107 H 105 H 104 H Respiratory Rate 16 16 23 Blood Pressure 116/71 118/72 121/69 Pulse Oximetry 94 L 95 98 09/24/17 00:00 09/24/17 04:00 09/24/17 08:00 Temperature 98 F 98 F 97.6 F Pulse Rate 100 H 101 H 97 H Respiratory Rate 19 17 20 Blood Pressure 118/72 122/70 112/73 Pulse Oximetry 96 98 100 09/24/17 11:12 09/24/17 12:00 Temperature 97.8 F Pulse Rate 93 H Respiratory Rate 16 20 Blood Pressure 121/67 Pulse Oximetry 99 Intake & Output 09/23/17 09/24/17 09/24/17 18:59 06:59 18:59 Intake Total 50 / 50 450 / 450 Output Total 500 / 500 920 / 920 300 / 300 Balance -450 / -450 -920 / -920 150 / 150 Weight 71.8 kg Intake: IV 50 / 50 50 / 50 Flexbumin 25% Inj 50 ML @ 60 50 / 50 50 / 50 mls/hr IV.SIG BID@ [facility] Rx# :[id number] Oral 400 / 400 Output: Urine 500 / 500 920 / 920 300 / 300 Other: Date of Last Bowel Movement 09/22/17 Results Completed studies during hospitalization: Pending at discharge 09/10/17 Cytology [PTH] Routine 09/16/17 13:42 Surgical [PTH] Routine Labs on day of discharge: Labs from last 24 hours 09/24/17 09/24/17 09/24/17 14:44 11:08 07:30 POC Glucose 322 H 343 H 371 H 09/23/17 09/23/17 09/23/17 20:17 16:57 16:31 POC Glucose 233 H 108 109 - Impressions ITS Impressions Abdomen Ultrasound 09/10/17 00:00 CONCLUSION: 1. There is mild to moderate ascites although no pockets are seen large enough at the current time to safely perform paracentesis. Abdomen/Pelvis CT 09/10/17 02:05 CONCLUSION: 1. 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 Abdomen X-Ray 09/13/17 10:29 CONCLUSION: Mild small bowel dilatation central abdomen. No free air. Paracentesis Ultrasound 09/15/17 00:00 CONCLUSION: 1. Successful paracentesis Abdomen MRI 09/17/17 00:00 CONCLUSION: 1. The liver is diffusely enlarged and heterogeneous consistent with hepatocellular disease such as cirrhosis. There is ascites in the upper abdomen. No dilated biliary ducts. 2. There is at least 2 complex areas which are highly suspicious for neoplastic disease. There is a complex area measuring about 12 cm involving segments 4 and 8 of the liver suspicious for neoplastic disease. There is a complex area measuring 9.8 cm in segment 6 suspicious for neoplastic disease. Liver Biopsy CT 09/23/17 00:00 CONCLUSION: Uncomplicated CT guided core biopsy of mass in the dome of the liver. Paracentesis CT 09/23/17 00:00 CONCLUSION: Uncomplicated CT Guided paracentesis. Chest X-Ray 09/23/17 16:15 CONCLUSION: 1. Small right pleural effusion with associated airspace disease in the right lower lobe. 2. No significant pneumothorax. Discharge Plan - Discharge Details Anticipated Discharge Date: 09/24/17 - Physicians Team Primary Care Provider: Shama Bueno Attending Provider: Hugh Raman Other Providers: Kurtis Bynum MD ; Rob Martinez MD ; John Coronel MD ; [facility],Agency ; [facility]ency ; [facility],[place]
--- NOTE | 2017-09-24 15:13 | P.PNIM ---
Subjective Interval history: Patient resting in bed c/o SOB and difficulty taking a deep breath, abd distended Physical Exam Vital signs: Vital Signs 09/23/17 16:10 09/23/17 16:27 09/23/17 20:00 Temperature 98.2 F 97.9 F Pulse Rate 107 H 105 H 104 H Respiratory Rate 16 16 23 Blood Pressure 116/71 118/72 121/69 Pulse Oximetry 94 L 95 98 09/24/17 00:00 09/24/17 04:00 09/24/17 08:00 Temperature 98 F 98 F 97.6 F Pulse Rate 100 H 101 H 97 H Respiratory Rate 19 17 20 Blood Pressure 118/72 122/70 112/73 Pulse Oximetry 96 98 100 09/24/17 11:12 09/24/17 12:00 Temperature 97.8 F Pulse Rate 93 H Respiratory Rate 16 20 Blood Pressure 121/67 Pulse Oximetry 99 Intake & Output 09/23/17 09/24/17 09/24/17 18:59 06:59 18:59 Intake Total 50 / 50 450 / 450 Output Total 500 / 500 920 / 920 300 / 300 Balance -450 / -450 -920 / -920 150 / 150 Weight 71.8 kg Intake: IV 50 / 50 50 / 50 Flexbumin 25% Inj 50 ML @ 60 50 / 50 50 / 50 mls/hr IV.SIG BID@ [facility] Rx# :[id number] Oral 400 / 400 Output: Urine 500 / 500 920 / 920 300 / 300 Other: Date of Last Bowel Movement 09/22/17 Narrative: GENERAL: Thin CARDIO: Regular RESP: clear x b/l ABD: +BS, soft, non-tender, distended EXT: Bilateral LE 3+ pitting edema. Results - Labs CBC & Chem 7: 09/25/17 12:10 09/25/17 12:10 Laboratory Results - last 24 hr 09/23/17 09/23/17 09/23/17 16:31 16:57 20:17 POC Glucose 109 108 233 H 09/24/17 09/24/17 09/24/17 07:30 11:08 14:44 POC Glucose 371 H 343 H 322 H - Imaging Impressions Liver Biopsy CT 09/23/17 00:00 CONCLUSION: Uncomplicated CT guided core biopsy of mass in the dome of the liver. Paracentesis CT 09/23/17 00:00 CONCLUSION: Uncomplicated CT Guided paracentesis. Chest X-Ray 09/23/17 16:15 CONCLUSION: 1. Small right pleural effusion with associated airspace disease in the right lower lobe. 2. No significant pneumothorax. - Procedures - US guided paracentesis was performed on 09/15/17 and fluid for cytology is non- diagnostic - Pt had a CT guided biopsy of the liver with IR (09/12/17) --> pathology noted hepatic necrosis and acute inflammation. no evidence for malignancy. - Pt underwent evaluation with EGD/colonoscopy (09/16/17): - Nodule in the duodenal bulb-possible minor papilla, portal gastropathy, gastritis in the antrum, severe silvio esophagitis involving all esophagus, esophageal varices grade 2 -3 columns, no banding done due to severe silvio esophagitis - Colonoscopy unable to be completed due to solid stool - Pt underwent repeat liver Bx (09/23) Assessment and Plan - Assessment (1) Liver mass Code(s): R16.0 - Hepatomegaly, not elsewhere classified Status: Acute Plan: This is a 57-year-old male patient with past medical history which includes diabetes mellitus and hepatitis C. Patient reports he has previously been treated with Harvoni for his hepatitis C. Patient presents to the emergency department with complaints of abdominal distention and constipation for approximately 3 weeks. 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 Patient reports he has previously been treated with Harvoni for his hepatitis C by Dr. Honeycutt about 1 year ago. - He presented to the ED on 09/10/17 with complaints of abdominal distention and constipation for approximately 3 weeks. - KUB (09/10/17)--> no dilated loops of small or large bowel - CT abdomen/pelvis (09/10/17) --> abnormal examination suspicious for malignancy demonstrating significant ascites in the abdomen and pelvis, multiple irregular margin hypodense lesions in the liver measuring up to 9 cm in size , and enlarged ring-enhancing nodular masses adjacent to the celiac artery, anterior to the heart and adjacent to the inferior esophagus. - Given concern of malignancy interventional radiology was consulted for US guided paracentesis with cytology but this was unable to be done as there was not enough fluid - CMP on admission reviewed total bilirubin 0.9 AST 208, ALT 152, alkaline phosphatase 472 ammonia (09/10) < 10, AFP (09/11) 533.3, CA 19.9 509.5 - His LFTs worsened following admission, the transaminases have slowly been improving but TBili is elevating. - (09/11/17) Tbili 0.8, AST 6470, ALT 3043, AlkPhos 939 - (09/12/17) Tbili 0.6, AST 2051, ALT 1765, AlkPhos 801 - (09/13/17) TBili 1.0, AST 831, ALT 1070, AlkPhos 751 - (09/14/17) TBili 1.4, AST 690, ALT 839, AlkPhos 921 - (09/15/17) TBili 2.8, DBili 2.3, AST 553, ALT 661, AlkPhos 966 - (09/16/17) TBili 4.8, AST 354, ALT 492, AlkPhos 904 - (09/19/17) TBili 7.1, AST 163, ALT 240, AlkPhos 732 - Hepatitis profile Hep C Ab positive - PT 10.9, INR 1.1, APTT 23.8 (09/10) - repeat INR and APTT in AM - US guided paracentesis was performed on 09/15/17 and fluid for cytology is non- diagnostic cont aldactone. lasix/albumen. - Pt had a CT guided biopsy of the liver with IR (09/12/17) --> pathology noted hepatic necrosis and acute inflammation. no evidence for malignancy. - Pt underwent evaluation with EGD/colonoscopy (09/16/17): - Nodule in the duodenal bulb-possible minor papilla, portal gastropathy, gastritis in the antrum, severe silvio esophagitis involving all esophagus, esophageal varices grade 2 -3 columns, no banding done due to severe silvio esophagitis - Colonoscopy unable to be completed due to solid stool - Pt started on Nystatin S/S and Protonix 40mg BID - repeat colonoscopy. no malignancy - Pt declined repeat CT guided liver Bx (09/20) - Pt previously seen by Oncology service. I discussed the case with Rita MCKINNEY, and requested repeat evaluation. - biomarkers and scans strongly suggest hepatocellular carcinoma despite lack of pathology. - Case informally d/w Dr. Guzmán (09/20). Pt cannot currently received treatment d/t liver failure/elevated bilirubin for which there is NO treatment. - If pt's liver improves and bilirubin declines then pt might be eligible for palliative chemotherapy - life expectancy less than 6 months - Pt declines hospice consult - Pt has a difficult social dynamics: no family, no friends, no spiritism group, and limited finances. Pt rents a trailer. - Pt c/o generalized weakness - PT evaluation - Pt underwent repeat liver Bx (09/23) - appreciate input from Palliative Team. Case d/w Sayra BENJAMINP (09/23/17) - Patient having SOB due to abd distention will order therapeutic paracentesis - supportive care Diabetes mellitus - Patient reportedly takes Synjardy 5-1000mg PO BID at home - HgbA1c 15.8 - Diabetic and dietary education. 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 Assessment and plan formulated with Angela Johnson PA-C. I agree with the above. (2) Ascites Qualifiers: Ascites type: other type Qualified Code(s): R18.8 - Other ascites
--- NOTE | 2017-09-24 17:18 | US ---
EXAM DATE: 09/24/2017 5:15 PM EDT AGE/SEX: 57 years / Male INDICATIONS: Distended abdomen. CLINICAL DATA: This is the patient's subsequent encounter. Patient reports that signs and symptoms h ave been present for 1 day and indicates a pain score of 10/10. MEDICAL/SURGICAL HISTORY: Diabetes. Hepatitis C. Ascites. . Paracentesis. COMPARISON: [facility] [place] GUIDED ABD PARACENTESIS, 09/23/2017. . FINDINGS: Ultrasound examination of the abdomen was performed to evaluate for possible paracentesis. There is n o ascites at this time. CONCLUSION: 1. No ascites. Paracentesis deferred. Electronically signed by: El Baxter MD 09/24/2017 5:16 PM EDT
[2017-09-24] MEDS: Spironolactone 50 MG Tablet PO SCH (17:55)
[2017-09-24] MEDS: Insulin Detemir Inj 1,000 UNIT/10 ML Vial SQ SCH (21:50)
[2017-09-25] MEDS: Polyethylene Glycol 3350 17 GM Packet PO SCH (08:50)
[2017-09-25] MEDS: Senna/Docusate Sodium 8.6/50 MG Tablet PO SCH ×2 (08:50→20:44)
[2017-09-25] MEDS: Insulin Detemir Inj 1,000 UNIT/10 ML Vial SQ SCH (08:50)
[2017-09-25] MEDS: Nystatin Liq 500,000 UNIT/5 ML UDC SWISH-SWAL SCH ×4 (08:50→20:44)
[2017-09-25] MEDS: Spironolactone 50 MG Tablet PO SCH ×2 (08:51→17:14)
[2017-09-25] MEDS: Albumin Human 25% Inj 50 ML IV.SIG SCH ×2 (08:51→16:22)
[2017-09-25] MEDS: Insulin NovoLOG Aspart Correctional Sugar Inj SQ SCH ×4 (08:51→20:44)
[2017-09-25] MEDS: Dextrose 50% in Water 50 ML Vial IV.PUSH PRN ×3 (08:57→17:39)
[2017-09-25] MEDS: Umeclindinium 62.5 MCG/Vilanterol 25 MCG Inhaler INH SCH (10:22)
[2017-09-25] MEDS ORDERED: Dextrose 5%/NaCl 0.9% Inj 1,000 ML IV.CONT SCH (11:30)
[2017-09-25 12:33] LABS: Hematocrit 31.7 % (39.0-51.0); Hemoglobin 10.2 gm/dL (13.0-17.0); Mean Corpuscular HGB Conc 32.1 % (32.0-36.0); Mean Corpuscular Volume 93.4 fL (80.0-100.0); Mean Platelet Volume 8.1 fL (7.0-11.0); Platelet Count 184 th/mm3 (150-450); Red Blood Count 3.39 mil/mm3 (4.50-5.90); Red Cell Distribution Width 16.5 % (11.6-17.2); White Blood Count 16.2 th/mm3 (4.0-11.0)
[2017-09-25 12:48] LABS: Alanine Aminotransferase 141 U/L (12-78); Albumin 2.9 g/dL (3.4-5.0); Anion Gap 1 meq/L (5-15); Aspartate Aminotransferase 154 U/L (15-37); Blood Urea Nitrogen 28 mg/dL (7-18); Calcium 8.4 mg/dL (8.5-10.1); Carbon Dioxide 34.5 meq/L (21.0-32.0); Chloride 98 meq/L (98-107); Glomerular Filtration Rate Greater Than 89 mL/min (>89); Glucose,Random 60 mg/dL (74-106); Potassium 5.2 meq/L (3.5-5.1); Sodium 133 meq/L (136-145)
[2017-09-25 12:50] LABS: Alkaline Phosphatase 677 U/L (45-117); Total Protein 7.2 g/dL (6.4-8.2)
[2017-09-25 13:04] LABS: Monocytes 4 % (0-8)
[2017-09-25 13:05] LABS: Platelet Estimate Normal (Normal); Platelet Morphology Normal (Normal); Target Cells 1+
[2017-09-25] MEDS ORDERED: Sodium Polystyrene Sulfonate/Sorbitol Liq 15 GM/60 ML UDC PO ONE (17:20)
[2017-09-25] MEDS ORDERED: Dextrose 10% in Water Inj 1,000 ML IV.CONT SCH (17:45)
--- NOTE | 2017-09-25 18:46 | P.PNIM ---
Subjective Interval history: No new complaints. Pt is tolerating PO intake. Pt denies c/o SOB today. Physical Exam Vital signs: 09/25/17 16:00 Temperature 97.9 F Pulse Rate 98 H Respiratory Rate 20 Blood Pressure 119/64 Pulse Oximetry 96 Narrative: GENERAL: Thin CARDIO: Regular RESP: clear x b/l ABD: +BS, soft, non-tender, distended EXT: Bilateral LE 3+ pitting edema. Results - Labs CBC & Chem 7: 09/25/17 12:10 09/25/17 12:10 Laboratory Results - last 24 hr 09/24/17 09/25/17 09/25/17 21:43 07:04 07:17 WBC RBC Hgb Hct MCV MCH MCHC RDW Plt Count MPV Prelim Diff (Auto) WBC Differential Seg Neuts % (Manual) Band Neuts % (Manual) Monocytes % (Manual) Abs Neuts (Manual) Differential Comment Platelet Estimate Platelet Morphology Target Cells Sodium Potassium Chloride Carbon Dioxide Anion Gap BUN Creatinine Estimated GFR POC Glucose 141 H 42 L* 53 L Random Glucose Calcium Total Bilirubin AST ALT Alkaline Phosphatase Ammonia Total Protein Albumin 09/25/17 09/25/17 09/25/17 07:38 07:49 08:47 WBC RBC Hgb Hct MCV MCH MCHC RDW Plt Count MPV Prelim Diff (Auto) WBC Differential Seg Neuts % (Manual) Band Neuts % (Manual) Monocytes % (Manual) Abs Neuts (Manual) Differential Comment Platelet Estimate Platelet Morphology Target Cells Sodium Potassium Chloride Carbon Dioxide Anion Gap BUN Creatinine Estimated GFR POC Glucose 56 L 52 L 62 L Random Glucose Calcium Total Bilirubin AST ALT Alkaline Phosphatase Ammonia Total Protein Albumin 09/25/17 09/25/17 09/25/17 09:24 10:35 11:08 WBC RBC Hgb Hct MCV MCH MCHC RDW Plt Count MPV Prelim Diff (Auto) WBC Differential Seg Neuts % (Manual) Band Neuts % (Manual) Monocytes % (Manual) Abs Neuts (Manual) Differential Comment Platelet Estimate Platelet Morphology Target Cells Sodium Potassium Chloride Carbon Dioxide Anion Gap BUN Creatinine Estimated GFR POC Glucose 157 H 97 Random Glucose 68 L Calcium Total Bilirubin AST ALT Alkaline Phosphatase Ammonia Total Protein Albumin 09/25/17 09/25/17 09/25/17 12:10 12:10 12:10 WBC 16.2 H RBC 3.39 L Hgb 10.2 L Hct 31.7 L MCV 93.4 MCH 30.0 MCHC 32.1 RDW 16.5 Plt Count 184 D MPV 8.1 Prelim Diff (Auto) Manual diff required WBC Differential Manual diff final Seg Neuts % (Manual) 95 H Band Neuts % (Manual) 1 Monocytes % (Manual) 4 Abs Neuts (Manual) 15.6 H Differential Comment . Platelet Estimate Normal Platelet Morphology Normal Target Cells 1+ H Sodium 133 L Potassium 5.2 H Chloride 98 Carbon Dioxide 34.5 H Anion Gap 1 L BUN 28 H Creatinine 0.63 Estimated GFR Greater than 89 POC Glucose Random Glucose 60 L Calcium 8.4 L Total Bilirubin 11.8 H AST 154 H ALT 141 H Alkaline Phosphatase 677 H Ammonia 22 Total Protein 7.2 D Albumin 2.9 L 09/25/17 09/25/17 09/25/17 16:00 17:33 18:04 WBC RBC Hgb Hct MCV MCH MCHC RDW Plt Count MPV Prelim Diff (Auto) WBC Differential Seg Neuts % (Manual) Band Neuts % (Manual) Monocytes % (Manual) Abs Neuts (Manual) Differential Comment Platelet Estimate Platelet Morphology Target Cells Sodium Potassium Chloride Carbon Dioxide Anion Gap BUN Creatinine Estimated GFR POC Glucose 54 L 82 161 H Random Glucose Calcium Total Bilirubin AST ALT Alkaline Phosphatase Ammonia Total Protein Albumin - Imaging Abdomen Ultrasound 09/10/17 00:00 CONCLUSION: 1. There is mild to moderate ascites although no pockets are seen large enough at the current time to safely perform paracentesis. Abdomen X-Ray 09/10/17 02:05 CONCLUSION: No dilated loops of small or large bowel. Abdomen/Pelvis CT 09/10/17 02:05 CONCLUSION: 1. 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 Liver Biopsy CT 09/12/17 00:00 CONCLUSION: 1. Uncomplicated CT guided biopsy. Abdomen X-Ray 09/13/17 10:29 CONCLUSION: Mild small bowel dilatation central abdomen. No free air. Paracentesis Ultrasound 09/15/17 00:00 CONCLUSION: 1. Successful paracentesis Abdomen MRI 09/17/17 00:00 CONCLUSION: 1. The liver is diffusely enlarged and heterogeneous consistent with hepatocellular disease such as cirrhosis. There is ascites in the upper abdomen. No dilated biliary ducts. 2. There is at least 2 complex areas which are highly suspicious for neoplastic disease. There is a complex area measuring about 12 cm involving segments 4 and 8 of the liver suspicious for neoplastic disease. There is a complex area measuring 9.8 cm in segment 6 suspicious for neoplastic disease. Liver Biopsy CT 09/23/17 00:00 CONCLUSION: Uncomplicated CT guided core biopsy of mass in the dome of the liver. Paracentesis CT 09/23/17 00:00 CONCLUSION: Uncomplicated CT Guided paracentesis. Chest X-Ray 09/23/17 16:15 CONCLUSION: 1. Small right pleural effusion with associated airspace disease in the right lower lobe. 2. No significant pneumothorax. Abdomen Ultrasound 09/24/17 00:00 CONCLUSION: 1. No ascites. Paracentesis deferred. - Procedures - US guided paracentesis was performed on 09/15/17 and fluid for cytology is non- diagnostic - Pt had a CT guided biopsy of the liver with IR (09/12/17) --> pathology noted hepatic necrosis and acute inflammation. no evidence for malignancy. - Pt underwent evaluation with EGD/colonoscopy (09/16/17): - Nodule in the duodenal bulb-possible minor papilla, portal gastropathy, gastritis in the antrum, severe silvio esophagitis involving all esophagus, esophageal varices grade 2 -3 columns, no banding done due to severe silvio esophagitis - Colonoscopy unable to be completed due to solid stool - Pt underwent repeat liver Bx (09/23) Assessment and Plan - Assessment (1) Liver mass Code(s): R16.0 - Hepatomegaly, not elsewhere classified Status: Acute Plan: This is a 57-year-old male patient with past medical history which includes diabetes mellitus and hepatitis C. Patient reports he has previously been treated with Harvoni for his hepatitis C. Patient presents to the emergency department with complaints of abdominal distention and constipation for approximately 3 weeks. 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 Patient reports he has previously been treated with Harvoni for his hepatitis C by Dr. Honeycutt about 1 year ago. - He presented to the ED on 09/10/17 with complaints of abdominal distention and constipation for approximately 3 weeks. - KUB (09/10/17)--> no dilated loops of small or large bowel - CT abdomen/pelvis (09/10/17) --> abnormal examination suspicious for malignancy demonstrating significant ascites in the abdomen and pelvis, multiple irregular margin hypodense lesions in the liver measuring up to 9 cm in size , and enlarged ring-enhancing nodular masses adjacent to the celiac artery, anterior to the heart and adjacent to the inferior esophagus. - Given concern of malignancy interventional radiology was consulted for US guided paracentesis with cytology but this was unable to be done as there was not enough fluid - CMP on admission reviewed total bilirubin 0.9 AST 208, ALT 152, alkaline phosphatase 472 ammonia (09/10) < 10, AFP (09/11) 533.3, CA 19.9 509.5 - His LFTs worsened following admission, the transaminases have slowly been improving but TBili is elevating. - (09/11/17) Tbili 0.8, AST 6470, ALT 3043, AlkPhos 939 - (09/12/17) Tbili 0.6, AST 2051, ALT 1765, AlkPhos 801 - (09/13/17) TBili 1.0, AST 831, ALT 1070, AlkPhos 751 - (09/14/17) TBili 1.4, AST 690, ALT 839, AlkPhos 921 - (09/15/17) TBili 2.8, DBili 2.3, AST 553, ALT 661, AlkPhos 966 - (09/16/17) TBili 4.8, AST 354, ALT 492, AlkPhos 904 - (09/19/17) TBili 7.1, AST 163, ALT 240, AlkPhos 732 - Hepatitis profile Hep C Ab positive - PT 10.9, INR 1.1, APTT 23.8 (09/10) - repeat INR and APTT in AM - US guided paracentesis was performed on 09/15/17 and fluid for cytology is non- diagnostic cont aldactone. lasix/albumen. - Pt had a CT guided biopsy of the liver with IR (09/12/17) --> pathology noted hepatic necrosis and acute inflammation. no evidence for malignancy. - Pt underwent evaluation with EGD/colonoscopy (09/16/17): - Nodule in the duodenal bulb-possible minor papilla, portal gastropathy, gastritis in the antrum, severe silvio esophagitis involving all esophagus, esophageal varices grade 2 -3 columns, no banding done due to severe silvio esophagitis - Colonoscopy unable to be completed due to solid stool - Pt started on Nystatin S/S and Protonix 40mg BID - repeat colonoscopy. no malignancy - Pt declined repeat CT guided liver Bx (09/20) - Pt previously seen by Oncology service. I discussed the case with Rita MCKINNEY, and requested repeat evaluation. - biomarkers and scans strongly suggest hepatocellular carcinoma despite lack of pathology. - Case informally d/w Dr. Guzmán (09/20). Pt cannot currently received treatment d/t liver failure/elevated bilirubin for which there is NO treatment. - If pt's liver improves and bilirubin declines then pt might be eligible for palliative chemotherapy - life expectancy less than 6 months - Pt declines hospice consult - Pt has a difficult social dynamics: no family, no friends, no alevism group, and limited finances. Pt rents a trailer. - Pt c/o generalized weakness - PT evaluation - Pt underwent repeat liver Bx (09/23), results pending - appreciate input from Palliative Team. Case d/w Sayra Fayeah MELISSA (09/23/) - Pt unable to undergo repeat Paracentesis (09/24). Case d/w IR, Dr. Ocampo. Not enough fluid for paracentesis. - supportive care - Pt's prognosis remains poor & pt has NO family or social support - once again I discussed code status with Mr. Walden (09/25). Pt wishes to remain a full code. - supportive care Diabetes mellitus - Patient reportedly takes Synjardy 5-1000mg PO BID at home - HgbA1c 15.8 - Diabetic and dietary education. - Levemir on hold - Pt now requiring D10 to maintain blood sugars Hyponatremia - Likely related to volume - Cont diuretic COPD with fibrotic lung disease not on home oxygen - Pt does not appear to be in acute exacerbation - Continue home anoro elipta - Duonebs Q2H as needed Constipation - continue bowel regiment - add lactulose now DVT prophylaxis with SCDs (2) Ascites Code(s): R18.8 - Other ascites Status: Acute (2) Ascites Qualifiers: Ascites type: other type Qualified Code(s): R18.8 - Other ascites
[2017-09-26 07:17] LABS: Alanine Aminotransferase 120 U/L (12-78); Albumin 2.6 g/dL (3.4-5.0); Alkaline Phosphatase 639 U/L (45-117); Anion Gap 9 meq/L (5-15); Aspartate Aminotransferase 140 U/L (15-37); Blood Urea Nitrogen 25 mg/dL (7-18); Calcium 8.5 mg/dL (8.5-10.1); Carbon Dioxide 29.3 meq/L (21.0-32.0); Chloride 95 meq/L (98-107); Glomerular Filtration Rate Greater Than 89 mL/min (>89); Glucose,Random 241 mg/dL (74-106); Sodium 133 meq/L (136-145); Total Protein 6.6 g/dL (6.4-8.2)
[2017-09-26 07:19] LABS: Potassium 5.3 meq/L (3.5-5.1)
[2017-09-26] MEDS ORDERED: Dextrose 5%/NaCl 0.45% Inj 1,000 ML IV.CONT SCH (07:22)
[2017-09-26] MEDS: Albumin Human 25% Inj 50 ML IV.SIG SCH ×2 (08:57→17:35)
[2017-09-26] MEDS: Spironolactone 50 MG Tablet PO SCH ×2 (08:58→17:36)
[2017-09-26] MEDS: Senna/Docusate Sodium 8.6/50 MG Tablet PO SCH ×2 (08:58→21:31)
[2017-09-26] MEDS: Insulin NovoLOG Aspart Correctional Sugar Inj SQ SCH ×4 (08:59→21:31)
[2017-09-26] MEDS: Polyethylene Glycol 3350 17 GM Packet PO SCH (08:59)
[2017-09-26] MEDS: Nystatin Liq 500,000 UNIT/5 ML UDC SWISH-SWAL SCH ×4 (08:59→21:30)
--- NOTE | 2017-09-26 09:09 | P.PNIM ---
Subjective Interval history: Patient sitting up on edge of bed eating breakfast reports feeling better today - offers no complaints at this time blood glucose elevated Physical Exam Vital signs: Vital Signs 09/25/17 12:00 09/25/17 16:00 09/25/17 20:00 Temperature 97.5 F L 97.9 F 98.0 F Pulse Rate 98 H 98 H 100 H Respiratory Rate 20 20 18 Blood Pressure 122/66 119/64 133/65 Pulse Oximetry 98 96 99 09/25/17 23:40 09/26/17 00:00 09/26/17 04:00 Temperature 97.8 F 99.5 F Pulse Rate 101 H 86 Respiratory Rate 18 18 18 Blood Pressure 125/68 153/84 H Pulse Oximetry 96 97 09/26/17 07:03 09/26/17 08:55 Temperature Pulse Rate 98 H Respiratory Rate 19 18 Blood Pressure 122/65 Pulse Oximetry 96 Intake & Output 09/25/17 09/26/17 09/26/17 18:59 06:59 18:59 Intake Total 352 / 352 Output Total 1000 / 1000 1050 / 1050 Balance -648 / -648 -1050 / -1050 Intake: IV 352 / 352 D5W/Normal Saline Inj 1,000 ML 252 / 252 @ 42 mls/hr IV.CONT .[id number] COUNTS INCLUDE 234 BEDS AT THE [facility] Rx#:[id number] Flexbumin 25% Inj 50 ML @ 60 100 / 100 mls/hr IV.SIG BID@ COUNTS INCLUDE 234 BEDS AT THE [facility] Rx# :[id number] Output: Urine 1000 / 1000 1050 / 1050 Other: Date of Last Bowel Movement 09/23/17 Narrative: GENERAL: Thin CARDIO: Regular RESP: clear x b/l ABD: +BS, soft, non-tender, distended EXT: Bilateral LE 2-3+ pitting edema. Results - Labs CBC & Chem 7: 09/25/17 12:10 09/26/17 04:30 Laboratory Results - last 24 hr 09/25/17 09/25/17 09/25/17 08:47 09:24 10:35 WBC RBC Hgb Hct MCV MCH MCHC RDW Plt Count MPV Prelim Diff (Auto) WBC Differential Seg Neuts % (Manual) Band Neuts % (Manual) Monocytes % (Manual) Abs Neuts (Manual) Differential Comment Platelet Estimate Platelet Morphology Target Cells Sodium Potassium Chloride Carbon Dioxide Anion Gap BUN Creatinine Estimated GFR POC Glucose 62 L 157 H Random Glucose 68 L Calcium Total Bilirubin AST ALT Alkaline Phosphatase Ammonia Total Protein Albumin 09/25/17 09/25/17 09/25/17 11:08 12:10 12:10 WBC 16.2 H RBC 3.39 L Hgb 10.2 L Hct 31.7 L MCV 93.4 MCH 30.0 MCHC 32.1 RDW 16.5 Plt Count 184 D MPV 8.1 Prelim Diff (Auto) Manual diff required WBC Differential Manual diff final Seg Neuts % (Manual) 95 H Band Neuts % (Manual) 1 Monocytes % (Manual) 4 Abs Neuts (Manual) 15.6 H Differential Comment . Platelet Estimate Normal Platelet Morphology Normal Target Cells 1+ H Sodium 133 L Potassium 5.2 H Chloride 98 Carbon Dioxide 34.5 H Anion Gap 1 L BUN 28 H Creatinine 0.63 Estimated GFR Greater than 89 POC Glucose 97 Random Glucose 60 L Calcium 8.4 L Total Bilirubin 11.8 H AST 154 H ALT 141 H Alkaline Phosphatase 677 H Ammonia Total Protein 7.2 D Albumin 2.9 L 09/25/17 09/25/17 09/25/17 12:10 16:00 17:33 WBC RBC Hgb Hct MCV MCH MCHC RDW Plt Count MPV Prelim Diff (Auto) WBC Differential Seg Neuts % (Manual) Band Neuts % (Manual) Monocytes % (Manual) Abs Neuts (Manual) Differential Comment Platelet Estimate Platelet Morphology Target Cells Sodium Potassium Chloride Carbon Dioxide Anion Gap BUN Creatinine Estimated GFR POC Glucose 54 L 82 Random Glucose Calcium Total Bilirubin AST ALT Alkaline Phosphatase Ammonia 22 Total Protein Albumin 09/25/17 09/25/17 09/26/17 18:04 19:56 00:57 WBC RBC Hgb Hct MCV MCH MCHC RDW Plt Count MPV Prelim Diff (Auto) WBC Differential Seg Neuts % (Manual) Band Neuts % (Manual) Monocytes % (Manual) Abs Neuts (Manual) Differential Comment Platelet Estimate Platelet Morphology Target Cells Sodium Potassium Chloride Carbon Dioxide Anion Gap BUN Creatinine Estimated GFR POC Glucose 161 H 159 H 299 H Random Glucose Calcium Total Bilirubin AST ALT Alkaline Phosphatase Ammonia Total Protein Albumin 09/26/17 09/26/17 04:30 07:38 WBC RBC Hgb Hct MCV MCH MCHC RDW Plt Count MPV Prelim Diff (Auto) WBC Differential Seg Neuts % (Manual) Band Neuts % (Manual) Monocytes % (Manual) Abs Neuts (Manual) Differential Comment Platelet Estimate Platelet Morphology Target Cells Sodium 133 L Potassium 5.3 H Chloride 95 L Carbon Dioxide 29.3 Anion Gap 9 BUN 25 H Creatinine 0.47 L Estimated GFR Greater than 89 POC Glucose 307 H Random Glucose 241 H D Calcium 8.5 Total Bilirubin 12.0 H AST 140 H ALT 120 H Alkaline Phosphatase 639 H Ammonia Total Protein 6.6 D Albumin 2.6 L Assessment and Plan - Assessment (1) Liver mass Code(s): R16.0 - Hepatomegaly, not elsewhere classified Status: Acute Plan: This is a 57-year-old male patient with past medical history which includes diabetes mellitus and hepatitis C. Patient reports he has previously been treated with Harvoni for his hepatitis C. Patient presents to the emergency department with complaints of abdominal distention and constipation for approximately 3 weeks. 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 Patient reports he has previously been treated with Harvoni for his hepatitis C by Dr. Honeycutt about 1 year ago. - He presented to the ED on 09/10/17 with complaints of abdominal distention and constipation for approximately 3 weeks. - KUB (09/10/17)--> no dilated loops of small or large bowel - CT abdomen/pelvis (09/10/17) --> abnormal examination suspicious for malignancy demonstrating significant ascites in the abdomen and pelvis, multiple irregular margin hypodense lesions in the liver measuring up to 9 cm in size , and enlarged ring-enhancing nodular masses adjacent to the celiac artery, anterior to the heart and adjacent to the inferior esophagus. - Given concern of malignancy interventional radiology was consulted for US guided paracentesis with cytology but this was unable to be done as there was not enough fluid - CMP on admission reviewed total bilirubin 0.9 AST 208, ALT 152, alkaline phosphatase 472 ammonia (09/10) < 10, AFP (09/11) 533.3, CA 19.9 509.5 - His LFTs worsened following admission, the transaminases have slowly been improving but TBili is elevating. - (09/11/17) Tbili 0.8, AST 6470, ALT 3043, AlkPhos 939 - (09/12/17) Tbili 0.6, AST 2051, ALT 1765, AlkPhos 801 - (09/13/17) TBili 1.0, AST 831, ALT 1070, AlkPhos 751 - (09/14/17) TBili 1.4, AST 690, ALT 839, AlkPhos 921 - (09/15/17) TBili 2.8, DBili 2.3, AST 553, ALT 661, AlkPhos 966 - (09/16/17) TBili 4.8, AST 354, ALT 492, AlkPhos 904 - (09/19/17) TBili 7.1, AST 163, ALT 240, AlkPhos 732 - Hepatitis profile Hep C Ab positive - PT 10.9, INR 1.1, APTT 23.8 (09/10) - repeat INR and APTT in AM - US guided paracentesis was performed on 09/15/17 and fluid for cytology is non- diagnostic cont aldactone. lasix/albumen. - Pt had a CT guided biopsy of the liver with IR (09/12/17) --> pathology noted hepatic necrosis and acute inflammation. no evidence for malignancy. - Pt underwent evaluation with EGD/colonoscopy (09/16/17): - Nodule in the duodenal bulb-possible minor papilla, portal gastropathy, gastritis in the antrum, severe silvio esophagitis involving all esophagus, esophageal varices grade 2 -3 columns, no banding done due to severe silvio esophagitis - Colonoscopy unable to be completed due to solid stool - Pt started on Nystatin S/S and Protonix 40mg BID - repeat colonoscopy. no malignancy - Pt declined repeat CT guided liver Bx (09/20) - Pt previously seen by Oncology service. I discussed the case with Rita MCKINNEY, and requested repeat evaluation. - biomarkers and scans strongly suggest hepatocellular carcinoma despite lack of pathology. - Case informally d/w Dr. Guzmán (09/20). Pt cannot currently received treatment d/t liver failure/elevated bilirubin for which there is NO treatment. - If pt's liver improves and bilirubin declines then pt might be eligible for palliative chemotherapy - life expectancy less than 6 months - Pt declines hospice consult - Pt has a difficult social dynamics: no family, no friends, no gnosticist group, and limited finances. Pt rents a trailer. - Pt c/o generalized weakness - PT evaluation - Pt underwent repeat liver Bx (09/23), results pending - appreciate input from Palliative Team. Case d/w Sayra TORRES (09/23/17) - Pt unable to undergo repeat Paracentesis (09/24). Case d/w IR, Dr. Ocampo. Not enough fluid for paracentesis. - supportive care - Pt's prognosis remains poor & pt has NO family or social support - once again I discussed code status with Mr. Walden (09/25). Pt wishes to remain a full code. - supportive care Diabetes mellitus - Patient reportedly takes Synjardy 5-1000mg PO BID at home - HgbA1c 15.8 - Diabetic and dietary education. - Levemir on hold - Pt now requiring D10 to maintain blood sugars (09/25) - patient more alert today eating breakfast glucose 307 - D10 DC'd Hyponatremia - Likely related to volume - Cont diuretic COPD with fibrotic lung disease not on home oxygen - Pt does not appear to be in acute exacerbation - Continue home anoro elipta - Duonebs Q2H as needed Constipation - continue bowel regiment - add lactulose now DVT prophylaxis with SCDs (09/26/17) Dr. Ritter discussed patient's clinical status and options with patient. Patient verbalized understanding and asked for one more day to decide if he wishes to go to hospice or not. For right now patient wishes to remain a full code. Will reevaluate patient tomorrow plan to send to Hospice if that is patient's choice or SNF for rehab of patient wishes to remain aggressive. (2) Ascites Code(s): R18.8 - Other ascites Status: Acute (2) Ascites Qualifiers: Ascites type: other type Qualified Code(s): R18.8 - Other ascites
[2017-09-26] MEDS: Umeclindinium 62.5 MCG/Vilanterol 25 MCG Inhaler INH SCH (11:45)
--- NOTE | 2017-09-26 15:51 | P.PNPAL ---
Reason for Visit Reason for visit: a. To assist with evaluation and management of symptoms including: weakness, dyspnea, pain b. To assist medical decision maker(s) with: better understanding of current medical conditions; weighing benefits/burdens of medical treatment options; making medical treatment decisions. Subjective Subjective/Interval History: Pt seen today to follow up on discussions RE goals of medical treatment, and abdominal pain. S/p repeat liver bx last week, path still pending. Possible d/c planned over weekend, however pt w increased abdominal distention, underwent repeat u/s for paracentesis, not enough fluid. WBC trending up 16.2. Bilirubin remains elevated 12. K+ 5.3. He has been accepted at [facility] for rehab. Seen in room, seated on side of bed. No gown on, has sheet draped around him, indicates he was hot. Seems lethargic however converses with me , is oriented and appropriate, just keeps head down, hunched forward on side of bed. He is more withdrawn than prior discussions. He indicates pathology still pending. Review no chemo options as his liver functions have worsened. He acknowledges this. Reviewed discharge planning for SNF, ask what his plans are. He says he does not know he is trying to process everything. He endorses that he did not sleep well last night not because he could not sleep but because he has "so much to think about ". He indicates he is having some abdominal pain and wants to know if he is due for his prn, advised that does not appear he has had in some time and I can notify nursing. He indicates effective when used. Review risk/concern that he is going to continue to experience decline, pain from disease process even with aggressive tx, tx very limited, primarily supportive care. Review hospice. He indicates he is not ready for hospice. Review code status, resuscitation as we spoke up last week ask him if he still desires to be a full code. He indicates he wants a DNR at this time reviewed it with him and he is clear that he wants no life support or resuscitation at this time. He denies nausea. Says appetite "ok". Denies dyspnea, though he appears mildly short of breath with conversation. d/w primary nurse. She indicates pt has remained seated on side of bed entire day. He has said no pain during prior pain assessments. Required 2 doses prn oxycodone 20mg yesterday, 2 earlier today at 2am, 6am. Advance Directives Significant change in goals:: requested DNR status today Objective Vital Signs: Vital Signs 09/25/17 16:00 09/25/17 20:00 09/25/17 23:40 Temperature 97.9 F 98.0 F Pulse Rate 98 H 100 H Respiratory Rate 20 18 18 Blood Pressure 119/64 133/65 Pulse Oximetry 96 99 09/26/17 00:00 09/26/17 04:00 09/26/17 07:03 Temperature 97.8 F 99.5 F Pulse Rate 101 H 86 Respiratory Rate 18 18 19 Blood Pressure 125/68 153/84 H Pulse Oximetry 96 97 09/26/17 08:00 09/26/17 08:55 09/26/17 12:00 Temperature 97.6 F 97.4 F L Pulse Rate 98 H 100 H Respiratory Rate 18 16 Blood Pressure 122/65 114/66 Pulse Oximetry 96 98 Intake & Output 09/25/17 09/26/17 09/26/17 18:59 06:59 18:59 Intake Total 352 / 352 1050 / 1050 Output Total 1000 / 1000 1050 / 1050 Balance -648 / -648 -1050 / -1050 1050 / 1050 Intake: IV 352 / 352 1050 / 1050 D10W Inj 1,000 ML @ 42 mls/hr 1000 / 1000 IV.CONT .[id number] [facility] Rx#: [id number] D5W/Normal Saline Inj 1,000 ML 252 / 252 @ 42 mls/hr IV.CONT .[id number] [facility] Rx#:[id number] Flexbumin 25% Inj 50 ML @ 60 100 / 100 50 / 50 mls/hr IV.SIG BID@ [facility] Rx# :[id number] Output: Urine 1000 / 1000 1050 / 1050 Other: Date of Last Bowel Movement 09/23/17 Physical Exam: CONSTITUTIONAL/GENERAL: This is an cachectic male, jaundiced, no distress, lethargic TUBES/LINES/DRAINS: Peripheral IV upper extremity SKIN: + jaundice. no rashes or lesions. Discoloration/darkening bilateral lower legs. No wounds seen anteriorly. Skin warm and dry. HEAD: Atraumatic. Normocephalic. EYES: Pupils equal and round and reactive. Extraocular motions intact. +scleral icterus. No injection or drainage. Fundi not examined. CARDIOVASCULAR: Regular rate and rhythm without murmur. No JVD. Peripheral pulses symmetric-pedal pulses faint secondary significant edema. ++ edema bilat legs RESPIRATORY/CHEST: Symmetric, unlabored respirations. on 2L NC. + expiratory wheezes posterior, diminished bilat bases. Breath sounds equal bilaterally GASTROINTESTINAL: Abdomen slightly distended . +tenderness, distention, + hepatomegaly. Bowel sounds present. GENITOURINARY: Without palpable bladder distension. Voids to bedside. NEUROLOGICAL: lethargic though arouses easily. Oriented 2-3, forgetful at times. Appropriate. Insight and judgment appear reasonable. Follows commands. Moves all 4 extremities. PSYCHIATRIC: No obvious anxiety/depression. +withdrawn Diagnostic Tests Laboratory: Laboratory Results - last 72 hr 09/23/17 09/23/17 09/23/17 16:31 16:57 20:17 WBC RBC Hgb Hct MCV MCH MCHC RDW Plt Count MPV Prelim Diff (Auto) WBC Differential Seg Neuts % (Manual) Band Neuts % (Manual) Monocytes % (Manual) Abs Neuts (Manual) Differential Comment Platelet Estimate Platelet Morphology Target Cells Sodium Potassium Chloride Carbon Dioxide Anion Gap BUN Creatinine Estimated GFR POC Glucose 109 108 233 H Random Glucose Calcium Total Bilirubin AST ALT Alkaline Phosphatase Ammonia Total Protein Albumin 09/24/17 09/24/17 09/24/17 07:30 11:08 14:44 WBC RBC Hgb Hct MCV MCH MCHC RDW Plt Count MPV Prelim Diff (Auto) WBC Differential Seg Neuts % (Manual) Band Neuts % (Manual) Monocytes % (Manual) Abs Neuts (Manual) Differential Comment Platelet Estimate Platelet Morphology Target Cells Sodium Potassium Chloride Carbon Dioxide Anion Gap BUN Creatinine Estimated GFR POC Glucose 371 H 343 H 322 H Random Glucose Calcium Total Bilirubin AST ALT Alkaline Phosphatase Ammonia Total Protein Albumin 09/24/17 09/24/17 09/25/17 16:21 21:43 07:04 WBC RBC Hgb Hct MCV MCH MCHC RDW Plt Count MPV Prelim Diff (Auto) WBC Differential Seg Neuts % (Manual) Band Neuts % (Manual) Monocytes % (Manual) Abs Neuts (Manual) Differential Comment Platelet Estimate Platelet Morphology Target Cells Sodium Potassium Chloride Carbon Dioxide Anion Gap BUN Creatinine Estimated GFR POC Glucose 257 H 141 H 42 L* Random Glucose Calcium Total Bilirubin AST ALT Alkaline Phosphatase Ammonia Total Protein Albumin 09/25/17 09/25/17 09/25/17 07:17 07:38 07:49 WBC RBC Hgb Hct MCV MCH MCHC RDW Plt Count MPV Prelim Diff (Auto) WBC Differential Seg Neuts % (Manual) Band Neuts % (Manual) Monocytes % (Manual) Abs Neuts (Manual) Differential Comment Platelet Estimate Platelet Morphology Target Cells Sodium Potassium Chloride Carbon Dioxide Anion Gap BUN Creatinine Estimated GFR POC Glucose 53 L 56 L 52 L Random Glucose Calcium Total Bilirubin AST ALT Alkaline Phosphatase Ammonia Total Protein Albumin 09/25/17 09/25/17 09/25/17 08:47 09:24 10:35 WBC RBC Hgb Hct MCV MCH MCHC RDW Plt Count MPV Prelim Diff (Auto) WBC Differential Seg Neuts % (Manual) Band Neuts % (Manual) Monocytes % (Manual) Abs Neuts (Manual) Differential Comment Platelet Estimate Platelet Morphology Target Cells Sodium Potassium Chloride Carbon Dioxide Anion Gap BUN Creatinine Estimated GFR POC Glucose 62 L 157 H Random Glucose 68 L Calcium Total Bilirubin AST ALT Alkaline Phosphatase Ammonia Total Protein Albumin 09/25/17 09/25/17 09/25/17 11:08 12:10 12:10 WBC 16.2 H RBC 3.39 L Hgb 10.2 L Hct 31.7 L MCV 93.4 MCH 30.0 MCHC 32.1 RDW 16.5 Plt Count 184 D MPV 8.1 Prelim Diff (Auto) Manual diff required WBC Differential Manual diff final Seg Neuts % (Manual) 95 H Band Neuts % (Manual) 1 Monocytes % (Manual) 4 Abs Neuts (Manual) 15.6 H Differential Comment . Platelet Estimate Normal Platelet Morphology Normal Target Cells 1+ H Sodium 133 L Potassium 5.2 H Chloride 98 Carbon Dioxide 34.5 H Anion Gap 1 L BUN 28 H Creatinine 0.63 Estimated GFR Greater than 89 POC Glucose 97 Random Glucose 60 L Calcium 8.4 L Total Bilirubin 11.8 H AST 154 H ALT 141 H Alkaline Phosphatase 677 H Ammonia Total Protein 7.2 D Albumin 2.9 L 09/25/17 09/25/17 09/25/17 12:10 16:00 17:33 WBC RBC Hgb Hct MCV MCH MCHC RDW Plt Count MPV Prelim Diff (Auto) WBC Differential Seg Neuts % (Manual) Band Neuts % (Manual) Monocytes % (Manual) Abs Neuts (Manual) Differential Comment Platelet Estimate Platelet Morphology Target Cells Sodium Potassium Chloride Carbon Dioxide Anion Gap BUN Creatinine Estimated GFR POC Glucose 54 L 82 Random Glucose Calcium Total Bilirubin AST ALT Alkaline Phosphatase Ammonia 22 Total Protein Albumin 09/25/17 09/25/17 09/26/17 18:04 19:56 00:57 WBC RBC Hgb Hct MCV MCH MCHC RDW Plt Count MPV Prelim Diff (Auto) WBC Differential Seg Neuts % (Manual) Band Neuts % (Manual) Monocytes % (Manual) Abs Neuts (Manual) Differential Comment Platelet Estimate Platelet Morphology Target Cells Sodium Potassium Chloride Carbon Dioxide Anion Gap BUN Creatinine Estimated GFR POC Glucose 161 H 159 H 299 H Random Glucose Calcium Total Bilirubin AST ALT Alkaline Phosphatase Ammonia Total Protein Albumin 09/26/17 09/26/17 09/26/17 04:30 07:38 12:38 WBC RBC Hgb Hct MCV MCH MCHC RDW Plt Count MPV Prelim Diff (Auto) WBC Differential Seg Neuts % (Manual) Band Neuts % (Manual) Monocytes % (Manual) Abs Neuts (Manual) Differential Comment Platelet Estimate Platelet Morphology Target Cells Sodium 133 L Potassium 5.3 H Chloride 95 L Carbon Dioxide 29.3 Anion Gap 9 BUN 25 H Creatinine 0.47 L Estimated GFR Greater than 89 POC Glucose 307 H 216 H Random Glucose 241 H D Calcium 8.5 Total Bilirubin 12.0 H AST 140 H ALT 120 H Alkaline Phosphatase 639 H Ammonia Total Protein 6.6 D Albumin 2.6 L Result Diagrams: 09/25/17 12:10 09/26/17 04:30 Imaging: Impressions Abdomen Ultrasound 09/24/17 00:00 CONCLUSION: 1. No ascites. Paracentesis deferred. . Procedures: * 09/12/17 CT-guided liver biopsy by IR * 09/23/17 repeat liver biopsy, IR. paracentesis 800 ML Assessment and Plan - Disease Oriented Problem List (1) Hepatitis C, chronic (2) COPD (chronic obstructive pulmonary disease) (3) Lung fibrosis (4) Liver mass (5) Ascites (6) Transaminitis - Symptom Scale (1) Constipation 0-10 Scale: Unable to quantify (2) Abdominal pain 0-10 Scale: Unable to quantify (3) Dyspnea 0-10 Scale: Unable to quantify (4) Malnutrition 0-10 Scale: Unable to quantify (5) Weakness 0-10 Scale: Unable to quantify Pertinent Non-Medical Issues: Psychosocial: Patient born and raised in [place]. Originally from [place]. Moved to this area several years ago. 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 Adopted, only child. Both parents . No other family or friends, describes that he is "not very social ". He is a "loner." Spiritual: Has peggy in God, however does not want explosive ordnance disposal specialist visits Legal: Patient is currently alert oriented and appears to have reasonable insight and judgment. He is able to make his own decisions. At any point his mental status could deteriorate secondary to advancing liver disease, and he may become incapacitated. He has no family or friends that he would designate as his healthcare surrogate. Ethical issues impacting care: No ethical issues identified Important Contacts: none Prognosis: This patient was admitted for abdominal distention and constipation. He has underlying history of hepatitis, diabetes, as well as COPD, lung fibrosis. He has had findings of multiple liver nodules concerning for malignancy. Additional diagnostics pending. Oncology following. Due to poor performance status not a good candidate for chemotherapy, may have very limited treatment options. If hepatocellular CA is unresectable. If is another primary would be a metastatic disease. Limited treatment options. Appropriate for hospice if goals were comfort oriented. Code Status: Full Code Plan: * Legal decision maker: Patient is currently alert oriented and appears to have reasonable insight and judgment. He is able to make his own decisions. At any point his mental status could deteriorate secondary to advancing liver disease, and he may become incapacitated. He has no family or friends that he would designate as his healthcare surrogate. * Goals:Patient appears to understand conditions, pending diagnostics and possible/probable diagnoses of malignancy. He understands that he may not have any treatment options. However, he would like to proceed with a second biopsy to get as much information as he can and "confirm things". He indicates he "puts it in God's hands and that things could change any day", and that he would want as much information as possible so if there is any possible chance of treatment he could have it. * He cont to express aggressive goals SHORT OF RESUSCITATION, and continue with whatever supportive tx are available. He is not ready for hospice at this time. he requests DNR today. * CODE STATUS: DNR * SYMPTOMS: --Dyspnea-secondary to liver/abdominal pathology, deconditioning. Uses O2 as needed. Dyspnea also improves when abdominal pain well controlled. If goals were comfort oriented may benefit from prn low dose benzos dyspnea/ tachypnea. endorses good relief of both dyspnea and pain with use of oxycodone 20 mg. Denies dyspnea today. --Pain -abdominal pain which radiates to the ribs especially with dyspnea. Worsens with abdominal distention abdomen feels bloated, painful. 2/2 liver pathology, ascites. At times it makes his breathing painful. Currently endorses good relief of both dyspnea and pain with use of oxycodone 20 mg. Required 2 doses prn oxycodone 20mg yesterday, 2 earlier today at 2am, 6am. No adjustments recommended at this time -- weakness- endorses weakness/fatigue in past 3-4 weeks; multifactorial, suspected malignancy, malnutrition, weight loss, deconditioning. Will likely be progressive as disease progresses. --malnutrition- hx diabetes, some hyperglycemia per pt. +weight loss, unk amt , over 1 month. + early satiety, only able to eat small amts due to abdominal discomfort. albumin 2.4. Telegrapher Agent following, pt likes/taking PO glucerna supplements. Recommend low sugar, but calorie dense food that pt likes as PO is very limited. * Palliative care will continue to follow during hospital course as condition evolves, to assist patient/decision-maker with understanding of medical conditions, weighing benefits/burdens of treatment options, for clarification of goals of treatment. Additionally will assist with any symptoms of palliative concern Attestation Attestation: To help prompt me to consider important information that might be impacting today's encounter and assessment, information from prior notes written by myself or my colleagues may have been "brought forward" into today's note. My signature on this note, however, is an attestation that I personally performed the exam, history, and/or decision-making noted today, and, unless otherwise indicated, the interactions with patient, family, and staff as well as the review of records all occurred today. I also attest that the listed assessment and stated plan reflect my best clinical judgment today based on the combination of historical information, prior notes, and today's exam/ interactions. When time spent is documented, it refers only to time spent today by the signer, or if indicated, combined time spent today by collaborating physician/nurse practitioner.
[2017-09-26] MEDS ORDERED: Temazepam 15 MG Capsule PO PRN (18:45)
[2017-09-26] MEDS: Dextrose 50% in Water 50 ML Vial IV.PUSH PRN (20:13)
[2017-09-27] MEDS: Insulin NovoLOG Aspart Correctional Sugar Inj SQ SCH ×3 (08:02→17:33)
[2017-09-27] MEDS: Spironolactone 50 MG Tablet PO SCH (08:21)
[2017-09-27] MEDS: Albumin Human 25% Inj 50 ML IV.SIG SCH ×2 (08:21→17:33)
[2017-09-27] MEDS: Nystatin Liq 500,000 UNIT/5 ML UDC SWISH-SWAL SCH ×2 (08:22→13:21)
[2017-09-27] MEDS: Polyethylene Glycol 3350 17 GM Packet PO SCH (08:22)
[2017-09-27] MEDS: Senna/Docusate Sodium 8.6/50 MG Tablet PO SCH (08:22)
--- NOTE | 2017-09-27 09:45 | P.PNIM ---
Subjective Interval history: pt says he would be willing to go to hospice care center. but keeps asking for just one more day in hospital. had bm Physical Exam Vital signs: Vital Signs 09/26/17 12:00 09/26/17 16:00 09/26/17 19:30 Temperature 97.4 F L 97.2 F L 97.7 F Pulse Rate 100 H 98 H 102 H Respiratory Rate 16 16 16 Blood Pressure 114/66 114/58 L 125/71 Pulse Oximetry 98 100 98 09/26/17 23:45 09/27/17 01:17 09/27/17 03:45 Temperature 98.0 F 98.1 F Pulse Rate 102 H 101 H Respiratory Rate 18 18 18 Blood Pressure 124/76 129/60 Pulse Oximetry 97 97 Intake & Output 09/26/17 09/27/17 09/27/17 18:59 06:59 18:59 Intake Total 1100 / 1100 520 / 520 Output Total 125 / 125 650 / 650 Balance 975 / 975 -130 / -130 Weight 56.8 kg Intake: IV 1100 / 1100 D10W Inj 1,000 ML @ 42 mls/hr 1000 / 1000 IV.CONT .[id number] [facility] Rx#: [id number] Flexbumin 25% Inj 50 ML @ 60 100 / 100 mls/hr IV.SIG BID@ [facility] Rx# :[id number] Oral 520 / 520 Output: Urine 125 / 125 650 / 650 Other: # Voids 1 1 Date of Last Bowel Movement 09/25/17 09/27/17 # Bowel Movements 1 icteric cachectic distended abd. bs ext 2plus edema Results - Labs CBC & Chem 7: 09/25/17 12:10 09/26/17 21:02 Laboratory Results - last 24 hr 09/26/17 09/26/17 09/26/17 12:38 17:02 19:28 POC Glucose 216 H 122 H 54 L Random Glucose 09/26/17 09/26/17 09/26/17 20:10 21:01 21:02 POC Glucose 56 L 128 H Random Glucose 92 D 09/27/17 09/27/17 09/27/17 01:19 05:58 07:45 POC Glucose 109 156 H 162 H Random Glucose Assessment and Plan - Assessment (1) Liver mass Code(s): R16.0 - Hepatomegaly, not elsewhere classified Status: Acute Plan: This is a 57-year-old male patient with past medical history which includes diabetes mellitus and hepatitis C. Patient reports he has previously been treated with Harvoni for his hepatitis C. Patient presents to the emergency department with complaints of abdominal distention and constipation for approximately 3 weeks. 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 Patient reports he has previously been treated with Harvoni for his hepatitis C by Dr. Honeycutt about 1 year ago. - He presented to the ED on 09/10/17 with complaints of abdominal distention and constipation for approximately 3 weeks. - KUB (09/10/17)--> no dilated loops of small or large bowel - CT abdomen/pelvis (09/10/17) --> abnormal examination suspicious for malignancy demonstrating significant ascites in the abdomen and pelvis, multiple irregular margin hypodense lesions in the liver measuring up to 9 cm in size , and enlarged ring-enhancing nodular masses adjacent to the celiac artery, anterior to the heart and adjacent to the inferior esophagus. - Given concern of malignancy interventional radiology was consulted for US guided paracentesis with cytology but this was unable to be done as there was not enough fluid - CMP on admission reviewed total bilirubin 0.9 AST 208, ALT 152, alkaline phosphatase 472 ammonia (09/10) < 10, AFP (09/11) 533.3, CA 19.9 509.5 - His LFTs worsened following admission, the transaminases have slowly been improving but TBili is elevating. - (09/11/17) Tbili 0.8, AST 6470, ALT 3043, AlkPhos 939 - (09/12/17) Tbili 0.6, AST 2051, ALT 1765, AlkPhos 801 - (09/13/17) TBili 1.0, AST 831, ALT 1070, AlkPhos 751 - (09/14/17) TBili 1.4, AST 690, ALT 839, AlkPhos 921 - (09/15/17) TBili 2.8, DBili 2.3, AST 553, ALT 661, AlkPhos 966 - (09/16/17) TBili 4.8, AST 354, ALT 492, AlkPhos 904 - (09/19/17) TBili 7.1, AST 163, ALT 240, AlkPhos 732 - Hepatitis profile Hep C Ab positive - PT 10.9, INR 1.1, APTT 23.8 (09/10) - repeat INR and APTT in AM - US guided paracentesis was performed on 09/15/17 and fluid for cytology is non- diagnostic cont aldactone. lasix/albumen. - Pt had a CT guided biopsy of the liver with IR (09/12/17) --> pathology noted hepatic necrosis and acute inflammation. no evidence for malignancy. - Pt underwent evaluation with EGD/colonoscopy (09/16/17): - Nodule in the duodenal bulb-possible minor papilla, portal gastropathy, gastritis in the antrum, severe silvio esophagitis involving all esophagus, esophageal varices grade 2 -3 columns, no banding done due to severe silvio esophagitis - Colonoscopy unable to be completed due to solid stool - Pt started on Nystatin S/S and Protonix 40mg BID - repeat colonoscopy. no malignancy - Pt declined repeat CT guided liver Bx (09/20) - Pt previously seen by Oncology service. I discussed the case with Rita MCKINNEY, and requested repeat evaluation. - biomarkers and scans strongly suggest hepatocellular carcinoma despite lack of pathology. - Case informally d/w Dr. Guzmán (09/20). Pt cannot currently received treatment d/t liver failure/elevated bilirubin for which there is NO treatment. - If pt's liver improves and bilirubin declines then pt might be eligible for palliative chemotherapy - life expectancy less than 6 months - Pt has a difficult social dynamics: no family, no friends, no protestant group, and limited finances. Pt rents a trailer. - Pt c/o generalized weakness - PT evaluation - Pt underwent repeat liver Bx (09/23), results pending - appreciate input from Palliative Team. Case d/w Sayra TORRES (09/23/17) - Pt unable to undergo repeat Paracentesis (09/24). Case d/w IR, Dr. Ocampo. Not enough fluid for paracentesis. - supportive care - Pt's prognosis remains poor & pt has NO family or social support - daily discussion about poor prognosis and snf vs hospice. he says he is willing to go to hospice care center for comfort...but wants "just one more day here". dc orders written. discussed with CM Diabetes mellitus - Patient reportedly takes Synjardy 5-1000mg PO BID at home - HgbA1c 15.8 - Diabetic and dietary education. - Levemir on hold -fluctuating bg levels and po intake. Hyponatremia - Likely related to volume - Cont diuretic COPD with fibrotic lung disease not on home oxygen - Pt does not appear to be in acute exacerbation - Continue home anoro elipta - Duonebs Q2H as needed Constipation - continue bowel regiment - add lactulose now DVT prophylaxis with SCDs ( (2) Ascites Code(s): R18.8 - Other ascites Status: Acute (2) Ascites Qualifiers: Ascites type: other type Qualified Code(s): R18.8 - Other ascites
[2017-09-27] MEDS: Umeclindinium 62.5 MCG/Vilanterol 25 MCG Inhaler INH SCH (11:43)
--- NOTE | 2017-09-27 13:59 | P.PNPAL ---
Reason for Visit Reason for visit: a. To assist with evaluation and management of symptoms including: weakness, dyspnea, pain b. To assist medical decision maker(s) with: better understanding of current medical conditions; weighing benefits/burdens of medical treatment options; making medical treatment decisions. Subjective Subjective/Interval History: Pt seen today to follow up on discussions RE goals of medical treatment, and abdominal pain. S/p repeat liver bx last week, path still pending. Possible d/c planned over weekend, however pt w increased abdominal distention, underwent repeat u/s for paracentesis, not enough fluid. WBC trending up 16.2. Bilirubin remains elevated 12. K+ 5.3; yesterday, no new labs today. He is noted to have been having ongoing conversations with medical attending regarding discharge to rehab and aggressive treatment versus hospice and comfort treatments only. Hospice was ordered earlier today. Patient seen in room as a nurse at bedside assisting with lunch occasions. He is still seated on the side of the bed hunched leaning forward over table. He visibly appear short of breath though he denies dyspnea. He does not open his eyes for conversation though appears to be awake. Nursing indicates he did not sleep overnight because he refuses to lay flat in the bed because he cannot breathe. He will not lay down during the day either so he falls asleep leaning over on the table. He tells me pain is "okay today ". Appetite fair. Denies any GI complaints. He appears weaker in observing him move self. Attempt to explore with him his conditions and meeting with hospice. He tells me he is tired of people coming at him he just wants to eat and be left alone. He agrees he has agreed to discharge to hospice tells me he does not want to talk about it anymore he wants to be left alone. d/w primary nurse. She indicates pt has remained seated on side of bed entire day. Has required 1 dose prn oxycodone 20mg today, 4 doses yesterday. Advance Directives Significant change in goals:: has elected hospice, with care center placement requested Objective Vital Signs: Vital Signs 09/26/17 16:00 09/26/17 19:30 09/26/17 23:45 Temperature 97.2 F L 97.7 F 98.0 F Pulse Rate 98 H 102 H 102 H Respiratory Rate 16 16 18 Blood Pressure 114/58 L 125/71 124/76 Pulse Oximetry 100 98 97 09/27/17 01:17 09/27/17 03:45 09/27/17 08:00 Temperature 98.1 F 97.7 F Pulse Rate 101 H 105 H Respiratory Rate 18 18 19 Blood Pressure 129/60 121/72 Pulse Oximetry 97 98 09/27/17 12:00 Temperature 97.4 F L Pulse Rate 105 H Respiratory Rate 19 Blood Pressure 121/65 Pulse Oximetry 97 Intake & Output 09/26/17 09/27/17 09/27/17 18:59 06:59 18:59 Intake Total 1100 / 1100 520 / 520 50 / 50 Output Total 125 / 125 650 / 650 275 / 275 Balance 975 / 975 -130 / -130 -225 / -225 Weight 56.8 kg Intake: IV 1100 / 1100 50 / 50 D10W Inj 1,000 ML @ 42 mls/hr 1000 / 1000 IV.CONT .[id number] [facility] Rx#: [id number] Flexbumin 25% Inj 50 ML @ 60 100 / 100 50 / 50 mls/hr IV.SIG BID@ [facility]LEX[facility] Rx# :[id number] Oral 520 / 520 Output: Urine 125 / 125 650 / 650 275 / 275 Other: # Voids 1 1 Date of Last Bowel Movement 09/25/17 09/27/17 # Bowel Movements 1 Physical Exam: CONSTITUTIONAL/GENERAL: This is an cachectic male, jaundiced, no distress, eyes closed TUBES/LINES/DRAINS: Peripheral IV upper extremity SKIN: + jaundice. no rashes or lesions. Discoloration/darkening bilateral lower legs. No wounds seen anteriorly. Skin warm and dry. HEAD: Atraumatic. Normocephalic. EYES: Pupils equal and round and reactive. Extraocular motions intact. +scleral icterus. No injection or drainage. Fundi not examined. CARDIOVASCULAR: Regular rate and rhythm without murmur. No JVD. Peripheral pulses symmetric-pedal pulses faint secondary significant edema. ++ edema bilat legs RESPIRATORY/CHEST: Symmetric, mildly labored respirations. on 2L NC. + diminished throughout. Breath sounds equal bilaterally GASTROINTESTINAL: Abdomen slightly distended . +tenderness, distention, + hepatomegaly. Bowel sounds present. NEUROLOGICAL: eyes closed though appears awake. Oriented 2-3, Appropriate, - - though he is very reluctant to engage/talk. Follows commands. Moves all 4 extremities. PSYCHIATRIC: +withdrawn,flat, reluctant to engage with provider Diagnostic Tests Laboratory: Laboratory Results - last 72 hr 09/24/17 09/24/17 09/24/17 14:44 16:21 21:43 WBC RBC Hgb Hct MCV MCH MCHC RDW Plt Count MPV Prelim Diff (Auto) WBC Differential Seg Neuts % (Manual) Band Neuts % (Manual) Monocytes % (Manual) Abs Neuts (Manual) Differential Comment Platelet Estimate Platelet Morphology Target Cells Sodium Potassium Chloride Carbon Dioxide Anion Gap BUN Creatinine Estimated GFR POC Glucose 322 H 257 H 141 H Random Glucose Calcium Total Bilirubin AST ALT Alkaline Phosphatase Ammonia Total Protein Albumin 09/25/17 09/25/17 09/25/17 07:04 07:17 07:38 WBC RBC Hgb Hct MCV MCH MCHC RDW Plt Count MPV Prelim Diff (Auto) WBC Differential Seg Neuts % (Manual) Band Neuts % (Manual) Monocytes % (Manual) Abs Neuts (Manual) Differential Comment Platelet Estimate Platelet Morphology Target Cells Sodium Potassium Chloride Carbon Dioxide Anion Gap BUN Creatinine Estimated GFR POC Glucose 42 L* 53 L 56 L Random Glucose Calcium Total Bilirubin AST ALT Alkaline Phosphatase Ammonia Total Protein Albumin 09/25/17 09/25/17 09/25/17 07:49 08:47 09:24 WBC RBC Hgb Hct MCV MCH MCHC RDW Plt Count MPV Prelim Diff (Auto) WBC Differential Seg Neuts % (Manual) Band Neuts % (Manual) Monocytes % (Manual) Abs Neuts (Manual) Differential Comment Platelet Estimate Platelet Morphology Target Cells Sodium Potassium Chloride Carbon Dioxide Anion Gap BUN Creatinine Estimated GFR POC Glucose 52 L 62 L 157 H Random Glucose Calcium Total Bilirubin AST ALT Alkaline Phosphatase Ammonia Total Protein Albumin 09/25/17 09/25/17 09/25/17 10:35 11:08 12:10 WBC 16.2 H RBC 3.39 L Hgb 10.2 L Hct 31.7 L MCV 93.4 MCH 30.0 MCHC 32.1 RDW 16.5 Plt Count 184 D MPV 8.1 Prelim Diff (Auto) Manual diff required WBC Differential Manual diff final Seg Neuts % (Manual) 95 H Band Neuts % (Manual) 1 Monocytes % (Manual) 4 Abs Neuts (Manual) 15.6 H Differential Comment . Platelet Estimate Normal Platelet Morphology Normal Target Cells 1+ H Sodium Potassium Chloride Carbon Dioxide Anion Gap BUN Creatinine Estimated GFR POC Glucose 97 Random Glucose 68 L Calcium Total Bilirubin AST ALT Alkaline Phosphatase Ammonia Total Protein Albumin 09/25/17 09/25/17 09/25/17 12:10 12:10 16:00 WBC RBC Hgb Hct MCV MCH MCHC RDW Plt Count MPV Prelim Diff (Auto) WBC Differential Seg Neuts % (Manual) Band Neuts % (Manual) Monocytes % (Manual) Abs Neuts (Manual) Differential Comment Platelet Estimate Platelet Morphology Target Cells Sodium 133 L Potassium 5.2 H Chloride 98 Carbon Dioxide 34.5 H Anion Gap 1 L BUN 28 H Creatinine 0.63 Estimated GFR Greater than 89 POC Glucose 54 L Random Glucose 60 L Calcium 8.4 L Total Bilirubin 11.8 H AST 154 H ALT 141 H Alkaline Phosphatase 677 H Ammonia 22 Total Protein 7.2 D Albumin 2.9 L 09/25/17 09/25/17 09/25/17 17:33 18:04 19:56 WBC RBC Hgb Hct MCV MCH MCHC RDW Plt Count MPV Prelim Diff (Auto) WBC Differential Seg Neuts % (Manual) Band Neuts % (Manual) Monocytes % (Manual) Abs Neuts (Manual) Differential Comment Platelet Estimate Platelet Morphology Target Cells Sodium Potassium Chloride Carbon Dioxide Anion Gap BUN Creatinine Estimated GFR POC Glucose 82 161 H 159 H Random Glucose Calcium Total Bilirubin AST ALT Alkaline Phosphatase Ammonia Total Protein Albumin 09/26/17 09/26/17 09/26/17 00:57 04:30 07:38 WBC RBC Hgb Hct MCV MCH MCHC RDW Plt Count MPV Prelim Diff (Auto) WBC Differential Seg Neuts % (Manual) Band Neuts % (Manual) Monocytes % (Manual) Abs Neuts (Manual) Differential Comment Platelet Estimate Platelet Morphology Target Cells Sodium 133 L Potassium 5.3 H Chloride 95 L Carbon Dioxide 29.3 Anion Gap 9 BUN 25 H Creatinine 0.47 L Estimated GFR Greater than 89 POC Glucose 299 H 307 H Random Glucose 241 H D Calcium 8.5 Total Bilirubin 12.0 H AST 140 H ALT 120 H Alkaline Phosphatase 639 H Ammonia Total Protein 6.6 D Albumin 2.6 L 09/26/17 09/26/17 09/26/17 12:38 17:02 19:28 WBC RBC Hgb Hct MCV MCH MCHC RDW Plt Count MPV Prelim Diff (Auto) WBC Differential Seg Neuts % (Manual) Band Neuts % (Manual) Monocytes % (Manual) Abs Neuts (Manual) Differential Comment Platelet Estimate Platelet Morphology Target Cells Sodium Potassium Chloride Carbon Dioxide Anion Gap BUN Creatinine Estimated GFR POC Glucose 216 H 122 H 54 L Random Glucose Calcium Total Bilirubin AST ALT Alkaline Phosphatase Ammonia Total Protein Albumin 09/26/17 09/26/17 09/26/17 20:10 21:01 21:02 WBC RBC Hgb Hct MCV MCH MCHC RDW Plt Count MPV Prelim Diff (Auto) WBC Differential Seg Neuts % (Manual) Band Neuts % (Manual) Monocytes % (Manual) Abs Neuts (Manual) Differential Comment Platelet Estimate Platelet Morphology Target Cells Sodium Potassium Chloride Carbon Dioxide Anion Gap BUN Creatinine Estimated GFR POC Glucose 56 L 128 H Random Glucose 92 D Calcium Total Bilirubin AST ALT Alkaline Phosphatase Ammonia Total Protein Albumin 09/27/17 09/27/17 09/27/17 01:19 05:58 07:45 WBC RBC Hgb Hct MCV MCH MCHC RDW Plt Count MPV Prelim Diff (Auto) WBC Differential Seg Neuts % (Manual) Band Neuts % (Manual) Monocytes % (Manual) Abs Neuts (Manual) Differential Comment Platelet Estimate Platelet Morphology Target Cells Sodium Potassium Chloride Carbon Dioxide Anion Gap BUN Creatinine Estimated GFR POC Glucose 109 156 H 162 H Random Glucose Calcium Total Bilirubin AST ALT Alkaline Phosphatase Ammonia Total Protein Albumin 09/27/17 12:11 WBC RBC Hgb Hct MCV MCH MCHC RDW Plt Count MPV Prelim Diff (Auto) WBC Differential Seg Neuts % (Manual) Band Neuts % (Manual) Monocytes % (Manual) Abs Neuts (Manual) Differential Comment Platelet Estimate Platelet Morphology Target Cells Sodium Potassium Chloride Carbon Dioxide Anion Gap BUN Creatinine Estimated GFR POC Glucose 355 H Random Glucose Calcium Total Bilirubin AST ALT Alkaline Phosphatase Ammonia Total Protein Albumin Result Diagrams: 09/25/17 12:10 09/26/17 21:02 Procedures: * 09/12/17 CT-guided liver biopsy by IR * 09/23/17 repeat liver biopsy, IR. paracentesis 800 ML Assessment and Plan - Disease Oriented Problem List (1) Hepatitis C, chronic (2) COPD (chronic obstructive pulmonary disease) (3) Lung fibrosis (4) Liver mass (5) Ascites (6) Transaminitis Pertinent Non-Medical Issues: Psychosocial: Patient born and raised in [place]. Originally from [place]. Moved to this area several years ago. 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 Adopted, only child. Both parents . No other family or friends, describes that he is "not very social ". He is a "loner." Spiritual: Has peggy in God, however does not want building manager visits Legal: Patient is currently alert oriented and appears to have reasonable insight and judgment. He is able to make his own decisions. At any point his mental status could deteriorate secondary to advancing liver disease, and he may become incapacitated. He has no family or friends that he would designate as his healthcare surrogate. Ethical issues impacting care: No ethical issues identified Important Contacts: none Prognosis: This patient was admitted for abdominal distention and constipation. He has underlying history of hepatitis, diabetes, as well as COPD, lung fibrosis. He has had findings of multiple liver nodules concerning for malignancy. Additional diagnostics pending. Oncology following. Due to poor performance status not a good candidate for chemotherapy, may have very limited treatment options. If hepatocellular CA is unresectable. If is another primary would be a metastatic disease. Limited treatment options. Appropriate for hospice if goals were comfort oriented. Code Status: Full Code Plan: * Legal decision maker: Patient is currently alert oriented and appears to have reasonable insight and judgment. He is able to make his own decisions. At any point his mental status could deteriorate secondary to advancing liver disease, and he may become incapacitated. He has no family or friends that he would designate as his healthcare surrogate. * Goals:Patient appears to understand conditions, pending diagnostics and possible/probable diagnoses of malignancy. He understands that he may not have any treatment options. However, he would like to proceed with a second biopsy to get as much information as he can and "confirm things". He indicates he "puts it in God's hands and that things could change any day", and that he would want as much information as possible so if there is any possible chance of treatment he could have it. * He is reluctant to speak further about his conditions or goals, but does endorse he elected hospice for comfort treatment only * CODE STATUS: DNR * SYMPTOMS: --Dyspnea-secondary to liver/abdominal pathology, deconditioning. Uses O2 as needed. Dyspnea also improves when abdominal pain well controlled. If goals were comfort oriented may benefit from prn low dose benzos dyspnea/ tachypnea. endorsed good relief of both dyspnea and pain with use of oxycodone 20 mg. Denies dyspnea today, though visibly appears SOB during exam. he has been refusing to lay in bed at all for past 2 days due to orthopnea, has been sitting tripod fashion on side of bed. --Pain -abdominal pain which radiates to the ribs especially with dyspnea. Worsens with abdominal distention abdomen feels bloated, painful. 2/2 liver pathology, ascites. At times it makes his breathing painful. has endorsed good relief of both dyspnea and pain with use of oxycodone 20 mg. Has required 1 dose prn oxycodone 20mg today, 4 doses yesterday. requirements fluctuating. No adjustments recommended at this time -- weakness- endorses weakness/fatigue in past 3-4 weeks; multifactorial, suspected malignancy, malnutrition, weight loss, deconditioning. Will likely be progressive as disease progresses. appears physically weaker to me today. --malnutrition- hx diabetes, some hyperglycemia per pt. +weight loss, unk amt , over 1 month. + early satiety, only able to eat small amts due to abdominal discomfort. albumin 2.4. Bleacher Lard following, pt likes/taking PO glucerna supplements. Recommend low sugar, but calorie dense food that pt likes as PO is very limited. denies nausea or GI complaints * Palliative care will continue to follow during hospital course as condition evolves, to assist patient/decision-maker with understanding of medical conditions, weighing benefits/burdens of treatment options, for clarification of goals of treatment. Additionally will assist with any symptoms of palliative concern
--- NOTE | 2017-10-05 13:49 | P.DS ---
Date of admission: 09/10/17 05:52 Primary care physician: Shama Bueno MD Anticipated date of discharge: 09/27/17 Brief History from admission: This is a 57-year-old male patient with past medical history which includes COPD with fibrotic lung disease not on home oxygen, diabetes mellitus and hepatitis C. Patient reports he has previously been treated with Harvoni for his hepatitis C by Dr. Honeycutt about 1 year ago. Patient presents to the emergency department with complaints of abdominal distention and constipation for approximately 3 weeks. Patient reports that he has had abd distention that comes and goes ax 3 weeks along with constipation. Patient report that he has had hard ball like stool intermittently over the past 3 weeks. Initially this constipation was relieved by prune juice but this stopped working. He proceeded to the ER for further evaluation and treatment. Patient also indorses intermitted nausea, but no vomiting. Patient denies fevers chills vomiting chest pain or shortness of breath. DS: Diagnosis - Discharge Diagnosis (1) Liver mass Status: Acute (2) Ascites Status: Acute DS: Medications - Discharge Medications Prescriptions: furosemide [Lasix] 20 mg PO BID 30 Days tab insulin detemir U-100 [Levemir U-100 Insulin] 15 unit SUB-Q DAILY 30 Days ml lactulose 20 g PO DAILY 30 Days each oxycodone 20 mg PO Q4-6H PRN #120 tab PRN Reason: Pain pantoprazole 40 mg PO BID 30 Days #60 tab spironolactone [Aldactone] 50 mg PO BID@0900,1800 30 Days tab DS: Summary Hospital Course: Assessment (1) Liver mass Code(s): R16.0 - Hepatomegaly, not elsewhere classified Status: Acute Plan: This is a 57-year-old male patient with past medical history which includes diabetes mellitus and hepatitis C. Patient reports he has previously been treated with Harvoni for his hepatitis C. Patient presents to the emergency department with complaints of abdominal distention and constipation for approximately 3 weeks. 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 Patient reports he has previously been treated with Harvoni for his hepatitis C by Dr. Honeycutt about 1 year ago. - He presented to the ED on 09/10/17 with complaints of abdominal distention and constipation for approximately 3 weeks. - KUB (09/10/17)--> no dilated loops of small or large bowel - CT abdomen/pelvis (09/10/17) --> abnormal examination suspicious for malignancy demonstrating significant ascites in the abdomen and pelvis, multiple irregular margin hypodense lesions in the liver measuring up to 9 cm in size , and enlarged ring-enhancing nodular masses adjacent to the celiac artery, anterior to the heart and adjacent to the inferior esophagus. - Given concern of malignancy interventional radiology was consulted for US guided paracentesis with cytology but this was unable to be done as there was not enough fluid - CMP on admission reviewed total bilirubin 0.9 AST 208, ALT 152, alkaline phosphatase 472 ammonia (09/10) < 10, AFP (09/11) 533.3, CA 19.9 509.5 - His LFTs worsened following admission, the transaminases have slowly been improving but TBili is elevating. - (09/11/17) Tbili 0.8, AST 6470, ALT 3043, AlkPhos 939 - (09/12/17) Tbili 0.6, AST 2051, ALT 1765, AlkPhos 801 - (09/13/17) TBili 1.0, AST 831, ALT 1070, AlkPhos 751 - (09/14/17) TBili 1.4, AST 690, ALT 839, AlkPhos 921 - (09/15/17) TBili 2.8, DBili 2.3, AST 553, ALT 661, AlkPhos 966 - (09/16/17) TBili 4.8, AST 354, ALT 492, AlkPhos 904 - (09/19/17) TBili 7.1, AST 163, ALT 240, AlkPhos 732 - Hepatitis profile Hep C Ab positive - PT 10.9, INR 1.1, APTT 23.8 (09/10) - repeat INR and APTT in AM - US guided paracentesis was performed on 09/15/17 and fluid for cytology is non- diagnostic cont aldactone. lasix/albumen. - Pt had a CT guided biopsy of the liver with IR (09/12/17) --> pathology noted hepatic necrosis and acute inflammation. no evidence for malignancy. - Pt underwent evaluation with EGD/colonoscopy (09/16/17): - Nodule in the duodenal bulb-possible minor papilla, portal gastropathy, gastritis in the antrum, severe silvio esophagitis involving all esophagus, esophageal varices grade 2 -3 columns, no banding done due to severe silvio esophagitis - Colonoscopy unable to be completed due to solid stool - Pt started on Nystatin S/S and Protonix 40mg BID - repeat colonoscopy. no malignancy - Pt declined repeat CT guided liver Bx (09/20) - Pt previously seen by Oncology service. I discussed the case with Rita MCKINNEY, and requested repeat evaluation. - biomarkers and scans strongly suggest hepatocellular carcinoma despite lack of pathology. - Case informally d/w Dr. Guzmán (09/20). Pt cannot currently received treatment d/t liver failure/elevated bilirubin for which there is NO treatment. - If pt's liver improves and bilirubin declines then pt might be eligible for palliative chemotherapy - life expectancy less than 6 months - Pt has a difficult social dynamics: no family, no friends, no religious group, and limited finances. Pt rents a trailer. - Pt c/o generalized weakness - PT evaluation - Pt underwent repeat liver Bx (09/23), results pending - appreciate input from Palliative Team. Case d/w Sayra Carlson MELISSA (09/23/17) - Pt unable to undergo repeat Paracentesis (09/24). Case d/w IR, Dr. Ocampo. Not enough fluid for paracentesis. - supportive care - Pt's prognosis remains poor & pt has NO family or social support - daily discussion about poor prognosis and snf vs hospice. he says he is willing to go to hospice care center for comfort...but wants "just one more day here". dc orders written. 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 problaby gi origin. not consistent with HCC Diabetes mellitus - Patient reportedly takes Synjardy 5-1000mg PO BID at home - HgbA1c 15.8 - Diabetic and dietary education. - Levemir on hold -fluctuating bg levels and po intake. Hyponatremia - Likely related to volume - Cont diuretic COPD with fibrotic lung disease not on home oxygen - Pt does not appear to be in acute exacerbation - Continue home anoro elipta - Duonebs Q2H as needed Constipation - continue bowel regiment - add lactulose now DVT prophylaxis with SCDs ( (2) Ascites Code(s): R18.8 - Other ascites Status: Acute ( - Time Spent with Patient Total time spent providing and/or coordinating discharge services: Greater than 30 minutes Exam Vital signs: heart reg lung cta abd ascites/enlarged liver ext 2plus edema Results Procedures completed during hospitalization: ct guided liver bx x 2 ct abd/pelvis egd/colonoscopy x 2 abdomne sivan paracentesis x 2 Completed studies during hospitalization: Pending at discharge 09/10/17 Cytology [PTH] Routine 09/16/17 13:42 Surgical [PTH] Routine - Impressions ITS Impressions Abdomen/Pelvis CT 09/10/17 02:05 CONCLUSION: 1. 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 Abdomen X-Ray 09/13/17 10:29 CONCLUSION: Mild small bowel dilatation central abdomen. No free air. Paracentesis Ultrasound 09/15/17 00:00 CONCLUSION: 1. Successful paracentesis Abdomen MRI 09/17/17 00:00 CONCLUSION: 1. The liver is diffusely enlarged and heterogeneous consistent with hepatocellular disease such as cirrhosis. There is ascites in the upper abdomen. No dilated biliary ducts. 2. There is at least 2 complex areas which are highly suspicious for neoplastic disease. There is a complex area measuring about 12 cm involving segments 4 and 8 of the liver suspicious for neoplastic disease. There is a complex area measuring 9.8 cm in segment 6 suspicious for neoplastic disease. Liver Biopsy CT 09/23/17 00:00 CONCLUSION: Uncomplicated CT guided core biopsy of mass in the dome of the liver. Paracentesis CT 09/23/17 00:00 CONCLUSION: Uncomplicated CT Guided paracentesis. Chest X-Ray 09/23/17 16:15 CONCLUSION: 1. Small right pleural effusion with associated airspace disease in the right lower lobe. 2. No significant pneumothorax. Abdomen Ultrasound 09/24/17 00:00 CONCLUSION: 1. No ascites. Paracentesis deferred. Discharge Plan - Discharge Disposition Patient Disposition: [facility] Hospice/Med Facility - Discharge Condition Condition: Fair - Discharge Order Discharge Orders: Discharge Order (Routine); Ordered 09/27/17 Ordered By: Kevin Ritter - Discharge Details Anticipated Discharge Date: 09/27/17 - Physicians Team Primary Care Provider: Shama Bueno Attending Provider: Hugh Raman Other Providers: Kurtis Bynum MD ; Rob Martinez MD ; John Coronel MD ; [facility],Agency ; [facility] ; [facility]
== END 2017-09-27 17:24 | disposition hospice, inpatient (51) ==
LOC: NEPC 22:57 → NEDA 09-10 05:52 → N05 09-10 08:10
PROVIDERS: ADMIT Hospitalist; ATTEND Hospitalist
PROC: PANENDO (2017-09-16 09:29)
PROC: COLONOS (2017-09-16 09:29)